=== PATIENT | male | born 1945 | race Caucasian/White ===

== ENCOUNTER → 2018-11-04 | Outpatient (CLI) | payer MEDICARE ==
--- NOTE | 2018-11-07 15:31 | PE ---
Nuclear medicine PET/CT HISTORY: Lung mass, initial Patient received 9.3 mCi F-18 FDG intravenously in delayed scanning was performed from the skull base to the mid thighs. Localization and attenuation correction CT scan was performed. Correlation to chest x-ray 11/03/2018 Neck and chest: There is cervical adenopathy noted at the level of the hyoid bone, anterior to the st ernocleidomastoid muscle, there is associated hypermetabolic uptake, SUV is 8. Within the prevascular mediastinum there is a node with hypermetabolic uptake, SUV is 4.9. Extensive additional prevascular and left hilar adenopathy is present with SUV 7, aorticopulmonary window adenopathy with associated hypermetabolic uptake, SUV 3.6. Left hilar adenopathy extends into the left upper lobe mass, SUV is 6 . Subcarinal adenopathy not identified with certainty, uptake at this level may be within the esophag us. There are coronary artery calcifications. There is a large hiatal hernia. ABDOMEN: There is a focal area of hypermetabolic uptake within the left lobe of liver, low-attenuatio n is suspected at this level on CT., SUV 3.8 There is a left adrenal mass measuring approximately 2.5 cm with associated hypermetabolic uptake, SUV is 4.6. Mild uptake noted at associated with a nodular ity in the right adrenal gland. No retroperitoneal adenopathy. Uptake along the bowel is likely physi ologic. Osseous structures: Multiple foci, too numerous to count areas of abnormal hypermetabolic uptake invo lving the pelvis, spine, ribs, proximal upper extremities and shoulders are noted. SUV value is appro ximately 3.8-7 IMPRESSION: Metastatic disease.
== END | disposition home or self-care (01) ==
LOC: RADPETMAIN 13:12
PROVIDERS: ATTEND Internal Medicine Critical Care Medicine
DX: C79.51 Secondary malignant neoplasm of bone (principal); C78.02 Secondary malignant neoplasm of left lung; C78.7 Secondary malignant neoplasm of liver and intrahepatic bile duct; C79.72 Secondary malignant neoplasm of left adrenal gland; C79.71 Secondary malignant neoplasm of right adrenal gland; R91.8 Other nonspecific abnormal finding of lung field
CPT/HCPCS: 78815; A9552

== ENCOUNTER 2018-11-08 08:19 | Emergency (ER) | payer MEDICARE ==
[2018-11-08] MEDS ORDERED: methylPREDNISolone SOD SUCCI 125 MG/2 ML VIAL IM ONE (09:11)
[2018-11-08] MEDS ORDERED: KETOROLAC 60 MG/2 ML VIAL IM STA (09:11)
[2018-11-08] MEDS ORDERED: ORPHENADRINE 30 MG/ML 2 ML VIAL IM STA (09:11)
[2018-11-08] MEDS ORDERED: HYDROcodone/APAP 10-325MG 1 EACH TAB PO ONE (09:11)
--- NOTE | 2018-11-08 09:18 | ED ---
Back Pain HPI - General Chief Complaint: Back Pain/Injury Stated Complaint: back pain, Time Seen by Provider: 11/08/18 08:38 Source: patient, RN notes reviewed, old records reviewed Limitations: no limitations - History of Present Illness Initial Comments: Patient is a 72-year-old male presents emergency department today with thoracic and lumbar back pain. Beginning of September. Patient reports that he size primary care doctor and they ordered x-rays. X-rays completed 2 weeks ago of the cervical thoracic and lumbar spine. Is evidence of degenerative disc disease throughout. X-rays thoracic spinous found evidence of a pulmonary mass. He swelling up with Dr. Darnell with this new finding. He scheduled to have a biopsy next week. Patient states he's had no new falls or trauma. Patient states that he has had no significant peripheral paresthesias and common denies saddle anesthesias. Patient states that he has had no fevers or chills. Denies any abdominal pain. - Related Data Home Medications Medication Instructions Recorded Confirmed Levothyroxine Sodium [Synthroid] 25 mcg PO DAILY 11/08/18 11/08/18 Lisinopril [Zestril] 10 mg PO DAILY 11/08/18 11/08/18 Omeprazole [PriLOSEC] 20 mg PO AC-BRKFST 11/08/18 11/08/18 Pravastatin Sodium [Pravachol] 20 mg PO HS 11/08/18 11/08/18 traMADol HCL [Ultram] 50 mg PO TID 11/08/18 11/08/18 Previous Rx's Medication Instructions Recorded Cyclobenzaprine [Flexeril] 10 mg PO TID #20 tab 11/08/18 Dexamethasone 0.75 mg PO DAILY #12 tab 11/08/18 HYDROcodone/APAP 5-325MG [[place] 1 tab PO Q6HR PRN #10 tab 11/08/18 5-325] Allergies Allergy/AdvReac Type Severity Reaction Status Date / Time No Known Allergies Allergy Verified 11/08/18 08:52 Review of Systems ROS Statement: Those systems with pertinent positive or pertinent negative responses have been documented in the HPI. ROS Other: All systems not noted in ROS Statement are negative. 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 Alert and oriented. No distress. Limitations: no limitations Head exam: Present: atraumatic, normocephalic, normal inspection Eye exam: Present: normal appearance, PERRL, EOMI. Absent: scleral icterus, conjunctival injection, periorbital swelling ENT exam: Present: normal exam, mucous membranes moist Neck exam: Present: normal inspection. Absent: tenderness, meningismus, lymphadenopathy Respiratory exam: Present: normal lung sounds bilaterally. Absent: respiratory distress, wheezes, rales, rhonchi, stridor Cardiovascular Exam: Present: regular rate, normal rhythm, normal heart sounds. Absent: systolic murmur, diastolic murmur, rubs, gallop, clicks GI/Abdominal exam: Present: soft, normal bowel sounds. Absent: distended, tenderness, guarding, rebound, rigid Extremities exam: Present: normal inspection, full ROM, normal capillary refill. Absent: tenderness, pedal edema, joint swelling, calf tenderness Back exam: Present: normal inspection, tenderness (Patient's tenderness over the lumbar and thoracic spine.) Neurological exam: Present: alert, oriented X3, CN II-XII intact Psychiatric exam: Present: normal affect, normal mood Skin exam: Present: warm, dry, intact, normal color. Absent: rash Course Vital Signs 11/08/18 08:22 Temperature 97.0 F L Pulse Rate 95 Respiratory 18 Rate Blood Pressure 130/86 O2 Sat by Pulse 97 Oximetry Medical Decision Making - Medical Decision Making Patient is a 72-year-old male presents restarted today with 2 months of mid lower back pain. He stands PCP, had x-rays completed which shows degenerative disease as well as a lung mass. Patient states that this pain continues this is dispensed persist despite taking Motrin. He was started on Ultram by his doctor yesterday. Patient states that he probably the Ultram was not helping with his pain is much as he feels like he needs to be. Patient states that pain seems to worse with position. Patient's x-rays did show multiple degenerative disc disease. Worsen L4-S1. And throughout the thoracic spine is noted to be some. Discussed with x-rays 2 weeks ago no need to repeat imaging at this time without any fall or trauma. Patient agrees. I discussed with discharge Patient with this course of steroids muscle relaxers and anti-inflammatory medicine. I discussed all questions and discuss referral for orthopedic quality assurance specialist. All questions were answered. Disposition Clinical Impression: DDD (degenerative disc disease), thoracolumbar, Back muscle spasm Disposition: HOME SELF-CARE Condition: Good Instructions (If sedation given, give patient instructions): Acute Low Back Pain (ED) Additional Instructions: Patient is to follow-up with her primary care doctor. Return to the emergency department if any alarming signs symptoms occur. Recommend following up with quality assurance specialist as well. Patient should alternating between heat and ice to the lower back as well. Prescriptions: Dexamethasone 0.75 mg PO DAILY #12 tab Cyclobenzaprine [Flexeril] 10 mg PO TID #20 tab HYDROcodone/APAP 5-325MG [[place] 5-325] 1 tab PO Q6HR PRN #10 tab PRN Reason: Pain Is patient prescribed a controlled substance at d/c from ED?: Yes If prescribed controlled substance>3 days was MAPS reviewed?: Prescribed <3 Days If opioid is for acute pain is fill amount 7 days or less?: Yes If Rx opioid, was Start Talking consent form obtained?: Yes Referrals: Skyler Gonzales MD [Primary Care Provider] - 1-2 days Time of Disposition: 10:18
[2018-11-08 10:31] VITALS: BP 110/79; PULSE 86; RESP 16; TEMP 97.8
== END 2018-11-08 10:31 | disposition home or self-care (01) ==
LOC: EC 08:19
DX: M51.35 Other intervertebral disc degeneration, thoracolumbar region (principal); M51.37 Other intervertebral disc degeneration, lumbosacral region; R91.8 Other nonspecific abnormal finding of lung field; E78.5 Hyperlipidemia, unspecified; I10 Essential (primary) hypertension; Z87.891 Personal history of nicotine dependence; Z79.890 Hormone replacement therapy; Z79.891 Long term (current) use of opiate analgesic; Z79.899 Other long term (current) drug therapy; Z85.21 Personal history of malignant neoplasm of larynx; Z90.89 Acquired absence of other organs; Z82.69 Family history of other diseases of the musculoskeletal system and connective tissue; Z83.6 Family history of other diseases of the respiratory system
CPT/HCPCS: 99283; 96372 ×3; J2360; J2930; J1885

== ENCOUNTER 2018-11-15 16:54 | Inpatient (IN) | payer MEDICARE ==
[2018-11-15 18:45] LABS: Appearance,Urine Clear (Clear); Bacteria,Urine Rare /hpf; Bilirubin,Urine Negative (Negative); Blood,Urine Trace (Negative); Color,Urine Yellow; Glucose,Urine (UA) Negative (Negative); Hyaline Casts,Urine 1 /lpf (0-2); Ketones,Urine 1+ (Negative); Leukocyte Esterase,Urine Negative (Negative); Mucus,Urine Rare /hpf; Nitrite,Urine Negative (Negative); PH, Urine 5.5 (5.0-8.0); Protein,Urine Trace (Negative); RBC,Urine 4 /hpf (0-5); Specific Gravity,Urine 1.019 (1.001-1.035); Urobilinogen,Urine <2.0 mg/dL (<2.0); WBC,Urine 1 /hpf (0-5)
--- NOTE | 2018-11-15 19:07 | ED ---
Male Urogenital HPI <Fadi Chávez - Last Filed: 11/15/18 20:41> - General Source: patient Mode of arrival: ambulatory Limitations: no limitations <Fara Gomez - Last Filed: 11/15/18 20:52> - General Chief complaint: Urogenital Stated complaint: Trouble going to the bathroom Time Seen by Provider: 11/15/18 17:50 - History of Present Illness Initial comments: 73-year-old male patient presents to the emergency department today for evaluation of inability to urinate for the last 4 days. Patient states that he has felt the pressure and urge to urinate however is unable to do so. Patient states that he did see his primary care physician yesterday, was able to give a small urine sample which showed presence of infection so she started him on Cipro. Patient states that today the pain and pressure seemed to worsen so he presented here for further evaluation. Patient denies any fever or chills. Denies any back pain. Denies any nausea or vomiting. Patient denies any history of similar symptoms. 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 Patient states that they are evaluating this. also reports the patient has been quite constipated. He was been taking MiraLAX without relief. Patient denies any recent rash, shortness breath, chest pain, numbness, tingling, dizziness, weakness, headache, visual changes, or any other complaints. (Fara Gomez) - Related Data Home Medications Medication Instructions Recorded Confirmed Levothyroxine Sodium [Synthroid] 25 mcg PO DAILY 11/08/18 11/15/18 Lisinopril [Zestril] 10 mg PO DAILY 11/08/18 11/15/18 Omeprazole [PriLOSEC] 20 mg PO AC-BRKFST 11/08/18 11/15/18 Pravastatin Sodium [Pravachol] 20 mg PO HS 11/08/18 11/15/18 Ciprofloxacin HCl [Cipro] 500 mg PO BID 11/15/18 11/15/18 HYDROcodone/APAP 7.5-325MG [[place] 1 tab PO Q6H PRN 11/15/18 11/15/18 7.5-325] Allergies Allergy/AdvReac Type Severity Reaction Status Date / Time No Known Allergies Allergy Verified 11/15/18 17:54 Review of Systems ROS Other: All systems not noted in ROS Statement are negative. <Fadi Chávez - Last Filed: 11/15/18 20:41> ROS Other: All systems not noted in ROS Statement are negative. <Fara Gomez - Last Filed: 11/15/18 20:52> ROS Statement: Those systems with pertinent positive or pertinent negative responses have been documented in the HPI. 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 Vital signs upon presentation are temperature 97.8F, pulse 109, respirations 18, blood pressure 126/82, pulse ox 97% on room air.) Eye exam: Present: normal appearance, PERRL, EOMI. Absent: scleral icterus, conjunctival injection, periorbital swelling ENT exam: Present: normal exam, normal oropharynx, mucous membranes moist Respiratory exam: Present: normal lung sounds bilaterally. Absent: respiratory distress, wheezes, rales, rhonchi, stridor Cardiovascular Exam: Present: regular rate, normal rhythm, normal heart sounds. Absent: systolic murmur, diastolic murmur, rubs, gallop, clicks GI/Abdominal exam: Present: soft, tenderness (Suprapubic), normal bowel sounds. Absent: distended, guarding, rebound, rigid Back exam: Absent: CVA tenderness (R), CVA tenderness (L) Neurological exam: Present: alert, oriented X3, CN II-XII intact Psychiatric exam: Present: normal affect, normal mood Skin exam: Present: warm, dry, intact, normal color. Absent: rash <Fara Gomez - Last Filed: 11/15/18 20:52> Course <Fadi Chávez - Last Filed: 11/15/18 20:41> Vital Signs 11/15/18 11/15/18 17:21 19:59 Temperature 97.8 F Pulse Rate 109 H 100 Respiratory 18 18 Rate Blood Pressure 126/82 126/78 O2 Sat by Pulse 97 98 Oximetry - Reevaluation(s) Reevaluation #1: 11/15/18 20:41 B supervision: I did proceed evaluate this patient in case the patient did present with urinary retention was found to be hyponatremic he does have a history of lung cancer he does demonstrate evidence of dehydration. The case is discussed with Dr. Krishnan the patient will be admitted (Fadi Chávez) Medical Decision Making - Lab Data Result diagrams: 11/15/18 19:27 11/15/18 19:30 <Fadi Chávez - Last Filed: 11/15/18 20:41> - Lab Data Result diagrams: 11/15/18 19:27 11/15/18 19:30 <Fara Gomez - Last Filed: 11/15/18 20:52> - Lab Data Lab Results 11/15/18 11/15/18 11/15/18 Range/Units 18:30 18:30 19:27 WBC 16.1 H (3.8-10.6) k/uL RBC 4.28 L (4.30-5.90) m/uL Hgb 12.9 L (13.0-17.5) gm/dL Hct 38.0 L (39.0-53.0) % MCV 88.7 (80.0-100.0) fL MCH 30.0 (25.0-35.0) pg MCHC 33.8 (31.0-37.0) g/dL RDW 13.5 (11.5-15.5) % Plt Count 187 (150-450) k/uL Neutrophils % 84 % Lymphocytes % 7 % Monocytes % 7 % Eosinophils % 0 % Basophils % 0 % Neutrophils # 13.5 H (1.3-7.7) k/uL Lymphocytes # 1.1 (1.0-4.8) k/uL Monocytes # 1.1 H (0-1.0) k/uL Eosinophils # 0.1 (0-0.7) k/uL Basophils # 0.1 (0-0.2) k/uL Sodium (137-145) mmol/L Potassium (3.5-5.1) mmol/L Chloride (98-107) mmol/L Carbon Dioxide (22-30) mmol/L Anion Gap mmol/L BUN (9-20) mg/dL Creatinine (0.66-1.25) mg/dL Est GFR (CKD-EPI)AfAm (>60 ml/min/1.73 sqM) Est GFR (CKD-EPI)NonAf (>60 ml/min/1.73 sqM) Glucose (74-99) mg/dL Osmolality (280-301) mosm/kg Calcium (8.4-10.2) mg/dL Total Bilirubin (0.2-1.3) mg/dL AST (17-59) U/L ALT (21-72) U/L Alkaline Phosphatase (38-126) U/L Total Protein (6.3-8.2) g/dL Albumin (3.5-5.0) g/dL Urine Color Yellow Urine Appearance Clear (Clear) Urine pH 5.5 (5.0-8.0) Ur Specific [place] 1.019 (1.001-1.035) Urine Protein Trace H (Negative) Urine Glucose (UA) Negative (Negative) Urine Ketones 1+ H (Negative) Urine Blood Trace H (Negative) Urine Nitrite Negative (Negative) Urine Bilirubin Negative (Negative) Urine Urobilinogen <2.0 (<2.0) mg/dL Ur Leukocyte Esterase Negative (Negative) Urine RBC 4 (0-5) /hpf Urine WBC 1 (0-5) /hpf Urine Bacteria Rare H (None) /hpf Hyaline Casts 1 (0-2) /lpf Urine Mucus Rare H (None) /hpf Urine Osmolality 515 (50-1400) mosm/kg 11/15/18 11/15/18 Range/Units 19:30 19:30 WBC (3.8-10.6) k/uL RBC (4.30-5.90) m/uL Hgb (13.0-17.5) gm/dL Hct (39.0-53.0) % MCV (80.0-100.0) fL MCH (25.0-35.0) pg MCHC (31.0-37.0) g/dL RDW (11.5-15.5) % Plt Count (150-450) k/uL Neutrophils % % Lymphocytes % % Monocytes % % Eosinophils % % Basophils % % Neutrophils # (1.3-7.7) k/uL Lymphocytes # (1.0-4.8) k/uL Monocytes # (0-1.0) k/uL Eosinophils # (0-0.7) k/uL Basophils # (0-0.2) k/uL Sodium 119 L* (137-145) mmol/L Potassium 5.0 (3.5-5.1) mmol/L Chloride 82 L (98-107) mmol/L Carbon Dioxide 26 (22-30) mmol/L Anion Gap 11 mmol/L BUN 25 H (9-20) mg/dL Creatinine 0.80 (0.66-1.25) mg/dL Est GFR (CKD-EPI)AfAm >90 (>60 ml/min/1.73 sqM) Est GFR (CKD-EPI)NonAf 90 (>60 ml/min/1.73 sqM) Glucose 111 H (74-99) mg/dL Osmolality 252 L (280-301) mosm/kg Calcium 9.0 (8.4-10.2) mg/dL Total Bilirubin 0.8 (0.2-1.3) mg/dL AST 65 H (17-59) U/L ALT 26 (21-72) U/L Alkaline Phosphatase 117 (38-126) U/L Total Protein 6.2 L (6.3-8.2) g/dL Albumin 3.4 L (3.5-5.0) g/dL Urine Color Urine Appearance (Clear) Urine pH (5.0-8.0) Ur Specific [place] (1.001-1.035) Urine Protein (Negative) Urine Glucose (UA) (Negative) Urine Ketones (Negative) Urine Blood (Negative) Urine Nitrite (Negative) Urine Bilirubin (Negative) Urine Urobilinogen (<2.0) mg/dL Ur Leukocyte Esterase (Negative) Urine RBC (0-5) /hpf Urine WBC (0-5) /hpf Urine Bacteria (None) /hpf Hyaline Casts (0-2) /lpf Urine Mucus (None) /hpf Urine Osmolality (50-1400) mosm/kg Disposition <Fadi Chávez - Last Filed: 11/15/18 20:41> Decision to Admit Reason: Admit from [facility] Decision Date: 11/15/18 Decision Time: 20:52 <Fara Gomez - Last Filed: 11/15/18 20:52> Clinical Impression: Hyponatremia, Urine retention Disposition: ADMITTED IP TO THIS [facility] Condition: Serious Referrals: Skyler Gonzales MD [Primary Care Provider] - 1-2 days
--- NOTE | 2018-11-15 19:13 | XR ---
EXAMINATION TYPE: XR KUB DATE OF EXAM: 11/15/2018 COMPARISON: NONE HISTORY: Constipation TECHNIQUE: 2 views FINDINGS: 2 upright views were obtained and show no sign of intestinal obstruction or pneumoperitoneu m. Fecal pattern is normal. There is no sign of a mass. There is slight elevated right diaphragm. The re is hiatal hernia. IMPRESSION: Mild elevated right diaphragm. Nonacute abdomen. No evidence of constipation.
[2018-11-15 19:51] LABS: Basophils # (A) 0.1 k/uL (0-0.2); Basophils % (A) 0 %; Eosinophils # (A) 0.1 k/uL (0-0.7); Eosinophils % (A) 0 %; HGB 12.9 gm/dL (13.0-17.5); Lymphocytes # (A) 1.1 k/uL (1.0-4.8); Lymphocytes % (A) 7 %; MCHC 33.8 g/dL (31.0-37.0); MCV 88.7 fL (80.0-100.0); Monocytes # (A) 1.1 k/uL (0-1.0); Monocytes % (A) 7 %; Neutrophils # (A) 13.5 k/uL (1.3-7.7); Neutrophils % (A) 84 %; Platelet Count 187 k/uL (150-450); RBC 4.28 m/uL (4.30-5.90); RDW 13.5 % (11.5-15.5); WBC 16.1 k/uL (3.8-10.6)
[2018-11-15 19:59] LABS: ALT 26 U/L (21-72); AST 65 U/L (17-59); Albumin 3.4 g/dL (3.5-5.0); Alkaline Phosphatase 117 U/L (38-126); Anion Gap 11 mmol/L; Blood Urea Nitrogen 25 mg/dL (9-20); Carbon Dioxide 26 mmol/L (22-30); Chloride 82 mmol/L (98-107); Glucose 111 mg/dL (74-99); Total Bilirubin 0.8 mg/dL (0.2-1.3); Total Protein 6.2 g/dL (6.3-8.2)
[2018-11-15 20:07] LABS: Sodium 119 mmol/L (137-145)
[2018-11-15] MEDS: SODIUM CHLORIDE 0.9% 1,000 ML IV SCH (20:35)
[2018-11-15] MEDS ORDERED: NALOXONE 0.4 MG/ML 1 ML VIAL IV PRN (20:49)
[2018-11-15] MEDS: PRAVASTATIN SODIUM 20 MG TAB PO SCH (22:12)
[2018-11-15] MEDS: CIPROFLOXACIN HCL 500 MG TAB PO SCH (22:12)
[2018-11-15] MEDS: MELATONIN 3 MG TABLET PO SCH (22:18)
[2018-11-16] MEDS: SODIUM CHLORIDE 0.9% 1,000 ML IV SCH ×2 (03:19→09:22)
[2018-11-16] MEDS: HYDROcodone/APAP 7.5-325MG 1 EACH TAB PO PRN ×3 (05:55→17:37)
[2018-11-16] MEDS: LEVOTHYROXINE 25 MCG TAB PO SCH (05:56)
[2018-11-16 07:26] LABS: ALT 31 U/L (21-72); AST 70 U/L (17-59); Albumin 3.1 g/dL (3.5-5.0); Alkaline Phosphatase 102 U/L (38-126); Anion Gap 11 mmol/L; Blood Urea Nitrogen 19 mg/dL (9-20); Calcium 8.4 mg/dL (8.4-10.2); Carbon Dioxide 23 mmol/L (22-30); Chloride 93 mmol/L (98-107); Glucose 108 mg/dL (74-99); Potassium 4.6 mmol/L (3.5-5.1); Sodium 127 mmol/L (137-145); Total Bilirubin 0.7 mg/dL (0.2-1.3); Total Protein 5.9 g/dL (6.3-8.2)
[2018-11-16] MEDS: CIPROFLOXACIN HCL 500 MG TAB PO SCH (07:43)
[2018-11-16] MEDS: PANTOPRAZOLE 40 MG TABLET PO SCH (07:43)
[2018-11-16] MEDS: LISINOPRIL 10 MG TAB PO SCH (07:43)
[2018-11-16] MEDS ORDERED: POLYETHYLENE GLYCOL 3350 17 GM POWD.PACK PO PRN (11:48)
--- NOTE | 2018-11-16 11:58 | P.HPIM ---
History of Present Illness 71-year-old the pleasant gentleman came in with the complaints of urinary retention has been going on for about 5 days. Patient is found to be severely hyponatremic with serum creatinine of 119 patient was given 1 50 mL of normal sa line and his sodium is now 127. Patient's urinary sodium is less than 10 consistent with hypovolemic hyponatremia. Patient has a [place] catheter. Patient is also complaining of constipation, not been eating or drinking well. 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 We'll obtain MRI of the lumbar spine to assess for any metastatic disease constipation was not evident on the x-ray will use MiraLAX for that urology will be consulted. Nephrology be consulted as well patient does have leukocytosis which appear to be reactive. Patient denied any dysuria was receiving ciprofloxacin urine is not significa ntly abnormal now that he is draining him not require any antibiotics and antiemetics will be discontinued patient that IV fluids will be down to 100 mL/h. Patient denied any increased weakness in the legs increase the tingling numbness is weakness is at his baseline patient uses walker at home. Review of Systems REVIEW OF SYSTEMS: CONSTITUTIONAL: No fever, no malaise, no fatigue. HEENT: No recent visual problems or hearing problems. Denied any sore throat. CARDIOVASCULAR: No chest pain, orthopnea, PND, no palpitations, no syncope. PULMONARY: No shortness of breath, no cough, no hemoptysis. GASTROINTESTINAL: No diarrhea, no nausea, no vomiting, no abdominal pain. NEUROLOGICAL: No headaches, no weakness, no numbness. HEMATOLOGICAL: Denies any bleeding or petechiae. GENITOURINARY: As mentioned in HPI MUSCULOSKELETAL/RHEUMATOLOGICAL: Denies any joint pain, swelling, or any muscle pain. ENDOCRINE: Denies any polyuria or polydipsia. The rest of the 14-point review of systems is negative. 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 Past Anesthesia/Blood Transfusion Reactions: No Reported Reaction Past Psychological History: No Psychological Hx Reported Smoking Status: Former smoker Past Alcohol Use History: None Reported Past Drug Use History: None Reported - Past Family History Father Family Medical History: No Reported History Mother Family Medical History: No Reported History Medications and Allergies Home Medications Medication Instructions Recorded Confirmed Type Levothyroxine Sodium [Synthroid] 25 mcg PO DAILY 11/08/18 11/15/18 History Lisinopril [Zestril] 10 mg PO DAILY 11/08/18 11/15/18 History Omeprazole [PriLOSEC] 20 mg PO AC-BRKFST 11/08/18 11/15/18 History Pravastatin Sodium [Pravachol] 20 mg PO HS 11/08/18 11/15/18 History Ciprofloxacin HCl [Cipro] 500 mg PO BID 11/15/18 11/15/18 History HYDROcodone/APAP 7.5-325MG [[place] 1 tab PO Q6H PRN 11/15/18 11/15/18 History 7.5-325] Allergies Allergy/AdvReac Type Severity Reaction Status Date / Time No Known Allergies Allergy Verified 11/15/18 17:54 Physical Exam Vitals: Vital Signs Temp Pulse Pulse Resp BP BP Pulse Ox 11/16/18 07:18 98.8 F 89 17 125/76 96 11/16/18 01:39 98.6 F 95 17 125/75 95 11/15/18 22:00 98.9 F 101 H 16 110/63 96 11/15/18 19:59 100 18 126/78 98 11/15/18 17:21 97.8 F 109 H 18 126/82 97 Intake and Output 11/15/18 11/16/18 11/16/18 22:59 06:59 14:59 Output Total 1450 2350 1800 Balance -1450 -2350 -1800 Output: Urine 1450 2350 1800 Other: Voiding Method Toilet Indwelling Catheter Indwelling Catheter Diaper Weight 90.718 kg PHYSICAL EXAMINATION: GENERAL: The patient is alert and oriented x3, not in any acute distress. Well developed, well nourished. HEENT: Pupils are round and equally reacting to light. EOMI. No scleral icterus. No conjunctival pallor. Normocephalic, atraumatic. No pharyngeal erythema. No thyromegaly. CARDIOVASCULAR: S1 and S2 present. No murmurs, rubs, or gallops. PULMONARY: Chest is clear to auscultation, no wheezing or crackles. ABDOMEN: Soft, nontender, nondistended, normoactive bowel sounds. No palpable organomegaly. MUSCULOSKELETAL: No joint swelling or deformity. EXTREMITIES: No cyanosis, clubbing, or pedal edema. NEUROLOGICAL: Gross neurological examination did not reveal any focal deficits. SKIN: No rashes. Results CBC & Chem 7: 11/15/18 19:27 11/16/18 06:35 Labs: Abnormal Lab Results - Last 24 Hours (Table) 11/15/18 11/15/18 11/15/18 Range/Units 18:30 19:27 19:30 WBC 16.1 H (3.8-10.6) k/uL RBC 4.28 L (4.30-5.90) m/uL Hgb 12.9 L (13.0-17.5) gm/dL Hct 38.0 L (39.0-53.0) % Neutrophils # 13.5 H (1.3-7.7) k/uL Monocytes # 1.1 H (0-1.0) k/uL Sodium 119 L* (137-145) mmol/L Chloride 82 L (98-107) mmol/L BUN 25 H (9-20) mg/dL Creatinine (0.66-1.25) mg/dL Glucose 111 H (74-99) mg/dL Osmolality (280-301) mosm/kg AST 65 H (17-59) U/L Total Protein 6.2 L (6.3-8.2) g/dL Albumin 3.4 L (3.5-5.0) g/dL Urine Protein Trace H (Negative) Urine Ketones 1+ H (Negative) Urine Blood Trace H (Negative) Urine Bacteria Rare H (None) /hpf Urine Mucus Rare H (None) /hpf 11/15/18 11/16/18 Range/Units 19:30 06:35 WBC (3.8-10.6) k/uL RBC (4.30-5.90) m/uL Hgb (13.0-17.5) gm/dL Hct (39.0-53.0) % Neutrophils # (1.3-7.7) k/uL Monocytes # (0-1.0) k/uL Sodium 127 L (137-145) mmol/L Chloride 93 L (98-107) mmol/L BUN (9-20) mg/dL Creatinine 0.63 L (0.66-1.25) mg/dL Glucose 108 H (74-99) mg/dL Osmolality 252 L (280-301) mosm/kg AST 70 H (17-59) U/L Total Protein 5.9 L (6.3-8.2) g/dL Albumin 3.1 L (3.5-5.0) g/dL Urine Protein (Negative) Urine Ketones (Negative) Urine Blood (Negative) Urine Bacteria (None) /hpf Urine Mucus (None) /hpf Thrombosis Risk Factor Assmnt - Choose All That Apply Any of the Below Risk Factors Present?: Yes Other Risk Factors: Yes Each Risk Factor Represents 2 Points: Age 61-74 years Thrombosis Risk Factor Assessment Total Risk Factor Score: 2 Thrombosis Risk Factor Assessment Level: Low Risk Assessment and Plan Plan: -Urinary retention patient was started on Flomax will obtain MRI of the lumbar spine because of his metastatic disease to spine patient also has constipation which can contribute to urinary retention, urology will be consulted. -Hyponatremia hypovolemic hyponatremia patient's IV fluids will be cut down to 100 mL per hour patient has more than Corrected response of improvement in serum creatinine that is definitely a concern for central pontine myelolysis although significantly rare. -Leukocytosis reactive, no UTI -Hyperlipidemia -Hypertension DVT prophylaxis with subcutaneous heparin
--- NOTE | 2018-11-16 12:08 | P.NPCON ---
History of Present Illness - Reason for Consult hyponatremia - History of Present Illness Reason for consultation: Hyponatremia History of present illness: Patient is a 73-year-old male seen in renal consultation for hyponatremia. Patient presented to the hospital due to difficulty in urination. Patient states he felt that he had a UTI and also states that he could not urinate for nearly 4 days. He was noted to have urinary retention and a Alcala catheter placed this admission. Initially 1400 mL of urine was obtained. Oral intake is fair. He is not on any diuretics. He denies drinking excessive amounts of water. No vomiting or diarrhea. Denies chest pain or shortness of breath. He is also receiving normal saline at 100 mL an hour. Sodium level was 119 on admission yesterday evening and is 127 this morning. Patient's GFR is at baseline. Oral intake has improved. Hemodynamically he stable. Denies personal or family history of renal disease. Vital signs are stable. General: The patient appeared well nourished and normally developed. HEENT: Head exam is unremarkable. Neck is without jugular venous distension. LUNGS: Lungs are clear to auscultation and percussion. Breath sounds decreased. HEART: Rate and Rhythm are regular. First and second heart sounds normal. No murmurs, rubs or gallops. ABDOMEN: Abdominal exam reveals normal bowel sounds. Non-tender and non- distended. No evidence of peritonitis. EXTREMITITES: No clubbing, cyanosis, or edema. 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 Past Anesthesia/Blood Transfusion Reactions: No Reported Reaction Past Psychological History: No Psychological Hx Reported Smoking Status: Former smoker Past Alcohol Use History: None Reported Past Drug Use History: None Reported - Past Family History Father Family Medical History: No Reported History Mother Family Medical History: No Reported History Medications and Allergies Home Medications Medication Instructions Recorded Confirmed Type Levothyroxine Sodium [Synthroid] 25 mcg PO DAILY 11/08/18 11/15/18 History Lisinopril [Zestril] 10 mg PO DAILY 11/08/18 11/15/18 History Omeprazole [PriLOSEC] 20 mg PO AC-BRKFST 11/08/18 11/15/18 History Pravastatin Sodium [Pravachol] 20 mg PO HS 11/08/18 11/15/18 History Ciprofloxacin HCl [Cipro] 500 mg PO BID 11/15/18 11/15/18 History HYDROcodone/APAP 7.5-325MG [[place] 1 tab PO Q6H PRN 11/15/18 11/15/18 History 7.5-325] Allergies Allergy/AdvReac Type Severity Reaction Status Date / Time No Known Allergies Allergy Verified 11/15/18 17:54 Physical Exam Vitals: Vital Signs Temp Pulse Pulse Resp BP BP Pulse Ox 11/16/18 07:18 98.8 F 89 17 125/76 96 11/16/18 01:39 98.6 F 95 17 125/75 95 11/15/18 22:00 98.9 F 101 H 16 110/63 96 11/15/18 19:59 100 18 126/78 98 11/15/18 17:21 97.8 F 109 H 18 126/82 97 Intake and Output 11/15/18 11/16/18 11/16/18 22:59 06:59 14:59 Output Total 1450 2350 1800 Balance -1450 -2350 -1800 Output: Urine 1450 2350 1800 Other: Voiding Method Toilet Indwelling Catheter Indwelling Catheter Diaper Weight 90.718 kg Results - Lab Results Most recent lab results Calcium 8.4 mg/dL (8.4-10.2) 11/16/18 06:35 11/15/18 19:27 11/16/18 06:35 Assessment and Plan Plan: Assessment: 1. Hyponatremia. Patient appears euvolemic. Etiology is urinary retention. Sodium level was 119 on admission last night and is 127 this morning. Also component of poor solute intake as urine sodium was noted to be less than 10 and urine osmolality was 515. 2. Urinary retention s/p Alcala catheter placement. 3. Benign hypertension. Controlled. 4. Recently diagnosed lung cancer. Plan: Maintain Alcala catheter. Hep-Lock IV fluids. Encourage oral intake. Repeat sodium level this evening. Thank you for the consultation. I will continue to follow the patient with you during his hospital stay.
--- NOTE | 2018-11-16 14:12 | MR ---
EXAMINATION TYPE: MR lumbar spine wo/w con DATE OF EXAM: 11/16/2018 COMPARISON: None HISTORY: Lung cancer with mets and acute urinary retention CONTRAST: 9 mL intravenous Gadavist. TECHNIQUE: Multiplanar, multisequence images of the lumbar spine were acquired. FINDINGS: There is diffuse abnormal signal throughout the lumbar spine including the lower thoracic and upper sacral vertebral levels within the [id number] compatible with the patient's known metast atic disease. L5-S1: Based disc bulge is present with anterior thecal sac impression. No AP spinal canal stenosis i s present. Some facet hypertrophy is present. Moderate right foraminal narrowing is present. L4-L5: There is loss of disc height to this level. Disc residual bulge has anterior thecal sac flatte arnulfo. Facet hypertrophy with ligamentum flavum laxity is mild right posterior lateral thecal sac comp ression. There is moderate to severe right and mild left foraminal narrowing. L3-L4: Broad-based disc bulge is subligamentous disc herniation with mild anterior thecal sac flatten ing. No AP spinal canal stenosis present. Facet hypertrophy is present. Neural foramen are patent. L2-L3: Disc bulge is present with mild anterior thecal sac contact. No spinal canal stenosis present. Neural foramen are patent. L1-L2: There is a moderate central disc herniation with moderate anterior thecal sac compression. No AP spinal canal stenosis is present. Neural foramen are patent. T12-L1: No significant disc bulge or disc herniation. No spinal canal stenosis. No foraminal stenos is. There is irregular patchy enhancement through the vertebral levels compatible with the patient's meta static disease. IMPRESSION: 1. Diffuse metastatic disease throughout the visualized osseous structures. 2. Subligamentous disc herniation present with mild to moderate anterior thecal sac compression L3-4, L1-2 discussed above. 3. Additional residual disc bulging present L2-3, L4-5. 4. Foraminal narrowing which is moderate on the right at L5-S1, and moderate to severe on the right L 4-5.
[2018-11-16] MEDS: DEXAMETHASONE SOD PHOSPHATE 4 MG/ML 1 ML VIAL IV SCH (17:38)
[2018-11-16] MEDS ORDERED: TAMSULOSIN 0.4 MG CAP.ER.24H PO SCH (18:30)
[2018-11-16] MEDS: PRAVASTATIN SODIUM 20 MG TAB PO SCH (20:53)
[2018-11-16] MEDS: MELATONIN 3 MG TABLET PO SCH (20:53)
--- NOTE | 2018-11-16 21:53 | P.GSCN ---
History of Present Illness Consult date: 11/16/18 Reason for Consult: Urinary retention Requesting physician: Gavi Parry History of present illness: The patient is a 73-year-old white male with a history of vocal cord malignancy, treated approximately 5 years ago. He has recently developed back pain, and imaging has revealed a lung nodule. Imaging studies have also shown diffuse osseous metastases, including to the spine, and he is presumed to have metasta tic lung cancer. He is admitted with a four-day history of difficulty voiding. He underwent Alcala catheter placement, with a return of 8278-4891 mL of urine (records regarding this are vague). He has an unremarkable urologic history. Specifically, he denies any prior history of UTIs, urolithiasis, or voiding dysfunction. 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 Past Anesthesia/Blood Transfusion Reactions: No Reported Reaction Past Psychological History: No Psychological Hx Reported Smoking Status: Former smoker Past Alcohol Use History: None Reported Past Drug Use History: None Reported - Past Family History Father Family Medical History: No Reported History Mother Family Medical History: No Reported History Medications and Allergies Home Medications Medication Instructions Recorded Confirmed Type Levothyroxine Sodium [Synthroid] 25 mcg PO DAILY 11/08/18 11/15/18 History Lisinopril [Zestril] 10 mg PO DAILY 11/08/18 11/15/18 History Omeprazole [PriLOSEC] 20 mg PO AC-BRKFST 11/08/18 11/15/18 History Pravastatin Sodium [Pravachol] 20 mg PO HS 11/08/18 11/15/18 History Ciprofloxacin HCl [Cipro] 500 mg PO BID 11/15/18 11/15/18 History HYDROcodone/APAP 7.5-325MG [[place] 1 tab PO Q6H PRN 11/15/18 11/15/18 History 7.5-325] Allergies Allergy/AdvReac Type Severity Reaction Status Date / Time No Known Allergies Allergy Verified 11/15/18 17:54 Surgical - Exam Vital Signs Temp Pulse Resp BP Pulse Ox 97.8 F 109 H 18 126/82 97 11/15/18 17:21 11/15/18 17:21 11/15/18 17:21 11/15/18 17:21 11/15/18 17:21 - General well developed, well nourished, no distress - Respiratory normal respiratory effort - Abdomen Abdomen: soft, non tender, no guarding, no rigid, no rebound - Genitourinary normal penis with no external lesions, testicles non-tender - Rectum Rectum: normal sphincter tone, no masses, other (Prostate moderately enlarged and smooth) - Psychiatric oriented to time, oriented to person, oriented to place, speech is normal, memory intact Results - Labs 11/15/18 19:27 11/16/18 19:00 Abnormal Lab Results - Last 24 Hours (Table) 11/16/18 11/16/18 Range/Units 06:35 19:00 Sodium 127 L 129 L (137-145) mmol/L Chloride 93 L (98-107) mmol/L Creatinine 0.63 L (0.66-1.25) mg/dL Glucose 108 H (74-99) mg/dL AST 70 H (17-59) U/L Total Protein 5.9 L (6.3-8.2) g/dL Albumin 3.1 L (3.5-5.0) g/dL Diabetes panel 11/16/18 11/16/18 Range/Units 06:35 19:00 Sodium 127 L 129 L (137-145) mmol/L Potassium 4.6 (3.5-5.1) mmol/L Chloride 93 L (98-107) mmol/L Carbon Dioxide 23 (22-30) mmol/L BUN 19 (9-20) mg/dL Creatinine 0.63 L (0.66-1.25) mg/dL Glucose 108 H (74-99) mg/dL Calcium 8.4 (8.4-10.2) mg/dL AST 70 H (17-59) U/L ALT 31 (21-72) U/L Alkaline Phosphatase 102 (38-126) U/L Total Protein 5.9 L (6.3-8.2) g/dL Albumin 3.1 L (3.5-5.0) g/dL Calcium panel 11/16/18 Range/Units 06:35 Calcium 8.4 (8.4-10.2) mg/dL Albumin 3.1 L (3.5-5.0) g/dL Pituitary panel 11/16/18 11/16/18 Range/Units 06:35 19:00 Sodium 127 L 129 L (137-145) mmol/L Potassium 4.6 (3.5-5.1) mmol/L Chloride 93 L (98-107) mmol/L Carbon Dioxide 23 (22-30) mmol/L BUN 19 (9-20) mg/dL Creatinine 0.63 L (0.66-1.25) mg/dL Glucose 108 H (74-99) mg/dL Calcium 8.4 (8.4-10.2) mg/dL Adrenal panel 11/16/18 11/16/18 Range/Units 06:35 19:00 Sodium 127 L 129 L (137-145) mmol/L Potassium 4.6 (3.5-5.1) mmol/L Chloride 93 L (98-107) mmol/L Carbon Dioxide 23 (22-30) mmol/L BUN 19 (9-20) mg/dL Creatinine 0.63 L (0.66-1.25) mg/dL Glucose 108 H (74-99) mg/dL Calcium 8.4 (8.4-10.2) mg/dL Total Bilirubin 0.7 (0.2-1.3) mg/dL AST 70 H (17-59) U/L ALT 31 (21-72) U/L Alkaline Phosphatase 102 (38-126) U/L Total Protein 5.9 L (6.3-8.2) g/dL Albumin 3.1 L (3.5-5.0) g/dL Assessment and Plan (1) Urine retention Current Visit: Yes Status: Acute Code(s): R33.9 - RETENTION OF URINE, UNSPECIFIED SNOMED Code(s): 859478047 Plan: In summary, the patient is a 73-year-old white male with diffuse bony metastases, including to the spine. He has been found to have hyponatremia and urinary retention. A Alcala catheter is currently in place, draining clear ye llow urine. I explained to Mr. Ruiz that his bladder was significantly distended, and that this typically results in a loss of bladder tone. In view of this, the Alcala catheter will be left in place for a minimum of 1-2 weeks to allow the bladder to regain its tone. I don't believe there is any benefit to Mr. Ruiz receiving tamsulosin at this time, but should be initiated prior to a voiding trial. Time with Patient: Greater than 30
[2018-11-17] MEDS: DEXAMETHASONE SOD PHOSPHATE 4 MG/ML 1 ML VIAL IV SCH ×4 (01:05→16:51)
[2018-11-17] MEDS: LEVOTHYROXINE 25 MCG TAB PO SCH (06:28)
[2018-11-17] MEDS: HYDROcodone/APAP 7.5-325MG 1 EACH TAB PO PRN ×2 (07:29→16:05)
[2018-11-17] MEDS: PANTOPRAZOLE 40 MG TABLET PO SCH (07:29)
[2018-11-17] MEDS: LISINOPRIL 10 MG TAB PO SCH (07:31)
[2018-11-17 07:34] VITALS: TEMP 97.6
[2018-11-17 07:44] LABS: Anion Gap 9 mmol/L; Blood Urea Nitrogen 17 mg/dL (9-20); Calcium 8.6 mg/dL (8.4-10.2); Carbon Dioxide 27 mmol/L (22-30); Chloride 96 mmol/L (98-107); Glucose 143 mg/dL (74-99); Sodium 132 mmol/L (137-145)
[2018-11-17 07:58] LABS: Potassium 5.4 mmol/L (3.5-5.1)
--- NOTE | 2018-11-17 09:46 | P.PN ---
Subjective Patient is seen in follow-up for hyponatremia. Etiology of his urinary retention. Patient currently is a Alcala catheter. Urine output is good. Oral intake is good. Sodium level is up to 132 today. Vital signs are stable. General: The patient appeared well nourished and normally developed. HEENT: Head exam is unremarkable. Neck is without jugular venous distension. LUNGS: Lungs are clear to auscultation and percussion. Breath sounds decreased. HEART: Rate and Rhythm are regular. First and second heart sounds normal. No murmurs, rubs or gallops. ABDOMEN: Abdominal exam reveals normal bowel sounds. Non-tender and non- distended. No evidence of peritonitis. EXTREMITITES: No clubbing, cyanosis, or edema. Objective - Vital Signs Vital signs: Vital Signs Temp 97.6 F 11/17/18 07:33 Pulse 88 11/17/18 07:33 Resp 16 11/17/18 07:33 BP 130/88 11/17/18 07:33 Pulse Ox 97 11/17/18 07:33 Intake & Output 11/16/18 11/17/18 11/17/18 18:59 06:59 18:59 Intake Total 1080 Output Total 2525 1999 Balance -2525 -920 Intake: Oral 1080 Output: Urine 2525 1999 Other: Voiding Method Indwelling Catheter Indwelling Catheter Indwelling Catheter # Voids 1 - Labs CBC & Chem 7: 11/15/18 19:27 11/17/18 06:51 Labs: Abnormal Lab Results - Last 24 Hours (Table) 11/16/18 11/17/18 Range/Units 19:00 06:51 Sodium 129 L 132 L (137-145) mmol/L Potassium 5.4 H (3.5-5.1) mmol/L Chloride 96 L (98-107) mmol/L Creatinine 0.55 L (0.66-1.25) mg/dL Glucose 143 H (74-99) mg/dL Assessment and Plan Plan: Assessment: 1. Hyponatremia. Patient appears euvolemic. Etiology is urinary retention. Sodium level was 119 on admission last night and is 132 this morning. Also component of poor solute intake as urine sodium was noted to be less than 10 and urine osmolality was 515. 2. Urinary retention s/p Alcala catheter placement. Also on Flomax. 3. Benign hypertension. Controlled. 4. Recently diagnosed lung cancer. Plan: Maintain Alcala catheter. Remains off IV fluids. Encourage oral intake. Stable to be discharged home from nephrology standpoint. Patient will follow-up with urology and our office outpatient.
[2018-11-17 10:49] LABS: INR 0.9 (<1.2); Prothrombin Time 10.2 sec (9.0-12.0)
--- NOTE | 2018-11-17 12:55 | P.CNOR ---
History of Present Illness - [facility] Consult date: 11/17/18 Requesting physician: Donald Pineda Consult reason: low back pain, other (Diffuse abnormal signal of the lower thoracic spine, lumbar spine, and upper sacral levels compatible with metastatic disease) History of present illness: Patient is a very pleasant 73-year-old male who is seen and examined at the bedside with his family present for further evaluation regards to his lumbar s pine. Patient has been experiencing worsening low back pain since August 2018 without injury. He states he does have a history of chronic low back pain that comes and goes. He states this pain recently has been worse. He states he was undergoing some further treatment in outpatient setting. He is unsure of exactly what testing he had performed but following his results he was being referred to Dr. Zaidi in oncology. His symptoms have been progressing and he presented to the hospital yesterday, 11/16/2018, for further evaluation. His back pain symptoms were significant at that time. He is also having urinary retention and was found to have hyponatremia. He has a Alcala catheter intact. At the bedside today he states his back pain has significantly improved during his admittance. He states this is the best his back is felt since August 2018. He denies any lower extremity weakness or radiculopathy bilaterally. He ambulates without difficulty but does use a walker at his baseline. During his admission he has had an MRI of the lumbar spine with and without contrast. He is currently being seen by medicine, urology and oncology. Nursing states he is scheduled for a lung biopsy today. Patient states he has previously undergone a PET scan which showed diffuse changes in his spine and other parts of his body. He states he does not have a specific diagnoses at this time. PET scan was ordered and performed on 11/04/2018 after initial lung mass was found. Patient has a past medical history which includes hyperlipidemia, hypertension, and laryngeal cancer. 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 Past Anesthesia/Blood Transfusion Reactions: No Reported Reaction Past Psychological History: No Psychological Hx Reported Smoking Status: Former smoker Past Alcohol Use History: None Reported Past Drug Use History: None Reported - Past Family History Father Family Medical History: No Reported History Mother Family Medical History: No Reported History Medications and Allergies Home Medications Medication Instructions Recorded Confirmed Type Levothyroxine Sodium [Synthroid] 25 mcg PO DAILY 11/08/18 11/15/18 History Lisinopril [Zestril] 10 mg PO DAILY 11/08/18 11/15/18 History Omeprazole [PriLOSEC] 20 mg PO AC-BRKFST 11/08/18 11/15/18 History Pravastatin Sodium [Pravachol] 20 mg PO HS 11/08/18 11/15/18 History Ciprofloxacin HCl [Cipro] 500 mg PO BID 11/15/18 11/15/18 History HYDROcodone/APAP 7.5-325MG [[place] 1 tab PO Q6H PRN 11/15/18 11/15/18 History 7.5-325] Allergies Allergy/AdvReac Type Severity Reaction Status Date / Time No Known Allergies Allergy Verified 11/15/18 17:54 Physical Examination Physical exam: Patient is awake, alert, and oriented 3; patient is sitting upright at bedside chair Vital signs stable Good chest excursion with deep inspiration and expiration Abdomen soft nontender Examination of lumbar spine reveals skin is intact with no abrasions, lacerations, or bruises; no erythema, purulence or signs of infection No pain with palpation over the thoracic or lumbar spines Dorsiflexion, plantarflexion, and extensor hallucis longus positive sustained bilaterally Lower extremity strength 5/5 bilaterally Patellar reflex 2+ bilaterally and Achilles reflexes 0+ bilaterally No lower extremity hyperreflexia bilaterally Straight leg test negative bilateral lower extremities No signs or symptoms of DVT; no calf pain No pain with internal and external rotation of the hips bilaterally Alcala catheter intact Neurovascularly intact Results Pertinent studies: MRI of lumbar spine with and without contrast taken on 11/16/2018: Diffuse abnormal signal throughout the lumbar spine including the lower thoracic and upper sacral vertebral levels compatible with metastatic disease L1-2 moderate central disc herniation resulting in moderate thecal sac compression with no spinal canal stenosis; L2-3 disc bulging with mild thecal sac contact; L3-4 broad-based disc bulge and facet hypertrophy resulting in mild thecal sac flattening; L4-5 degenerative disc disease, disc bulge, facet hypertrophy, and ligamentum flavum laxity resulting in moderate to severe right and mild left neural foraminal narrowing with some thecal sac compression; L5-S1 broad-based disc bulge and facet hypertrophy resulting in moderate right neuroforaminal narrowing PET scan performed on 11/04/2018: Metastatic disease; multiple foci of abnormal hypermetabolic uptake involving the pelvis, spine, ribs, proximal upper extremities, shoulders; focal area of hypermetabolic uptake within the left lobe of the liver, left adrenal mass, and right adrenal gland; hypermetabolic uptake at the mediastinum; left hilar adenopathy extending into the left upper lobe mass; cervical adenopathy at the level of the hyoid bone anterior to the SCM muscle - Labs Labs: Abnormal Lab Results - Last 24 Hours (Table) 11/16/18 11/17/18 Range/Units 19:00 06:51 Sodium 129 L 132 L (137-145) mmol/L Potassium 5.4 H (3.5-5.1) mmol/L Chloride 96 L (98-107) mmol/L Creatinine 0.55 L (0.66-1.25) mg/dL Glucose 143 H (74-99) mg/dL H & H 11/15/18 Range/Units 19:27 Hgb 12.9 L (13.0-17.5) gm/dL Hct 38.0 L (39.0-53.0) % Coagulation 11/17/18 Range/Units 09:24 INR 0.9 (<1.2) Result Diagrams: 11/15/18 19:27 11/17/18 06:51 Assessment and Plan Assessment: Assessment: Diffuse abnormal signal throughout the lower thoracic spine, lumbar spine, and upper sacral levels compatible with metastatic disease Intractable low back pain, resolved L4-5 degenerative disc disease Lumbar facet arthropathy Urinary retention with Alcala catheter intact Hyponatremia Left upper lobe mass Multiple areas of abnormal hypermetabolic uptake at the pelvis, spine, ribs, proximal upper extremities, liver, adrenals, and mediastinum (1) Intractable low back pain Current Visit: Yes Status: Acute Code(s): M54.5 - LOW BACK PAIN SNOMED Code(s): 91810955770992039 (2) Degeneration of L4-L5 intervertebral disc Current Visit: Yes Status: Acute Code(s): M51.36 - OTHER INTERVERTEBRAL DISC DEGENERATION, LUMBAR REGION SNOMED Code(s): 46072676 (3) Lumbar facet arthropathy Current Visit: Yes Status: Acute Code(s): M47.816 - SPONDYLOSIS W/O MYELOPATHY OR RADICULOPATHY, LUMBAR REGION SNOMED Code(s): 646291348 (4) Mass of upper lobe of left lung Current Visit: Yes Status: Acute Code(s): R91.8 - OTHER NONSPECIFIC ABNORMAL FINDING OF LUNG FIELD SNOMED Code(s): 584830242 (5) Metastatic disease Current Visit: Yes Status: Acute Code(s): C79.9 - SECONDARY MALIGNANT NEOPLASM OF UNSPECIFIED SITE SNOMED Code(s): 235079371 (6) Hyponatremia Current Visit: Yes Status: Acute Code(s): E87.1 - HYPO-OSMOLALITY AND HYPONATREMIA SNOMED Code(s): 26777098 (7) Urine retention Current Visit: Yes Status: Acute Code(s): R33.9 - RETENTION OF URINE, UNSPECIFIED SNOMED Code(s): 393314169 Plan: Plan: 1. Patient has been discussed in detail with Dr. Anival Ross. Imaging has been reviewed by myself and Dr. Anival Ross. At this time, we will plan to continue conservative treatment regards to his lumbar spine. He was experiencing i ntractable low back pain at his admittance to the emergency department but has had significant improvement of his symptoms at this time. He states this is the best his back is felt since August 2018. He denies any lower extremity weakness or radiculopathy bilaterally. He has been able to ambulate without significant difficulty with the aid of a walker. He is experiencing urinary retention. Upo n reviewing of imaging of the lumbar MRI with and without contrast, there does not appear to be a mechanical cause of his lumbar spine to be resulting in his urinary retention. He does not have evidence of significant spinal canal stenosis or nerve compromise. At this time, he is currently undergoing further treatment and evaluation in regards to his left upper lobe mass. We will not currently plan to obtain further imaging or further treatment. Due to the improvement of his symptoms, we will not currently plan for bracing. We did discuss his abnormal bone uptake within his lower thoracic spine, lumbar spine, and upper sacrum visualized on lumbar MRI imaging. We discussed that if his s ymptoms were exacerbated, he could benefit by bracing. We will plan to see him in the outpatient setting in approximately 2-3 weeks for further evaluation. Depending on his progress with conservative treatment, we'll discuss further treatment options at that time. From an orthopedic spine standpoint, patient is discharge. Patient may follow-up with Valerio Hester PA-C or Dr. Anival Ross at [facility] in approximately 2-3 weeks for further evaluation. 2. Patient will continue seeing examined by other medical providers including medicine, oncology, and urology Time with Patient: Greater than 30 (Including obtaining history, physical examination, reviewing of imaging, and dictation.)
--- NOTE | 2018-11-17 14:51 | P.DS ---
Providers Date of admission: 11/15/18 20:41 Attending physician: Epifanio Krishnan MD Consults: 11/16/18 11:25 Consult Physician Routine Consulting Provider: Coy Tong Consult Reason/Comments: urinary retention Do you want consulting provider notified?: Yes 11/16/18 11:51 Consult Physician Routine Consulting Provider: Ever Salmeron Consult Reason/Comments: Hyponatremia Do you want consulting provider notified?: Yes 11/16/18 16:39 Consult Physician Routine Consulting Provider: Merlene Zaidi Consult Reason/Comments: poss radiation therapy, mets to spine Do you want consulting provider notified?: Yes 11/17/18 08:22 Consult Physician Routine Consulting Provider: Pretty Ross Consult Reason/Comments: Low back pain, spinal mets, Disc disease Do you want consulting provider notified?: Yes 11/17/18 12:57 Consult Physician Routine Consulting Provider: Saleem Adams Consult Reason/Comments: mets to the spine poss radiation Do you want consulting provider notified?: Yes Primary care physician: Skyler Gonzales Hospital Course: Patient admitted for hyponatremia secondary to urinary obstruction after putting a Alcala catheter is hyponatremia resolved. Patient had a bit of hypovolemia which is reviewed which improved as well. Patient was evaluated by urology in the recommending a to keep the Alcala catheter for a week or 2. Patient has a diffuse metastatic disease to the spine may be contributing to urinary retention. Impression radiology will evaluated the patient patient will be discharged on Decadron. I discussed with the hospitality workers as well as the radiologist. Patient has a big mass in the lung which will be biopsied with a [facility] discussed with Dr. Darnell hospitality workers and the procedure probably will be done early next week most probably on Tuesday. Patient was also evaluated by spinal surgeon PHYSICAL EXAMINATION: GENERAL: The patient is alert and oriented x3, not in any acute distress. Well developed, well nourished. HEENT: Pupils are round and equally reacting to light. EOMI. No scleral icterus. No conjunctival pallor. Normocephalic, atraumatic. No pharyngeal erythema. No thyromegaly. CARDIOVASCULAR: S1 and S2 present. No murmurs, rubs, or gallops. PULMONARY: Chest is clear to auscultation, no wheezing or crackles. ABDOMEN: Soft, nontender, nondistended, normoactive bowel sounds. No palpable organomegaly. MUSCULOSKELETAL: No joint swelling or deformity. EXTREMITIES: No cyanosis, clubbing, or pedal edema. NEUROLOGICAL: Gross neurological examination did not reveal any focal deficits. SKIN: No rashes. Assessment and Plan Plan: -Urinary retention MRI of the lumbar spine showed metastatic disease. Patient will follow with urology will continue with a Alcala catheter for 1-2 weeks and patient will be evaluated by radiation oncology -Hyponatremia hypovolemic secondary to obstructive uropathy which improved now. -Metastatic cancer primary unknown patient has a big lung mass which will be biopsied by pulmonology early next week as mentioned above -Leukocytosis reactive, no UTI -Hyperlipidemia -Hypertension Patient Condition at Discharge: Serious Plan - Discharge Summary Discharge Rx Participant: No New Discharge Prescriptions: New Polyethylene Glycol 3350 [Miralax] 17 gm PO DAILY PRN #15 packet PRN Reason: Constipation Continue Pravastatin Sodium [Pravachol] 20 mg PO HS Omeprazole [PriLOSEC] 20 mg PO AC-BRKFST Lisinopril [Zestril] 10 mg PO DAILY Levothyroxine Sodium [Synthroid] 25 mcg PO DAILY HYDROcodone/APAP 7.5-325MG [[place] 7.5-325] 1 tab PO Q6H PRN PRN Reason: Pain Discontinued Ciprofloxacin HCl [Cipro] 500 mg PO BID Discharge Medication List Levothyroxine Sodium [Synthroid] 25 mcg PO DAILY 11/08/18 [History] Lisinopril [Zestril] 10 mg PO DAILY 11/08/18 [History] Omeprazole [PriLOSEC] 20 mg PO AC-BRKFST 11/08/18 [History] Pravastatin Sodium [Pravachol] 20 mg PO HS 11/08/18 [History] HYDROcodone/APAP 7.5-325MG [[place] 7.5-325] 1 tab PO Q6H PRN 11/15/18 [History] Polyethylene Glycol 3350 [Miralax] 17 gm PO DAILY PRN #15 packet 11/17/18 [Rx] Follow up Appointment(s)/Referral(s): Valerio Hester, TEJAS [PHYSICIAN [employer] TECHNICIAN] - 2 Weeks (Patient may follow-up with Valerio Hester PA-C or Dr. Anival Ross at [facility] in 2-3 weeks following discharge. ) Skyler Gonzales MD [Primary Care Provider] - 1-2 days
[2018-11-17 16:07] VITALS: BP 123/70; PULSE 97; RESP 15
--- NOTE | 2018-11-18 00:39 | P.CONS ---
History of Present Illness - Reason for Consult Consult date: 11/18/18 Metastatic malignancy - History of Present Illness Mr Ruiz Is a pleasant white male, in fairly good health, until about 08/29. At that time the patient started having lower back pain, which he states is localized actor just below the waist with radiation across the back. Due to persistence, and progression in severity he sought attention with his PCP. He had imaging done of his spine with x-rays, incidentally revealed abnormality in the left lung. He was therefore referred to pulmonary medicine and had a chest x-ray done on 11/03/18, revealing a left midlung mass, and possibly metastatic disease in the left shoulder. He subsequently had a PET scan done on 11/05/18. This showed extensive mediastinal and hilar adenopathy, extensive bone metastasis, hypermetabolic 2.5 cm left adrenal mass, and hypermetabolic central liver mass. A tissue diagnosis was then planned by pulmonary medicine. The patient states that initially a bronchoscopy was being considered and subsequently he was referred for a CT-guided needle biopsy that was supposed to call on 11/28/18 The patient came into the emergency room because of progressive back pain, that wasn't detectable. He was also having difficulty with urination. He denied any lower extremity weakness or loss of sensation. The patient had MRI of the lumbar spine, showing diffuse metastatic involvement, but no destruction or cord compression. The patient actually appeared to have significant degenerative disc disease in the lower spine. Started on steroids, and at the time of my exam had noted marked relief in his symptoms. He did have a Alcala placed for urinary retention. Consult was placed for further evaluation and recommendations. 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 Romero in 2013. He quit smoking around 2010, prior to which she smoked about half to three fourths of a pack per day Review of Systems Constitutional: Reports fatigue Eyes: denies blurred vision, denies pain Ears: deny: decreased hearing, ear discharge, earache, tinnitus Ears, nose, mouth and throat: Denies headache, Denies sore throat Cardiovascular: Denies chest pain, Denies shortness of breath Respiratory: Reports cough with sputum (occasional) Gastrointestinal: Denies abdominal pain, Denies diarrhea, Denies nausea, Denies vomiting Genitourinary: Reports urinary retention Musculoskeletal: Reports low back pain Integumentary: Denies pruritus, Denies rash Neurological: Denies numbness, Denies weakness Psychiatric: Denies anxiety, Denies depression Endocrine: Reports fatigue Hematologic/Lymphatic: Reports as per HPI 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 Past Anesthesia/Blood Transfusion Reactions: No Reported Reaction Past Psychological History: No Psychological Hx Reported Smoking Status: Former smoker Past Alcohol Use History: None Reported Past Drug Use History: None Reported - Past Family History Father Family Medical History: No Reported History Mother Family Medical History: No Reported History Medications and Allergies Home Medications Medication Instructions Recorded Confirmed Type Levothyroxine Sodium [Synthroid] 25 mcg PO DAILY 11/08/18 11/15/18 History Lisinopril [Zestril] 10 mg PO DAILY 11/08/18 11/15/18 History Omeprazole [PriLOSEC] 20 mg PO AC-BRKFST 11/08/18 11/15/18 History Pravastatin Sodium [Pravachol] 20 mg PO HS 11/08/18 11/15/18 History HYDROcodone/APAP 7.5-325MG [[place] 1 tab PO Q6H PRN 11/15/18 11/15/18 History 7.5-325] Dexamethasone [Decadron] 4 mg PO TID #60 tablet 11/17/18 Rx Polyethylene Glycol 3350 [Miralax] 17 gm PO DAILY PRN #15 packet 11/17/18 Rx Allergies Allergy/AdvReac Type Severity Reaction Status Date / Time No Known Allergies Allergy Verified 11/15/18 17:54 Physical Exam Vitals: Vital Signs Temp Pulse Resp BP Pulse Ox 11/17/18 15:49 97.6 F 97 15 123/70 96 11/17/18 07:33 97.6 F 88 16 130/88 97 11/17/18 01:10 98.1 F 91 17 126/71 95 Intake and Output 11/17/18 11/17/18 11/18/18 14:59 22:59 06:59 Output Total 600 Balance -600 Output: Urine 600 Other: Voiding Method Indwelling Catheter - Constitutional General appearance: no acute distress - EENT Eyes: EOMI, PERRLA ENT: hearing grossly normal, normal oropharynx - Neck Neck: no lymphadenopathy Thyroid: bilateral: normal size - Respiratory Respiratory: bilateral: CTA - Cardiovascular Rhythm: regular Heart sounds: normal: S1, S2 - Gastrointestinal General gastrointestinal: normal bowel sounds, soft - Integumentary Integumentary: normal - Neurologic Neurologic: CNII-XII intact - Musculoskeletal Musculoskeletal: generalized weakness, strength equal bilaterally - Psychiatric Psychiatric: A&O x's 3, appropriate affect Results CBC & Chem 7: 11/15/18 19:27 11/17/18 06:51 Labs: Abnormal Lab Results - Last 24 Hours (Table) 11/17/18 Range/Units 06:51 Sodium 132 L (137-145) mmol/L Potassium 5.4 H (3.5-5.1) mmol/L Chloride 96 L (98-107) mmol/L Creatinine 0.55 L (0.66-1.25) mg/dL Glucose 143 H (74-99) mg/dL Comments: MRI L spine report reviewed PET scan report reviewed Chest x-ray: report reviewed Assessment and Plan (1) Intractable low back pain Narrative/Plan: This was the patient's presenting symptom leading to this admission. At the time of his exam, he reported marked improvement of his symptoms are starting steroids. The patient had no neurologic deficit in his lower abdomen, or lower extremities. He did have some urinary retention, but that is likely to be unrelated given no other deficit. While the patient does have diffuse metastatic bone disease, he did not appear to have any destructive lesion to explain his pain. He also had no evidence of cord compression or nerve root compression. Therefore it actually appears that his presenting complaint may be due to benign etiology, specifically significant degenerative disc disease in the lower lumbar spine that is noted on MRI. Ortho spine will be consulted for further evaluation. Radiation oncology will also be consulted. The case was discussed with them. As his low back pain and this time does not appear related to have a malignant etiology, radiation was not felt to be urgently required. Status: Acute Code(s): M54.5 - LOW BACK PAIN SNOMED Code(s): 02568405772103089 (2) Metastatic disease Narrative/Plan: The patient has widespread metastatic disease. Given the possibility of a dominant mass in the left lung, lung primary appears to be most likely, but other primary sites are not ruled out. The patient will need a tissue diagnosis. Left adrenal biopsy was set up as an outpatient. This was ordered as an inpatient. Case was discussed with interventional radiology. They felt that the adrenal mass, or the liver mass may be somewhat difficult to access. Pulmonary medicine had previously evaluated the patient for bronchoscopy, but had recommended additional biopsy. Therefore interventional radiology was advised to discuss with pulmonary medicine regarding the optimal procedure for tissue diagnosis. We will await biopsy results. If lung primary is confirmed, brain imaging will also be ordered. The patient is already set up for outpatient oncology consult in the office with Dr. Zaidi. Status: Acute Code(s): C79.9 - SECONDARY MALIGNANT NEOPLASM OF UNSPECIFIED SITE SNOMED Code(s): 857141136
== END 2018-11-17 17:18 | disposition home or self-care (01) | DRG 641 ==
LOC: EC 16:54 → 4SSUR 20:41
PROVIDERS: ADMIT Internal Medicine; ATTEND Internal Medicine
DX: E87.1 Hypo-osmolality and hyponatremia (principal); C79.51 Secondary malignant neoplasm of bone; C79.70 Secondary malignant neoplasm of unspecified adrenal gland; C34.82 Malignant neoplasm of overlapping sites of left bronchus and lung; E86.0 Dehydration; R16.0 Hepatomegaly, not elsewhere classified; E86.1 Hypovolemia; N13.9 Obstructive and reflux uropathy, unspecified; R59.0 Localized enlarged lymph nodes; E78.5 Hyperlipidemia, unspecified; G89.29 Other chronic pain; M51.26 Other intervertebral disc displacement, lumbar region; M46.96 Unspecified inflammatory spondylopathy, lumbar region; M51.36 Other intervertebral disc degeneration, lumbar region; I10 Essential (primary) hypertension; D72.829 Elevated white blood cell count, unspecified; K59.00 Constipation, unspecified; Z79.890 Hormone replacement therapy; Z79.899 Other long term (current) drug therapy; Z87.891 Personal history of nicotine dependence; Z85.21 Personal history of malignant neoplasm of larynx; Z92.3 Personal history of irradiation
CPT/HCPCS: 36415; 51798; 72158; 74018; 80048; 80053; 81001; 82310; 83930; 83935; 84133; 84295; 84300; 85025; 85610; 99285

== ENCOUNTER 2018-11-22 09:21 | Day surgery (SDC) | payer MEDICARE ==
[2018-11-21 11:18] VITALS: BMI 45.1
[~2018-11-22 09:21] MED LIST: ALBUTEROL NEB (CONC) 2.5 MG/0.5 ML INHALATION ONE; ATROPINE SULFATE 0.4 MG/ML 1 ML VIAL IM ONE; LACTATED RINGERS 1,000 ML IV SCH; LIDOCAINE 1% 20 ML VIAL (10MG/ML) FOR IV START INTRADERMA PRN; LIDOCAINE 2% (PF) 20 MG/ML 5 ML VIAL INHALATION ONE; LIDOCAINE VISCOUS 300 MG/15 ML CUP MUCOUS MEM ONE; ONDANSETRON 4 MG/2 ML VIAL IVP ONE; SODIUM CHLORIDE 0.9% 1,000 ML IV SCH
[2018-11-22] MEDS ORDERED: SUCCINYLCHOLINE CHLORIDE 100 MG/5 ML SYR IV ONE (11:27)
[2018-11-22] MEDS ORDERED: fentaNYL (PF) 50 MCG/ML 2 ML AMP ONE (11:27)
[2018-11-22] MEDS ORDERED: LIDOCAINE 1% INJ 10MG/ML (20 ML MDV) ONE (11:27)
[2018-11-22] MEDS ORDERED: ROCURONIUM BROMIDE 10 MG/ML 10 ML VIAL IV ONE (11:27)
[2018-11-22] MEDS ORDERED: ePHEDrine SULFATE/0.9% NACL/PF 50 MG/5 ML SYRINGE IV ONE (11:27)
[2018-11-22] MEDS ORDERED: PROPOFOL 10 MG/ML 20 ML VIAL IV ONE (11:27)
[2018-11-22] MEDS ORDERED: LACTATED RINGERS 1,000 ML IV ONE (12:32)
[2018-11-22 12:47] VITALS: TEMP 97
--- NOTE | 2018-11-22 13:14 | PCN ---
PROCEDURE NOTE PROCEDURE: Navigational bronchoscopy. PREOPERATIVE DIAGNOSIS: Mass, left parahilar region. POSTOPERATIVE DIAGNOSIS: Mass, left parahilar region. OPERATORS: Dr. Darnell and Dr. Arambula. PROCEDURE: The patient was done in operating room #5. It was under general anesthesia. Dr. Sutton and PANTOGRAPHER provided general anesthesia. There was informed consent. There was universal timeout. I did speak to the patient and the patient's prior to the procedure. After the patient was adequately sedated and under the effects of general anesthesia, the bronchoscope was inserted through the bronchoscope adapter connected to the endotracheal tube. The bronchoscope was taken down into the lung. The right lung appeared normal. The left lower lobe appeared normal. The left upper lobe appeared distinctly abnormal with significant mucosal abnormality and irregularity. The mucosa was somewhat friable. It bled easily. Initially, we did needle biopsies of the left upper lobe. We also brushed the left upper lobe. We did transbronchial biopsies to the left upper lobe and also washes to the left upper lobe. The patient tolerated the procedure well. We had pathology on standby. They could not make the call on the needle biopsies. Anyway, the patient tolerated the procedure well. He will be recovered. I did speak to the son and the . I did tell them that we could not make a diagnosis in the surgical suite, but the specimens will be sent to the laboratory for analysis. There was no immediate complication. There was no significant bleeding. The patient will be extubated and recovered. MMODL / IJN: [id number] / MTDD
[2018-11-22 13:20] VITALS: RESP 18
--- NOTE | 2018-11-22 13:36 | CT ---
EXAMINATION TYPE: CT Chest rosetta Mclean Protocol DATE OF EXAM: 11/22/2018 COMPARISON: PET/CT 11/04/2018 HISTORY: Pulmonary nodules/mass CT DLP: 590 mGycm Automated exposure control for dose reduction was used. Helical scanning performed through the chest for procedural planning FINDINGS: CT was performed for procedure planning. The left upper lobe and lingular segmental bronchi shows nevaeh rowing due to the left hilar mass. There is extensive mediastinal adenopathy with associated abnorma l soft tissue in the left hilar region as previously described. No pleural or pericardial effusion. C oronary calcifications present. Partial intrathoracic stomach noted with hiatal hernia. Left adrenal mass is present. IMPRESSION: CT FOR BRONCHOSCOPY PLANNING PURPOSES.
--- NOTE | 2018-11-22 13:38 | XR ---
EXAMINATION TYPE: XR chest 1V DATE OF EXAM: 11/22/2018 COMPARISON: 11/22/2018 HISTORY: Post bronchoscopy TECHNIQUE: Single frontal view of the chest is obtained. FINDINGS: Left upper lobe consolidation or mass noted with no sizable pneumothorax. Subsegmental con solidation the right lung base. Atherosclerotic change aorta. Hypertrophic and degenerative change of the spine. Arthropathy of the shoulders. Hyperinflation suggests COPD. IMPRESSION: 1. No pneumothorax. 2. Left upper lobe perihilar mass consolidation.
[2018-11-22 14:56] VITALS: BP 110/76; PULSE 97
[2018-11-22 18:27] LABS: Appearance,BF Hazy; Color,BF Red; Nucleated Cells, Body Fluid 20 /uL; RBC, Body Fluid 2650 /uL
[2018-11-22 19:27] LABS: Mononuclear WBC,Body Fluid 24 %; Polynuclear WBC,Body Fluid 76 %; Total Cells Counted,Body Fluid 100
== END 2018-11-22 14:15 | disposition home or self-care (01) ==
LOC: ORWHC2ENDO 09:21
PROVIDERS: ATTEND Internal Medicine Critical Care Medicine
DX: C34.12 Malignant neoplasm of upper lobe, left bronchus or lung (principal); Z72.0 Tobacco use; E07.9 Disorder of thyroid, unspecified; K21.9 Gastro-esophageal reflux disease without esophagitis; Z79.890 Hormone replacement therapy; Z79.891 Long term (current) use of opiate analgesic; Z79.52 Long term (current) use of systemic steroids; Z79.899 Other long term (current) drug therapy
CPT/HCPCS: 88104; 88108; 88305; 88173; 89050; 84132; 88342; 88341; 71045; 71250; 31628; 31623; 31627; J2001; J3010; J0330; J2704; 31624; 31625; 31633

== ENCOUNTER 2018-12-01 16:36 | Inpatient (IN) | payer MEDICARE ==
[2018-12-01] MEDS ORDERED: SODIUM CHLORIDE 0.9% 1,000 ML IV STA (17:35)
[2018-12-01 17:49] LABS: Basophils % (A) 0 %; Eosinophils % (A) 0 %; HCT 36.2 % (39.0-53.0); HGB 12.3 gm/dL (13.0-17.5); Lymphocytes # (A) 1.1 k/uL (1.0-4.8); Lymphocytes % (A) 7 %; MCH 29.6 pg (25.0-35.0); Mean Platelet Volume 7.4; Monocytes # (A) 0.8 k/uL (0-1.0); Monocytes % (A) 5 %; Neutrophils # (A) 13.7 k/uL (1.3-7.7); Neutrophils % (A) 87 %; Platelet Count 135 k/uL (150-450); RBC 4.15 m/uL (4.30-5.90); RDW 13.3 % (11.5-15.5); WBC 15.8 k/uL (3.8-10.6)
--- NOTE | 2018-12-01 17:52 | ED ---
General Adult HPI - General Chief complaint: Recheck/Abnormal Lab/Rx Stated complaint: abnormal labs Time Seen by Provider: 12/01/18 16:55 Source: patient, family, EMS, RN notes reviewed, old records reviewed Mode of arrival: EMS Limitations: no limitations - History of Present Illness Initial comments: Chief complaint and history of present illness this is a 73-year-old male here with family. The patient was transferred to our ER from another emergency room. 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 He was given a shot of prednisone for difficulty breathing. Upon getting home he was sitting on the toilet when he had what appears to be a vasovagal syncopal episode while on the toilet. Family says he was unconscious for approximately 10 minutes, diaphoretic and noncommunicative. Soon thereafter he responded and states he feels much better at this time. His was taken at that time to [facility] where was found that his sodium was only 111. The patient reports he's had some diarrhea lately. He is also being treated for lung cancer. - Related Data Home Medications Medication Instructions Recorded Confirmed Levothyroxine Sodium [Synthroid] 25 mcg PO DAILY 11/08/18 12/01/18 Lisinopril [Zestril] 10 mg PO DAILY 11/08/18 12/01/18 Omeprazole [PriLOSEC] 20 mg PO AC-BRKFST 11/08/18 12/01/18 Pravastatin Sodium [Pravachol] 20 mg PO HS 11/08/18 12/01/18 HYDROcodone/APAP 7.5-325MG [[place] 1 tab PO Q6H PRN 11/15/18 12/01/18 7.5-325] Dexamethasone [Decadron] See Taper PO DAILY 12/01/18 12/01/18 Tamsulosin HCl [Flomax] 0.4 mg PO DAILY 12/01/18 12/01/18 Previous Rx's Medication Instructions Recorded Polyethylene Glycol 3350 [Miralax] 17 gm PO DAILY PRN #15 packet 11/17/18 Allergies Allergy/AdvReac Type Severity Reaction Status Date / Time No Known Allergies Allergy Verified 12/01/18 17:41 Review of Systems ROS Statement: Those systems with pertinent positive or pertinent negative responses have been documented in the HPI. Review of systems currently states he is feeling better. He received 1 and 1/2 L of fluid since the incident and diagnosis of hyponatremia. All systems are reviewed. Past medical problems lung cancer. Patient reports he had a PET scan which showed probable metastasis to spine. Patient's also had a history of hyp erlipidemia and hypertension. The other additional problems include laryngeal cancer. Surgeries, hernia repair. Former smoker. ROS Other: All systems not noted in ROS Statement are negative. Past Medical History Past Medical History: Cancer, Hyperlipidemia, Hypertension Additional Past Medical History / Comment(s): laryngeal cancer, left lung nodule, back pain. currently has IDC for urinary retention. possible mets to lungs per spouse. lung cancer- first radiation 11/30/18 History of Any Multi-Drug Resistant Organisms: None Reported Past Surgical History: Hernia Repair Additional Past Surgical History / Comment(s): 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 Past Anesthesia/Blood Transfusion Reactions: No Reported Reaction Past Psychological History: No Psychological Hx Reported Smoking Status: Former smoker Past Alcohol Use History: None Reported Past Drug Use History: None Reported - Past Family History Father Family Medical History: No Reported History Mother Family Medical History: No Reported History General Exam - General Exam Comments Initial Comments: General: The patient is awake and alert, patient had a post micturition syncopal episode lasting approximately 10 minutes. The patient was transferred from another facility here. He had IV fluids. States things better. Current vital signs shows temperature 97.8 pulse 91 respiratory rate 16 pulse ox 98% room air., blood pressure 98/63 Eye: Pupils are equal, round and reactive to light, extra-ocular movements are intact; there is normal conjunctiva bilaterally. No signs of icterus. Ears, nose, mouth and throat: Dry mucous membranes Neck: The neck is supple, Cardiovascular: There is a regular rate and rhythm. No murmur, rub or gallop is appreciated. Respiratory: Lungs are clear to auscultation, respirations are non-labored, breath sounds are equal. No wheezes, stridor, rales, or rhonchi. Gastrointestinal: Soft, non-distended, non-tender abdomen without masses or organomegaly noted. There is no rebound or guarding present. No CVA tenderness. Bowel sounds are unremarkable. Patient's been having difficulty with constipation lately. He may been straining to have a bowel movement as well Back: There is no tenderness to palpation in the midline. There is no obvious d eformity. No rashes noted. He does complain of back pain. Recent PET scan showed possible metastasis to the spine. Musculoskeletal: Normal ROM, no tenderness, There is no pedal edema. There is no calf tenderness or swelling. Neurological: CN II-XII intact, There are no obvious motor or sensory deficits. Coordination appears grossly intact. Speech is normal. No focal or lateralizing findings Skin: Skin is warm and dry and no rashes or lesions are noted. Psychiatric: Cooperative, appropriate mood & affect, Limitations: no limitations Course Vital Signs 12/01/18 12/01/18 12/01/18 16:38 17:00 17:30 Temperature 97.8 F Pulse Rate 91 90 88 Respiratory 16 16 18 Rate Blood Pressure 98/63 95/83 97/63 O2 Sat by Pulse 98 95 95 Oximetry 12/01/18 12/01/18 18:00 18:32 Temperature Pulse Rate 94 93 Respiratory 18 18 Rate Blood Pressure 91/70 80/51 O2 Sat by Pulse 96 96 Oximetry Medical Decision Making - Medical Decision Making Medical decision making; this is a 73-year-old male sent to this facility from [facility] emergency room after a vasovagal syncopal episode. The patient was having a bowel movement or urinating when this occurred. Labs at that other hospital found his sodium to be low at 111. He received IV fluids. He was sent here for further evaluation. Current labs show white count of 15.8 hemoglobin 12 medical 36 sodium is now 119 after IV fluids chlorides 84 potassium 4.9. BUN 18 creatinine 0.59 the GFR 90. Glucose 110. Urine clean no signs of infection. EKG showed normal sinus rhythm. Patient was hungry and ate and drank a small amount of fluid. The case discussed with Amelia Gonzalez on-call for Dr. Dr. Jarvis. Patient be admitted for further evaluation and rehydration. Patient's blood pressure and had one dip to 80/56. Patient still has strong femoral pulses at this time. Repeat blood pressure being done. The patient's also received another liter of fluid. no Change neurologically. - Lab Data Result diagrams: 12/01/18 17:35 12/01/18 17:35 Lab Results 12/01/18 12/01/18 12/01/18 Range/Units 17:35 17:35 17:35 WBC 15.8 H (3.8-10.6) k/uL RBC 4.15 L (4.30-5.90) m/uL Hgb 12.3 L (13.0-17.5) gm/dL Hct 36.2 L (39.0-53.0) % MCV 87.0 (80.0-100.0) fL MCH 29.6 (25.0-35.0) pg MCHC 34.0 (31.0-37.0) g/dL RDW 13.3 (11.5-15.5) % Plt Count 135 L (150-450) k/uL Neutrophils % 87 % Lymphocytes % 7 % Monocytes % 5 % Eosinophils % 0 % Basophils % 0 % Neutrophils # 13.7 H (1.3-7.7) k/uL Lymphocytes # 1.1 (1.0-4.8) k/uL Monocytes # 0.8 (0-1.0) k/uL Eosinophils # 0.0 (0-0.7) k/uL Basophils # 0.0 (0-0.2) k/uL PT 9.9 (9.0-12.0) sec INR 0.9 (<1.2) APTT 24.7 (22.0-30.0) sec Sodium 119 L* (137-145) mmol/L Potassium 4.9 (3.5-5.1) mmol/L Chloride 84 L (98-107) mmol/L Carbon Dioxide 30 (22-30) mmol/L Anion Gap 5 mmol/L BUN 18 (9-20) mg/dL Creatinine 0.59 L (0.66-1.25) mg/dL Est GFR (CKD-EPI)AfAm >90 (>60 ml/min/1.73 sqM) Est GFR (CKD-EPI)NonAf >90 (>60 ml/min/1.73 sqM) Glucose 110 H (74-99) mg/dL Calcium 8.1 L (8.4-10.2) mg/dL Total Bilirubin 0.8 (0.2-1.3) mg/dL AST 63 H (17-59) U/L ALT 46 (21-72) U/L Alkaline Phosphatase 100 (38-126) U/L Troponin I (0.000-0.034) ng/mL Total Protein 5.4 L (6.3-8.2) g/dL Albumin 2.9 L (3.5-5.0) g/dL Urine Color Urine Appearance (Clear) Urine pH (5.0-8.0) Ur Specific [place] (1.001-1.035) Urine Protein (Negative) Urine Glucose (UA) (Negative) Urine Ketones (Negative) Urine Blood (Negative) Urine Nitrite (Negative) Urine Bilirubin (Negative) Urine Urobilinogen (<2.0) mg/dL Ur Leukocyte Esterase (Negative) 12/01/18 12/01/18 Range/Units 17:35 17:35 WBC (3.8-10.6) k/uL RBC (4.30-5.90) m/uL Hgb (13.0-17.5) gm/dL Hct (39.0-53.0) % MCV (80.0-100.0) fL MCH (25.0-35.0) pg MCHC (31.0-37.0) g/dL RDW (11.5-15.5) % Plt Count (150-450) k/uL Neutrophils % % Lymphocytes % % Monocytes % % Eosinophils % % Basophils % % Neutrophils # (1.3-7.7) k/uL Lymphocytes # (1.0-4.8) k/uL Monocytes # (0-1.0) k/uL Eosinophils # (0-0.7) k/uL Basophils # (0-0.2) k/uL PT (9.0-12.0) sec INR (<1.2) APTT (22.0-30.0) sec Sodium (137-145) mmol/L Potassium (3.5-5.1) mmol/L Chloride (98-107) mmol/L Carbon Dioxide (22-30) mmol/L Anion Gap mmol/L BUN (9-20) mg/dL Creatinine (0.66-1.25) mg/dL Est GFR (CKD-EPI)AfAm (>60 ml/min/1.73 sqM) Est GFR (CKD-EPI)NonAf (>60 ml/min/1.73 sqM) Glucose (74-99) mg/dL Calcium (8.4-10.2) mg/dL Total Bilirubin (0.2-1.3) mg/dL AST (17-59) U/L ALT (21-72) U/L Alkaline Phosphatase (38-126) U/L Troponin I <0.012 (0.000-0.034) ng/mL Total Protein (6.3-8.2) g/dL Albumin (3.5-5.0) g/dL Urine Color Light Yellow Urine Appearance Clear (Clear) Urine pH 6.0 (5.0-8.0) Ur Specific [place] 1.005 (1.001-1.035) Urine Protein Negative (Negative) Urine Glucose (UA) Negative (Negative) Urine Ketones Negative (Negative) Urine Blood Negative (Negative) Urine Nitrite Negative (Negative) Urine Bilirubin Negative (Negative) Urine Urobilinogen <2.0 (<2.0) mg/dL Ur Leukocyte Esterase Negative (Negative) Disposition Clinical Impression: Vasovagal syncope, History of lung cancer Disposition: ADMITTED IP TO THIS [facility] Condition: Serious Referrals: Lori Roberts NPC [Primary Care Provider] - 1-2 days
[2018-12-01 18:01] LABS: ALT 46 U/L (21-72); AST 63 U/L (17-59); African American GFR (CKD) >90 (>60 ml/min/1.73 sqM); Albumin 2.9 g/dL (3.5-5.0); Alkaline Phosphatase 100 U/L (38-126); Anion Gap 5 mmol/L; Blood Urea Nitrogen 18 mg/dL (9-20); Calcium 8.1 mg/dL (8.4-10.2); Carbon Dioxide 30 mmol/L (22-30); Chloride 84 mmol/L (98-107); Glucose 110 mg/dL (74-99); Potassium 4.9 mmol/L (3.5-5.1); Total Bilirubin 0.8 mg/dL (0.2-1.3); Total Protein 5.4 g/dL (6.3-8.2)
[2018-12-01 18:02] LABS: INR 0.9 (<1.2); Partial Thromboplastin Time 24.7 sec (22.0-30.0); Prothrombin Time 9.9 sec (9.0-12.0)
[2018-12-01 18:11] LABS: Appearance,Urine Clear (Clear); Bilirubin,Urine Negative (Negative); Blood,Urine Negative (Negative); Color,Urine Light Yellow; Glucose,Urine (UA) Negative (Negative); Ketones,Urine Negative (Negative); Leukocyte Esterase,Urine Negative (Negative); Nitrite,Urine Negative (Negative); Protein,Urine Negative (Negative); Specific Gravity,Urine 1.005 (1.001-1.035); Urobilinogen,Urine <2.0 mg/dL (<2.0)
[2018-12-01 18:23] LABS: Sodium 119 mmol/L (137-145)
[2018-12-01] MEDS ORDERED: SODIUM CHLORIDE 0.9% 1,000 ML IV ONE (18:41)
[2018-12-01] MEDS ORDERED: NALOXONE 0.4 MG/ML 1 ML VIAL IV PRN (18:52)
[2018-12-01] MEDS ORDERED: POLYETHYLENE GLYCOL 3350 17 GM POWD.PACK PO PRN (19:06)
[2018-12-01] MEDS: SODIUM CHLORIDE 0.9% 1,000 ML IV SCH (19:50)
[2018-12-01] MEDS ORDERED: hydrALAZINE HCL 20 MG/ML 1 ML VIAL IVP PRN (19:54)
[2018-12-01] MEDS ORDERED: METOCLOPRAMIDE 5 MG/ML 2 ML VIAL IVP SCH (20:00)
[2018-12-01] MEDS: PRAVASTATIN SODIUM 20 MG TAB PO SCH (21:25)
[2018-12-01] MEDS: FAMOTIDINE 20 MG TAB PO SCH (21:25)
[2018-12-01] MEDS: HYDROcodone/APAP 7.5-325MG 1 EACH TAB PO PRN (21:26)
[2018-12-02] MEDS: TEMAZEPAM 15 MG CAP PO PRN ×2 (01:34→20:47)
[2018-12-02] MEDS: HYDROcodone/APAP 7.5-325MG 1 EACH TAB PO PRN ×3 (03:29→20:47)
[2018-12-02] MEDS: ALPRAZolam 0.25 MG TAB PO PRN (03:29)
[2018-12-02] MEDS: SODIUM CHLORIDE 0.9% 1,000 ML IV SCH ×2 (03:53→09:23)
[2018-12-02] MEDS: LEVOTHYROXINE 25 MCG TAB PO SCH (05:56)
[2018-12-02 06:57] LABS: Basophils % (A) 0 %; Eosinophils # (A) 0.1 k/uL (0-0.7); Eosinophils % (A) 0 %; HGB 11.6 gm/dL (13.0-17.5); Lymphocytes % (A) 8 %; MCH 30.1 pg (25.0-35.0); MCHC 33.3 g/dL (31.0-37.0); MCV 90.4 fL (80.0-100.0); Mean Platelet Volume 7.1; Monocytes # (A) 0.6 k/uL (0-1.0); Monocytes % (A) 5 %; Neutrophils # (A) 10.1 k/uL (1.3-7.7); Neutrophils % (A) 85 %; Platelet Count 120 k/uL (150-450); RBC 3.87 m/uL (4.30-5.90); RDW 14.3 % (11.5-15.5); WBC 11.8 k/uL (3.8-10.6)
[2018-12-02 07:07] LABS: ALT 40 U/L (21-72); AST 60 U/L (17-59); African American GFR (CKD) >90 (>60 ml/min/1.73 sqM); Albumin 2.5 g/dL (3.5-5.0); Alkaline Phosphatase 80 U/L (38-126); Anion Gap 7 mmol/L; Blood Urea Nitrogen 12 mg/dL (9-20); Calcium 7.7 mg/dL (8.4-10.2); Carbon Dioxide 23 mmol/L (22-30); Chloride 96 mmol/L (98-107); Glucose 93 mg/dL (74-99); Potassium 4.5 mmol/L (3.5-5.1); Sodium 126 mmol/L (137-145); Total Bilirubin 0.7 mg/dL (0.2-1.3); Total Protein 4.9 g/dL (6.3-8.2)
--- NOTE | 2018-12-02 07:24 | HP ---
HISTORY AND PHYSICAL DATE OF SERVICE: 12/01/2018 CHIEF COMPLAINT: Syncope. HISTORY OF PRESENT ILLNESS: This 73-year-old gentleman with a past medical history of hypertension, hyperlipidemia, history of metastatic lung cancer, small cell cancer, being followed by Dr. Reinaldo Godinez in the outpatient setting was recently admitted with urinary retention. Patient also being followed by Dr. Zaidi in the outpatient setting, also radiation treatment is also being done. The patient apparently was sitting on the toilet. The patient passed out and sodium was found to be 111. Patient given IV fluids. The patient was transferred to [facility] for further evaluation and treatment from [facility]. The patient had poor intake. Some minimal abdominal discomfort and nausea is also been complained of. There is no history of fever, rigors or chills. No history of headache, any seizures at this time. PAST MEDICAL HISTORY: Hypertension, hyperlipidemia, history of laryngeal cancer, history of indwelling catheter for urinary retention, possibly metastatic lung cancer status post radiation. Remote history of nicotine dependence. MEDICATIONS: Prior to admission include: 1. Flomax 0.4 daily. 2. Pravachol 20 mg q.h.s. 3. MiraLAX 17 g p.o. daily p.r.n. 4. Prilosec 20 mg a.c. breakfast. 5. Zestril 10 mg p.o. daily. 6. Synthroid 25 mcg daily. 7. [place] 7.5 q.6h p.r.n. 8. Decadron daily. ALLERGIES: None. FAMILY HISTORY: No history of heart disease or stroke in the family. SOCIAL HISTORY: Previous history of smoking. No history of current smoking or alcohol intake. REVIEW OF SYSTEMS: ENT: Diminished vision. Diminished hearing. CARDIOVASCULAR: No angina or palpitations. RESPIRATORY: As mentioned earlier. GI as mentioned earlier. as mentioned earlier. NERVOUS SYSTEM: As mentioned earlier. ALLERGIES/IMMUNOLOGY: No asthma or hayfever. MUSCULOSKELETAL as mentioned earlier. HEMATOLOGY/ONCOLOGY: As mentioned earlier. ENDOCRINE: Hypothyroidism. CONSTITUTIONAL: As mentioned earlier. DERMATOLOGY: Negative. RHEUMATOLOGY negative. PSYCHIATRY as mentioned earlier. PHYSICAL EXAMINATION: Alert and oriented times three. Pulse 94, blood pressure 104/61, respirations 16, temperature 98.2, pulse ox 98% on room air. HEENT are conjunctivae normal. Oral mucosa moist. NECK is no jugular venous distention. No carotid bruit. No lymph node enlargement. CARDIOVASCULAR SYSTEM: S1, S2 muffled. No S3. No S4. RESPIRATIONS: Breath sounds diminished in the bases. A few scattered rhonchi and crackles. ABDOMEN: Soft, nontender. No mass palpable. No guarding. No rigidity. Bowel sounds present. No ascites. LEGS: No edema. No swelling. NERVOUS SYSTEM as mentioned earlier. Moves all 4 limbs. No focal motor or sensory deficits. LYMPHATICS: No lymph nodes palpable in the neck, axilla or groin. SKIN: No ulcer, rash or bleeding. JOINTS: No active deforming arthropathy. LABS: WBC 15.8, hemoglobin 12.3 sodium is 119, potassium 4.9. ASSESSMENT: 1. Severe hyponatremia status post syncope. 2. Syncope possibly vasovagal secondary to dehydration. 3. Increased WBC. 4. Anemia. 5. Mild thrombocytopenia. 6. History of recently diagnosed metastatic malignancy possible small cell lung cancer. 7. Status post radiation. 8. Urinary retention, indwelling [place] catheter. 9. Hypertension. 10.Hyperlipidemia. 11.History of back pain/degenerative joint disease. 12.History of hernia repair. 13.Remote history of nicotine dependence. 14.NO CODE NO CPR NO VENT. RECOMMENDATIONS AND DISCUSSION: This 73-year-old gentleman who presented with multiple complex medical issues, at this time, I recommend to continue current medications, symptomatic treatment, management being initiated. We will resume the home medications. Cautious IV fluids. Nephrology has been consulted. I would also recommend consultation with Dr. Zaidi. Home medication will be continued. PT/OT evaluation. Orthostatic vitals. Guarded prognosis because of multiple complex medical issues. Further recommendations to follow. We will hold the lisinopril at this time. A copy of this forwarded to Dr. Reinaldo Godinez who is the primary physician. I would also check a TSH also to complete the workup. MMODL / IJN: [id number] /
[2018-12-02] MEDS ORDERED: DEXAMETHASONE 4 MG TAB PO SCH (09:00)
[2018-12-02] MEDS: PANTOPRAZOLE 40 MG TABLET PO SCH (09:22)
[2018-12-02] MEDS: FAMOTIDINE 20 MG TAB PO SCH (09:22)
[2018-12-02] MEDS: DOCUSATE 100 MG CAP PO SCH (09:22)
[2018-12-02] MEDS: TAMSULOSIN 0.4 MG CAP.ER.24H PO SCH (09:22)
--- NOTE | 2018-12-02 09:47 | XR ---
EXAMINATION TYPE: XR chest 1V portable DATE OF EXAM: 12/02/2018 HISTORY: Dyspnea, MARILEE lung cancer. REFERENCE: Guest study dated 12/01/2018. FINDINGS: There is developed near complete opacification of the left upper lobe. The right lung is cl ear. Pleural space are clear. Heart size is obscured. IMPRESSION: THERE IS NOW COMPLETE OPACIFICATION OF THE LEFT UPPER LOBE WHICH HAS PROGRESSED FROM THE PREVIOUS MAINE DY OF 11/22/2018. BRONCHIAL OCCLUSION SHOULD BE CONSIDERED.
--- NOTE | 2018-12-02 10:50 | P.NPCON ---
History of Present Illness - Reason for Consult hyponatremia - Chief Complaint Past output - History of Present Illness 73-year-old gentleman coming to the hospital with syncopal episode. Recently discharged from the hospital and was seen by Dr. Salmeron for hyponatremia. His sodium was 111 yesterday at outpatient setting and referred to the hospital. 119 last night and 126 this morning. He was given 2 L of normal saline bolus and was maintained on 125 ML's an hour of normal saline. He has diarrhea 2-3 days. Poor appetite. He has metastatic lung cancer currently getting radiation therapy. Hasn't started chemotherapy yet. He has nausea. Place [place] catheter for urinary retention. Blood pressures running low and takes lisinopril at home. Which is currently on hold. Not take any antidepressants or antipsychotics or diuretics. Workup in the past showed hypovolemic picture with a urine sodium of less than 10. Review of Systems Constitutional: Reports as per HPI Past Medical History Past Medical History: Cancer, Hyperlipidemia, Hypertension Additional Past Medical History / Comment(s): laryngeal cancer, left lung nodule, back pain. currently has IDC for urinary retention. possible mets to lungs per spouse. lung cancer- first radiation 11/30/18 History of Any Multi-Drug Resistant Organisms: None Reported Past Surgical History: Hernia Repair Additional Past Surgical History / Comment(s): 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 Past Anesthesia/Blood Transfusion Reactions: No Reported Reaction Past Psychological History: No Psychological Hx Reported Smoking Status: Former smoker Past Alcohol Use History: None Reported Additional Past Alcohol Use History / Comment(s): quit smoking 2010 Past Drug Use History: None Reported - Past Family History Father Family Medical History: No Reported History Mother Family Medical History: No Reported History Medications and Allergies Home Medications Medication Instructions Recorded Confirmed Type Levothyroxine Sodium [Synthroid] 25 mcg PO DAILY 11/08/18 12/01/18 History Lisinopril [Zestril] 10 mg PO DAILY 11/08/18 12/01/18 History Omeprazole [PriLOSEC] 20 mg PO AC-BRKFST 11/08/18 12/01/18 History Pravastatin Sodium [Pravachol] 20 mg PO HS 11/08/18 12/01/18 History HYDROcodone/APAP 7.5-325MG [[place] 1 tab PO Q6H PRN 11/15/18 12/01/18 History 7.5-325] Polyethylene Glycol 3350 [Miralax] 17 gm PO DAILY PRN #15 packet 11/17/18 Rx Dexamethasone [Decadron] See Taper PO DAILY 12/01/18 12/01/18 History Tamsulosin HCl [Flomax] 0.4 mg PO DAILY 12/01/18 12/01/18 History Allergies Allergy/AdvReac Type Severity Reaction Status Date / Time No Known Allergies Allergy Verified 12/01/18 17:41 Physical Exam Vitals: Vital Signs Temp Pulse Pulse Pulse Pulse Pulse Resp 12/02/18 08:15 98.5 F 107 H 105 H 104 H 18 12/02/18 03:40 98 F 93 18 12/01/18 23:15 98.3 F 68 16 12/01/18 20:20 98.3 F 94 16 12/01/18 19:13 89 18 12/01/18 18:32 93 18 12/01/18 18:00 94 18 12/01/18 17:30 88 18 12/01/18 17:00 90 16 12/01/18 16:38 97.8 F 91 16 BP BP BP BP Pulse Ox 12/02/18 08:15 96/58 88/50 93/58 96 12/02/18 03:40 105/75 97 12/01/18 23:15 109/56 94 L 12/01/18 20:20 104/61 98 12/01/18 19:13 92/61 97 12/01/18 18:32 80/51 96 12/01/18 18:00 91/70 96 12/01/18 17:30 97/63 95 12/01/18 17:00 95/83 95 12/01/18 16:38 98/63 98 Intake and Output 12/01/18 12/02/18 12/02/18 22:59 06:59 14:59 Intake Total 120 Output Total 1620 Balance -1620 120 Intake: Oral 120 Output: Urine 1620 Other: Voiding Method Indwelling Catheter Indwelling Catheter Indwelling Catheter Weight 78.925 kg No acute distress S1-S2 heard Lungs clear No edema [place] catheter Results - Lab Results Most recent lab results Calcium 7.7 mg/dL (8.4-10.2) L 12/02/18 06:38 12/02/18 06:38 12/02/18 06:38 Assessment and Plan Assessment: #1 hypotonic chronic hyponatremia suspect hypovolemic from decreased oral intake and diarrhea. SIADH cannot be ruled out completely. #2 urinary retention on [place] #3 metastatic lung cancer #4 low normal blood pressures Plan: #1 sodium overtly corrected as compared to yesterday's labs. No acute symptoms. #2 stop IV fluids #3 repeat labs including serum and urine electrolytes and osmolalities. #4 repeat studies again in the morning without IV fluids overnight. #5 based on the workup will make further recommendations.
[2018-12-02 11:24] LABS: Uric Acid 3.6 mg/dL (3.5-8.5)
--- NOTE | 2018-12-02 11:25 | P.CNPUL ---
History of Present Illness Consult date: 12/02/18 Requesting physician: Carlton Jarvis Reason for consult: abnormal CXR/CT Chief complaint: Syncope, suspect vasovagal History of present illness: This is a very pleasant 73-year-old gentleman who follows with Lori Roberts as his primary care provider. He has a history of laryngeal cancer, hypertension, hyperlipidemia, previous chronic tobacco dependence, IDC for urinary retention. He was also recently diagnosed with small cell lung cancer 11/22/2018 via biopsies of the left upper lobe with Dr. Darnell. He received first radiation on 11/30/2018. Yesterday 12/01/2018 he was having episodes of increasing shortness of breath and was seen by Dr. Darnell in our office yesterday and given a shot of Depo-Medrol. Later on in the day he was sitting on the toilet where he appeared to have a vasovagal syncopal episode and was unconscious for approximately 10 minutes according to family. He was diaphoretic and noncommunicable. He was taken to [place] emergency room and found to have a sodium of 111. He was subsequently transferred here to [facility] for further evaluation. His x-ray showed complete opacification the left upper lobe which has progressed since previous study on 11/22/2018. We're consulted for the same. He is seen today in consultation on the selective care unit. He is currently resting fairly comfortably in bed. Awake and alert in no acute distress. No syncopal episodes. He does have a loose nonproductive cough. Shortness of breath with exertion. Currently maintaining good O2 saturations in the 90s on room air. He's afebrile. Slightly tachycardic. Somewhat hypotensive. He did receive 2 L of fluid resuscitation. 0.9 normal saline at 125 ML's per hour. Current labs reveal white count 11.8. Hemoglobin 11.6. Sodium 126. Creatinine 0.46. Review of Systems REVIEW OF SYSTEMS: CONSTITUTIONAL: Positive for weight loss. EYES: Denies change in vision. EARS, NOSE, MOUTH, THROAT: Denies headaches, denies sore throat. CARDIOVASCULAR: Positive for syncopal episode. RESPIRATORY: Positive for shortness of breath, cough, congestion no hemoptysis. GASTROINTESTINAL: Poor appetite, denies abdominal pain GENITOURINARY: Denies hematuria, denies infections. MUSKULOSKELETAL: Denies pain, denies swelling. INTEGUMENTARY: Denies rash, denies eczema. NEUROLOGICAL: Denies recent memory loss, no recent seizure activity. PSYCHIATRIC: Denies anxiety, denies depression. HEMATOLOGIC/LYMPHATIC: Denies anemia, denies enlarged lymph nodes. Past Medical History Past Medical History: Cancer, Hyperlipidemia, Hypertension Additional Past Medical History / Comment(s): laryngeal cancer, left lung nodule, back pain. currently has IDC for urinary retention. possible mets to lungs per spouse. lung cancer- first radiation 11/30/18 History of Any Multi-Drug Resistant Organisms: None Reported Past Surgical History: Hernia Repair Additional Past Surgical History / Comment(s): 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 Past Anesthesia/Blood Transfusion Reactions: No Reported Reaction Past Psychological History: No Psychological Hx Reported Smoking Status: Former smoker Past Alcohol Use History: None Reported Additional Past Alcohol Use History / Comment(s): quit smoking 2010 Past Drug Use History: None Reported - Past Family History Father Family Medical History: No Reported History Mother Family Medical History: No Reported History Medications and Allergies Home Medications Medication Instructions Recorded Confirmed Type Levothyroxine Sodium [Synthroid] 25 mcg PO DAILY 11/08/18 12/01/18 History Lisinopril [Zestril] 10 mg PO DAILY 11/08/18 12/01/18 History Omeprazole [PriLOSEC] 20 mg PO AC-BRKFST 11/08/18 12/01/18 History Pravastatin Sodium [Pravachol] 20 mg PO HS 11/08/18 12/01/18 History HYDROcodone/APAP 7.5-325MG [[place] 1 tab PO Q6H PRN 11/15/18 12/01/18 History 7.5-325] Polyethylene Glycol 3350 [Miralax] 17 gm PO DAILY PRN #15 packet 11/17/18 12/01/18 Rx Dexamethasone [Decadron] See Taper PO DAILY 12/01/18 12/01/18 History Tamsulosin HCl [Flomax] 0.4 mg PO DAILY 12/01/18 12/01/18 History Allergies Allergy/AdvReac Type Severity Reaction Status Date / Time No Known Allergies Allergy Verified 12/01/18 17:41 Physical Exam Vitals: Vital Signs Temp Pulse Pulse Pulse Pulse Pulse Resp 06/22/19 08:15 98.5 F 107 H 105 H 104 H 18 12/02/18 03:40 98 F 93 18 12/01/18 23:15 98.3 F 68 16 12/01/18 20:20 98.3 F 94 16 12/01/18 19:13 89 18 12/01/18 18:32 93 18 12/01/18 18:00 94 18 12/01/18 17:30 88 18 12/01/18 17:00 90 16 12/01/18 16:38 97.8 F 91 16 BP BP BP BP Pulse Ox 12/02/18 08:15 96/58 88/50 93/58 96 12/02/18 03:40 105/75 97 12/01/18 23:15 109/56 94 L 12/01/18 20:20 104/61 98 12/01/18 19:13 92/61 97 12/01/18 18:32 80/51 96 12/01/18 18:00 91/70 96 12/01/18 17:30 97/63 95 12/01/18 17:00 95/83 95 12/01/18 16:38 98/63 98 Intake and Output 12/01/18 12/02/18 12/02/18 22:59 06:59 14:59 Intake Total 120 Output Total 1620 Balance -1620 120 Intake: Oral 120 Output: Urine 1620 Other: Voiding Method Indwelling Catheter Indwelling Catheter Indwelling Catheter Weight 78.925 kg GENERAL EXAM: Wasn't 73-year-old gentleman. Alert, comfortable in no apparent distress. On room air. HEAD: Normocephalic. EYES: Normal reaction of pupils, equal size. NOSE: Clear with pink turbinates. THROAT: No erythema or exudates. NECK: No masses, no JVD. CHEST: No chest wall deformity. LUNGS: Crackles, scattered rhonchi in the left lung. CVS: S1 and S2 normal with no audible murmur, regular rhythm. ABDOMEN: No hepatosplenomegaly, normal bowel sounds, no guarding or rigidity. SPINE: No scoliosis or deformity SKIN: No rashes CENTRAL NERVOUS SYSTEM: No focal deficits, tone is normal in all 4 extremities. EXTREMITIES: There is no peripheral edema. No clubbing, no cyanosis. Peripheral pulses are intact. Results - Laboratory Findings CBC and BMP: 12/02/18 06:38 06/22/19 06:38 PT/INR, D-dimer PT 9.9 sec (9.0-12.0) 12/01/18 17:35 INR 0.9 (<1.2) 12/01/18 17:35 Abnormal lab findings: Abnormal Labs 12/01/18 12/01/18 12/02/18 17:35 17:35 06:38 WBC 15.8 H 11.8 H RBC 4.15 L 3.87 L Hgb 12.3 L 11.6 L Hct 36.2 L 35.0 L Plt Count 135 L 120 L Neutrophils # 13.7 H 10.1 H Sodium 119 L* Chloride 84 L Creatinine 0.59 L Glucose 110 H Calcium 8.1 L AST 63 H Total Protein 5.4 L Albumin 2.9 L 12/02/18 06:38 WBC RBC Hgb Hct Plt Count Neutrophils # Sodium 126 L Chloride 96 L Creatinine 0.46 L Glucose Calcium 7.7 L AST 60 H Total Protein 4.9 L Albumin 2.5 L - Diagnostic Findings Chest x-ray: image reviewed Assessment and Plan Assessment: Impression: #1 Syncopal episode, suspect vasovagal, suspect secondary to significant hyponatremia with a presenting sodium of 111 at [facility]. #2 Hyponatremia with recent episodes of dehydration. Status post 2 L of IV fluid and 0.9 at 125 ML's an hour. Today's sodium 126. #3 Dyspnea secondary to near complete opacification of the left upper lobe. #4 Recent diagnosis of small cell lung cancer with metastasis per PET scan 11/04/2018. Multiple foci to numerous to count areas of abnormal hypermetabolic uptake involving the pelvis, spine, ribs, proximal upper extremities and shoulders. There is hypermetabolic uptake in the left lobe of the liver, left adrenal mass, nodularity of the right adrenal gland. The patient has received 1 radiation treatment on 11/30/2018. On Decadron in the outpatient setting. #5 Previous history of laryngeal cancer. #6 History of chronic tobacco dependence. #7 Hypertension. #8 Hyperlipidemia. #9 Hypothyroidism. Plan: The patient was seen and evaluated by Dr. Field. Chest x-ray and labs were reviewed. Possible endobronchial occlusion to the left upper lobe. This is the area of biopsy for small cell lung cancer. May require repeat bronchoscopy. Currently the patient is comfortable in bed on room air. Currently on Decadron. Sodium level is being addressed per nephrology. We'll continue to follow and make further recommendations based on his clinical status. I, the cosigning physician, performed a history & physical examination of the patient. Lungs sounds crackles in the left lung. Maintaining good O2 saturations in the 90s on room air. I discussed the assessment and plan of care with my nurse practitioner, Jaky Arambula. I attest to the above note as dictated by her. Time with Patient: Greater than 30
[2018-12-02] MEDS: NYSTATIN 100,000 UNIT/ML SUSP 500,000 UNIT/5 ML CUP PO SCH ×4 (12:12→20:47)
[2018-12-02] MEDS: DEXAMETHASONE SOD PHOSPHATE 10 MG/ML 1 ML VIAL IV SCH ×2 (19:27→23:11)
[2018-12-02] MEDS: INSULIN ASPART (NovoLOG) 100 UNIT/ML VIAL SQ SCH (20:47)
[2018-12-02] MEDS: PRAVASTATIN SODIUM 20 MG TAB PO SCH (20:47)
[2018-12-02 20:48] LABS: Glucose,Whole Blood 136 mg/dL (75-99)
--- NOTE | 2018-12-02 23:45 | PN ---
PROGRESS NOTE DATE OF SERVICE: 12/02/2018 This 73-year-old gentleman admitted with syncope, had significant hyponatremia. The patient was recently diagnosed with metastatic malignancy receiving radiation therapy for the back. The patient also started chemotherapy. Patient being closely monitored. No chest pain. No palpitations. No fever. PAST MEDICAL HISTORY: Reviewed. REVIEW OF SYSTEMS: Cardiovascular: No angina or palpitations. Respiration: No cough. No hemoptysis. GI mentioned earlier. no dysuria. NERVOUS SYSTEM: No numbness or weakness. CURRENT MEDICATIONS: Reviewed and include: 1. Tylenol p.r.n. 2. [place] 7.5 q.6h p.r.n. 3. Xanax. 4. Hexadrol 4 mg p.o. 5. Colace 100 mg p.o. daily. 6. Synthroid 25 mcg p.o. daily. 7. Narcan 0.2 q.2h p.r.n. 8. Mycostatin. 9. Protonix 40 mg daily. 10.MiraLAX. 11.Pravachol. 12.Flomax. 13.Restoril. PHYSICAL EXAM: Patient is alert, oriented x3. Pulse 83. Blood pressure 105/69, respiration 16, temperature 98.8, pulse ox 94% on room air. HEENT: Conjunctivae normal. NECK: No jugular venous distention. CARDIOVASCULAR: S1, S2 muffled. RESPIRATORY: Breath sounds diminished in the bases. A few scattered rhonchi and crackles. ABDOMEN: Soft, nontender. No mass palpable. LEGS: No edema. Nervous system: Diffusely weak, no focal deficits. LAB STUDIES: WBC 11.8, hemoglobin 11.2, sodium is 126, and osmolality 257. Calcium is 7.7, albumin is 2.5. TSH is 4.10. Urine osmolality 495. ASSESSMENT: 1. Severe hyponatremia status post syncope possibly hypovolemic hyponatremia. Syndrome of inappropriate antidiuretic hormone cannot be ruled out completely per Nephrology. 2. Syncope, possibly vasovagal secondary to dehydration. 3. Increased WBC. 4. Anemia of malignancy. 5. Possible left upper lobe collapse in the chest x-ray. 6. Increased WBC. 7. Mild thrombocytopenia. 8. History of recently diagnosed metastatic malignancy possible small-cell lung cancer. 9. Status post radiation of the back. 10.Urinary retention, indwelling [place] catheter. 11.Hypertension. 12.Hyperlipidemia. 13.History of back pain and degenerative joint disease. 14.History of hernia repair. 15.Remote history of nicotine dependence. 16.NO CODE, NO CPR, NO VENT. RECOMMENDATIONS AND DISCUSSION: I recommend to continue current medications, management and symptomatic treatment. Otherwise, at this time, I recommend to continue the bronchodilators. Continue the rest of medications. Continue with steroids. Otherwise, I would also recommend close follow up with Dr. Field for possible bronchoscopy. Otherwise input from radiation therapy, hematology/oncology pending at this time. Guarded prognosis. Further recommendations to follow. Also empirically start the patient on steroids as well. MMODL / IJN: [id number] /
[2018-12-03] MEDS: HYDROcodone/APAP 7.5-325MG 1 EACH TAB PO PRN ×3 (03:32→21:41)
[2018-12-03] MEDS: DEXAMETHASONE SOD PHOSPHATE 10 MG/ML 1 ML VIAL IV SCH ×4 (05:37→23:45)
[2018-12-03] MEDS: LEVOTHYROXINE 25 MCG TAB PO SCH (05:37)
[2018-12-03 06:10] LABS: Glucose,Whole Blood 153 mg/dL (75-99)
[2018-12-03] MEDS: INSULIN ASPART (NovoLOG) 100 UNIT/ML VIAL SQ SCH ×4 (06:17→21:40)
[2018-12-03] MEDS: PANTOPRAZOLE 40 MG TABLET PO SCH (06:18)
[2018-12-03 07:44] LABS: African American GFR (CKD) >90 (>60 ml/min/1.73 sqM); Anion Gap 8 mmol/L; Blood Urea Nitrogen 14 mg/dL (9-20); Calcium 8.4 mg/dL (8.4-10.2); Carbon Dioxide 29 mmol/L (22-30); Chloride 90 mmol/L (98-107); Glucose 142 mg/dL (74-99); Potassium 4.6 mmol/L (3.5-5.1); Sodium 127 mmol/L (137-145)
[2018-12-03] MEDS: DOCUSATE 100 MG CAP PO SCH (10:30)
[2018-12-03] MEDS: TAMSULOSIN 0.4 MG CAP.ER.24H PO SCH (10:30)
[2018-12-03] MEDS: DEMECLOCYCLINE 150 MG TAB PO SCH ×2 (10:30→21:42)
[2018-12-03] MEDS: NYSTATIN 100,000 UNIT/ML SUSP 500,000 UNIT/5 ML CUP PO SCH ×4 (10:30→21:41)
[2018-12-03 11:19] LABS: Glucose,Whole Blood 158 mg/dL (75-99)
--- NOTE | 2018-12-03 13:40 | P.PN ---
Subjective Progress Note Date: 12/03/18 Principal diagnosis: syncope, vasovagal episode This is a very pleasant 73-year-old gentleman who follows with Lori Roberts as his primary care provider. He has a history of laryngeal cancer, hypertension, hyperlipidemia, previous chronic tobacco dependence, IDC for urinary retention. He was also recently diagnosed with small cell lung cancer 11/22/2018 via biopsies of the left upper lobe with Dr. Darnell. He received first radiation on 11/30/2018. Yesterday 12/01/2018 he was having episodes of increasing shortness of breath and was seen by Dr. Darnell in our office yesterday and given a shot of Depo-Medrol. Later on in the day he was sitting on the toilet where he appeared to have a vasovagal syncopal episode and was unconscious for approximately 10 minutes according to family. He was diaphoretic and noncommunicable. He was taken to [place] emergency room and found to have a sodium of 111. He was subsequently transferred here to [facility] for further evaluation. His x-ray showed complete opacification the left upper lobe which has progressed si nce previous study on 11/22/2018. We're consulted for the same. He is seen today in consultation on the selective care unit. He is currently resting fairly comfortably in bed. Awake and alert in no acute distress. No syncopal episodes. He does have a loose nonproductive cough. Shortness of breath with exertion. Currently maintaining good O2 saturations in the 90s on room air. He's afebrile. Slightly tachycardic. Somewhat hypotensive. He did receive 2 L of fluid resuscitation. 0.9 normal saline at 125 ML's per hour. Current labs reveal white count 11.8. Hemoglobin 11.6. Sodium 126. Creatinine 0.46. Patient was reevaluated today on 12/03/2018, patient is feeling great, asymptom atic, denies any syncopal episodes, no vasovagal episodes, denies any shortness of breath no cough no wheezing. 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 Objective - Vital Signs Vital signs: Vital Signs Temp 98.6 F 12/03/18 07:55 Pulse 79 12/03/18 11:35 Resp 16 12/03/18 11:35 BP 101/63 12/03/18 11:35 Pulse Ox 94 L 12/03/18 11:35 Intake & Output 12/02/18 12/03/18 12/03/18 18:59 06:59 18:59 Intake Total 210 240 Output Total 1200 Balance -990 240 Intake: Oral 210 240 Output: Urine 1200 Other: Voiding Method Indwelling Catheter Indwelling Catheter Indwelling Catheter - Exam Physical Exam: Revealed 73-year-old white male in no distress. Head: Atraumatic, normocephalic. HEENT:[Neck is supple.] [No neck masses.] [No thyromegaly.] [No JVD.] Chest: [Clear throughout, no crackles, no rhonchi, no wheezes.] Cardiac Exam: [Normal S1 and S2, no S3 gallop, no murmur.] Abdomen: [Soft, nontender, no megaly, no rebound, no guarding, normal bowel sounds.] Extremities: [No clubbing, no edema, no cyanosis.] Neurological Exam: [No focal neurologic deficit.] psychiatric: Normal mood affect and mental status examination. Skin: No rashes. Lymphatics: No lymphadenopathy - Labs CBC & Chem 7: 12/02/18 06:38 12/03/18 06:20 Labs: Abnormal Lab Results - Last 24 Hours (Table) 12/02/18 12/03/18 12/03/18 Range/Units 20:35 06:08 06:20 Sodium 127 L (137-145) mmol/L Chloride 90 L (98-107) mmol/L Creatinine 0.58 L (0.66-1.25) mg/dL Glucose 142 H (74-99) mg/dL POC Glucose (mg/dL) 136 H 153 H (75-99) mg/dL 12/03/18 Range/Units 11:17 Sodium (137-145) mmol/L Chloride (98-107) mmol/L Creatinine (0.66-1.25) mg/dL Glucose (74-99) mg/dL POC Glucose (mg/dL) 158 H (75-99) mg/dL Assessment and Plan Assessment: #1 Syncopal episode,most likely secondary to severe hyponatremia secondary to SIADH, 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 #2 Hyponatremia , improving, agree with the meclocycline if started by oncology. #3 Dyspnea secondary to near complete opacification of the left upper lobe.Secondary to small cell lung cancer. #4 Recent diagnosis of small cell lung cancer with metastasis per PET scan 11/04/2018. Multiple foci to numerous to count areas of abnormal hypermetabolic uptake involving the pelvis, spine, ribs, proximal upper extremities and shoulders. There is hypermetabolic uptake in the left lobe of the liver, left adrenal mass, nodularity of the right adrenal gland. The patient has received 1 radiation treatment on 11/30/2018. On Decadron in the outpatient setting. #5 Previous history of laryngeal cancer. #6 History of chronic tobacco dependence. #7 Hypertension. #8 Hyperlipidemia. #9 Hypothyroidism. Recommendation: Continue present treatment plan, consider discharge planning in the next 24 hours, and follow-up on outpatient basis with Dr. Darnell Time with Patient: Less than 30
--- NOTE | 2018-12-03 13:56 | P.PN ---
Subjective Progress Note Date: 12/03/18 Seen and examined for the follow-up of hyponatremia. Sodium stable around 127. Feels better today no nausea vomiting or diarrhea. Objective - Vital Signs Vital signs: Vital Signs Temp 98.6 F 12/03/18 07:55 Pulse 79 12/03/18 11:35 Resp 16 12/03/18 11:35 BP 101/63 12/03/18 11:35 Pulse Ox 94 L 12/03/18 11:35 Intake & Output 12/02/18 12/03/18 12/03/18 18:59 06:59 18:59 Intake Total 210 240 Output Total 1200 Balance -990 240 Intake: Oral 210 240 Output: Urine 1200 Other: Voiding Method Indwelling Catheter Indwelling Catheter Indwelling Catheter - Exam No acute distress S1-S2 heard Lungs decreased breath sounds No edema - Labs CBC & Chem 7: 12/02/18 06:38 12/03/18 06:20 Labs: Abnormal Lab Results - Last 24 Hours (Table) 12/02/18 12/03/18 12/03/18 Range/Units 20:35 06:08 06:20 Sodium 127 L (137-145) mmol/L Chloride 90 L (98-107) mmol/L Creatinine 0.58 L (0.66-1.25) mg/dL Glucose 142 H (74-99) mg/dL POC Glucose (mg/dL) 136 H 153 H (75-99) mg/dL 12/03/18 Range/Units 11:17 Sodium (137-145) mmol/L Chloride (98-107) mmol/L Creatinine (0.66-1.25) mg/dL Glucose (74-99) mg/dL POC Glucose (mg/dL) 158 H (75-99) mg/dL Assessment and Plan Assessment: #1 hypotonic chronic hyponatremia suspect hypovolemic from decreased oral intake and diarrhea. SIADH cannot be ruled out completely. #2 urinary retention on [place] #3 metastatic lung cancer #4 low normal blood pressures Plan: #1 sodium rapidly corrected yesterday but less than 18 in the last 48 hours. Underlying SIADH based on the current urine studies #2 repeat urine studies and osmolalities in the morning. #3 if repeat studies are consistent with SIADH consider adding salt tablets and fluid restriction
[2018-12-03 17:19] LABS: Glucose,Whole Blood 124 mg/dL (75-99)
[2018-12-03] MEDS: ALBUTEROL NEBULIZED 2.5 MG/3 ML INHALATION SCH ×2 (17:33→20:28)
[2018-12-03 20:57] LABS: Glucose,Whole Blood 222 mg/dL (75-99)
[2018-12-03] MEDS: PRAVASTATIN SODIUM 20 MG TAB PO SCH (21:41)
[2018-12-03] MEDS: TEMAZEPAM 15 MG CAP PO PRN (21:41)
--- NOTE | 2018-12-03 22:49 | PN ---
PROGRESS NOTE DATE OF SERVICE: 12/03/2018 This 73-year-old gentleman who was admitted with severe hyponatremia also had syncope. The patient also had possibly syndrome of inappropriate antidiuretic hormone. The patient also had a left upper lobe collapse in the chest x-ray. Multiple consultants are following the patient closely including Dr. Espinosa and Dr. Field. Nephrology also following the patient closely as well. The patient is receiving radiation therapy in the outpatient and patient is slated to have chemotherapy per Dr. Espinosa. No chest pain. No palpitations. No fever. PAST MEDICAL HISTORY: Reviewed. REVIEW OF SYSTEMS: CARDIOVASCULAR: No angina or palpitations. RESPIRATION: As mentioned earlier. GI: As mentioned earlier. : No dysuria. MUSCULOSKELETAL: As mentioned earlier. HEMATOLOGY/ONCOLOGY: No history of anemia. CENTRAL NERVOUS SYSTEM: No numbness or weakness. CURRENT MEDICATIONS: Reviewed and include: 1. Tylenol 650 q.6 p.r.n. 2. [place] 7.5 q.6h p.r.n. 3. Ventolin 2.5 q.i.d. 4. Xanax 0.25 t.i.d. 5. Demeclocycline 150 mg p.o. b.i.d. 6. Decadron 8 mg IV q6h. 7. Colace 100 mg p.o. b.i.d. 8. NovoLog. 9. Synthroid 25 mcg p.o. daily. 10.Narcan 0.2 q.2h p.r.n. 11.Mycostatin. 12.Protonix 40 mg p.o. daily. 13.MiraLAX 17 grams daily. 14.Pravachol 17 g p.o. q.h.s. 15.Flomax 0.4. 16.Restoril 15 mg q.h.s. p.r.n. PHYSICAL EXAM: Patient is alert, oriented times three. Pulse is 76, blood pressure 124/78, respiration 20, temperature 97.8, pulse ox 97% on room air. HEENT: Conjunctivae normal. NECK: No jugular venous distention. CARDIOVASCULAR: S1, S2 muffled. RESPIRATORY: Breath sounds diminished in the bases. Scattered rhonchi and crackles. ABDOMEN: Soft, nontender. LEGS: No edema. No swelling. NERVOUS SYSTEM: No focal deficits. LABS: Sodium 127, improved to 126. CBC is not available today. ASSESSMENT: 1. Severe hypernatremia status post syncope possibly hypovolemic hyponatremia possibly syndrome of inappropriate antidiuretic hormone. 2. Syncope, possibly vasovagal secondary to dehydration. 3. Increased WBC. 4. Anemia of malignancy. 5. Possible left upper lobe collapse in the chest x-ray. 6. Increased WBC. 7. Mild thrombocytopenia. 8. History of recently diagnosed metastatic malignancy possible small cell lung cancer. 9. Status post radiation of the back and metastases. 10.Urinary retention, indwelling [place] catheter. 11.Hypertension. 12.Hyperlipidemia. 13.History of back pain/degenerative joint disease. 14.History of hernia repair. 15.Remote history of nicotine dependence. 16.NO CODE, NO CPR, NO VENT. RECOMMENDATIONS AND DISCUSSION: I recommend to continue current medications, management and symptomatic treatment. Otherwise, repeat labs. Otherwise pain medications. We will closely monitor with Nephrology and as well as Hematology/Oncology. Guarded prognosis because of multiple complex medical issues. Further recommendations to follow. See orders for details. MMODL / IJN: [id number] /
--- NOTE | 2018-12-04 00:28 | CONS ---
CONSULTATION DATE OF CONSULTATION: 12/03/2018. REASON FOR CONSULTATION: Small cell lung cancer. 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 He was found to have a central airway disease and biopsy was consistent with carcinoma. He was found to have bony metastatic disease. The patient was seen by Dr. Zaidi and Dr. Adams. Plans were made to start the patient on palliative radiation therapy to be followed by systemic chemotherapy in the form of carboplatin and etoposide and Dysenteric. He presented to [facility] with anorexia, decreased oral intake and decreased oral solid and liquid intake and dehydration. He had a syncopal episode at home and was found to have sodium of 111. He was hospitalized and given IV fluid and transferred to [facility]. When the patient was seen today, he stated feeling "a lot better." He continues to have shortness of breath and being anorexic but feels stronger. He received a 3% normal saline and his sodium has improved to 126. PAST MEDICAL HISTORY: 1. 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 2. Hypertension. 3. Chronic obstructive pulmonary disease. 4. Prior history of head and neck cancer. PAST SURGICAL HISTORY: Past surgical history and medications reviewed in listed in the electronic medical record. SOCIAL HISTORY: The patient smoked 2 packs of cigarettes daily. He quit recently. He resides with his family in [place], [place]. REVIEW OF SYSTEMS: anorexia, as well as shortness of breath without hemoptysis. EXAMINATION: The patient appeared alert and oriented. Skin is warm and dry. Hair distribution is slightly normal for age and gender. The blood pressure was 116/72, pulse is 72 and regular, respiratory rate was 16, not labored. Temperature was 98.5. There were no pathological cervical, supraclavicular, infraclavicular or inguinal lymphadenopathy. Trachea was in midline. Chest was clear with good air exchange bilaterally. HEART: Sounds are normal S1 and S2. There were no S3, S4, rubs or murmurs auscultated. Abdomen was soft. The liver and spleen were not clinically palpable. No mass, tenderness or inguinal lymphadenopathy. Extremities appears to be grossly unremarkable. Major motion was within normal limits with no deformities seen. Neurologic examination showed no focal motor or sensory deficits. Cranial nerves 2-12 unremarkable. IMPRESSION: 1. Syncopal episode likely due to dehydration. 2. 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 3. Metastatic extensive stage small cell carcinoma of the lung with bony metastases. 4. Moderate to severe back pain due to metastatic disease. RECOMMENDATIONS: 1. Continue IV hydration. 2. Discussed cancer related SIADH. 3. Start demeclocycline dose of 150 mg b.i.d. 4. Analgesics as needed. 5. Given the rapidly progressive disease, we will discuss holding potential radiation therapy in favor of starting chemotherapy as soon as possible. I discussed the case with Dr. Adams this afternoon who agrees with the plans to proceed with systemic therapy as soon as possible. I discussed the case and recommendations with the patient's and 2 daughters at the bedside. I answered all questions and concerns to their satisfaction. We will follow the patient along with you in the hospital. Further recommendation to follow. Thank you for asking us to participate in the care of Mr. Ruiz. MMASIA / TA: [id number] /
[2018-12-04] MEDS: ACETAMINOPHEN TAB 325 MG TAB PO PRN ×2 (02:37→18:10)
[2018-12-04] MEDS: DEXAMETHASONE SOD PHOSPHATE 10 MG/ML 1 ML VIAL IV SCH ×4 (05:29→22:55)
[2018-12-04] MEDS: HYDROcodone/APAP 7.5-325MG 1 EACH TAB PO PRN ×3 (05:30→20:19)
[2018-12-04] MEDS: PANTOPRAZOLE 40 MG TABLET PO SCH (05:30)
[2018-12-04] MEDS: LEVOTHYROXINE 25 MCG TAB PO SCH (05:30)
[2018-12-04 06:50] LABS: Glucose,Whole Blood 145 mg/dL (75-99)
[2018-12-04] MEDS: INSULIN ASPART (NovoLOG) 100 UNIT/ML VIAL SQ SCH ×4 (07:01→21:25)
[2018-12-04 07:15] LABS: African American GFR (CKD) >90 (>60 ml/min/1.73 sqM); Anion Gap 9 mmol/L; Blood Urea Nitrogen 21 mg/dL (9-20); Calcium 8.4 mg/dL (8.4-10.2); Carbon Dioxide 28 mmol/L (22-30); Chloride 88 mmol/L (98-107); Glucose 139 mg/dL (74-99); Potassium 4.6 mmol/L (3.5-5.1); Sodium 125 mmol/L (137-145)
[2018-12-04] MEDS: DOCUSATE 100 MG CAP PO SCH ×2 (08:57→20:19)
[2018-12-04] MEDS: TAMSULOSIN 0.4 MG CAP.ER.24H PO SCH (08:57)
[2018-12-04] MEDS: DEMECLOCYCLINE 150 MG TAB PO SCH ×2 (08:58→20:19)
[2018-12-04] MEDS: NYSTATIN 100,000 UNIT/ML SUSP 500,000 UNIT/5 ML CUP PO SCH ×4 (08:58→20:17)
[2018-12-04] MEDS ORDERED: FUROSEMIDE 10 MG/ML 2 ML VIAL IV ONE (09:02)
[2018-12-04] MEDS: ALBUTEROL NEBULIZED 2.5 MG/3 ML INHALATION SCH ×4 (09:16→19:55)
--- NOTE | 2018-12-04 10:34 | P.PN ---
Subjective Patient is seen in follow-up for hyponatremia. Sodium level is 125 today. He has a Alcala catheter for chronic urinary retention. Patient also has small cell lung carcinoma with metastasis. Oral intake is fair. No vomiting or diarrhea. Denies chest pain or shortness of breath. Vital signs are stable. General: The patient appeared well nourished and normally developed. HEENT: Head exam is unremarkable. Neck is without jugular venous distension. LUNGS: Lungs are clear to auscultation and percussion. Breath sounds decreased. HEART: Rate and Rhythm are regular. First and second heart sounds normal. No murmurs, rubs or gallops. ABDOMEN: Abdominal exam reveals normal bowel sounds. Non-tender and non- distended. No evidence of peritonitis. EXTREMITITES: No clubbing, cyanosis, or edema. Objective - Vital Signs Vital signs: Vital Signs Temp 97.4 F L 12/04/18 08:00 Pulse 84 12/04/18 09:29 Resp 18 12/04/18 08:00 BP 125/82 12/04/18 08:00 Pulse Ox 97 12/04/18 08:00 Intake & Output 12/03/18 12/04/18 12/04/18 18:59 06:59 18:59 Intake Total 640 450 150 Output Total 620 625 Balance 20 -175 150 Weight 77.3 kg Intake: Oral 640 450 150 Output: Urine 620 625 Other: Voiding Method Indwelling Catheter Indwelling Catheter Indwelling Catheter # Voids 80 - Labs CBC & Chem 7: 12/02/18 06:38 12/04/18 06:42 Labs: Abnormal Lab Results - Last 24 Hours (Table) 12/03/18 12/03/18 12/03/18 Range/Units 11:17 17:18 20:55 Sodium (137-145) mmol/L Chloride (98-107) mmol/L BUN (9-20) mg/dL Creatinine (0.66-1.25) mg/dL Glucose (74-99) mg/dL POC Glucose (mg/dL) 158 H 124 H 222 H (75-99) mg/dL Osmolality (280-301) mosm/kg 12/04/18 12/04/18 Range/Units 06:42 06:47 Sodium 125 L (137-145) mmol/L Chloride 88 L (98-107) mmol/L BUN 21 H (9-20) mg/dL Creatinine 0.60 L (0.66-1.25) mg/dL Glucose 139 H (74-99) mg/dL POC Glucose (mg/dL) 145 H (75-99) mg/dL Osmolality 263 L (280-301) mosm/kg Assessment and Plan Plan: Assessment: 1. Hyponatremia. Currently appears euvolemic. 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 Sodium level 125 today. 2. Small cell lung carcinoma with metastasis. 3. Urinary retention. Currently is a Alcala catheter. Plan: 1200 mL fluid restriction. Add ensure with meals. 20 mg IV Lasix once now. Patient is also on demeclocycline. Repeat sodium level this afternoon. If no improvement, I will add salt tabs.
[2018-12-04 11:54] LABS: Glucose,Whole Blood 152 mg/dL (75-99)
--- NOTE | 2018-12-04 15:10 | P.PN ---
Subjective Progress Note Date: 12/04/18 Principal diagnosis: Hyponatremia, small cell lung cancer Mr. Ruiz is seen today in follow-up, states feels much better than when he was admitted to [facility]. His family is pleased, he is more alert and appropriate. Patient has bone pain which is controlled on current analgesic medication regimen. His sodium level is 125 today. Objective - Vital Signs Vital signs: Vital Signs Temp 97.4 F L 12/04/18 12:00 Pulse 82 12/04/18 12:28 Resp 18 12/04/18 12:00 BP 100/66 12/04/18 12:00 Pulse Ox 97 12/04/18 12:00 Intake & Output 12/03/18 12/04/18 12/04/18 18:59 06:59 18:59 Intake Total 640 450 150 Output Total 620 625 Balance 20 -175 150 Weight 77.3 kg Intake: Oral 640 450 150 Output: Urine 620 625 Other: Voiding Method Indwelling Catheter Indwelling Catheter Indwelling Catheter # Voids 80 - Constitutional General appearance: Present: average body habitus, cooperative, no acute distr ess - EENT Eyes: Present: anicteric sclerae, EOMI ENT: Present: hearing grossly normal - Respiratory Respiratory: bilateral: CTA (even and unlabored) - Cardiovascular Details: skin warm and dry Heart sounds: normal: S1, S2 - Peripheral edema leg Peripheral Edema: bilateral: None - Gastrointestinal General gastrointestinal: Present: normal bowel sounds, soft - Integumentary Integumentary: Present: normal - Neurologic Neurologic: Present: CNII-XII intact - Musculoskeletal Musculoskeletal: Present: generalized weakness, strength equal bilaterally - Psychiatric Psychiatric: Present: A&O x's 3, appropriate affect, intact judgment & insight - Labs CBC & Chem 7: 12/02/18 06:38 12/04/18 06:42 Labs: Abnormal Lab Results - Last 24 Hours (Table) 12/03/18 12/03/18 12/04/18 Range/Units 17:18 20:55 06:42 Sodium 125 L (137-145) mmol/L Chloride 88 L (98-107) mmol/L BUN 21 H (9-20) mg/dL Creatinine 0.60 L (0.66-1.25) mg/dL Glucose 139 H (74-99) mg/dL POC Glucose (mg/dL) 124 H 222 H (75-99) mg/dL Osmolality 263 L (280-301) mosm/kg 12/04/18 12/04/18 Range/Units 06:47 11:50 Sodium (137-145) mmol/L Chloride (98-107) mmol/L BUN (9-20) mg/dL Creatinine (0.66-1.25) mg/dL Glucose (74-99) mg/dL POC Glucose (mg/dL) 145 H 152 H (75-99) mg/dL Osmolality (280-301) mosm/kg Assessment and Plan (1) Small cell lung cancer Narrative/Plan: Dr. Espinosa discussed the case with Dr. Adams, I discussed the case with Dr. Fu today. Plan was to begin with palliative radiation therapy to painful bony metastasis. Unfortunately, due to patient's symptomatic and severe hyponatremia from small cell lung cancer recommendation has been changed. Recommendation is to begin chemotherapy as soon as possible. Orders for chemo have been sent, tecentric has been sent as a prescription, pending insurance approval. Planning on starting chemo Wed outpatient as long as demeclocycline is prescribed and affordable (have our office working on this prescription as it can be very challenging to obtain). Will control pain with analgesics at this time. Patient and family are in agreement with the plan of care. Current Visit: Yes Status: Acute Priority: High Code(s): C34.90 - MALIGNANT NEOPLASM OF UNSP PART OF UNSP BRONCHUS OR LUNG SNOMED Code(s): 118641762 (2) SIADH (syndrome of inappropriate ADH production) Narrative/Plan: Secondary to small cell lung cancer. Patient's sodium was severely low at 111 on admission to [facility]. Patient's sodium has been corrected to 125, with resolution of symptoms. Patient required 3% saline solution and is being currently maintained on demeclocycline. Patient has been sent to the pharmacy f or the same. Would NOT recommend discharging patient until it is absolutely certain that pt can obtain this prescription. Without this prescription sodium will absolutely fall again and pt will end up being readmitted for correction. Current Visit: Yes Status: Acute Priority: High Code(s): E22.2 - SYNDROME OF INAPPROPRIATE SECRETION OF ANTIDIURETIC HORMONE SNOMED Code(s): 99688404 (3) Cancer related pain Narrative/Plan: Continue current analgesics and titrate for comfort. Meds to prevent narcotic induced constipation Radiation in the future Current Visit: Yes Status: Acute Priority: High Code(s): G89.3 - NEOPLASM RELATED PAIN (ACUTE) (CHRONIC) SNOMED Code(s): 48253419324795
--- NOTE | 2018-12-04 15:14 | PN ---
PROGRESS NOTE PULMONARY CRITICAL CARE PROGRESS NOTE: DATE OF SERVICE: 12/04/2018 A 73-year-old male admitted a couple days ago. I actually saw him in the office on Tuesday. He left the office and went back home. He lives up in the [facility]. Anyway, subsequent to that, he apparently was at home and had a syncopal episode. He was taken to the hospital. He was transferred down here for further management. He was found to have profound and severe hyponatremia with a sodium of 111, likely secondary to SIADH as apparent neoplasia of his small cell lung cancer. Anyway, he was shipped down here and put on water restriction and also given demeclocycline. His hyponatremia is improving. In fact, his sodium is up to 125. The patient also had some shortness of breath in the office and he did receive some steroids when he was in the office the other day. From the pulmonary standpoint, he is doing much better. In addition to all of that, I recently diagnosed small-cell lung cancer on him. We did navigational bronchoscopy to the left upper lobe lesion. He had a PET scan done on November 04, which showed multiple soo-mbysoyhe-vl-count areas of hypermetabolic abnormalities including the pelvis, thigh, ribs, proximal upper extremities and shoulders. There is also abnormality in the left lobe of the liver, left adrenal mass and other areas as well. In addition, he has a history of laryngeal carcinoma, chronic tobacco dependence, hypertension, hyperlipidemia, and hypothyroidism. He is undergoing one round of radiation. I am not sure that he is ever going to be well enough to undergo chemotherapy. We did talk to the family about that today. He is with his daughters today. He seems to be in a good mood. Hopes to be able to be discharged relatively soon. Current vital signs include a temperature 97.4, heart rate 82, respiratory rate 18, blood pressure 100/66 mean 77, room-air saturation 97%. Appears in no acute distress. HEENT: Examination is grossly unremarkable. Mucous membranes are moist. No oral lesions. NECK: Supple. Full range of motion. No adenopathy or thyromegaly. Neck veins are flat. CARDIOVASCULAR: Examination reveals regular rhythm and rate. S1, S2 normal. LUNGS: Reveal a few scattered rhonchi. No wheezes or crackles. Breath sounds equal. Breath sounds are improved. ABDOMEN: Soft. Bowel sounds are heard. EXTREMITIES: Intact. No cyanosis, clubbing, or edema. SKIN: Without rash. NEUROLOGIC: Examination is brief but nonfocal. LAB DATA: Reviewed. Sodium is up to 125, potassium 4.6, chloride 88, CO2 is 28, anion gap is 9. BUN and creatinine were 21 and 0.6. The rest of the labs look pretty good. No recent x-rays to report. The x-ray from the other day here shows complete opacification and abnormality in the left upper lobe of the lung. Microbiologic studies are negative. Medications are reviewed. ASSESSMENT: 1. Syncopal episode, likely related to the patient's profound hyponatremia secondary to SIADH as apparent neoplasia of his small cell lung cancer. 2. Shortness of breath, secondary to underlying chronic obstructive pulmonary disease and near-complete opacification of the left upper lobe. 3. Recent diagnosis of small-cell lung cancer, made by navigational bronchoscopy. The patient has received one round of radiation therapy. He has too numerous to count areas of hypermetabolism on PET scan in the pelvis, thigh, and rib, upper extremities and shoulders. In addition, he has got lesions in the left lobe of the liver, left adrenal mass and nodularity in the right adrenal gland. 4. Previous history of laryngeal carcinoma. 5. History of chronic tobacco dependence. 6. History of hypertension. 7. History of hyperlipidemia. 8. Hypothyroidism. PLAN: The patient is going to be considered for discharge in next day or so. He should follow up with his primary and also Oncology. He was seen by Dr. Espinosa, here in the hospital. He has got appointments with Dr. Flores and Dr. Zaidi in the future. I will see him as well. I had a long discussion with the daughter. They were very realistic and they realize that the patient may never get well enough to undergo chemotherapy. Will continue to follow. Prognosis is guarded. MMODL / IJN: [id number] / LIBIA
[2018-12-04 16:35] LABS: African American GFR (CKD) >90 (>60 ml/min/1.73 sqM); Anion Gap 15 mmol/L; Blood Urea Nitrogen 27 mg/dL (9-20); Calcium 8.5 mg/dL (8.4-10.2); Carbon Dioxide 21 mmol/L (22-30); Chloride 90 mmol/L (98-107); Glucose 231 mg/dL (74-99); Potassium 4.1 mmol/L (3.5-5.1); Sodium 126 mmol/L (137-145)
[2018-12-04 17:02] LABS: Glucose,Whole Blood 272 mg/dL (75-99)
--- NOTE | 2018-12-04 17:50 | PN ---
PROGRESS NOTE DATE OF SERVICE: 12/04/2018 This 73-year-old gentleman with severe hyponatremia also had syncope. The patient also had possible SIADH. Patient also had left upper lobe collapse. The patient had a metastatic malignancy. The patient is also receiving radiation. The patient was seen by Dr. Salmeron as well as Dr. Espinosa. Dr. Espinosa has recommended demeclocycline as well as holding the radiation therapy in favor of starting the chemotherapy as soon as possible. Past medical history reviewed. REVIEW OF SYSTEMS: CARDIOVASCULAR SYSTEM: No angina, palpitations. RESPIRATORY SYSTEM: As mentioned earlier. GI: As mentioned earlier. : No dysuria or retention. NERVOUS SYSTEM: No numbness, weakness. MUSCULOSKELETAL: As mentioned earlier. CURRENT MEDICATIONS: Reviewed. They include: 1. Tylenol 650 q.6 p.r.n. 2. Dinosaur 7.5 q.6 p.r.n. 3. Ventolin 2.5 q.i.d. 4. Xanax 0.25 q.i.d. 5. Demeclocycline 150 mg p.o. b.i.d. 6. Decadron 8 mg IV q.6. 7. Colace 100 mg daily. 8. NovoLog scale. 9. Synthroid 25 mcg p.o. daily. 10.Narcan p.r.n. 11.Mycostatin. 12.Protonix 40 mg. 13.MiraLAX. 14.Pravachol. 15.Flomax. 16.Restoril. PHYSICAL EXAMINATION: Patient is alert, oriented x3. Pulse 89, blood pressure 100/66, respiration 18, temperature 97.4, pulse ox 97% on room air. HEENT: Conjunctivae normal. NECK: No jugular venous distention. CARDIOVASCULAR SYSTEM: S1, S2 muffled. RESPIRATORY SYSTEM: Breath sounds diminished at the bases. Bilateral scattered rhonchi and crackles. ABDOMEN: Soft, non-tender. LEGS: No edema. No swelling. NERVOUS SYSTEM: No focal deficit. LABS: Sodium 125. Otherwise, potassium 4.6. WBC 11.8, hemoglobin 11.6. Other labs are noted and reviewed. ASSESSMENT: 1. Severe hyponatremia, possibly secondary to hypovolemic hyponatremia, possibly syndrome of inappropriate antidiuretic hormone secondary to malignancy. 2. Syncope, possibly vasovagal, secondary to dehydration. 3. Increased white count. 4. Chronic anemia of malignancy. 5. Possible left upper lobe collapse on the chest x-ray. 6. Mild thrombocytopenia. 7. History of recently diagnosed metastatic malignancy, possible small-cell lung cancer. 8. Status post radiation of the back and metastasis. 9. Urinary retention, indwelling Alcala catheter, present on admission. 10.Hypertension. 11.Hyperlipidemia. 12.History of back pain and degenerative joint disease. 13.History of hernia surgery. 14.Remote history of nicotine dependence. 15.NO CODE, NO CPR, NO VENT. RECOMMENDATIONS AND DISCUSSION: I recommend to continue current medications, continue with the monitoring, symptomatic treatment. As mentioned earlier, Dr. Espinosa is preferring chemotherapy at this time. Will discuss with Case Management, licensed clinical social worker, and will increase ambulation if the patient is able to ambulate without much pain. The patient may be able to be discharged home in the next 24-48 hours. Otherwise, we will continue to monitor. Repeat labs are ordered. Guarded prognosis because of multiple complex medical issues. Further recommendations to follow. MMODL / IJN: [id number] /
[2018-12-04] MEDS: ALPRAZolam 0.25 MG TAB PO PRN (17:55)
[2018-12-04] MEDS ORDERED: NA PHOS,M-B/NA PHOS,DI-BA 133 ML ENEMA RECTAL PRN (18:24)
[2018-12-04] MEDS: PRAVASTATIN SODIUM 20 MG TAB PO SCH (20:19)
[2018-12-04 21:20] LABS: Glucose,Whole Blood 116 mg/dL (75-99)
[2018-12-04] MEDS: TEMAZEPAM 15 MG CAP PO PRN (22:55)
[2018-12-05] MEDS: HYDROcodone/APAP 7.5-325MG 1 EACH TAB PO PRN ×4 (02:45→21:30)
[2018-12-05] MEDS: DEXAMETHASONE SOD PHOSPHATE 10 MG/ML 1 ML VIAL IV SCH ×3 (06:07→16:40)
[2018-12-05] MEDS: LEVOTHYROXINE 25 MCG TAB PO SCH (06:07)
[2018-12-05] MEDS: PANTOPRAZOLE 40 MG TABLET PO SCH (06:07)
[2018-12-05] MEDS: ALPRAZolam 0.25 MG TAB PO PRN ×2 (06:09→21:30)
[2018-12-05] MEDS: INSULIN ASPART (NovoLOG) 100 UNIT/ML VIAL SQ SCH ×4 (06:38→21:30)
[2018-12-05 06:39] LABS: Glucose,Whole Blood 126 mg/dL (75-99)
[2018-12-05 07:29] LABS: African American GFR (CKD) >90 (>60 ml/min/1.73 sqM); Anion Gap 8 mmol/L; Blood Urea Nitrogen 27 mg/dL (9-20); Calcium 8.4 mg/dL (8.4-10.2); Carbon Dioxide 30 mmol/L (22-30); Chloride 90 mmol/L (98-107); Glucose 128 mg/dL (74-99); Magnesium 2.4 mg/dL (1.6-2.3); Potassium 4.6 mmol/L (3.5-5.1); Sodium 128 mmol/L (137-145)
[2018-12-05] MEDS: ALBUTEROL NEBULIZED 2.5 MG/3 ML INHALATION SCH ×4 (08:48→20:28)
[2018-12-05] MEDS: TAMSULOSIN 0.4 MG CAP.ER.24H PO SCH (08:53)
[2018-12-05] MEDS: NYSTATIN 100,000 UNIT/ML SUSP 500,000 UNIT/5 ML CUP PO SCH ×4 (08:53→21:30)
[2018-12-05] MEDS: DEMECLOCYCLINE 150 MG TAB PO SCH ×2 (08:53→21:59)
[2018-12-05] MEDS: DOCUSATE 100 MG CAP PO SCH ×2 (08:53→21:30)
--- NOTE | 2018-12-05 10:17 | P.PN ---
Subjective Patient is seen in follow-up for hyponatremia. Sodium level is 128 today. He has a Alcala catheter for chronic urinary retention. Patient also has small cell lung carcinoma with metastasis. Oral intake is fair. He's been drinking ensure. No vomiting or diarrhea. Denies chest pain or shortness of breath. Vital signs are stable. General: The patient appeared well nourished and normally developed. HEENT: Head exam is unremarkable. Neck is without jugular venous distension. LUNGS: Lungs are clear to auscultation and percussion. Breath sounds decreased. HEART: Rate and Rhythm are regular. First and second heart sounds normal. No murmurs, rubs or gallops. ABDOMEN: Abdominal exam reveals normal bowel sounds. Non-tender and non-distende d. No evidence of peritonitis. EXTREMITITES: No clubbing, cyanosis, or edema. Objective - Vital Signs Vital signs: Vital Signs Temp 97.5 F L 12/05/18 08:00 Pulse 88 12/05/18 09:01 Resp 18 12/05/18 08:00 BP 119/72 12/05/18 08:00 Pulse Ox 95 12/05/18 08:51 Intake & Output 12/04/18 12/05/18 12/05/18 18:59 06:59 18:59 Intake Total 600 950 118 Output Total 1100 675 Balance -500 275 118 Weight 77.3 kg 76.7 kg Intake: Oral 600 950 118 Output: Urine 1100 675 Other: Voiding Method Indwelling Catheter Indwelling Catheter - Labs CBC & Chem 7: 12/02/18 06:38 12/05/18 06:34 Labs: Abnormal Lab Results - Last 24 Hours (Table) 12/04/18 12/04/18 12/04/18 Range/Units 11:50 16:02 16:50 Sodium 126 L (137-145) mmol/L Chloride 90 L (98-107) mmol/L Carbon Dioxide 21 L (22-30) mmol/L BUN 27 H (9-20) mg/dL Creatinine (0.66-1.25) mg/dL Glucose 231 H (74-99) mg/dL POC Glucose (mg/dL) 152 H 272 H (75-99) mg/dL Magnesium (1.6-2.3) mg/dL 06/24/19 06/25/19 06/25/19 Range/Units 21:18 06:34 06:37 Sodium 128 L (137-145) mmol/L Chloride 90 L (98-107) mmol/L Carbon Dioxide (22-30) mmol/L BUN 27 H (9-20) mg/dL Creatinine 0.62 L (0.66-1.25) mg/dL Glucose 128 H (74-99) mg/dL POC Glucose (mg/dL) 116 H 126 H (75-99) mg/dL Magnesium 2.4 H (1.6-2.3) mg/dL Assessment and Plan Plan: Assessment: 1. Hyponatremia. Currently appears euvolemic. 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 Sodium level 128 today. TSH normal. Uric acid normal. Urine sodium 16 and urine osmolality 526. 2. Small cell lung carcinoma with metastasis. 3. Urinary retention. Currently has a Alcala catheter. Plan: 1200 mL fluid restriction. Maintain ensure with meals. Patient is also on demeclocycline. Anticipate discharge soon. Repeat BMP 2-3 days postdischarge. Follow up outpatient in the next 1 week.
--- NOTE | 2018-12-05 11:43 | P.PN ---
Subjective Progress Note Date: 12/05/18 Principal diagnosis: Syncope, vasovagal collapse This is a very pleasant 73-year-old gentleman who follows with Lori Roberts as his primary care provider. He has a history of laryngeal cancer, hypertension, hyperlipidemia, previous chronic tobacco dependence, IDC for urinary retention. He was also recently diagnosed with small cell lung cancer 11/22/2018 via biopsies of the left upper lobe with Dr. Darnell. He received first radiation on 11/30/2018. Yesterday 12/01/2018 he was having episodes of increasing shortness of breath and was seen by Dr. Darnell in our office yesterday and given a shot of Depo-Medrol. Later on in the day he was sitting on the toilet where he appeared to have a vasovagal syncopal episode and was unconscious for approximately 10 minutes according to family. He was diaphoretic and noncommunicable. He was taken to [place] emergency room and found to have a sodium of 111. He was subsequently transferred here to [facility] for further evaluation. His x-ray showed complete opacification the left upper lobe which has progressed si nce previous study on 11/22/2018. We're consulted for the same. He is seen today in consultation on the selective care unit. He is currently resting fairly comfortably in bed. Awake and alert in no acute distress. No syncopal episodes. He does have a loose nonproductive cough. Shortness of breath with exertion. Currently maintaining good O2 saturations in the 90s on room air. He's afebrile. Slightly tachycardic. Somewhat hypotensive. He did receive 2 L of fluid resuscitation. 0.9 normal saline at 125 ML's per hour. Current labs reveal white count 11.8. Hemoglobin 11.6. Sodium 126. Creatinine 0.46. The patient is seen today 12/05/2018 in follow-up on the selective care unit. He is currently sitting up at the bedside. Awake and alert in no acute distress. No further syncopal episodes. He is maintaining good O2 saturations in the high 90s on room air. He's been afebrile. Hemodynamically stable. Sodium 128. Creatinine 0.62. He is continued on Declomycin, Decadron. He is stable from the pulmonary standpoint. Objective - Vital Signs Vital signs: Vital Signs Temp 97.5 F L 12/05/18 08:00 Pulse 88 12/05/18 09:01 Resp 18 12/05/18 08:00 BP 119/72 12/05/18 08:00 Pulse Ox 95 12/05/18 08:51 Intake & Output 12/04/18 12/05/18 12/05/18 18:59 06:59 18:59 Intake Total 600 950 118 Output Total 1100 675 Balance -500 275 118 Weight 77.3 kg 76.7 kg Intake: Oral 600 950 118 Output: Urine 1100 675 Other: Voiding Method Indwelling Catheter Indwelling Catheter Indwelling Catheter - Exam GENERAL EXAM: Pleasant 73-year-old gentleman.Alert, active, comfortable in no apparent distress. On room air. HEAD: Normocephalic. EYES: Normal reaction of pupils, equal size. NOSE: Clear with pink turbinates. THROAT: No erythema or exudates. NECK: No masses, no JVD. CHEST: No chest wall deformity. LUNGS: Equal air entry with no crackles, wheeze, rhonchi or dullness. CVS: S1 and S2 normal with no audible murmur, regular rhythm. ABDOMEN: No hepatosplenomegaly, normal bowel sounds, no guarding or rigidity. SPINE: No scoliosis or deformity SKIN: No rashes CENTRAL NERVOUS SYSTEM: No focal deficits, tone is normal in all 4 extremities. EXTREMITIES: There is no peripheral edema. No clubbing, no cyanosis. Periphe ral pulses are intact. - Labs CBC & Chem 7: 12/02/18 06:38 12/05/18 06:34 Labs: Abnormal Lab Results - Last 24 Hours (Table) 12/04/18 12/04/18 12/04/18 Range/Units 11:50 16:02 16:50 Sodium 126 L (137-145) mmol/L Chloride 90 L (98-107) mmol/L Carbon Dioxide 21 L (22-30) mmol/L BUN 27 H (9-20) mg/dL Creatinine (0.66-1.25) mg/dL Glucose 231 H (74-99) mg/dL POC Glucose (mg/dL) 152 H 272 H (75-99) mg/dL Magnesium (1.6-2.3) mg/dL 12/04/18 12/05/18 12/05/18 Range/Units 21:18 06:34 06:37 Sodium 128 L (137-145) mmol/L Chloride 90 L (98-107) mmol/L Carbon Dioxide (22-30) mmol/L BUN 27 H (9-20) mg/dL Creatinine 0.62 L (0.66-1.25) mg/dL Glucose 128 H (74-99) mg/dL POC Glucose (mg/dL) 116 H 126 H (75-99) mg/dL Magnesium 2.4 H (1.6-2.3) mg/dL Assessment and Plan Assessment: Impression: #1 Syncopal episode, suspect vasovagal, suspect secondary to significant hyponatremia with a presenting sodium of 111 at [facility]. #2 Hyponatremia with recent episodes of dehydration. Status post 2 L of IV fluid and 0.9 at 125 ML's an hour. Today's sodium 128. #3 Dyspnea secondary to near complete opacification of the left upper lobe. #4 Recent diagnosis of small cell lung cancer with metastasis per PET scan 11/04/2018. Multiple foci to numerous to count areas of abnormal hypermetabolic uptake involving the pelvis, spine, ribs, proximal upper extremities and shoulders. There is hypermetabolic uptake in the left lobe of the liver, left adrenal mass, nodularity of the right adrenal gland. The patient has received 1 radiation treatment on 11/30/2018. On Decadron in the outpatient setting. #5 Previous history of laryngeal cancer. #6 History of chronic tobacco dependence. #7 Hypertension. #8 Hyperlipidemia. #9 Hypothyroidism. Plan: The patient was seen and evaluated by Dr. Darnell. He is currently stable from the pulmonary standpoint. Currently on echo myosin and Decadron. Sodium level is improved and being addressed per nephrology. We'll continue to follow and make further recommendations based on his clinical status. I, the cosigning physician, performed a history & physical examination of the patient. Lungs sounds crackles in the left lung. Maintaining good O2 saturations in the 90s on room air. I discussed the assessment and plan of care with my nurse practitioner, Jaky Arambula. I attest to the above note as dictated by her.
[2018-12-05 12:06] LABS: Glucose,Whole Blood 141 mg/dL (75-99)
[2018-12-05] MEDS ORDERED: DEXAMETHASONE SOD PHOSPHATE 10 MG/ML 1 ML VIAL IV SCH (14:30)
[2018-12-05] MEDS ORDERED: FAMOTIDINE 20 MG/2 ML VIAL IV SCH (14:30)
[2018-12-05 14:51] LABS: HCT 33.6 % (39.0-53.0); HGB 12.4 gm/dL (13.0-17.5); MCH 33.3 pg (25.0-35.0); MCHC 36.8 g/dL (31.0-37.0); MCV 90.5 fL (80.0-100.0); Mean Platelet Volume 8.6; Platelet Count 128 k/uL (150-450); RBC 3.71 m/uL (4.30-5.90); RDW 14.1 % (11.5-15.5)
[2018-12-05] MEDS ORDERED: [UNRECOGNIZED DRUG - OTHER] IV ONE (15:00)
[2018-12-05] MEDS ORDERED: CARBOPLATIN IV ONE (15:00)
[2018-12-05] MEDS ORDERED: ETOPOSIDE 200 MG in SODIUM CHLORIDE 0.9% 500 ML 500 ML IV SCH (15:00)
--- NOTE | 2018-12-05 15:02 | P.PN ---
Subjective Progress Note Date: 12/05/18 Principal diagnosis: Hyponatremia, metastatic small cell lung cancer In follow-up today patient is sitting in a chair, he is working with physical therapy, he is tolerating oral intake and fair amounts, no fevers, nausea, chest pain, palpitations, abdominal pain or cramping, acute changes in bladder habits, patient is going to have an enema today for constipation, he does have skeletal pain related to bone metastases, current analgesics are fairly adequate. Objective - Vital Signs Vital signs: Vital Signs Temp 97.4 F L 12/05/18 13:02 Pulse 91 12/05/18 13:02 Resp 17 12/05/18 13:02 BP 111/77 12/05/18 13:02 Pulse Ox 98 12/05/18 13:02 Intake & Output 12/04/18 12/05/18 12/05/18 18:59 06:59 18:59 Intake Total 600 950 818 Output Total 1100 675 320 Balance -500 275 498 Weight 77.3 kg 76.7 kg Intake: Oral 600 950 818 Output: Urine 1100 675 320 Uretheral ([place]) 320 Other: Voiding Method Indwelling Catheter Indwelling Catheter Indwelling Catheter # Voids 1 - Exam Well-developed, well-nourished, progressively frail 73-year-old male sitting up in the chair, alert and oriented 4, no acute distress, normocephalic, atraumatic, anicteric sclera, respirations even and unlabored, generalized weakness, patient requires assisted device and assistance to ambulate short distances, no swelling in the lower extremities, skin is warm and dry - Labs CBC & Chem 7: 12/02/18 06:38 12/05/18 06:34 Labs: Abnormal Lab Results - Last 24 Hours (Table) 12/04/18 12/04/18 12/04/18 Range/Units 16:02 16:50 21:18 Sodium 126 L (137-145) mmol/L Chloride 90 L (98-107) mmol/L Carbon Dioxide 21 L (22-30) mmol/L BUN 27 H (9-20) mg/dL Creatinine (0.66-1.25) mg/dL Glucose 231 H (74-99) mg/dL POC Glucose (mg/dL) 272 H 116 H (75-99) mg/dL Magnesium (1.6-2.3) mg/dL 12/05/18 12/05/18 12/05/18 Range/Units 06:34 06:37 11:46 Sodium 128 L (137-145) mmol/L Chloride 90 L (98-107) mmol/L Carbon Dioxide (22-30) mmol/L BUN 27 H (9-20) mg/dL Creatinine 0.62 L (0.66-1.25) mg/dL Glucose 128 H (74-99) mg/dL POC Glucose (mg/dL) 126 H 141 H (75-99) mg/dL Magnesium 2.4 H (1.6-2.3) mg/dL Assessment and Plan (1) Small cell lung cancer Narrative/Plan: Patient's symptomatic and severe hyponatremia from small cell lung cancer recommendation changed from starting with XRT to painful bone mets to beginning chemotherapy as soon as possible. Pt unfortunately is becoming progressively medically debilitated secondary to malignancy. Plan is for pt to get 1st cycle of chemo inpatient, to get some disease control. Then, he can go to rehab. He will not be considered for any additional chemotherapy until he has completed rehabilitation-this will place him in the best possible physical condition to continue treatment. Patient and family are in agreement with the plan of care. Current Visit: Yes Status: Acute Priority: High Code(s): C34.90 - MALIGNANT NEOPLASM OF UNSP PART OF UNSP BRONCHUS OR LUNG SNOMED Code(s): 497524503 (2) SIADH (syndrome of inappropriate ADH production) Narrative/Plan: Secondary to small cell lung cancer. Corrected with aggressive care, currently maintained on demeclocycline. Cont medication Current Visit: Yes Status: Acute Priority: High Code(s): E22.2 - SYNDROME OF INAPPROPRIATE SECRETION OF ANTIDIURETIC HORMONE SNOMED Code(s): 40456277 (3) Cancer related pain Narrative/Plan: Continue current analgesics and titrate for comfort. Meds to prevent narcotic induced constipation-enema ordered for today, more aggressive ATC treatment Radiation as a treatment modality for palliation of symptoms in the future if needed Current Visit: Yes Status: Acute Priority: High Code(s): G89.3 - NEOPLASM RELATED PAIN (ACUTE) (CHRONIC) SNOMED Code(s): 84693547637085 Plan: Case was discussed with Attending, RN, orders sent to Unit and Pharmacy to administer chemo.
[2018-12-05 15:46] LABS: ALT 47 U/L (21-72); AST 70 U/L (17-59); Albumin 2.9 g/dL (3.5-5.0); Alkaline Phosphatase 105 U/L (38-126); Total Bilirubin 0.4 mg/dL (0.2-1.3); Total Protein 5.6 g/dL (6.3-8.2)
[2018-12-05 15:51] LABS: INR 0.9 (<1.2); Prothrombin Time 9.9 sec (9.0-12.0)
[2018-12-05] MEDS ORDERED: ZOLEDRONIC ACID 4 MG in SODIUM CHLORIDE 0.9% 100 ML IV ONE (16:00)
[2018-12-05 16:08] LABS: Band Neutrophils % 5 %; Lymphocytes # (M) 1.76 k/uL (1.0-4.8); Metamyelocytes # (M) 0.27 k/uL (0); Metamyelocytes % 2 %; Monocytes # (M) 0.54 k/uL (0-1.0); Myelocytes # (M) 0.27 k/uL (0); Myelocytes % 2 %; Neutrophils % (M) 76 %; Nucleated Red Blood Cells 1 /100 WBC (0-0); Total Cells Counted 200; WBC 13.5 k/uL (3.8-10.6)
[2018-12-05 16:09] LABS: Anisocytosis (M) Present; Polychromasia Present
[2018-12-05] MEDS: ONDANSETRON 16 MG in SODIUM CHLORIDE 0.9% 50 ML IVPB SCH (16:37)
[2018-12-05 16:46] LABS: Glucose,Whole Blood 116 mg/dL (75-99)
--- NOTE | 2018-12-05 17:21 | PN ---
PROGRESS NOTE DATE OF SERVICE: 12/05/2018 This 73-year-old gentleman who was admitted with severe hyponatremia secondary to hypovolemic hyponatremia also had SIADH. The patient also had possible lung cancer with metastases. The patient is slated to start chemotherapy currently. The patient is supposed to go to rehab subsequently because of generalized weakness and tiredness and gait dysfunction. The patient is being closely monitored. PHYSICAL EXAMINATION: Alert and oriented x3. The pulse is 94, blood pressure 121/73, respiration 18, temperature 97.6, pulse ox 97% on room air. HEENT: Conjunctivae normal. NECK: No jugular venous distention. CARDIOVASCULAR SYSTEM: S1, S2 muffled. RESPIRATORY SYSTEM: Breath sounds diminished at the bases. A few scattered rhonchi and crackles. ABDOMEN: Soft, non-tender. LEGS: No edema. No swelling. NERVOUS SYSTEM: Higher functions as mentioned earlier. Moves all 4 limbs. No focal motor or sensory deficit. Diffusely weak. LYMPHATICS: No lymph node palpable in neck, axillae or groin. SKIN: No ulcer, rash, bleeding. JOINTS: No active deforming arthropathy. LABS: WBC 13.5, hemoglobin 12.4. Sodium 128. ASSESSMENT: 1. Severe hyponatremia, possibly secondary to hypovolemic hyponatremia or syndrome of inappropriate antidiuretic hormone secondary to malignancy. 2. Syncope, possibly vasovagal, secondary to dehydration. 3. Increased white count. 4. Chronic anemia of malignancy. 5. Possible left upper lobe collapse on chest x-ray. 6. Mild thrombocytopenia. 7. History of recently diagnosed metastatic malignancy, possible small-cell lung cancer with metastases. 8. Status post radiation and back pain and metastases. 9. Urinary retention; indwelling [place] catheter, present on admission. 10.Hypertension. 11.Hyperlipidemia. 12.History of back pain and degenerative joint disease. 13.History of hernia surgery. 14.Remote history of nicotine dependence. 15.NO CODE, NO CPR, NO VENT. RECOMMENDATIONS AND DISCUSSION: I recommend to continue current medications, continue with the monitoring, symptomatic treatment. Continue with DVT prophylaxis. Await chemotherapy. Continue with demeclocycline. Patient's sodium is still low, but we will continue to monitor. PT/OT evaluation, possible ECF rehab. Prognosis extremely guarded because of multiple complex medical issues, as mentioned earlier. Further recommendations to follow. Discussed with patient. MMODL / IJN: [id number] /
[2018-12-05 20:05] LABS: Glucose,Whole Blood 206 mg/dL (75-99)
[2018-12-05] MEDS: TEMAZEPAM 15 MG CAP PO PRN (21:30)
[2018-12-05] MEDS: PRAVASTATIN SODIUM 20 MG TAB PO SCH (21:59)
[2018-12-06] MEDS ORDERED: DEXAMETHASONE SOD PHOSPHATE 10 MG/ML 1 ML VIAL ONE
[2018-12-06] MEDS ORDERED: HYDROcodone/APAP 7.5-325MG 1 EACH TAB ONE (04:40)
[2018-12-06] MEDS: DEXAMETHASONE SOD PHOSPHATE 10 MG/ML 1 ML VIAL IV SCH ×6 (05:22→23:35)
[2018-12-06] MEDS: LEVOTHYROXINE 25 MCG TAB PO SCH (06:11)
[2018-12-06 06:59] LABS: Glucose,Whole Blood 85 mg/dL (75-99)
[2018-12-06] MEDS: ALBUTEROL NEBULIZED 2.5 MG/3 ML INHALATION SCH ×4 (07:42→20:12)
[2018-12-06] MEDS: INSULIN ASPART (NovoLOG) 100 UNIT/ML VIAL SQ SCH ×4 (07:59→20:54)
[2018-12-06 08:00] LABS: Basophils # (A) 0.1 k/uL (0-0.2); Basophils % (A) 1 %; Eosinophils % (A) 0 %; HCT 36.3 % (39.0-53.0); HGB 12.2 gm/dL (13.0-17.5); Lymphocytes % (A) 8 %; MCH 30.4 pg (25.0-35.0); MCHC 33.7 g/dL (31.0-37.0); MCV 90.3 fL (80.0-100.0); Mean Platelet Volume 7.2; Monocytes # (A) 0.5 k/uL (0-1.0); Monocytes % (A) 4 %; Neutrophils # (A) 9.9 k/uL (1.3-7.7); Neutrophils % (A) 86 %; Platelet Count 142 k/uL (150-450); RBC 4.03 m/uL (4.30-5.90); RDW 14.9 % (11.5-15.5); WBC 11.5 k/uL (3.8-10.6)
[2018-12-06 08:02] LABS: Prothrombin Time 10.9 sec (9.0-12.0)
[2018-12-06 08:17] LABS: African American GFR (CKD) >90 (>60 ml/min/1.73 sqM); Anion Gap 6 mmol/L; Blood Urea Nitrogen 25 mg/dL (9-20); Calcium 8.3 mg/dL (8.4-10.2); Carbon Dioxide 30 mmol/L (22-30); Chloride 94 mmol/L (98-107); Glucose 88 mg/dL (74-99); Magnesium 2.4 mg/dL (1.6-2.3); Potassium 4.6 mmol/L (3.5-5.1); Sodium 130 mmol/L (137-145)
[2018-12-06] MEDS ORDERED: FUROSEMIDE 10 MG/ML 2 ML VIAL IV ONE (08:52)
--- NOTE | 2018-12-06 09:02 | P.PN ---
Subjective Progress Note Date: 12/06/18 Principal diagnosis: Hyponatremia, metastatic small cell lung cancer In f/u this AM pt c/o restlessness last night, hardly slept, he is very congested, he hears himself gurgling and wheezing, not expectorating much, no fever, chills, chest pain, pain with respirations, abd pain, nausea, he had an enema yesterday. Objective - Vital Signs Vital signs: Vital Signs Temp 98.1 F 12/06/18 07:00 Pulse 88 12/06/18 07:56 Resp 12/06/18 07:00 BP 121/78 12/06/18 07:00 Pulse Ox 96 12/06/18 07:00 Intake & Output 12/05/18 12/06/18 12/06/18 18:59 06:59 18:59 Intake Total 818 Output Total 995 600 Balance -177 -600 Intake: Oral 818 Output: Urine 995 600 Uretheral ([place]) 320 Other: Voiding Method Indwelling Catheter Indwelling Catheter # Voids 1 # Bowel Movements 0 - Constitutional General appearance: Present: average body habitus, cooperative, no acute distress - EENT Eyes: Present: anicteric sclerae, EOMI ENT: Present: hearing grossly normal, normal oropharynx - Respiratory Respiratory: bilateral: rales - Cardiovascular Rhythm: regular Heart sounds: normal: S1, S2 - Peripheral edema leg Peripheral Edema: bilateral: None - Gastrointestinal General gastrointestinal: Present: normal bowel sounds, soft - Neurologic Neurologic: Present: CNII-XII intact - Musculoskeletal Musculoskeletal: Present: generalized weakness - Psychiatric Psychiatric: Present: A&O x's 3, appropriate affect, intact judgment & insight - Labs CBC & Chem 7: 12/06/18 07:25 12/06/18 07:25 Labs: Abnormal Lab Results - Last 24 Hours (Table) 12/05/18 12/05/18 12/05/18 Range/Units 06:24 06:34 06:34 WBC 13.5 H (3.8-10.6) k/uL RBC 3.71 L (4.30-5.90) m/uL Hgb 12.4 L (13.0-17.5) gm/dL Hct 33.6 L (39.0-53.0) % Plt Count 128 L (150-450) k/uL Neutrophils # (1.3-7.7) k/uL Neutrophils # (Manual) 10.90 H (1.3-7.7) k/uL Metamyelocytes # (Man) 0.27 H (0) k/uL Myelocytes # (Manual) 0.27 H (0) k/uL Nucleated RBCs 1 H (0-0) /100 WBC Sodium 128 L (137-145) mmol/L Chloride 90 L (98-107) mmol/L BUN 27 H (9-20) mg/dL Creatinine 0.62 L (0.66-1.25) mg/dL Glucose 128 H (74-99) mg/dL POC Glucose (mg/dL) (75-99) mg/dL Calcium (8.4-10.2) mg/dL Magnesium 2.4 H (1.6-2.3) mg/dL AST 70 H (17-59) U/L Total Protein 5.6 L (6.3-8.2) g/dL Albumin 2.9 L (3.5-5.0) g/dL 12/05/18 12/05/18 12/05/18 Range/Units 11:46 16:44 20:03 WBC (3.8-10.6) k/uL RBC (4.30-5.90) m/uL Hgb (13.0-17.5) gm/dL Hct (39.0-53.0) % Plt Count (150-450) k/uL Neutrophils # (1.3-7.7) k/uL Neutrophils # (Manual) (1.3-7.7) k/uL Metamyelocytes # (Man) (0) k/uL Myelocytes # (Manual) (0) k/uL Nucleated RBCs (0-0) /100 WBC Sodium (137-145) mmol/L Chloride (98-107) mmol/L BUN (9-20) mg/dL Creatinine (0.66-1.25) mg/dL Glucose (74-99) mg/dL POC Glucose (mg/dL) 141 H 116 H 206 H (75-99) mg/dL Calcium (8.4-10.2) mg/dL Magnesium (1.6-2.3) mg/dL AST (17-59) U/L Total Protein (6.3-8.2) g/dL Albumin (3.5-5.0) g/dL 12/06/18 12/06/18 Range/Units 07:25 07:25 WBC 11.5 H (3.8-10.6) k/uL RBC 4.03 L (4.30-5.90) m/uL Hgb 12.2 L (13.0-17.5) gm/dL Hct 36.3 L (39.0-53.0) % Plt Count 142 L (150-450) k/uL Neutrophils # 9.9 H (1.3-7.7) k/uL Neutrophils # (Manual) (1.3-7.7) k/uL Metamyelocytes # (Man) (0) k/uL Myelocytes # (Manual) (0) k/uL Nucleated RBCs (0-0) /100 WBC Sodium 130 L (137-145) mmol/L Chloride 94 L (98-107) mmol/L BUN 25 H (9-20) mg/dL Creatinine 0.58 L (0.66-1.25) mg/dL Glucose (74-99) mg/dL POC Glucose (mg/dL) (75-99) mg/dL Calcium 8.3 L (8.4-10.2) mg/dL Magnesium 2.4 H (1.6-2.3) mg/dL AST (17-59) U/L Total Protein (6.3-8.2) g/dL Albumin (3.5-5.0) g/dL Assessment and Plan (1) Small cell lung cancer Narrative/Plan: Pt s/p carbo/[employer] day 1, he will continue with day 2 today Radiation on hold for painful bone mets Current Visit: Yes Status: Acute Priority: High Code(s): C34.90 - MALIGNANT NEOPLASM OF UNSP PART OF UNSP BRONCHUS OR LUNG SNOMED Code(s): 826982829 (2) SIADH (syndrome of inappropriate ADH production) Narrative/Plan: Na+ much improved. Pt is on a fluid restriction. Cont demeclocycline Current Visit: Yes Status: Acute Priority: High Code(s): E22.2 - SYNDROME OF INAPPROPRIATE SECRETION OF ANTIDIURETIC HORMONE SNOMED Code(s): 74352249 (3) Cancer related pain Narrative/Plan: Cont analgesics, need aggressive mgmt of narcotic induced constipation. Radiation will be considered in the future Current Visit: Yes Status: Acute Priority: High Code(s): G89.3 - NEOPLASM RELATED PAIN (ACUTE) (CHRONIC) SNOMED Code(s): 23721622013458 (4) Rales Narrative/Plan: Throughout both lung crowder, r/t large amount of fluid from chemo. CXR and lasix 20mg x 1 ordered, IVF at 50cc/hr. O2 sat >90%, HR regular, no murmur, no swelling in the legs. Current Visit: Yes Status: Acute Priority: High Code(s): R09.89 - OTH SYMPTOMS AND SIGNS INVOLVING THE CIRC AND RESP SYSTEMS SNOMED Code(s): 64879983
--- NOTE | 2018-12-06 09:11 | XR ---
EXAMINATION TYPE: XR chest 1V portable DATE OF EXAM: 12/06/2018 COMPARISON: Prior chest x-ray 12/02/2018 HISTORY: Shortness of breath TECHNIQUE: Single frontal view of the chest is obtained. FINDINGS: Left upper lobe atelectasis is again noted. No evident pneumothorax or pleural effusion. H eart is stable. Aorta is dense. Marked arthropathy noted within the right shoulder. IMPRESSION: Progression of patient's left upper lobe atelectasis. There is an underlying mass.
[2018-12-06] MEDS ORDERED: LIDOCAINE 1% INJ 10MG/ML (20 ML MDV) SQ ONE (09:43)
--- NOTE | 2018-12-06 10:01 | P.PN ---
Subjective Patient is seen in follow-up for hyponatremia. Sodium level is 130 today. He has a [place] catheter for chronic urinary retention. Patient also has small cell lung carcinoma with metastasis. Chemotherapy was started on December 05. Scheduled for PICC line placement today. Oral intake is fair. He's been drinking ensure. No vomiting or diarrhea. Denies chest pain but is complaining of shortness of breath today. He did receive a dose of Lasix. No evidence of volume overload on chest x-ray. Vital signs are stable. General: The patient appeared well nourished and normally developed. HEENT: Head exam is unremarkable. Neck is without jugular venous distension. LUNGS: Breath sounds decreased. Wheezing noted. HEART: Rate and Rhythm are regular. First and second heart sounds normal. No murmurs, rubs or gallops. ABDOMEN: Abdominal exam reveals normal bowel sounds. Non-tender and non- distended. No evidence of peritonitis. EXTREMITITES: No clubbing, cyanosis, or edema. Objective - Vital Signs Vital signs: Vital Signs Temp 98.1 F 12/06/18 07:00 Pulse 88 12/06/18 07:56 Resp 19 12/06/18 07:00 BP 121/78 12/06/18 07:00 Pulse Ox 96 12/06/18 07:00 Intake & Output 12/05/18 12/06/18 12/06/18 18:59 06:59 18:59 Intake Total 818 Output Total 995 600 950 Balance -177 -600 -950 Intake: Oral 818 Output: Urine 995 600 950 Uretheral ([place]) 320 Other: Voiding Method Indwelling Catheter Indwelling Catheter # Voids 1 # Bowel Movements 0 - Labs CBC & Chem 7: 12/06/18 07:25 12/06/18 07:25 Labs: Abnormal Lab Results - Last 24 Hours (Table) 12/05/18 12/05/18 12/05/18 Range/Units 06:24 06:34 06:34 WBC 13.5 H (3.8-10.6) k/uL RBC 3.71 L (4.30-5.90) m/uL Hgb 12.4 L (13.0-17.5) gm/dL Hct 33.6 L (39.0-53.0) % Plt Count 128 L (150-450) k/uL Neutrophils # (1.3-7.7) k/uL Neutrophils # (Manual) 10.90 H (1.3-7.7) k/uL Metamyelocytes # (Man) 0.27 H (0) k/uL Myelocytes # (Manual) 0.27 H (0) k/uL Nucleated RBCs 1 H (0-0) /100 WBC Sodium 128 L (137-145) mmol/L Chloride 90 L (98-107) mmol/L BUN 27 H (9-20) mg/dL Creatinine 0.62 L (0.66-1.25) mg/dL Glucose 128 H (74-99) mg/dL POC Glucose (mg/dL) (75-99) mg/dL Calcium (8.4-10.2) mg/dL Magnesium 2.4 H (1.6-2.3) mg/dL AST 70 H (17-59) U/L Total Protein 5.6 L (6.3-8.2) g/dL Albumin 2.9 L (3.5-5.0) g/dL 12/05/18 12/05/18 12/05/18 Range/Units 11:46 16:44 20:03 WBC (3.8-10.6) k/uL RBC (4.30-5.90) m/uL Hgb (13.0-17.5) gm/dL Hct (39.0-53.0) % Plt Count (150-450) k/uL Neutrophils # (1.3-7.7) k/uL Neutrophils # (Manual) (1.3-7.7) k/uL Metamyelocytes # (Man) (0) k/uL Myelocytes # (Manual) (0) k/uL Nucleated RBCs (0-0) /100 WBC Sodium (137-145) mmol/L Chloride (98-107) mmol/L BUN (9-20) mg/dL Creatinine (0.66-1.25) mg/dL Glucose (74-99) mg/dL POC Glucose (mg/dL) 141 H 116 H 206 H (75-99) mg/dL Calcium (8.4-10.2) mg/dL Magnesium (1.6-2.3) mg/dL AST (17-59) U/L Total Protein (6.3-8.2) g/dL Albumin (3.5-5.0) g/dL 12/06/18 12/06/18 Range/Units 07:25 07:25 WBC 11.5 H (3.8-10.6) k/uL RBC 4.03 L (4.30-5.90) m/uL Hgb 12.2 L (13.0-17.5) gm/dL Hct 36.3 L (39.0-53.0) % Plt Count 142 L (150-450) k/uL Neutrophils # 9.9 H (1.3-7.7) k/uL Neutrophils # (Manual) (1.3-7.7) k/uL Metamyelocytes # (Man) (0) k/uL Myelocytes # (Manual) (0) k/uL Nucleated RBCs (0-0) /100 WBC Sodium 130 L (137-145) mmol/L Chloride 94 L (98-107) mmol/L BUN 25 H (9-20) mg/dL Creatinine 0.58 L (0.66-1.25) mg/dL Glucose (74-99) mg/dL POC Glucose (mg/dL) (75-99) mg/dL Calcium 8.3 L (8.4-10.2) mg/dL Magnesium 2.4 H (1.6-2.3) mg/dL AST (17-59) U/L Total Protein (6.3-8.2) g/dL Albumin (3.5-5.0) g/dL Assessment and Plan Plan: Assessment: 1. Hyponatremia. Currently appears euvolemic. 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 Sodium level 130 today. TSH normal. Uric acid normal. Urine sodium 16 and urine osmolality 526. 2. Small cell lung carcinoma with metastasis. Started on chemotherapy on December 05. 3. Urinary retention. Currently has a [place] catheter. 4. Dyspnea. Chest x-ray revealed upper lobe atelectasis. No evidence of volume overload. Status post 20 mg of IV Lasix this morning. Plan: 1200 mL fluid restriction. Maintain ensure with meals. Patient is also on demeclocycline. Monitor respiratory status. Hep-Lock IV fluids if no improvement.
[2018-12-06 11:25] LABS: Glucose,Whole Blood 120 mg/dL (75-99)
[2018-12-06] MEDS: PANTOPRAZOLE 40 MG TABLET PO SCH (12:00)
[2018-12-06] MEDS: TAMSULOSIN 0.4 MG CAP.ER.24H PO SCH (12:00)
[2018-12-06] MEDS: DOCUSATE 100 MG CAP PO SCH ×2 (12:00→21:03)
[2018-12-06] MEDS: NYSTATIN 100,000 UNIT/ML SUSP 500,000 UNIT/5 ML CUP PO SCH ×4 (12:01→21:03)
[2018-12-06] MEDS: SODIUM CHLORIDE 0.9% 1,000 ML IV SCH (12:01)
--- NOTE | 2018-12-06 12:02 | PN ---
PROGRESS NOTE This is a 73-year-old gentleman with a recent diagnosis of small-cell lung cancer. The patient was recently seen by me in the office. I did the navigational bronchoscopy on him. His sampling was positive for small cell. More recently, he had an episode of syncope or near syncope. He was brought to a local hospital and transferred down here. He his sodium at the local hospital was apparently 111 and the patient was thought to have a peroneal placed of his underlying small cell lung cancer. Likely SIADH. Anyway, the patient was treated here with water restriction and demeclocycline and his sodium improved. Yesterday, he received carboplatin and DOUBLE END SEWER-16 as a chemotherapy for his small-cell lung cancer. He did receive quite a bit of volume and did receive some Lasix as per Oncology. The patient is resting comfortably. His daughters are at the bedside. The plan is to transfer him up to a rehab facility either [address] after chemotherapy. Honestly, Mr. Ruiz is not going to do well long-term. He has significant metastatic disease. Anyway, we hope that he does respond to chemo. In addition to the lung cancer, he has a history of laryngeal carcinoma, chronic tobacco dependence, hypertension, hyperlipidemia, and hypothyroidism. PHYSICAL EXAMINATION: Current vital signs are reviewed temperature 98.1 heart rate 89, respiratory rate 19, blood pressure 121/78 mean 92 room air saturation 96%. Appears in no acute distress. HEENT examination is grossly unremarkable. NECK: Supple. Full range of motion. No adenopathy. CARDIOVASCULAR: Examination reveals regular rhythm and rate. Heart rate about 90 beats per minute. LUNGS: Coarse gurgling breath sounds. No wheezes. No crackles. Breath sounds equal. ABDOMEN: Soft. EXTREMITIES: Intact. No cyanosis, clubbing, or edema. Skin without rash. NEUROLOGIC: Examination is brief but nonfocal. White count 11.5, hemoglobin 12.2, hematocrit 36.3, platelet count 142,000. PT, INR normal. Sodium 130, potassium 4.6, chloride 94, CO2 is 30, anion gap 6, BUN and creatinine were 25 and 0.58. The patient had a chest x-ray. The chest x-ray shows worsening opacification of the left hemithorax. Medications are reviewed. ASSESSMENT: 1. Syncope/near syncope, likely related to underlying hyponatremia with a presenting sodium of 111. 2. 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 3. Recent navigational bronchoscopy of left hilar mass left upper lobe mass, positive for small-cell lung cancer. 4. Multiple skeletal metastatic metastasis as well as metastasis to the left lobe of the liver and left adrenal gland as well as possible right adrenal gland. 5. Previous history of laryngeal carcinoma. 6. Status post 1 round of chemotherapy with carboplatin and DOUBLE END SEWER-16. Next history of chronic tobacco dependence. 7. Hypertension. 8. Hyperlipidemia. 9. Hypothyroidism. PLAN: The plan is for the patient received 3 rounds of chemotherapy over the next couple days. He received his 1st round yesterday. The plan afterwards if stable would be to transfer to rehab facility and Dr. Khan or the [facility]. The patient otherwise is doing reasonably well today. I suspect long-term, he is not going to do well. Additional recommendations and suggestions are forthcoming. I did also have the opportunity to see me at the [facility] clinic once he is discharged. MMODL / IJN: [id number] /
--- NOTE | 2018-12-06 12:52 | IR ---
EXAMINATION TYPE: IR cvc insert >=5 years DATE OF EXAM: 12/06/2018 COMPARISON: NONE CLINICAL HISTORY: Needs long-term intravenous access for chemotherapy metastatic small cell lung canc er PROCEDURE: After informed consent, the skin overlying the left basilic vein was localized with ultrasound and no ilia to be compressible and patent. An ultrasound image was obtained and submitted on the patient's c holcomb. The overlying skin was prepped and draped and Lidocaine was used for local anesthesia. A skin anthony was made with a scalpel. Access was gained to the vein under ultrasound guidance with a 21 gau ge needle and a 0.018 inch wire was advanced. Access site was dilated with Peel-Away sheath and cath eter tailored to the appropriate length and advanced such that the distal tip is at the cavoatrial ju nction. Spot image was obtained verifying placement. Catheter was fixed to the skin and a sterile d ressing was placed following hemostasis. Catheter was aspirated and flushed with saline. Patient wa s discharged in stable condition without complication.Maximal barrier technique is utilized. Ultraso und image is documented on the chart. Ultrasound used with sterile technique. Fluoro time and fluoroscopic images submitted to document procedure: 317 intraoperative images, 0.8 m inutes fluoroscopy time IMPRESSION: STATUS POST ULTRASOUND AND FLUOROSCOPIC GUIDED PICC LINE PLACEMENT, READY FOR USE. THIS PROCEDURE WAS PERFORMED BY THE UNDERSIGNED.
[2018-12-06] MEDS: DEMECLOCYCLINE 150 MG TAB PO SCH ×2 (13:11→21:03)
[2018-12-06] MEDS: HYDROcodone/APAP 7.5-325MG 1 EACH TAB PO PRN ×2 (13:11→21:03)
--- NOTE | 2018-12-06 15:14 | PN ---
PROGRESS NOTE DATE OF SERVICE: 12/06/2018. This is a 73-year-old gentleman who was admitted with severe hyponatremia secondary to hypovolemic hyponatremia. CRP is being closely monitored at this time. The patient is on chemotherapy. The most recent chest x-ray which was personally reviewed by me showed some progression of the left upper lobe atelectasis. No chest pain, no palpitation. PHYSICAL EXAM: Alert and oriented x3. Pulse 93, blood pressure is ntd, respirations 17, temperature 98.2, pulse ox 94% on room air. HEENT: Conjunctivae normal, oral mucosa moist. NECK: No jugular venous distention, no lymph node enlargement. CARDIOVASCULAR SYSTEM: S1, S2, muffled. RESPIRATION: Breath sounds diminished at the bases, a few scattered rhonchi, no crackles. ABDOMEN: Soft, nontender. LEGS: No edema. No swelling. NERVOUS SYSTEM: No focal deficits. LABS: At this time shows chest x-ray, left upper lobe atelectasis and progression. ASSESSMENT: 1. Severe hyponatremia, possibly secondary to hypovolemic hyponatremia as well as SIADH secondary to malignancy. 2. Syncope, possibly vasovagal secondary to dehydration. 3. Increased WBC. 4. Chronic anemia of malignancy. 5. Left upper lobe collapse in the chest x-ray. 6. Mild thrombocytopenia. 7. History of recently diagnosed metastatic malignancy, possibly small-cell lung cancer with mets. 8. Status post radiation, back pain, and metastasis. 9. Urinary retention, indwelling Alcala catheter present on admission. 10.Hypertension. 11.History of back pain and degenerative joint disease. 12.History of hernia surgery and eye surgery. 13.Remote history of nicotine dependence. 14.NO CODE, NO CPR, NO VENT. RECOMMENDATION AND DISCUSSION: Recommend to continue current medications, management and symptomatic treatment. Otherwise, at this time I would continue chemotherapy per recommend of oncology, PT, OT evaluation, possible ECF rehab. Continue the rest of medications, symptomatic treatment, guarded prognosis. Further recommendations to follow. MMODL / IJN: [id number] / MTDD
[2018-12-06] MEDS: FAMOTIDINE 20 MG/2 ML VIAL IV SCH (16:01)
[2018-12-06] MEDS: ONDANSETRON 16 MG in SODIUM CHLORIDE 0.9% 50 ML IVPB SCH ×2 (16:07→16:08)
[2018-12-06 17:11] LABS: Glucose,Whole Blood 139 mg/dL (75-99)
[2018-12-06] MEDS: ETOPOSIDE 200 MG in SODIUM CHLORIDE 0.9% 500 ML 500 ML IV SCH (17:25)
[2018-12-06] MEDS ORDERED: FUROSEMIDE 10 MG/ML 2 ML VIAL IV STA (18:15)
[2018-12-06 20:12] LABS: Glucose,Whole Blood 122 mg/dL (75-99)
[2018-12-06] MEDS: PRAVASTATIN SODIUM 20 MG TAB PO SCH (21:03)
[2018-12-06] MEDS: ALPRAZolam 0.25 MG TAB PO PRN (21:03)
[2018-12-07] MEDS: SODIUM CHLORIDE 0.9% 1,000 ML IV SCH (05:15)
[2018-12-07] MEDS: HYDROcodone/APAP 7.5-325MG 1 EACH TAB PO PRN ×2 (05:20→21:41)
[2018-12-07] MEDS: ALPRAZolam 0.25 MG TAB PO PRN ×2 (05:20→21:41)
[2018-12-07] MEDS: LEVOTHYROXINE 25 MCG TAB PO SCH (06:00)
[2018-12-07] MEDS: DEXAMETHASONE SOD PHOSPHATE 10 MG/ML 1 ML VIAL IV SCH ×4 (06:00→16:45)
[2018-12-07] MEDS: ALBUTEROL NEBULIZED 2.5 MG/3 ML INHALATION SCH ×4 (07:31→19:28)
[2018-12-07 07:42] LABS: Glucose,Whole Blood 117 mg/dL (75-99)
[2018-12-07 08:50] LABS: Basophils % (A) 0 %; Eosinophils % (A) 0 %; HCT 37.7 % (39.0-53.0); Lymphocytes # (A) 0.6 k/uL (1.0-4.8); Lymphocytes % (A) 7 %; MCH 29.6 pg (25.0-35.0); MCHC 31.8 g/dL (31.0-37.0); MCV 93.1 fL (80.0-100.0); Mean Platelet Volume 6.5; Monocytes # (A) 0.2 k/uL (0-1.0); Monocytes % (A) 3 %; Neutrophils # (A) 7.6 k/uL (1.3-7.7); Neutrophils % (A) 90 %; Platelet Count 131 k/uL (150-450); RBC 4.05 m/uL (4.30-5.90); RDW 13.9 % (11.5-15.5); WBC 8.4 k/uL (3.8-10.6)
[2018-12-07 09:03] LABS: African American GFR (CKD) >90 (>60 ml/min/1.73 sqM); Anion Gap 7 mmol/L; Blood Urea Nitrogen 26 mg/dL (9-20); Calcium 7.6 mg/dL (8.4-10.2); Carbon Dioxide 32 mmol/L (22-30); Chloride 92 mmol/L (98-107); Glucose 124 mg/dL (74-99); Magnesium 2.6 mg/dL (1.6-2.3); Potassium 5.1 mmol/L (3.5-5.1); Sodium 131 mmol/L (137-145)
[2018-12-07] MEDS: INSULIN ASPART (NovoLOG) 100 UNIT/ML VIAL SQ SCH ×4 (09:17→21:40)
[2018-12-07] MEDS: DEMECLOCYCLINE 150 MG TAB PO SCH ×2 (09:48→21:39)
[2018-12-07] MEDS: DOCUSATE 100 MG CAP PO SCH ×2 (09:48→21:39)
[2018-12-07] MEDS: NYSTATIN 100,000 UNIT/ML SUSP 500,000 UNIT/5 ML CUP PO SCH ×4 (09:48→21:40)
[2018-12-07] MEDS: PANTOPRAZOLE 40 MG TABLET PO SCH (09:48)
[2018-12-07] MEDS: TAMSULOSIN 0.4 MG CAP.ER.24H PO SCH (09:48)
[2018-12-07 09:56] VITALS: BMI 23.6
--- NOTE | 2018-12-07 10:03 | P.PN ---
Subjective Progress Note Date: 12/07/18 Principal diagnosis: Hyponatremia, metastatic small cell lung cancer In f/u this AM pt doing so much better, he walked with PT this AM, breathing is improved, no more congestion/cough, he has no c/o. He is looking forward to rehab Objective - Vital Signs Vital signs: Vital Signs Temp 97.5 F L 12/07/18 05:31 Pulse 88 12/07/18 07:41 Resp 16 12/07/18 05:31 BP 137/85 12/07/18 05:31 Pulse Ox 96 12/07/18 05:31 Intake & Output 12/06/18 12/07/18 12/07/18 18:59 06:59 18:59 Intake Total 60 820 Output Total 3750 2200 Balance -3690 -1380 Weight 76.7 kg Intake: Intake, IV Titration 400 Amount Sodium Chloride 0.9% 1, 400 000 ml @ 50 mls/hr IV . Q20H [facility] Rx#:[id number] Oral 60 420 Output: Urine 3750 2200 Other: Voiding Method Indwelling Catheter Indwelling Catheter # Voids 1 - Constitutional General appearance: Present: average body habitus, cooperative, no acute distress - EENT Eyes: Present: anicteric sclerae, EOMI ENT: Present: hearing grossly normal, normal oropharynx - Respiratory Respiratory: bilateral: CTA, diminished - Cardiovascular Rhythm: regular Heart sounds: normal: S1, S2 Abnormal Heart Sounds: Absent: systolic murmur, diastolic murmur, rub, S3 Gallop, S4 Gallop, click, other - Peripheral edema leg Peripheral Edema: bilateral: None - Gastrointestinal General gastrointestinal: Present: normal bowel sounds, soft - Neurologic Neurologic: Present: CNII-XII intact - Musculoskeletal Musculoskeletal: Present: generalized weakness - Psychiatric Psychiatric: Present: A&O x's 3, appropriate affect, intact judgment & insight - Labs CBC & Chem 7: 12/07/18 06:54 12/07/18 06:54 Labs: Abnormal Lab Results - Last 24 Hours (Table) 12/06/18 12/06/18 12/06/18 Range/Units 11:23 17:10 20:10 RBC (4.30-5.90) m/uL Hgb (13.0-17.5) gm/dL Hct (39.0-53.0) % Plt Count (150-450) k/uL Lymphocytes # (1.0-4.8) k/uL Sodium (137-145) mmol/L Chloride (98-107) mmol/L Carbon Dioxide (22-30) mmol/L BUN (9-20) mg/dL Creatinine (0.66-1.25) mg/dL Glucose (74-99) mg/dL POC Glucose (mg/dL) 120 H 139 H 122 H (75-99) mg/dL Calcium (8.4-10.2) mg/dL Magnesium (1.6-2.3) mg/dL 12/07/18 12/07/18 12/07/18 Range/Units 06:54 06:54 07:30 RBC 4.05 L (4.30-5.90) m/uL Hgb 12.0 L (13.0-17.5) gm/dL Hct 37.7 L (39.0-53.0) % Plt Count 131 L (150-450) k/uL Lymphocytes # 0.6 L (1.0-4.8) k/uL Sodium 131 L (137-145) mmol/L Chloride 92 L (98-107) mmol/L Carbon Dioxide 32 H (22-30) mmol/L BUN 26 H (9-20) mg/dL Creatinine 0.63 L (0.66-1.25) mg/dL Glucose 124 H (74-99) mg/dL POC Glucose (mg/dL) 117 H (75-99) mg/dL Calcium 7.6 L (8.4-10.2) mg/dL Magnesium 2.6 H (1.6-2.3) mg/dL - Imaging and Cardiology Chest x-ray: report reviewed Assessment and Plan (1) Small cell lung cancer Narrative/Plan: Complete cycle #1 of carbo/HOGSHEAD SALVAGE today. No radiation needed at this time Pt will continue with his treatment only AFTER he completes and is discharged from rehabilitation Current Visit: Yes Status: Acute Priority: High Code(s): C34.90 - MALIGNANT NEOPLASM OF UNSP PART OF UNSP BRONCHUS OR LUNG SNOMED Code(s): 045228517 (2) SIADH (syndrome of inappropriate ADH production) Narrative/Plan: Na+ much improved. Pt is on a fluid restriction. MUST cont demeclocycline at this time Current Visit: Yes Status: Acute Priority: High Code(s): E22.2 - SYNDROME OF INAPPROPRIATE SECRETION OF ANTIDIURETIC HORMONE SNOMED Code(s): 45873718 (3) Cancer related pain Narrative/Plan: Cont analgesics, need aggressive mgmt of narcotic induced constipation. Radiation will be considered at a later date-not until after rehab and chemo Current Visit: Yes Status: Acute Priority: High Code(s): G89.3 - NEOPLASM RELATED PAIN (ACUTE) (CHRONIC) SNOMED Code(s): 86311458624400 (4) Rales Current Visit: Yes Status: Resolved Priority: High Code(s): R09.89 - OTH SYMPTOMS AND SIGNS INVOLVING THE CIRC AND RESP SYSTEMS SNOMED Code(s): 31644904 Plan: Case was discussed with Case mgmt.
--- NOTE | 2018-12-07 10:15 | P.PN ---
Subjective Patient is seen in follow-up for hyponatremia. Sodium level is 131 today. He has a Alcala catheter for chronic urinary retention. Patient also has small cell lung carcinoma with metastasis. Chemotherapy was started on December 05. Oral intake is fair. He's been drinking ensure. No vomiting or diarrhea. Denies active chest pain or shortness of breath. Vital signs are stable. General: The patient appeared well nourished and normally developed. HEENT: Head exam is unremarkable. Neck is without jugular venous distension. LUNGS: Breath sounds decreased. Wheezing noted. HEART: Rate and Rhythm are regular. First and second heart sounds normal. No murmurs, rubs or gallops. ABDOMEN: Abdominal exam reveals normal bowel sounds. Non-tender and non- distended. No evidence of peritonitis. EXTREMITITES: No clubbing, cyanosis, or edema. Objective - Vital Signs Vital signs: Vital Signs Temp 97.5 F L 12/07/18 05:31 Pulse 88 12/07/18 07:41 Resp 16 12/07/18 05:31 BP 137/85 12/07/18 05:31 Pulse Ox 96 12/07/18 05:31 Intake & Output 12/06/18 12/07/18 12/07/18 18:59 06:59 18:59 Intake Total 60 820 Output Total 3750 2200 Balance -3690 -1380 Weight 76.7 kg Intake: Intake, IV Titration 400 Amount Sodium Chloride 0.9% 1, 400 000 ml @ 50 mls/hr IV . Q20H [facility] Rx#:[id number] Oral 60 420 Output: Urine 3750 2200 Other: Voiding Method Indwelling Catheter Indwelling Catheter # Voids 1 - Labs CBC & Chem 7: 12/07/18 06:54 12/07/18 06:54 Labs: Abnormal Lab Results - Last 24 Hours (Table) 12/06/18 12/06/18 12/06/18 Range/Units 11:23 17:10 20:10 RBC (4.30-5.90) m/uL Hgb (13.0-17.5) gm/dL Hct (39.0-53.0) % Plt Count (150-450) k/uL Lymphocytes # (1.0-4.8) k/uL Sodium (137-145) mmol/L Chloride (98-107) mmol/L Carbon Dioxide (22-30) mmol/L BUN (9-20) mg/dL Creatinine (0.66-1.25) mg/dL Glucose (74-99) mg/dL POC Glucose (mg/dL) 120 H 139 H 122 H (75-99) mg/dL Calcium (8.4-10.2) mg/dL Magnesium (1.6-2.3) mg/dL 12/07/18 12/07/18 12/07/18 Range/Units 06:54 06:54 07:30 RBC 4.05 L (4.30-5.90) m/uL Hgb 12.0 L (13.0-17.5) gm/dL Hct 37.7 L (39.0-53.0) % Plt Count 131 L (150-450) k/uL Lymphocytes # 0.6 L (1.0-4.8) k/uL Sodium 131 L (137-145) mmol/L Chloride 92 L (98-107) mmol/L Carbon Dioxide 32 H (22-30) mmol/L BUN 26 H (9-20) mg/dL Creatinine 0.63 L (0.66-1.25) mg/dL Glucose 124 H (74-99) mg/dL POC Glucose (mg/dL) 117 H (75-99) mg/dL Calcium 7.6 L (8.4-10.2) mg/dL Magnesium 2.6 H (1.6-2.3) mg/dL Assessment and Plan Plan: Assessment: 1. Hyponatremia. Currently appears euvolemic. 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 Sodium level 131 today. TSH normal. Uric acid normal. Urine sodium 16 and urine osmolality 526. 2. Small cell lung carcinoma with metastasis. Started on chemotherapy on December 05. 3. Urinary retention. Currently has a Alcala catheter. 4. Dyspnea. Chest x-ray revealed upper lobe atelectasis. No evidence of volume overload. Status post 20 mg of IV Lasix on December 06. Plan: 1200 mL fluid restriction. Maintain ensure with meals. Patient is also on demeclocycline. Maintain Flomax. Alcala catheter to be discontinued at rehab facility. If has persistent urinary retention, will need to follow-up with urology. Discussed with patient and family present at bedside.
[2018-12-07 11:04] LABS: Glucose,Whole Blood 228 mg/dL (75-99)
--- NOTE | 2018-12-07 12:43 | P.PN ---
Subjective Progress Note Date: 12/07/18 Principal diagnosis: Syncope, vasovagal collapse, hyponatremia, small cell lung cancer with metastasis This is a very pleasant 73-year-old gentleman who follows with Lori Roberts as his primary care provider. He has a history of laryngeal cancer, hypertension, hyperlipidemia, previous chronic tobacco dependence, IDC for urinary retention. He was also recently diagnosed with small cell lung cancer 11/22/2018 via biopsies of the left upper lobe with Dr. Darnell. He received first radiation on 11/30/2018. Yesterday 12/01/2018 he was having episodes of increasing shortness of breath and was seen by Dr. Darnell in our office yesterday and given a shot of Depo-Medrol. Later on in the day he was sitting on the toilet where he appeared to have a vasovagal syncopal episode and was unconscious for approximately 10 minutes according to family. He was diaphoretic and noncommunicable. He was taken to [facility] emergency room and found to have a sodium of 111. He was subsequently transferred here to [facility] for further evaluation. His x-ray showed complete opacification the left upper lobe which has progressed since previous study on 11/22/2018. We're consulted for the same. He is seen today in consultation on the selective care unit. He is currently resting fairly comfortably in bed. Awake and alert in no acute distress. No syncopal episodes. He does have a loose nonproductive cough. Shortness of breath with exertion. Currently maintaining good O2 saturations in the 90s on room air. He's afebrile. Slightly tachycardic. Somewhat hypotensive. He did receive 2 L of fluid resuscitation. 0.9 normal saline at 125 ML's per hour. Current labs reveal white count 11.8. Hemoglobin 11.6. Sodium 126. Creatinine 0.46. The patient is seen today 12/05/2018 in follow-up on the selective care unit. He is currently sitting up at the bedside. Awake and alert in no acute distress. No further syncopal episodes. He is maintaining good O2 saturations in the high 90s on room air. He's been afebrile. Hemodynamically stable. Sodium 128. Creatinine 0.62. He is continued on Declomycin, Decadron. He is stable from the pulmonary standpoint. On 12/07/2018 patient seen in follow-up on oncology floor. He is resting comfortably in bed, today's is third day of chemotherapy, with [employer]. Tolerating treatment well so far, vital signs are stable, her pulse ox is 96%, afebrile, hemodynamically stable. His labs have been reviewed, showing white blood cell count of 8.4, hemoglobin of 12.0, serum sodium is 131, potassium is 5.1, chloride is 92, CO2 32, BUN is 26 and creatinine 0.63. Serum sodium is improving, mentation is alert and oriented 3, responding appropriately. Neurologically intact, no specific complaints, no complaints of shortness of breath. No congestion, no cough, no chest pain. Objective - Vital Signs Vital signs: Vital Signs Temp 97.5 F L 12/07/18 05:31 Pulse 78 12/07/18 11:34 Resp 16 12/07/18 08:00 BP 137/85 12/07/18 05:31 Pulse Ox 96 12/07/18 05:31 Intake & Output 12/06/18 12/07/18 12/07/18 18:59 06:59 18:59 Intake Total 60 820 Output Total 3750 2200 Balance -3690 -1380 Weight 76.7 kg Intake: Intake, IV Titration 400 Amount Sodium Chloride 0.9% 1, 400 000 ml @ 50 mls/hr IV . Q20H [facility] Rx#:[id number] Oral 60 420 Output: Urine 3750 2200 Other: Voiding Method Indwelling Catheter Indwelling Catheter Indwelling Catheter # Voids 1 - Exam GENERAL EXAM: Alert, 73-year-old white male, on room air, oxygen 96%., comfortable in no apparent distress. HEAD: Normocephalic/atraumatic. EYES: Normal reaction of pupils, equal size. Conjunctiva pink, sclera white. NOSE: Clear with pink turbinates. THROAT: No erythema or exudates. NECK: No masses, no JVD, no thyroid enlargement, no adenopathy. CHEST: No chest wall deformity. Symmetrical expansion. LUNGS: Equal air entry with no crackles, no rhonchi, no wheezes CVS: Regular rate and rhythm, normal S1 and S2, no gallops, no murmurs, no rubs ABDOMEN: Soft, nontender. No hepatosplenomegaly, normal bowel sounds, no guarding or rigidity. EXTREMITIES: No clubbing, no edema, no cyanosis, 2+ pulses and upper and lower extremities. MUSCULOSKELETAL: Muscle strength and tone normal. SPINE: No scoliosis or deformity SKIN: No rashes CENTRAL NERVOUS SYSTEM: Alert and oriented -3. No focal deficits, tone is normal in all 4 extremities. PSYCHIATRIC: Alert and oriented -3. Appropriate affect. Intact judgment and insight. - Labs CBC & Chem 7: 12/07/18 06:54 12/07/18 06:54 Labs: Abnormal Lab Results - Last 24 Hours (Table) 12/06/18 12/06/18 12/07/18 Range/Units 17:10 20:10 06:54 RBC (4.30-5.90) m/uL Hgb (13.0-17.5) gm/dL Hct (39.0-53.0) % Plt Count (150-450) k/uL Lymphocytes # (1.0-4.8) k/uL Sodium 131 L (137-145) mmol/L Chloride 92 L (98-107) mmol/L Carbon Dioxide 32 H (22-30) mmol/L BUN 26 H (9-20) mg/dL Creatinine 0.63 L (0.66-1.25) mg/dL Glucose 124 H (74-99) mg/dL POC Glucose (mg/dL) 139 H 122 H (75-99) mg/dL Calcium 7.6 L (8.4-10.2) mg/dL Magnesium 2.6 H (1.6-2.3) mg/dL 12/07/18 12/07/18 12/07/18 Range/Units 06:54 07:30 11:02 RBC 4.05 L (4.30-5.90) m/uL Hgb 12.0 L (13.0-17.5) gm/dL Hct 37.7 L (39.0-53.0) % Plt Count 131 L (150-450) k/uL Lymphocytes # 0.6 L (1.0-4.8) k/uL Sodium (137-145) mmol/L Chloride (98-107) mmol/L Carbon Dioxide (22-30) mmol/L BUN (9-20) mg/dL Creatinine (0.66-1.25) mg/dL Glucose (74-99) mg/dL POC Glucose (mg/dL) 117 H 228 H (75-99) mg/dL Calcium (8.4-10.2) mg/dL Magnesium (1.6-2.3) mg/dL Assessment and Plan Plan: Assessment: #1 Syncopal episode, suspect vasovagal, suspect secondary to significant hyponatremia with a presenting sodium of 111 at [facility]. #2 Hyponatremia with recent episodes of dehydration. Status post 2 L of IV fluid and 0.9 at 125 ML's an hour. Today's sodium 128. On 12/07/2018 patient serum sodium is up to 131 #3 Dyspnea secondary to near complete opacification of the left upper lobe. #4 Recent diagnosis of small cell lung cancer with metastasis per PET scan 11/04/2018. Multiple foci to numerous to count areas of abnormal hypermetabolic uptake involving the pelvis, spine, ribs, proximal upper extremities and shoulders. There is hypermetabolic uptake in the left lobe of the liver, left adrenal mass, nodularity of the right adrenal gland. The patient has received 1 radiation treatment on 11/30/2018. On Decadron in the outpatient setting. #5 Previous history of laryngeal cancer. #6 History of chronic tobacco dependence. #7 Hypertension. #8 Hyperlipidemia. #9 Hypothyroidism. Plan: We'll continue with current treatment, no complaints of shortness of breath, no cough or congestion, vital signs are stable, maintaining good oxygenation on room air. Awaiting chemotherapy well so far, serum sodium is improving, neurologically is intact. I performed a history & physical examination of the patient and discussed their management with my nurse practitioner, Mady Cope. I reviewed the nurse practitioner's note and agree with the documented findings and plan of care. Lung sounds are positive for diminished breath sounds at the bases. The findings and the impression was discussed with the patient. I attest to the documentation by the nurse practitioner. Time with Patient: Less than 30
[2018-12-07] MEDS: ONDANSETRON 16 MG in SODIUM CHLORIDE 0.9% 50 ML IVPB SCH (15:47)
--- NOTE | 2018-12-07 16:05 | PN ---
PROGRESS NOTE DATE OF SERVICE: 12/07/2018 This 73-year-old gentleman admitted with severe hyponatremia, possibly SIADH secondary to malignancy is being closely monitored. The patient also had metastatic malignancy. Hematology/Oncology is planning chemotherapy for metastatic small-cell lung cancer. The plan is to discharge the patient to ECF once the patient is stabilized and resume the chemotherapy after the rehab. 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 No chest pain. No palpitations. No fever. On exam, alert and oriented x3. Pulse is 87, blood pressure 90/54. Orthostatic changes are present. Respiration 20, temperature 97.2, pulse ox 97% on room air. HEENT: Conjunctivae normal. NECK: No jugular venous distention. CARDIOVASCULAR SYSTEM: S1, S2 muffled. RESPIRATORY SYSTEM: Breath sounds diminished at the bases. Scattered rhonchi. ABDOMEN: Soft, non-tender. LEGS: No edema. No swelling. NERVOUS SYSTEM: No focal deficit. LABS: WBC 8.4, sodium 131. Other labs are noted. ASSESSMENT: 1. Severe hyponatremia, possibly syndrome of inappropriate antidiuretic hormone secondary to malignancy. 2. Metastatic acz-tmnyn-wesg cancer. 3. Syncope, possibly vasovagal, with dehydration, present on admission. 4. Increased white count. 5. Gait dysfunction. 6. Chronic anemia of malignancy. 7. Left upper lobe collapse on the chest x-ray. 8. Mild thrombocytopenia. 9. Status post radiation for back pain and metastasis. 10.Urinary retention; indwelling Alcala catheter present on admission. 11.Hypertension. 12.History of back pain, degenerative joint disease. 13.History of hernia surgery and eye surgery previously. 14.Remote history of nicotine dependence. 15.Orthostatic hypotension. 16.NO CODE, NO CPR, NO VENT. RECOMMENDATIONS AND DISCUSSION: I recommend to continue current medications, continue with the monitoring, symptomatic treatment. Continue with the pain medication. Continue the chemotherapy. Otherwise, once the patient is cleared by Hematology/Oncology, the patient will be able to go to ECF for some rehab because of generalized gait dysfunction and multiple other complex medical issues. Otherwise, we will continue to monitor the patient. The patient also has some orthostatic hypotension. I would recommend a bolus fluid administration and continue to monitor. Further recommendations to follow. The most recent chest x-ray was reviewed which showed left upper lobe atelectasis. MMODL / IJN: [id number] /
[2018-12-07] MEDS ORDERED: SODIUM CHLORIDE 0.9% 500 ML 250 ML IV ONE (16:06)
[2018-12-07] MEDS: FAMOTIDINE 20 MG/2 ML VIAL IV SCH (16:08)
[2018-12-07] MEDS: ETOPOSIDE 200 MG in SODIUM CHLORIDE 0.9% 500 ML 500 ML IV SCH (16:48)
[2018-12-07 17:10] LABS: Glucose,Whole Blood 167 mg/dL (75-99)
[2018-12-07 20:00] LABS: Glucose,Whole Blood 224 mg/dL (75-99)
[2018-12-07] MEDS: PRAVASTATIN SODIUM 20 MG TAB PO SCH (21:40)
[2018-12-07] MEDS: TEMAZEPAM 15 MG CAP PO PRN (21:42)
[2018-12-07 23:13] VITALS: RESP 16; TEMP 97.8
[2018-12-08] MEDS: DEXAMETHASONE SOD PHOSPHATE 10 MG/ML 1 ML VIAL IV SCH ×3 (01:16→12:04)
[2018-12-08] MEDS: HYDROcodone/APAP 7.5-325MG 1 EACH TAB PO PRN (05:23)
[2018-12-08] MEDS: SODIUM CHLORIDE 0.9% 1,000 ML IV SCH (05:26)
[2018-12-08] MEDS: LEVOTHYROXINE 25 MCG TAB PO SCH (05:48)
[2018-12-08 06:09] VITALS: BP 123/81
[2018-12-08 07:08] LABS: Glucose,Whole Blood 119 mg/dL (75-99)
[2018-12-08] MEDS: INSULIN ASPART (NovoLOG) 100 UNIT/ML VIAL SQ SCH ×2 (07:22→11:30)
[2018-12-08 08:05] LABS: Basophils % (A) 0 %; Eosinophils % (A) 0 %; HCT 37.8 % (39.0-53.0); HGB 12.3 gm/dL (13.0-17.5); Lymphocytes # (A) 0.3 k/uL (1.0-4.8); Lymphocytes % (A) 4 %; MCH 30.2 pg (25.0-35.0); MCHC 32.4 g/dL (31.0-37.0); MCV 93.1 fL (80.0-100.0); Mean Platelet Volume 6.7; Monocytes # (A) 0.1 k/uL (0-1.0); Monocytes % (A) 1 %; Neutrophils # (A) 7.7 k/uL (1.3-7.7); Neutrophils % (A) 94 %; Platelet Count 105 k/uL (150-450); RBC 4.06 m/uL (4.30-5.90); RDW 13.6 % (11.5-15.5); WBC 8.2 k/uL (3.8-10.6)
--- NOTE | 2018-12-08 08:21 | P.PN ---
Subjective Patient is seen in follow-up for hyponatremia. Sodium level is 131 as of yesterday. He has a Alcala catheter for chronic urinary retention. Patient also has small cell lung carcinoma with metastasis. Chemotherapy was started on December 05. Oral intake is fair. He's been drinking ensure. No vomiting or diarrhea. Denies active chest pain or shortness of breath. Vital signs are stable. General: The patient appeared well nourished and normally developed. HEENT: Head exam is unremarkable. Neck is without jugular venous distension. LUNGS: Breath sounds decreased. Wheezing noted. HEART: Rate and Rhythm are regular. First and second heart sounds normal. No murmurs, rubs or gallops. ABDOMEN: Abdominal exam reveals normal bowel sounds. Non-tender and non- distended. No evidence of peritonitis. EXTREMITITES: No clubbing, cyanosis, or edema. Objective - Vital Signs Vital signs: Vital Signs Temp 97.8 F 12/07/18 21:00 Pulse 89 12/08/18 04:35 Resp 16 12/08/18 04:35 BP 123/81 12/08/18 04:35 Pulse Ox 95 12/08/18 04:35 Intake & Output 12/07/18 12/08/18 12/08/18 18:59 06:59 18:59 Intake Total 300 400 Output Total 1300 Balance 300 -900 Weight 76.7 kg Intake: Intake, IV Titration 400 Amount Sodium Chloride 0.9% 1, 400 000 ml @ 50 mls/hr IV . Q20H [facility] Rx#:[id number] Oral 300 Output: Urine 1300 Other: Voiding Method Indwelling Catheter Indwelling Catheter - Labs CBC & Chem 7: 12/08/18 07:29 12/07/18 06:54 Labs: Abnormal Lab Results - Last 24 Hours (Table) 12/07/18 12/07/18 12/07/18 Range/Units 06:54 06:54 11:02 RBC 4.05 L (4.30-5.90) m/uL Hgb 12.0 L (13.0-17.5) gm/dL Hct 37.7 L (39.0-53.0) % Plt Count 131 L (150-450) k/uL Lymphocytes # 0.6 L (1.0-4.8) k/uL Sodium 131 L (137-145) mmol/L Chloride 92 L (98-107) mmol/L Carbon Dioxide 32 H (22-30) mmol/L BUN 26 H (9-20) mg/dL Creatinine 0.63 L (0.66-1.25) mg/dL Glucose 124 H (74-99) mg/dL POC Glucose (mg/dL) 228 H (75-99) mg/dL Calcium 7.6 L (8.4-10.2) mg/dL Magnesium 2.6 H (1.6-2.3) mg/dL 12/07/18 12/07/18 12/08/18 Range/Units 17:09 19:58 07:07 RBC (4.30-5.90) m/uL Hgb (13.0-17.5) gm/dL Hct (39.0-53.0) % Plt Count (150-450) k/uL Lymphocytes # (1.0-4.8) k/uL Sodium (137-145) mmol/L Chloride (98-107) mmol/L Carbon Dioxide (22-30) mmol/L BUN (9-20) mg/dL Creatinine (0.66-1.25) mg/dL Glucose (74-99) mg/dL POC Glucose (mg/dL) 167 H 224 H 119 H (75-99) mg/dL Calcium (8.4-10.2) mg/dL Magnesium (1.6-2.3) mg/dL 12/08/18 Range/Units 07:29 RBC 4.06 L (4.30-5.90) m/uL Hgb 12.3 L (13.0-17.5) gm/dL Hct 37.8 L (39.0-53.0) % Plt Count 105 L (150-450) k/uL Lymphocytes # 0.3 L (1.0-4.8) k/uL Sodium (137-145) mmol/L Chloride (98-107) mmol/L Carbon Dioxide (22-30) mmol/L BUN (9-20) mg/dL Creatinine (0.66-1.25) mg/dL Glucose (74-99) mg/dL POC Glucose (mg/dL) (75-99) mg/dL Calcium (8.4-10.2) mg/dL Magnesium (1.6-2.3) mg/dL Assessment and Plan Plan: Assessment: 1. Hyponatremia. Currently appears euvolemic. 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 Sodium level 131 as of yesterday. TSH normal. Uric acid normal. Urine sodium 16 and urine osmolality 526. 2. Small cell lung carcinoma with metastasis. Started on chemotherapy on December 05. 3. Urinary retention. Currently has a Alcala catheter. 4. Dyspnea. Chest x-ray revealed upper lobe atelectasis. No evidence of v olume overload. Status post 20 mg of IV Lasix on December 06. Plan: 1200 mL fluid restriction. Maintain ensure with meals. Patient is also on demeclocycline. Maintain Flomax. Alcala catheter to be discontinued at rehab facility. If has persistent urinary retention, will need to follow-up with urology. No changes from nephrology standpoint.
[2018-12-08 08:25] LABS: African American GFR (CKD) >90 (>60 ml/min/1.73 sqM); Anion Gap 5 mmol/L; Blood Urea Nitrogen 20 mg/dL (9-20); Calcium 7.2 mg/dL (8.4-10.2); Carbon Dioxide 31 mmol/L (22-30); Chloride 96 mmol/L (98-107); Glucose 105 mg/dL (74-99); Magnesium 2.7 mg/dL (1.6-2.3); Potassium 5.6 mmol/L (3.5-5.1); Sodium 132 mmol/L (137-145)
[2018-12-08] MEDS: ALBUTEROL NEBULIZED 2.5 MG/3 ML INHALATION SCH ×2 (08:44→09:03)
[2018-12-08 09:08] VITALS: PULSE 70
[2018-12-08] MEDS: PANTOPRAZOLE 40 MG TABLET PO SCH (09:41)
[2018-12-08] MEDS: NYSTATIN 100,000 UNIT/ML SUSP 500,000 UNIT/5 ML CUP PO SCH ×2 (09:41→12:04)
[2018-12-08] MEDS: DEMECLOCYCLINE 150 MG TAB PO SCH (09:41)
[2018-12-08] MEDS: DOCUSATE 100 MG CAP PO SCH (09:41)
[2018-12-08] MEDS: TAMSULOSIN 0.4 MG CAP.ER.24H PO SCH (09:41)
[2018-12-08] MEDS ORDERED: INSULIN REGULAR 100 UNIT/ML VIAL IV ONE (09:58)
[2018-12-08] MEDS ORDERED: DEXTROSE 50% SYRINGE 50 ML IVP STA (09:58)
[2018-12-08 11:28] LABS: Glucose,Whole Blood 119 mg/dL (75-99)
--- NOTE | 2018-12-08 12:38 | P.PN ---
Subjective Progress Note Date: 12/08/18 Principal diagnosis: Syncope, vasovagal collapse, hyponatremia, small cell lung cancer with metastasis This is a very pleasant 73-year-old gentleman who follows with Lori Roberts as his primary care provider. He has a history of laryngeal cancer, hypertension, hyperlipidemia, previous chronic tobacco dependence, IDC for urinary retention. He was also recently diagnosed with small cell lung cancer 11/22/2018 via biopsies of the left upper lobe with Dr. Darnell. He received first radiation on 11/30/2018. Yesterday 12/01/2018 he was having episodes of increasing shortness of breath and was seen by Dr. Darnell in our office yesterday and given a shot of Depo-Medrol. Later on in the day he was sitting on the toilet where he appeared to have a vasovagal syncopal episode and was unconscious for approximately 10 minutes according to family. He was diaphoretic and noncommunicable. He was taken to [place] emergency room and found to have a sodium of 111. He was subsequently transferred here to [facility] for further evaluation. His x-ray showed complete opacification the left upper lobe which has progressed since previous study on 11/22/2018. We're consulted for the same. He is seen today in consultation on the selective care unit. He is currently resting fairly comfortably in bed. Awake and alert in no acute distress. No syncopal episodes. He does have a loose nonproductive cough. Shortness of breath with exertion. Currently maintaining good O2 saturations in the 90s on room air. He's afebrile. Slightly tachycardic. Somewhat hypotensive. He did receive 2 L of fluid resuscitation. 0.9 normal saline at 125 ML's per hour. Current labs reveal white count 11.8. Hemoglobin 11.6. Sodium 126. Creatinine 0.46. The patient is seen today 12/05/2018 in follow-up on the selective care unit. He is currently sitting up at the bedside. Awake and alert in no acute distress. No further syncopal episodes. He is maintaining good O2 saturations in the high 90s on room air. He's been afebrile. Hemodynamically stable. Sodium 128. Creatinine 0.62. He is continued on Declomycin, Decadron. He is stable from the pulmonary standpoint. On 12/07/2018 patient seen in follow-up on oncology floor. He is resting comfortably in bed, today's is third day of chemotherapy, with PUBLIC INFORMATION SPECIALIST. Tolerating treatment well so far, vital signs are stable, her pulse ox is 96%, afebrile, hemodynamically stable. His labs have been reviewed, showing white blood cell count of 8.4, hemoglobin of 12.0, serum sodium is 131, potassium is 5.1, chloride is 92, CO2 32, BUN is 26 and creatinine 0.63. Serum sodium is improving, mentation is alert and oriented 3, responding appropriately. Neurologically intact, no specific complaints, no complaints of shortness of breath. No congestion, no cough, no chest pain. On 12/08/2018 patient seen in follow-up on medical oncology floor. He is awake and alert, in no acute distress. Room air pulse ox is 95%, vital signs are stable, he is afebrile. Denies any worsening shortness of breath, denies any specific complaints. Tolerating chemotherapy well so far. New chest x-rays, today's labs have been reviewed, showing white blood cell count of 8.2, hemoglobin of 12.3, serum sodium is 132, potassium is 5.6, chloride is 96, CO2 31, BUN is 20 creatinine 0.50. Lung sounds are clear to auscultation, diminish ed at the bases, no rhonchi, no cough or congestion. Sodium level is 132, her potassium level 5.6, and this was treated with 10 units of IV insulin and D50. Peak blood work this afternoon. He is tolerating oral intake, no nausea, vomiting or diarrhea. Objective - Vital Signs Vital signs: Vital Signs Temp 97.8 F 12/07/18 21:00 Pulse 70 12/08/18 09:13 Resp 16 12/08/18 04:35 BP 123/81 12/08/18 04:35 Pulse Ox 95 12/08/18 04:35 Intake & Output 12/07/18 12/08/18 12/08/18 18:59 06:59 18:59 Intake Total 300 400 Output Total 1300 Balance 300 -900 Weight 76.7 kg Intake: Intake, IV Titration 400 Amount Sodium Chloride 0.9% 1, 400 000 ml @ 50 mls/hr IV . Q20H [facility] Rx#:[id number] Oral 300 Output: Urine 1300 Other: Voiding Method Indwelling Catheter Indwelling Catheter Indwelling Catheter - Exam GENERAL EXAM: Alert, 73-year-old white male, on room air, oxygen 96%., comfortable in no apparent distress. HEAD: Normocephalic/atraumatic. EYES: Normal reaction of pupils, equal size. Conjunctiva pink, sclera white. NOSE: Clear with pink turbinates. THROAT: No erythema or exudates. NECK: No masses, no JVD, no thyroid enlargement, no adenopathy. CHEST: No chest wall deformity. Symmetrical expansion. LUNGS: Breath sounds, with no rhonchi, no wheezing, no rales. CVS: Regular rate and rhythm, normal S1 and S2, no gallops, no murmurs, no rubs ABDOMEN: Soft, nontender. No hepatosplenomegaly, normal bowel sounds, no guarding or rigidity. EXTREMITIES: No clubbing, no edema, no cyanosis, 2+ pulses and upper and lower extremities. MUSCULOSKELETAL: Muscle strength and tone normal. SPINE: No scoliosis or deformity SKIN: No rashes CENTRAL NERVOUS SYSTEM: Alert and oriented -3. No focal deficits, tone is normal in all 4 extremities. PSYCHIATRIC: Alert and oriented -3. Appropriate affect. Intact judgment and insight. - Labs CBC & Chem 7: 12/08/18 07:29 12/08/18 07:29 Labs: Abnormal Lab Results - Last 24 Hours (Table) 12/07/18 12/07/18 12/08/18 Range/Units 17:09 19:58 07:07 RBC (4.30-5.90) m/uL Hgb (13.0-17.5) gm/dL Hct (39.0-53.0) % Plt Count (150-450) k/uL Lymphocytes # (1.0-4.8) k/uL Sodium (137-145) mmol/L Potassium (3.5-5.1) mmol/L Chloride (98-107) mmol/L Carbon Dioxide (22-30) mmol/L Creatinine (0.66-1.25) mg/dL Glucose (74-99) mg/dL POC Glucose (mg/dL) 167 H 224 H 119 H (75-99) mg/dL Calcium (8.4-10.2) mg/dL Magnesium (1.6-2.3) mg/dL 12/08/18 12/08/18 12/08/18 Range/Units 07:29 07:29 11:26 RBC 4.06 L (4.30-5.90) m/uL Hgb 12.3 L (13.0-17.5) gm/dL Hct 37.8 L (39.0-53.0) % Plt Count 105 L (150-450) k/uL Lymphocytes # 0.3 L (1.0-4.8) k/uL Sodium 132 L (137-145) mmol/L Potassium 5.6 H (3.5-5.1) mmol/L Chloride 96 L (98-107) mmol/L Carbon Dioxide 31 H (22-30) mmol/L Creatinine 0.50 L (0.66-1.25) mg/dL Glucose 105 H (74-99) mg/dL POC Glucose (mg/dL) 119 H (75-99) mg/dL Calcium 7.2 L (8.4-10.2) mg/dL Magnesium 2.7 H (1.6-2.3) mg/dL Assessment and Plan Plan: Assessment: #1 Syncopal episode, suspect vasovagal, suspect secondary to significant hyponatremia with a presenting sodium of 111 at [facility]. #2 Hyponatremia with recent episodes of dehydration. Status post 2 L of IV fluid and 0.9 at 125 ML's an hour. Today's sodium 128. On 12/07/2018 patient serum sodium is up to 131. On 12/08/2018 patient's serum sodium is 132 #3 Dyspnea secondary to near complete opacification of the left upper lobe. #4 Recent diagnosis of small cell lung cancer with metastasis per PET scan 11/04/2018. Multiple foci to numerous to count areas of abnormal hypermetabolic uptake involving the pelvis, spine, ribs, proximal upper extremities and shoulders. There is hypermetabolic uptake in the left lobe of the liver, left adrenal mass, nodularity of the right adrenal gland. The patient has received 1 radiation treatment on 11/30/2018. On Decadron in the outpatient setting. #5 Previous history of laryngeal cancer. #6 History of chronic tobacco dependence. #7 Hypertension. #8 Hyperlipidemia. #9 Hypothyroidism. Plan: Patient is clinically stable, no worsening shortness of breath, no fever or chills, tolerating oral intake, no nausea vomiting or diarrhea. Tolerating chemotherapy well so far. No active pulmonary issues at this time, oxygenation stable on room air. We'll follow on as-needed basis. I performed a history & physical examination of the patient and discussed their management with my nurse practitioner, Mady Cope. I reviewed the nurse practitioner's note and agree with the documented findings and plan of care. Lung sounds are positive for diminished breath sounds at the bases. The findings and the impression was discussed with the patient. I attest to the documentation by the nurse practitioner. Time with Patient: Less than 30
--- NOTE | 2018-12-08 15:12 | P.DS ---
Providers Date of admission: 12/01/18 19:05 Expected date of discharge: 12/08/18 Attending physician: Carlton Jarvis Consults: 12/01/18 18:52 Consult Physician Stat Consulting Provider: Raquel Moore Consult Reason/Comments: Hyponatremia, recurrent Do you want consulting provider notified?: Yes 12/01/18 19:07 Consult Physician Routine Consulting Provider: Fadi Darnell Consult Reason/Comments: Lung cancer Do you want consulting provider notified?: Yes 12/02/18 00:42 Consult Physician Routine Consulting Provider: Merlene Zaidi Consult Reason/Comments: stage 4 ca, lung Do you want consulting provider notified?: Yes, Notify in am 12/02/18 13:29 Consult Physician Routine Consulting Provider: Saleem Adams Consult Reason/Comments: Lung CA Do you want consulting provider notified?: Yes Primary care physician: Lori Roberts, [facility] Hospital Course: 73-year-old gentleman; history of laryngeal cancer, hypertension, hyperlipidemia, previous chronic tobacco dependence, IDC for urinary retention; small cell lung cancer 11/22/2018 via biopsies of the left upper lobe with Dr. Darnell. He received first radiation on 11/30/2018. Yesterday 12/01/2018 he was having episodes of increasing shortness of breath and was seen by Dr. Darnell in our office and given a shot of Depo-Medrol. Later on in the day he was sitting on the toilet where he appeared to have a vasovagal syncopal episode and was unconscious for approximately 10 minutes according to family. He was diaphoretic and noncommunicable. He was taken to [place] emergency room and found to have a sodium of 111. He was subsequently transferred here to [facility] for further evaluation. His x-ray showed complete opacification the left upper lobe which has progressed since previous study on 11/22/2018. He is currently resting fairly comfortably in bed. Awake and alert in no acute distress. No syncopal episodes. He does have a loose nonproductive cough. Shortness of breath with exertion. Currently maintaining good O2 saturations in the 90s on room air. He's afebrile. Slightly tachycardic. Somewhat hypotensive. He did receive 2 L of fluid resuscitation. 0.9 normal saline at 125 ML's per hour. Current labs reveal white count 11.8. Hemoglobin 11.6. Sodium 126. Creatinine 0.46. 12/05/2018 in follow-up on the selective care unit. He is currently sitting up at the bedside. Awake and alert in no acute distress. No further syncopal episodes. He is maintaining good O2 saturations in the high 90s on room air. He's been afebrile. Hemodynamically stable. Sodium 128. Creatinine 0.62. He is continued on Declomycin, Decadron. He is stable from the pulmonary standpoint. On 12/07/2018 patient seen in follow-up on oncology floor. He is resting comfortably in bed, today's is third day of chemotherapy, with BRANCH ASSOCIATE TELLER. Tolerating treatment well so far, vital signs are stable, her pulse ox is 96%, afebrile, hemodynamically stable. His labs have been reviewed, showing white blood cell count of 8.4, hemoglobin of 12.0, serum sodium is 131, potassium is 5.1, chloride is 92, CO2 32, BUN is 26 and creatinine 0.63. Serum sodium is improving, mentation is alert and oriented 3, responding appropriately. Neurologically intact, no specific complaints, no complaints of shortness of breath. No congestion, no cough, no chest pain. On 12/08/2018 patient seen in follow-up on medical oncology floor. He is awake and alert, in no acute distress. Room air pulse ox is 95%, vital signs are stable, he is afebrile. Denies any worsening shortness of breath, denies any specific complaints. Tolerating chemotherapy well so far. New chest x-rays, today's labs have been reviewed, showing white blood cell count of 8.2, hemoglobin of 12.3, serum sodium is 132, potassium is 5.6, chloride is 96, CO2 31, BUN is 20 creatinine 0.50. Hypotensive levels were treated with IV insulin along with amp of D50; repeat potassium level was within normal limits at 4.9; patient will be discharged home in a stable condition with recommendations to follow-up with the primary pulmonary service along with oncology. Patient Condition at Discharge: Serious Plan - Discharge Summary Discharge Rx Participant: Yes New Discharge Prescriptions: New Demeclocycline [Declomycin] 150 mg PO BID 14 Days tablet Docusate [Colace] 100 mg PO BID #60 cap Albuterol Sulfate [Proair Hfa] 2 puff INHALATION Q6HR #1 inhaler Continue Pravastatin Sodium [Pravachol] 20 mg PO HS Omeprazole [PriLOSEC] 20 mg PO AC-BRKFST Lisinopril [Zestril] 10 mg PO DAILY Levothyroxine Sodium [Synthroid] 25 mcg PO DAILY HYDROcodone/APAP 7.5-325MG [[place] 7.5-325] 1 tab PO Q6H PRN PRN Reason: Pain Polyethylene Glycol 3350 [Miralax] 17 gm PO DAILY PRN #15 packet PRN Reason: Constipation Tamsulosin HCl [Flomax] 0.4 mg PO DAILY Changed Dexamethasone [Decadron] See Taper PO Q6H #40 tablet Discharge Medication List Levothyroxine Sodium [Synthroid] 25 mcg PO DAILY 11/08/18 [History] Lisinopril [Zestril] 10 mg PO DAILY 11/08/18 [History] Omeprazole [PriLOSEC] 20 mg PO AC-BRKFST 11/08/18 [History] Pravastatin Sodium [Pravachol] 20 mg PO HS 11/08/18 [History] HYDROcodone/APAP 7.5-325MG [[place] 7.5-325] 1 tab PO Q6H PRN 11/15/18 [History] Polyethylene Glycol 3350 [Miralax] 17 gm PO DAILY PRN #15 packet 11/17/18 [Rx] Tamsulosin HCl [Flomax] 0.4 mg PO DAILY 12/01/18 [History] Demeclocycline [Declomycin] 150 mg PO BID 14 Days tablet 12/04/18 [Rx] Albuterol Sulfate [Proair Hfa] 2 puff INHALATION Q6HR #1 inhaler 12/05/18 [Rx] Dexamethasone [Decadron] See Taper PO Q6H #40 tablet 12/05/18 [Rx] Docusate [Colace] 100 mg PO BID #60 cap 12/05/18 [Rx] Follow up Appointment(s)/Referral(s): Lori Roberts NPC [Primary Care Provider] - 1-2 days (Please follow up with primary provider after completing course of chemo.) Ambulatory/Diagnostic Orders: Complete Blood Count w/diff [LAB.AMB] Location: None Selected Patient Instructions/Handouts: Hyponatremia (DC), Syncope (DC) Activity/Diet/Wound Care/Special Instructions: 30 days of Declomycin is filled at [facility], Advanced Telemetry applied. this med was ordered and is ready for machine operator hop picker at [facility] [place] [facility] after 3 days of chemo cbc in one week for Dr Zaidi PICC manager pipeline-NS flushes, dressing changes randall to be removed at rehab placment for a void trial test. Discharge Disposition: HOME SELF-CARE
[2018-12-08] MEDS ORDERED: PEGFILGRASTIM-CBQV 6 MG/0.6 ML SYRINGE SQ ONE (16:00)
== END 2018-12-08 15:50 | DRG 181 ==
LOC: EC 16:36 → 3SCARD 19:05 → 3NMEDONC 12-05 12:39
PROVIDERS: ADMIT Internal Medicine; ATTEND Internal Medicine
PROC: 3E04305 Introduction of Other Antineoplastic into Central Vein, Percutaneous Approach (ICD-10-PCS; 2018-12-05)
PROC: 02HV33Z Insertion of Infusion Device into Superior Vena Cava, Percutaneous Approach (ICD-10-PCS; principal; 2018-12-06 09:30)
DX: C34.12 Malignant neoplasm of upper lobe, left bronchus or lung (principal); E22.2 Syndrome of inappropriate secretion of antidiuretic hormone; C79.51 Secondary malignant neoplasm of bone; C78.7 Secondary malignant neoplasm of liver and intrahepatic bile duct; C79.72 Secondary malignant neoplasm of left adrenal gland; C79.71 Secondary malignant neoplasm of right adrenal gland; J98.11 Atelectasis; D69.6 Thrombocytopenia, unspecified; J44.9 Chronic obstructive pulmonary disease, unspecified; E86.0 Dehydration; E86.1 Hypovolemia; D63.0 Anemia in neoplastic disease; Z66 Do not resuscitate; I95.1 Orthostatic hypotension; I10 Essential (primary) hypertension; R33.9 Retention of urine, unspecified; R91.1 Solitary pulmonary nodule; E03.9 Hypothyroidism, unspecified; G89.3 Neoplasm related pain (acute) (chronic); E78.5 Hyperlipidemia, unspecified; K59.03 Drug induced constipation; T40.605A Adverse effect of unspecified narcotics, initial encounter; R26.9 Unspecified abnormalities of gait and mobility; R19.7 Diarrhea, unspecified; M54.9 Dorsalgia, unspecified; Z79.890 Hormone replacement therapy; Z79.52 Long term (current) use of systemic steroids; Z79.899 Other long term (current) drug therapy; Z92.3 Personal history of irradiation; Z87.891 Personal history of nicotine dependence; Z85.21 Personal history of malignant neoplasm of larynx; Z98.890 Other specified postprocedural states
CPT/HCPCS: 36415; 36573; 71045; 80048; 80053; 81003; 83735; 83930; 83935; 84132; 84133; 84300; 84443; 84484; 84550; 85025; 85610; 85730; 93005; 94640; 94760; 96360; 96361; 99285

== ENCOUNTER 2019-01-20 00:44 | Inpatient (IN) | payer MEDICARE ==
[2019-01-20] MEDS: NOREPINEPHRINE 8 MG in SODIUM CHLORIDE 0.9% 250 ML IV SCH (01:17)
[2019-01-20] MEDS: SODIUM CHLORIDE 0.9% 1,000 ML IV SCH ×4 (01:19→20:32)
--- NOTE | 2019-01-20 02:06 | ED ---
General Adult HPI - General Chief complaint: Syncope Stated complaint: Septic shock Time Seen by Provider: 01/20/19 00:46 Source: EMS Mode of arrival: EMS Limitations: altered mental status, physical limitation - History of Present Illness Initial comments: Juan M is a 73yo M with metastatic lung CA with mets to the spine. Patient presented to an outside emergency department after a near syncopal episode. Patient was found to be hypotensive with blood pressures in the 60 systolic. Patient had a thorough workup at outpatient facility and was found to have healthcare associated pneumonia, he was treated with IV fluids, Zosyn and Levaquin. Patient was noted to be continuously hypotensive after IV fluids, a triple-lumen catheter was placed in the right groin and he was started on levophed. - Related Data Home Medications Medication Instructions Recorded Confirmed Levothyroxine Sodium [Synthroid] 25 mcg PO DAILY 11/08/18 01/12/19 Lisinopril [Zestril] 10 mg PO DAILY 11/08/18 01/12/19 Omeprazole [PriLOSEC] 20 mg PO AC-BRKFST 11/08/18 01/12/19 Pravastatin Sodium [Pravachol] 20 mg PO HS 11/08/18 01/12/19 HYDROcodone/APAP 7.5-325MG [Johnson 1 tab PO Q6H PRN 11/15/18 01/12/19 7.5-325] Tamsulosin HCl [Flomax] 0.4 mg PO DAILY 12/01/18 01/12/19 Previous Rx's Medication Instructions Recorded Polyethylene Glycol 3350 [Miralax] 17 gm PO DAILY PRN #15 packet 11/17/18 Demeclocycline [Declomycin] 150 mg PO BID 14 Days tablet 12/04/18 Albuterol Sulfate [Proair Hfa] 2 puff INHALATION Q6HR #1 inhaler 12/05/18 Dexamethasone [Decadron] See Taper PO Q6H #40 tablet 12/05/18 Docusate [Colace] 100 mg PO BID #60 cap 12/05/18 Allergies Allergy/AdvReac Type Severity Reaction Status Date / Time No Known Allergies Allergy Verified 01/12/19 15:24 Review of Systems ROS Statement: Those systems with pertinent positive or pertinent negative responses have been documented in the HPI. ROS Other: All systems not noted in ROS Statement are negative. Past Medical History Past Medical History: Cancer, COPD, Hyperlipidemia, Hypertension Additional Past Medical History / Comment(s): laryngeal cancer, left lung nodule, back pain. urinary retention. lung cancer- first radiation 11/30/18 only one treatment, mets to bone. History of Any Multi-Drug Resistant Organisms: None Reported Past Surgical History: Hernia Repair Additional Past Surgical History / Comment(s): part of vocal cord removed r/t CA Past Anesthesia/Blood Transfusion Reactions: No Reported Reaction Past Psychological History: No Psychological Hx Reported Smoking Status: Former smoker Past Alcohol Use History: None Reported Past Drug Use History: None Reported - Past Family History Father Family Medical History: No Reported History Mother Family Medical History: No Reported History General Exam - General Exam Comments Initial Comments: Physical Exam GENERAL: Chronically ill-appearing HENT: Normocephalic, Atraumatic. EYES: PERRL, EOMI PULMONARY: Crackles at bases CARDIOVASCULAR: Tachycardic, regular Weak radial pulses ABDOMEN: Soft and nontender with normal bowel sounds. SKIN: Skin is clear with no lesions or rashes and otherwise unremarkable. : Deferred NEUROLOGIC: Patient is alert and oriented x3. Moving all extremities spontaneously MUSCULOSKELETAL: Normal extremities with adequate strength and full range of motion. No lower extremity swelling or edema. No calf tenderness. PSYCHIATRIC: Normal psychiatric evaluation Limitations: altered mental status, physical limitation Course Vital Signs 01/20/19 01/20/19 01/20/19 00:47 02:10 02:15 Temperature 98.0 F Pulse Rate 101 H 101 H 101 H Respiratory 22 25 H 20 Rate Blood Pressure 73/44 61/43 72/45 O2 Sat by Pulse 93 L 100 100 Oximetry 01/20/19 01/20/19 01/20/19 02:20 02:25 02:30 Temperature Pulse Rate 100 100 101 H Respiratory 24 22 20 Rate Blood Pressure 66/49 71/50 70/41 O2 Sat by Pulse 99 96 99 Oximetry 01/20/19 01/20/19 01/20/19 02:35 02:40 02:45 Temperature Pulse Rate 96 103 H 98 Respiratory 20 20 20 Rate Blood Pressure 83/57 75/54 73/43 O2 Sat by Pulse 100 100 99 Oximetry 01/20/19 01/20/19 01/20/19 02:50 02:55 03:00 Temperature Pulse Rate 101 H 101 H 101 H Respiratory 22 22 22 Rate Blood Pressure 69/47 65/54 76/46 O2 Sat by Pulse 98 100 100 Oximetry 01/20/19 01/20/19 01/20/19 03:05 03:10 03:15 Temperature Pulse Rate 101 H 100 97 Respiratory 22 22 22 Rate Blood Pressure 80/50 76/47 72/45 O2 Sat by Pulse 99 100 100 Oximetry 01/20/19 01/20/19 01/20/19 03:20 03:25 03:30 Temperature Pulse Rate 98 99 97 Respiratory 20 20 18 Rate Blood Pressure 79/47 69/40 83/44 O2 Sat by Pulse 100 99 99 Oximetry 01/20/19 01/20/19 01/20/19 03:35 03:40 03:45 Temperature Pulse Rate 100 101 H 99 Respiratory 20 22 20 Rate Blood Pressure 64/36 89/51 91/45 O2 Sat by Pulse 99 100 100 Oximetry 01/20/19 01/20/19 01/20/19 03:50 03:55 04:00 Temperature 98.1 F Pulse Rate 99 99 99 Respiratory 20 18 18 Rate Blood Pressure 75/56 78/44 66/47 O2 Sat by Pulse 100 99 100 Oximetry 01/20/19 01/20/19 01/20/19 04:05 04:10 04:15 Temperature Pulse Rate 96 98 98 Respiratory 18 20 18 Rate Blood Pressure 82/56 83/58 85/56 O2 Sat by Pulse 100 100 97 Oximetry 01/20/19 01/20/19 04:20 04:25 Temperature Pulse Rate 97 100 Respiratory 18 18 Rate Blood Pressure 84/55 88/75 O2 Sat by Pulse 100 99 Oximetry EKG Findings - EKG Comments: EKG Findings:: EKG was obtained due to hypertension and tachycardia, EKG was obtained at 2:47 AM , rate is 101, rhythm is sinus tach normal axis, normal intervals, KS 128, QRS 94, QTC [address] elevations or depressions additional evidence of acute ischemia or infarction Medical Decision Making - Medical Decision Making She care was discussed with transferring physician prior to transfer, this is a cancer patient currently undergoing chemotherapy who presented with hypotension, near syncope, sepsis secondary to HCAP identified on imaging Patient was noted to be pancytopenic Patient was transferred here on 8 g of norepinephrine, upon arrival he remained hypotensive with systolic blood pressures in the 60s, norepinephrine was titrated up a sepsis workup was repeated The patient's blood pressure improving with increased norepinephrine Patient's mentation is appropriate he is awake alert oriented talking interacting with his family at bedside Patient's labs resulted with pancytopenia, lactic acidosis Patient care was discussed with Dr. Ross who accepts the patient to the ICU for sepsis secondary to healthcare associated Pneumonia in a cancer patient who is immunocompromised secondary to chemotherapy - Lab Data Result diagrams: 01/20/19 02:23 01/20/19 02:23 Lab Results 01/20/19 01/20/19 01/20/19 Range/Units 02:23 02:23 02:23 WBC 1.1 L* (3.8-10.6) k/uL RBC 2.56 L (4.30-5.90) m/uL Hgb 8.1 L D (13.0-17.5) gm/dL Hct 24.7 L (39.0-53.0) % MCV 96.6 (80.0-100.0) fL MCH 31.8 (25.0-35.0) pg MCHC 32.9 (31.0-37.0) g/dL RDW 20.7 H (11.5-15.5) % Plt Count 24 L D (150-450) k/uL Neutrophils % (Manual) 16 % Band Neutrophils % 60 % Lymphocytes % (Manual) 8 % Monocytes % (Manual) 4 % Metamyelocytes % 12 % Neutrophils # (Manual) 0.80 L (1.3-7.7) k/uL Lymphocytes # (Manual) 0.09 L (1.0-4.8) k/uL Monocytes # (Manual) 0.04 (0-1.0) k/uL Metamyelocytes # (Man) 0.13 H (0) k/uL Nucleated RBCs 0 (0-0) /100 WBC Manual Slide Review Performed Anisocytosis Moderate Macrocytosis Slight PT (9.0-12.0) sec INR (<1.2) APTT (22.0-30.0) sec Sodium 131 L (137-145) mmol/L Potassium 4.5 (3.5-5.1) mmol/L Chloride 97 L (98-107) mmol/L Carbon Dioxide 24 (22-30) mmol/L Anion Gap 10 mmol/L BUN 25 H (9-20) mg/dL Creatinine 0.73 (0.66-1.25) mg/dL Est GFR (CKD-EPI)AfAm >90 (>60 ml/min/1.73 sqM) Est GFR (CKD-EPI)NonAf >90 (>60 ml/min/1.73 sqM) Glucose 97 (74-99) mg/dL Plasma Lactic Acid Osbaldo 4.1 H* (0.7-2.0) mmol/L Calcium 6.8 L (8.4-10.2) mg/dL Total Bilirubin 0.7 (0.2-1.3) mg/dL AST 34 (17-59) U/L ALT 81 H (21-72) U/L Alkaline Phosphatase 56 (38-126) U/L Total Protein 4.2 L (6.3-8.2) g/dL Albumin 2.4 L (3.5-5.0) g/dL 01/20/19 Range/Units 02:23 WBC (3.8-10.6) k/uL RBC (4.30-5.90) m/uL Hgb (13.0-17.5) gm/dL Hct (39.0-53.0) % MCV (80.0-100.0) fL MCH (25.0-35.0) pg MCHC (31.0-37.0) g/dL RDW (11.5-15.5) % Plt Count (150-450) k/uL Neutrophils % (Manual) % Band Neutrophils % % Lymphocytes % (Manual) % Monocytes % (Manual) % Metamyelocytes % % Neutrophils # (Manual) (1.3-7.7) k/uL Lymphocytes # (Manual) (1.0-4.8) k/uL Monocytes # (Manual) (0-1.0) k/uL Metamyelocytes # (Man) (0) k/uL Nucleated RBCs (0-0) /100 WBC Manual Slide Review Anisocytosis Macrocytosis PT 13.7 H (9.0-12.0) sec INR 1.3 H (<1.2) APTT 35.5 H (22.0-30.0) sec Sodium (137-145) mmol/L Potassium (3.5-5.1) mmol/L Chloride (98-107) mmol/L Carbon Dioxide (22-30) mmol/L Anion Gap mmol/L BUN (9-20) mg/dL Creatinine (0.66-1.25) mg/dL Est GFR (CKD-EPI)AfAm (>60 ml/min/1.73 sqM) Est GFR (CKD-EPI)NonAf (>60 ml/min/1.73 sqM) Glucose (74-99) mg/dL Plasma Lactic Acid Osbaldo (0.7-2.0) mmol/L Calcium (8.4-10.2) mg/dL Total Bilirubin (0.2-1.3) mg/dL AST (17-59) U/L ALT (21-72) U/L Alkaline Phosphatase (38-126) U/L Total Protein (6.3-8.2) g/dL Albumin (3.5-5.0) g/dL Critical Care Time Critical Care Time: Yes Total Critical Care Time: 30 Critical Care Time: Critical Care Time Critical care time was exclusive of separately billable procedures and treating other patients and teaching time. Critical care was necessary to treat or prevent imminent or life-threatening deterioration. Given the critical condition in which the patient arrived, the patient was immediately assessed by myself and the nurse, and cardiac monitoring initiated due to the potential for rapid decompensation of the patient's clinical condition. During the course of the patients stay, I spent a considerable amount of time at the bedside performing serial re-evaluations of the patient's hemodynamic and clinical status because of the recognized potential threat to life or limb in this condition. I then had a chance to review not only all of the available current laboratory and radiographic studies obtained today, but I also reviewed old records available to me at the time. Additionally, any ancillary information available including hyperbaric nurse records were reviewed. Sequential vital signs were obtained. Disposition Clinical Impression: Sepsis, HCAP (healthcare-associated pneumonia), Metastatic lung cancer (metastasis from lung to other site) Disposition: ADMITTED IP TO THIS [facility] Condition: Poor Referrals: None,Stated [Primary Care Provider] - 1-2 days
[2019-01-20 02:46] LABS: INR 1.3 (<1.2); Partial Thromboplastin Time 35.5 sec (22.0-30.0); Prothrombin Time 13.7 sec (9.0-12.0)
[2019-01-20 02:50] LABS: Anisocytosis Moderate; HCT 24.7 % (39.0-53.0); MCH 31.8 pg (25.0-35.0); MCHC 32.9 g/dL (31.0-37.0); MCV 96.6 fL (80.0-100.0); Macrocytosis Slight; Mean Platelet Volume 9.4; RBC 2.56 m/uL (4.30-5.90); RDW 20.7 % (11.5-15.5)
[2019-01-20 02:52] LABS: WBC 1.1 k/uL (3.8-10.6)
[2019-01-20 02:56] LABS: ALT 81 U/L (21-72); AST 34 U/L (17-59); African American GFR (CKD) >90 (>60 ml/min/1.73 sqM); Albumin 2.4 g/dL (3.5-5.0); Alkaline Phosphatase 56 U/L (38-126); Anion Gap 10 mmol/L; Blood Urea Nitrogen 25 mg/dL (9-20); Calcium 6.8 mg/dL (8.4-10.2); Carbon Dioxide 24 mmol/L (22-30); Chloride 97 mmol/L (98-107); Glucose 97 mg/dL (74-99); Potassium 4.5 mmol/L (3.5-5.1); Sodium 131 mmol/L (137-145); Total Bilirubin 0.7 mg/dL (0.2-1.3); Total Protein 4.2 g/dL (6.3-8.2)
[2019-01-20] MEDS: fentaNYL (PF) 50 MCG/ML 2 ML AMP IVP PRN ×4 (03:05→21:05)
[2019-01-20 03:07] LABS: Neutrophils % (M) 16 %
[2019-01-20 03:11] LABS: Band Neutrophils % 60 %; Lymphocytes # (M) 0.09 k/uL (1.0-4.8); Metamyelocytes # (M) 0.13 k/uL (0); Metamyelocytes % 12 %; Monocytes # (M) 0.04 k/uL (0-1.0); Nucleated Red Blood Cells 0 /100 WBC (0-0); Platelet Count 24 k/uL (150-450); Total Cells Counted 200
[2019-01-20] MEDS ORDERED: NALOXONE 0.4 MG/ML 1 ML VIAL IV PRN (04:06)
[2019-01-20 06:00] LABS: Glucose,Whole Blood 87 mg/dL (75-99)
[2019-01-20 06:48] LABS: Anisocytosis Slight; HCT 26.2 % (39.0-53.0); HGB 8.4 gm/dL (13.0-17.5); MCH 31.3 pg (25.0-35.0); MCHC 31.9 g/dL (31.0-37.0); MCV 98.2 fL (80.0-100.0); Macrocytosis Moderate; Mean Platelet Volume 9.3; RBC 2.67 m/uL (4.30-5.90); RDW 19.4 % (11.5-15.5); WBC 1.6 k/uL (3.8-10.6)
[2019-01-20 06:49] LABS: Platelet Count 25 k/uL (150-450)
[2019-01-20 06:53] LABS: Ionized Calcium 4.1 mg/dL (4.5-5.3)
[2019-01-20 07:02] LABS: ALT 74 U/L (21-72); AST 38 U/L (17-59); African American GFR (CKD) >90 (>60 ml/min/1.73 sqM); Albumin 2.3 g/dL (3.5-5.0); Alkaline Phosphatase 56 U/L (38-126); Anion Gap 7 mmol/L; Blood Urea Nitrogen 26 mg/dL (9-20); Calcium 6.5 mg/dL (8.4-10.2); Carbon Dioxide 25 mmol/L (22-30); Chloride 98 mmol/L (98-107); Glucose 88 mg/dL (74-99); Magnesium 2.3 mg/dL (1.6-2.3); Phosphorus 3.4 mg/dL (2.5-4.5); Potassium 4.3 mmol/L (3.5-5.1); Sodium 130 mmol/L (137-145); Total Bilirubin 0.7 mg/dL (0.2-1.3); Total Protein 4.2 g/dL (6.3-8.2)
[2019-01-20] MEDS ORDERED: SODIUM CHLORIDE 0.9% 1,000 ML IV ONE (07:08)
--- NOTE | 2019-01-20 07:32 | XR ---
EXAMINATION TYPE: XR chest 1V portable DATE OF EXAM: 01/20/2019 COMPARISON: 12/06/2018 INDICATION: Short of breath TECHNIQUE: Single frontal view of the chest is obtained. FINDINGS: The heart size is normal. The pulmonary vasculature is normal. While the infiltrate is within the lingula, silhouetting along the diaphragm. Previous left upper lob e infiltrate is resolved. PICC line enters on the left abdomen the tip in the superior vena cava octaviano on. Old fracture and degenerative changes are at the right shoulder. IMPRESSION: 1. Lingular and left basilar infiltrate. Correlate for atelectasis or pneumonia. 2. Resolution previous left upper lobe opacification.
[2019-01-20] MEDS ORDERED: IPRATROPIUM-ALBUTEROL 3 ML NEB INHALATION PRN (07:55)
[2019-01-20] MEDS: LEVOFLOXACIN 500MG-D5W PMX 500 MG in DEXTROSE/WATER 1 100ML.BAG IVPB SCH (08:45)
[2019-01-20] MEDS: PIPERACILLIN-TAZOBACTAM 3.375 GM in SODIUM CHLORIDE 0.9% 100 ML IVPB SCH ×3 (08:46→23:34)
[2019-01-20] MEDS: HEPARIN SODIUM,PORCINE 5,000 UNIT/ML 1 ML VIAL SQ SCH ×2 (09:15→16:36)
[2019-01-20] MEDS: IPRATROPIUM-ALBUTEROL 3 ML NEB INHALATION SCH ×4 (10:33→19:06)
[2019-01-20 11:18] LABS: Appearance,Urine Cloudy (Clear); Bacteria,Urine Few /hpf; Bilirubin,Urine Negative (Negative); Blood,Urine Moderate (Negative); Color,Urine Yellow; Glucose,Urine (UA) Negative (Negative); Ketones,Urine Negative (Negative); Leukocyte Esterase,Urine Large (Negative); Mucus,Urine Rare /hpf; Nitrite,Urine Positive (Negative); PH, Urine 5.5 (5.0-8.0); Protein,Urine 1+ (Negative); RBC,Urine 18 /hpf (0-5); Specific Gravity,Urine 1.017 (1.001-1.035); Urobilinogen,Urine <2.0 mg/dL (<2.0)
--- NOTE | 2019-01-20 11:26 | CONS ---
CONSULTATION PULMONARY/CRITICAL CARE CONSULTATION: DATE OF SERVICE: January 20, 2019 REASON FOR CONSULTATION: This consultation is for septic shock. HISTORY OF PRESENT ILLNESS: This is a 73-year-old male who I diagnosed as having small-cell lung cancer. The patient had an electromagnetic navigational bronchoscopy by me on November 22. He had a lesion in the left upper lung. His transbronchial needle aspiration and [place] needle biopsies were positive for small cell. He has significant metastatic disease in his liver and other areas of the body. Anyway, he has had 2 rounds of chemotherapy with Dr. Zaidi thus far. He apparently presented to the ER at [facility] just not feeling well with low blood pressure. He was thought to have neutropenic sepsis. He was seen here by Dr. Maldonado who called me on the phone and gave me the report. His blood pressure initially was only about 60 systolic. The patient did not receive adequate fluid resuscitation in the emergency room. He is currently getting saline at 150 an hour. He is getting O2 at 3 L by nasal cannula. He is currently on 11 mcg/minute of norepinephrine. Again, he has a recent diagnosis of small-cell lung cancer, which is quite advanced. He had an electromagnetic navigational bronchoscopy on November 22. So the process here was that he went to Dr. Her initially and was transferred down to our ER for evaluation. A complete evaluation was done in [facility] and then also one here in our ER. The patient was admitted to the ICU. Currently, he is lying flat in bed. He appears relatively stable. He is feeling better. I just looked at his chest x-ray. Although he does sound congested, he does not appear to have any fluid overload, so I asked the nurse Den to go ahead and give him a L and a half of fluid. We will see if we cannot wean the Levophed down. Other than that, he seems to be reasonably comfortable at this time. HOME MEDICATIONS: Include levothyroxine, lisinopril, omeprazole, pravastatin, [place], Flomax, MiraLAX, demeclocycline, ProAir inhaler, Decadron, and Colace. ALLERGIES: Denied. PAST MEDICAL HISTORY: Positive for COPD, hyperlipidemia, hypertension, small cell lung cancer recently diagnosed in November, laryngeal cancer, back pain and urinary retention. The patient has undergone some radiation and two cycles of chemotherapy. SURGICAL HISTORY: Includes a previous hernia repair, vocal cord surgery and electromagnetic navigational bronchoscopy. SOCIAL HISTORY: Positive for previous heavy tobacco use. Does not smoke currently. No alcohol use or illicit drug use. FAMILY HISTORY: Mother and father were apparently relatively healthy according to the patient. In addition, he really does not know his family history all that well. REVIEW OF SYSTEMS: CONSTITUTIONAL: Weakness. NEUROLOGIC negative. HEENT negative. CARDIOVASCULAR low blood pressure. PULMONARY mild chest congestion. GI negative. negative. RHEUMATOLOGIC negative. IMMUNOLOGIC negative. ENDOCRINOLOGIC negative. DERMATOLOGIC negative. PHYSICAL EXAMINATION: VITAL SIGNS: Current vital signs are reviewed. Temperature 97.8, heart rate 96, respiratory rate 18, blood pressure 90/63 with mean 72. Saturations on 3 L 99%. He is currently on norepinephrine at 11 mcg/minute. HEENT examination is grossly unremarkable. Nasal O2 in place. Mucous membranes are a bit dry. NECK: Supple. Full range of motion. No adenopathy, thyromegaly or neck vein distention. CARDIOVASCULAR examination reveals a regular rhythm and rate. Heart rate right below 100. It is regular. He is in sinus. LUNGS: A few scattered rhonchi. Breath sounds equal but diminished throughout. No wheezes. A few scattered crackles are appreciated. ABDOMEN: Soft. Bowel sounds are heard. EXTREMITIES are intact. No cyanosis, clubbing, or edema. SKIN: Without rash. NEUROLOGIC examination is brief but nonfocal. LABORATORY DATA: Includes a white count 1.6, hemoglobin 8.4, hematocrit 26.2, and a platelet count of 25,000. His PT was 13.7, INR 1.3, PTT 35.5. Sodium 130, potassium 4.3, chloride 98, CO2 is 25, anion gap is 7, BUN and creatinine were 26 and 0.58. Plasma lactic acid came down from 4.1 to 2.6. The rest of his labs look okay. Albumin is only 2.3. X-RAY: Shows infiltrate in the lingula and left base. The left upper lobe opacification apparently has resolved. Microbiology is pending. Medications are reviewed. He is currently on fentanyl, heparin, Narcan, norepinephrine, but no antibiotics. ASSESSMENT: 1. Neutropenic sepsis, source unknown. Could be the lung or the urinary tract. 2. Pancytopenia. 3. Recent diagnosis of lung cancer, small cell type, status post radiation and chemotherapy. 4. History of hypothyroidism. 5. History of history of hypertension. 6. History of hyperlipidemia. 7. Benign prostatic hypertrophy. 8. History of laryngeal carcinoma. 9. Urinary retention. 10.Status post hernia repair. PLAN: The patient will get some antibiotics. We will give him a fluid bolus of 1-1.5 L of fluid to see if we cannot wean down the Levophed. Additional recommendations and suggestions are forthcoming. Oncology should see the patient. Infectious Disease should see the patient. Additional recommendations will be forthcoming. We will continue to follow. Prognosis is guarded given his diagnosis. MMODL / IJN: [id number] /
[2019-01-20 12:07] LABS: Glucose,Whole Blood 105 mg/dL (75-99)
--- NOTE | 2019-01-20 15:23 | P.CONS ---
History of Present Illness - Reason for Consult Consult date: 01/20/19 Known Patient Requesting physician: Chanda Maldonado - Chief Complaint Near syncopal and Hypotensive - History of Present Illness Mr Ruiz Is a pleasant white male, in fairly good health, until about 08/29. At that time the patient started having lower back pain, which he states is localized actor just below the waist with radiation across the back. Due to persistence, and progression in severity he sought attention with his PCP. He had imaging done of his spine with x-rays, incidentally revealed abnormality in the left lung. He was therefore referred to pulmonary medicine and had a chest x-ray done on 11/03/18, revealing a left midlung mass, and possibly metastatic disease in the left shoulder. He subsequently had a PET scan done on 11/05/18. This showed extensive mediastinal and hilar adenopathy, extensive bone metastasis, hypermetabolic 2.5 cm left adrenal mass, and hypermetabolic central liver mass. A tissue diagnosis was then planned by pulmonary medicine. The patient states that initially a bronchoscopy was being considered and subsequently he was referred for a CT-guided needle biopsy that was supposed to call on 11/28/18. 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 He was also having difficulty with urination. He denied any lower extremity weakness or loss of sensation. The patient had MRI of the lumbar spine, showing diffuse metastatic involvement, but no destruction or cord compression. The patient actually appeared to have significant degenerative disc disease in the lower spine. Started on steroids, and at the time of my exam had noted marked relief in his symptoms. He did have a [place] placed for urinary retention. 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 Romero in 2013. He quit smoking around 2010, prior to which she smoked about half to three fourths of a pack per day Patient's primary oncologist Dr. 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 Patient had apparently presented to an outside facility for near syncopal episodes on presentation to that facility was found to have a blood pressure systolic in the 60. He was hypotensive that wasn't improved with IV fluids or pressors therefore he is now being treated at [facility] and under the care of ICU. With recent treatment of immune therapy must consider adrenal insufficiency as possible etiology. Review of Systems A 14 point review assesssed and completed and all neg except HPI Past Medical History Past Medical History: Cancer, COPD, Hyperlipidemia, Hypertension Additional Past Medical History / Comment(s): laryngeal cancer, left lung nodule, back pain. urinary retention. lung cancer- first radiation 11/30/18 only one treatment, mets to bone. History of Any Multi-Drug Resistant Organisms: None Reported Past Surgical History: Hernia Repair Additional Past Surgical History / Comment(s): part of vocal cord removed r/t CA Past Anesthesia/Blood Transfusion Reactions: No Reported Reaction Smoking Status: Former smoker - Past Family History Father Family Medical History: No Reported History Mother Family Medical History: No Reported History Medications and Allergies Home Medications Medication Instructions Recorded Confirmed Type Levothyroxine Sodium [Synthroid] 25 mcg PO DAILY 11/08/18 01/20/19 History Lisinopril [Zestril] 10 mg PO DAILY 11/08/18 01/20/19 History Omeprazole [PriLOSEC] 20 mg PO AC-BRKFST 11/08/18 01/20/19 History Pravastatin Sodium [Pravachol] 20 mg PO HS 11/08/18 01/20/19 History HYDROcodone/APAP 7.5-325MG [[place] 1 tab PO Q6H PRN 11/15/18 01/20/19 History 7.5-325] Tamsulosin HCl [Flomax] 0.4 mg PO DAILY 12/01/18 01/20/19 History Docusate [Colace] 100 mg PO BID #60 cap 12/05/18 01/20/19 Rx Albuterol Sulfate [Proair Hfa] 2 puff INHALATION Q6HR PRN 01/20/19 01/20/19 History Allergies Allergy/AdvReac Type Severity Reaction Status Date / Time No Known Allergies Allergy Verified 01/20/19 09:38 Physical Exam Vitals: Vital Signs Temp Pulse Resp BP Pulse Ox 01/20/19 15:00 87 14 92/71 98 01/20/19 14:30 88 13 92/62 97 01/20/19 14:00 92 19 86/64 97 01/20/19 13:30 80 14 85/55 97 01/20/19 13:00 89 15 91/63 97 01/20/19 12:00 84 16 104/70 97 01/20/19 11:30 87 21 104/60 95 01/20/19 11:00 88 22 94/67 98 01/20/19 10:47 90 01/20/19 10:33 91 01/20/19 10:30 85 18 97/69 98 01/20/19 10:25 93 26 H 97/69 97 01/20/19 10:20 88 26 H 97/69 97 01/20/19 10:15 87 23 88/61 98 01/20/19 10:10 85 15 88/61 98 01/20/19 10:05 89 19 88/61 98 01/20/19 10:00 89 19 93/64 97 01/20/19 09:55 92 24 93/64 98 01/20/19 09:50 90 21 93/64 97 01/20/19 09:45 87 17 94/69 98 01/20/19 09:40 93 19 94/69 98 01/20/19 09:35 87 18 94/69 97 01/20/19 09:30 91 19 92/63 97 01/20/19 09:25 90 13 92/63 95 01/20/19 09:20 79 15 92/63 95 01/20/19 09:15 85 17 98/64 95 01/20/19 09:10 92 16 98/64 97 01/20/19 09:05 92 17 98/64 98 01/20/19 09:00 92 19 97/66 97 01/20/19 08:55 95 24 97/66 96 01/20/19 08:50 95 20 97/66 97 01/20/19 08:45 95 17 93/56 95 01/20/19 08:40 93 19 93/56 96 01/20/19 08:35 96 19 93/56 97 01/20/19 08:30 94 18 97/60 97 01/20/19 08:25 83 16 97/60 98 01/20/19 08:20 92 19 97/60 97 01/20/19 08:15 84 15 101/81 98 01/20/19 08:10 97 17 101/81 98 01/20/19 08:05 98 19 101/81 97 01/20/19 08:00 98.6 F 96 19 96/64 97 01/20/19 07:55 76 17 96/64 96 01/20/19 07:50 76 16 96/64 97 01/20/19 07:45 97 19 100/67 98 01/20/19 07:40 91 15 100/67 99 01/20/19 07:35 96 16 100/67 98 01/20/19 07:30 95 15 99/65 97 01/20/19 07:25 35 H 99/65 97 01/20/19 07:20 96 19 99/65 97 01/20/19 07:15 97 16 97/60 01/20/19 07:10 98 18 97/60 98 01/20/19 07:05 93 15 97/60 98 01/20/19 07:00 101 H 16 94/66 98 01/20/19 06:55 96 19 94/66 96 01/20/19 06:50 90 14 94/66 98 01/20/19 06:45 98 22 97/66 98 01/20/19 06:40 86 16 97/66 96 01/20/19 06:35 90 13 97/66 98 01/20/19 06:30 96 18 90/63 99 01/20/19 06:15 98 22 89/62 96 01/20/19 06:00 97.8 F 98 17 85/62 98 01/20/19 05:16 97.6 F 99 18 100/63 100 01/20/19 04:25 100 18 88/75 99 01/20/19 04:20 97 18 84/55 100 01/20/19 04:15 98 18 85/56 97 01/20/19 04:10 98 20 83/58 100 01/20/19 04:05 96 18 82/56 100 01/20/19 04:00 99 18 66/47 100 01/20/19 03:55 99 18 78/44 99 01/20/19 03:50 98.1 F 99 20 75/56 100 01/20/19 03:45 99 20 91/45 100 01/20/19 03:40 101 H 22 89/51 100 01/20/19 03:35 100 20 64/36 99 01/20/19 03:30 97 18 83/44 99 08/10/19 03:25 99 20 69/40 99 01/20/19 03:20 98 20 79/47 100 01/20/19 03:15 97 22 72/45 100 01/20/19 03:10 100 22 76/47 100 01/20/19 03:05 101 H 22 80/50 99 01/20/19 03:00 101 H 22 76/46 100 01/20/19 02:55 101 H 22 65/54 100 01/20/19 02:50 101 H 22 69/47 98 01/20/19 02:45 98 20 73/43 99 01/20/19 02:40 103 H 20 75/54 100 01/20/19 02:35 96 20 83/57 100 01/20/19 02:30 101 H 20 70/41 99 01/20/19 02:25 100 22 71/50 96 01/20/19 02:20 100 24 66/49 99 01/20/19 02:15 101 H 20 72/45 100 01/20/19 02:10 101 H 25 H 61/43 100 01/20/19 00:47 98.0 F 101 H 22 73/44 93 L Intake and Output 01/20/19 01/20/19 01/20/19 06:59 14:59 22:59 Intake Total 28.784 2395.286 150 Output Total 300 560 50 Balance -378.442 3102.286 100 Intake: IV 1050 150 Sodium Chloride 0.9% 1, 1050 150 000 ml @ 150 mls/hr IV . Q6H40M [facility] Rx#:[id number] Intake, IV Titration 28.784 1345.286 Amount Levofloxacin 500Mg-D5w 100 Pmx 500 mg In Dextrose/ Water 1 100ml.bag @ 100 mls/hr IVPB Q24H [facility] Rx#: [id number] Norepinephrine 8 mg In 28.784 145.286 Sodium Chloride 0.9% 250 ml @ 0.05 MCG/KG/MIN 8. 804 mls/hr IV .Q24H [facility] Rx#:[id number] Piperacillin-Tazobactam 3 100 .375 gm In Sodium Chloride 0.9% 100 ml @ 25 mls/hr IVPB Q8HR [facility] Rx# :[id number] Sodium Chloride 0.9% 1, 1000 000 ml @ 150 mls/hr IV . Q6H40M [facility] Rx#:[id number] Output: Urine 300 560 50 Other: Weight 72.756 kg Gen: NAD Head NCNT Neck: Supple Lungs: Audible crackles lefts greater than right Heart: IRr, Reg Abd Soft Ext Edema Results CBC & Chem 7: 01/20/19 06:25 01/20/19 06:25 Labs: Abnormal Lab Results - Last 24 Hours (Table) 01/20/19 01/20/19 01/20/19 Range/Units 02:23 02:23 02:23 WBC 1.1 L* (3.8-10.6) k/uL RBC 2.56 L (4.30-5.90) m/uL Hgb 8.1 L D (13.0-17.5) gm/dL Hct 24.7 L (39.0-53.0) % RDW 20.7 H (11.5-15.5) % Plt Count 24 L D (150-450) k/uL Neutrophils # (Manual) 0.80 L (1.3-7.7) k/uL Lymphocytes # (Manual) 0.09 L (1.0-4.8) k/uL Metamyelocytes # (Man) 0.13 H (0) k/uL PT (9.0-12.0) sec INR (<1.2) APTT (22.0-30.0) sec Sodium 131 L (137-145) mmol/L Chloride 97 L (98-107) mmol/L BUN 25 H (9-20) mg/dL Creatinine (0.66-1.25) mg/dL POC Glucose (mg/dL) (75-99) mg/dL Plasma Lactic Acid Osbaldo 4.1 H* (0.7-2.0) mmol/L Calcium 6.8 L (8.4-10.2) mg/dL Ionized Calcium Erin (4.5-5.3) mg/dL ALT 81 H (21-72) U/L Total Protein 4.2 L (6.3-8.2) g/dL Albumin 2.4 L (3.5-5.0) g/dL Urine Protein (Negative) Urine Blood (Negative) Ur Leukocyte Esterase (Negative) Urine RBC (0-5) /hpf Urine WBC (0-5) /hpf Urine WBC Clumps (None) /hpf Urine Bacteria (None) /hpf Urine Mucus (None) /hpf 01/20/19 01/20/19 01/20/19 Range/Units 02:23 06:18 06:25 WBC 1.6 L (3.8-10.6) k/uL RBC 2.67 L (4.30-5.90) m/uL Hgb 8.4 L (13.0-17.5) gm/dL Hct 26.2 L (39.0-53.0) % RDW 19.4 H (11.5-15.5) % Plt Count 25 L (150-450) k/uL Neutrophils # (Manual) (1.3-7.7) k/uL Lymphocytes # (Manual) (1.0-4.8) k/uL Metamyelocytes # (Man) (0) k/uL PT 13.7 H (9.0-12.0) sec INR 1.3 H (<1.2) APTT 35.5 H (22.0-30.0) sec Sodium (137-145) mmol/L Chloride (98-107) mmol/L BUN (9-20) mg/dL Creatinine (0.66-1.25) mg/dL POC Glucose (mg/dL) (75-99) mg/dL Plasma Lactic Acid Osbaldo 2.6 H* (0.7-2.0) mmol/L Calcium (8.4-10.2) mg/dL Ionized Calcium Erin (4.5-5.3) mg/dL ALT (21-72) U/L Total Protein (6.3-8.2) g/dL Albumin (3.5-5.0) g/dL Urine Protein (Negative) Urine Blood (Negative) Ur Leukocyte Esterase (Negative) Urine RBC (0-5) /hpf Urine WBC (0-5) /hpf Urine WBC Clumps (None) /hpf Urine Bacteria (None) /hpf Urine Mucus (None) /hpf 01/20/19 01/20/19 01/20/19 Range/Units 06:25 10:45 12:06 WBC (3.8-10.6) k/uL RBC (4.30-5.90) m/uL Hgb (13.0-17.5) gm/dL Hct (39.0-53.0) % RDW (11.5-15.5) % Plt Count (150-450) k/uL Neutrophils # (Manual) (1.3-7.7) k/uL Lymphocytes # (Manual) (1.0-4.8) k/uL Metamyelocytes # (Man) (0) k/uL PT (9.0-12.0) sec INR (<1.2) APTT (22.0-30.0) sec Sodium 130 L (137-145) mmol/L Chloride (98-107) mmol/L BUN 26 H (9-20) mg/dL Creatinine 0.58 L (0.66-1.25) mg/dL POC Glucose (mg/dL) 105 H (75-99) mg/dL Plasma Lactic Acid Osbaldo (0.7-2.0) mmol/L Calcium 6.5 L (8.4-10.2) mg/dL Ionized Calcium Erin 4.1 L (4.5-5.3) mg/dL ALT 74 H (21-72) U/L Total Protein 4.2 L (6.3-8.2) g/dL Albumin 2.3 L (3.5-5.0) g/dL Urine Protein 1+ H (Negative) Urine Blood Moderate H (Negative) Ur Leukocyte Esterase Large H (Negative) Urine RBC 18 H (0-5) /hpf Urine WBC 68 H (0-5) /hpf Urine WBC Clumps Occasional H (None) /hpf Urine Bacteria Few H (None) /hpf Urine Mucus Rare H (None) /hpf Chest x-ray: report reviewed Assessment and Plan (1) Hypotension Current Visit: Yes Status: Acute Code(s): I95.9 - HYPOTENSION, UNSPECIFIED SNOMED Code(s): 42340176 (2) Metastatic disease Current Visit: No Status: Acute Code(s): C79.9 - SECONDARY MALIGNANT NEOPLASM OF UNSPECIFIED SITE SNOMED Code(s): 180490546 (3) Small cell lung cancer Current Visit: No Status: Acute Priority: High Code(s): C34.90 - MALIGNANT NEOPLASM OF UNSP PART OF UNSP BRONCHUS OR LUNG SNOMED Code(s): 547208965 (4) Pancytopenia due to antineoplastic chemotherapy Current Visit: Yes Status: Acute Code(s): D61.810 - ANTINEOPLASTIC CHEMOTHERAPY INDUCED PANCYTOPENIA; T45.1X5A - ADVERSE EFFECT OF ANTINEOPLASTIC AND IMMUNOSUP DRUGS, INIT SNOMED Code(s): 445056688884466 Plan: Assessment and Recommendations: Extensive Stage Small cell Lung Cancer to Spine: - Status Post radiation therapy to Spine - [facility] Cycle two of Chemotherapy with Carboplatin, PICKLE WATER PUMP 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, Tecentriq and Neulasta on 01.12.19 Near Syncopal Episode Hypotension: - Check Cortisol with recent Immune therapy cannot rule out adrenal insufficiency - PPan Culture for underlying infectious process Pancytopenia: - Did receive Neulasta thereforeno room for GCSF within first 2 weeks of this medication, then if still neutropenic may add Zarxio - ID Following Broad spectrum Abx - Owens Cultures Pending - Monitor Daily CBC, Transfuse platlets less than 10, hemoglobin less than 8 - Hold anticoagulation at this time Hyponatremia: - Component SIADH - Nephrology, ICU management Hypocalcemia: - Concern for Septicemia - Monitor and replace per icu AND nEPHROLOGY Plan: - Hydrocortison 100mg IV q6 hours and PPI - Recheck Xray for increased Crackles
[2019-01-20] MEDS ORDERED: ACETAMINOPHEN TAB 500 MG TAB PO PRN (17:10)
[2019-01-20] MEDS ORDERED: methylPREDNISolone SOD SUCCI 125 MG/2 ML VIAL IV SCH (17:30)
[2019-01-20 17:47] LABS: Glucose,Whole Blood 101 mg/dL (75-99)
[2019-01-20] MEDS: LEVOTHYROXINE 25 MCG TAB PO SCH (17:52)
[2019-01-20] MEDS: INSULIN ASPART (NovoLOG) 100 UNIT/ML VIAL SQ SCH ×2 (17:53→23:38)
--- NOTE | 2019-01-20 18:17 | XR ---
EXAMINATION TYPE: XR chest 1V portable DATE OF EXAM: 01/20/2019 COMPARISON: Today HISTORY: Short of breath TECHNIQUE: Single frontal view of the chest is obtained. FINDINGS: There is patchy infiltrate in the left lower lobe. There is no gross heart failure. Thorac ic aorta is atheromatous. Right lung is clear of infiltrate. There is deformity of the right shoulder consistent with old humeral neck fracture and significant osteoarthritis. IMPRESSION: Left lower lobe pneumonia unchanged compared to exam this morning. No heart failure.
[2019-01-20] MEDS: NYSTATIN 100,000 UNIT/ML SUSP 500,000 UNIT/5 ML CUP PO SCH ×2 (18:28→21:07)
[2019-01-20] MEDS ORDERED: AMIODARONE 360 MG in DEXTROSE 5% IN WATER 200 ML IV ONE ×2 (19:57)
[2019-01-20] MEDS ORDERED: DEXTROSE 5% IN WATER 100 ML with AMIODARONE 150 MG IV ONE (19:57)
--- NOTE | 2019-01-20 20:02 | HP ---
HISTORY AND PHYSICAL . DATE OF SERVICE: 01/20/2019 CHIEF COMPLAINTS: Weakness and syncope and septic shock. HISTORY OF PRESENT ILLNESS: This 73-year-old gentleman with a past medical history of metastatic non-small cell cancer, being followed by Dr. Reinaldo Godinez in the outpatient setting also had previous hyponatremia, episodes of SIADH. The patient also had other diagnoses including COPD, hypertension, hyperlipidemia, history of laryngeal cancer, history of left lung nodule, history of back pain. The patient also had mental status changes. Patient also had first radiation. Patient has also receiving chemotherapy. Apparently patient passed out and had severe hypotension and was evaluated at [facility] and subsequent Dr. Darnell was contacted. The patient was transferred to [place] [facility] and then to ICU. The patient being closely monitored. Patient is started on broad- spectrum IV antibiotics. The plasma lactic acid is 2.6. The patient also had pancytopenia, possibly secondary to effect of chemotherapy, possible UTIs versus left lung pneumonia is considered and the patient admitted for further evaluation and treatment. There is no history of fever, rigors or chills. No history of headache, loss of consciousness or seizures at this time. PAST MEDICAL HISTORY: History of COPD, hypertension, hyperlipidemia, history of laryngeal cancer, left lung nodule, history of hernia repair. MEDICATIONS: Home medications are: 1. Flomax 0.4 daily. 2. Pravachol 20 mg q.h.s. 3. Colace 100 mg p.o. b.i.d. 4. ProAir HFA 2 puffs q.6h p.r.n. 5. Prilosec 20 mg with breakfast. 6. Zestril 10 mg p.o. daily. 7. Synthroid 25 mcg p.o. daily. 8. [place] 7.5 q.6h p.r.n. ALLERGIES: None. FAMILY HISTORY: No history of heart disease or strokes in the family. SOCIAL HISTORY: Previous history of smoking. No current smoking. No history of current smoking or alcohol intake. REVIEW OF SYSTEMS: ENT: Diminished vision, diminished hearing, otherwise mentioned earlier. Cardiovascular as mentioned earlier. RESPIRATORY: As mentioned earlier. GI no nausea or vomiting. no dysuria or hematuria. NERVOUS SYSTEM: As mentioned earlier. ALLERGIES/IMMUNOLOGY: No asthma or hayfever. MUSCULOSKELETAL as mentioned earlier. HEMATOLOGY/ONCOLOGY: No history of anemia. ENDOCRINE: No history of diabetes or hypothyroidism. CONSTITUTIONAL: As mentioned earlier. DERMATOLOGY: Negative. RHEUMATOLOGY negative. PSYCHIATRY as mentioned. PHYSICAL EXAMINATION: Alert and oriented times three. Pulse 88, blood pressure 92/62. Respiration 13. Temperature normal. Pulse ox normal. HEENT: Conjunctivae normal. Oral mucosa moist. NECK is no jugular venous distention. No carotid bruit. No lymph node enlargement. CARDIOVASCULAR: S1-S2 muffled. No S3, no S4. RESPIRATORY: Breath sounds diminished in the bases. Bilateral scattered rhonchi and crackles. Expiratory wheezing also present. ABDOMEN: Soft, nontender. No mass palpable. LEGS: No edema. No swelling. NERVOUS SYSTEM: Higher functions as mentioned earlier. Moves all 4 limbs. No focal motor or sensory deficit. Mild diffuse weakness. Lymphatics: No lymph nodes palpable in the neck, axillae or groin. SKIN: No ulcers. No rashes. No bleeding. JOINTS: No active deforming arthropathy. LABS: WBC 7.2, hemoglobin is 8.4, platelets 225. Sodium is 130. Plasma lactic acid 2.6 and calcium 6.5. UA noted. ASSESSMENT: 1. Acute sepsis with severe sepsis, hypotension, septic shock and possibly secondary to urinary tract infection. 2. Possible left lower pneumonia, possibly gram-negative. 3. Pancytopenia, leukopenia, neutropenia, thrombocytopenia secondary to chemotherapy. 4. Hyponatremia. 5. History of Syndrome of inappropriate antidiuretic hormone. 6. Elevated lactic acid, possibly secondary to sepsis. 7. Hypocalcemia. 8. History of chronic obstructive pulmonary disease. 9. Hypertension. 10.Hyperlipidemia. 11.History of laryngeal cancer. 12.History of left lung cancer and with METS status post radiation and chemotherapy. 13.Remote history of nicotine dependence. 14.History of back pain/degenerative joint disease. 15.History of urinary retention. 16.History of orthostatic hypotension. 17.NO CODE, NO CPR AND NO VENT. RECOMMENDATIONS AND DISCUSSION: In this 73-year-old gentleman who presented with multiple complex medical issues, we will monitor the patient closely. Continue the current medications, management and symptomatic treatment. We will initiate broad-spectrum IV antibiotics. The patient is started on Zosyn and Levaquin. Bronchodilators. Otherwise, I would recommend continue with IV fluids and we will also monitor blood pressure closely. Otherwise, we will hold the blood pressure medication at this time. Resume the rest of the medications. A copy of dictation being forwarded to Dr. Reinaldo Godinez who is the primary physician. Repeat labs also ordered. Prognosis extremely guarded because of multiple complex medical issues. We will follow. We will continue to monitor and closely follow with Dr. Darnell. Dr. Zaidi is also consulted. MMODL / IJN: [id number] /
[2019-01-20] MEDS: DOCUSATE 100 MG CAP PO SCH (20:33)
[2019-01-20] MEDS: PRAVASTATIN SODIUM 20 MG TAB PO SCH (20:33)
[2019-01-20] MEDS: PANTOPRAZOLE 40 MG/10 ML VIAL IVP SCH (20:33)
[2019-01-20] MEDS: HYDROCORTISONE SUCCINATE 100 MG/2 ML VIAL IV SCH ×2 (20:56→23:34)
[2019-01-20] MEDS: ALPRAZolam 0.25 MG TAB PO PRN (21:35)
[2019-01-20 23:34] LABS: Glucose,Whole Blood 150 mg/dL (75-99)
[2019-01-21] MEDS: NOREPINEPHRINE 8 MG in SODIUM CHLORIDE 0.9% 250 ML IV SCH ×2 (00:52→23:26)
[2019-01-21] MEDS ORDERED: AMIODARONE 300 MG in DEXTROSE 5% IN WATER 250 ML IV SCH ×2 (02:00)
[2019-01-21 02:06] LABS: HGB 8.1 gm/dL (13.0-17.5)
[2019-01-21] MEDS: SODIUM CHLORIDE 0.9% 1,000 ML IV SCH ×2 (04:24→11:22)
[2019-01-21 04:44] LABS: Anisocytosis Slight; Basophils % (A) 0 %; Eosinophils % (A) 0 %; HCT 25.5 % (39.0-53.0); Lymphocytes # (A) 0.1 k/uL (1.0-4.8); Lymphocytes % (A) 4 %; MCH 30.4 pg (25.0-35.0); MCHC 31.2 g/dL (31.0-37.0); MCV 97.5 fL (80.0-100.0); Macrocytosis Slight; Mean Platelet Volume 8.6; Monocytes # (A) 0.1 k/uL (0-1.0); Monocytes % (A) 3 %; Neutrophils # (A) 3.1 k/uL (1.3-7.7); Neutrophils % (A) 92 %; RBC 2.62 m/uL (4.30-5.90); RDW 19.2 % (11.5-15.5); WBC 3.4 k/uL (3.8-10.6)
[2019-01-21 04:51] LABS: African American GFR (CKD) >90 (>60 ml/min/1.73 sqM); Anion Gap 7 mmol/L; Blood Urea Nitrogen 15 mg/dL (9-20); Carbon Dioxide 24 mmol/L (22-30); Chloride 101 mmol/L (98-107); Glucose 134 mg/dL (74-99); Potassium 3.1 mmol/L (3.5-5.1); Sodium 132 mmol/L (137-145)
[2019-01-21 04:59] LABS: Calcium 6.2 mg/dL (8.4-10.2)
[2019-01-21 05:22] LABS: Platelet Count 21 k/uL (150-450); Poikilocytosis (M) Present; Polychromasia Present
[2019-01-21 05:30] LABS: Glucose,Whole Blood 132 mg/dL (75-99)
[2019-01-21] MEDS: INSULIN ASPART (NovoLOG) 100 UNIT/ML VIAL SQ SCH ×4 (05:32→21:11)
[2019-01-21] MEDS: LEVOTHYROXINE 25 MCG TAB PO SCH (05:34)
[2019-01-21] MEDS: HYDROCORTISONE SUCCINATE 100 MG/2 ML VIAL IV SCH ×4 (05:34→23:31)
[2019-01-21] MEDS ORDERED: Potassium Replacement Protocol 1 EACH MISC MISCELLANE PRN ×3 (06:50→18:14)
[2019-01-21] MEDS: IPRATROPIUM-ALBUTEROL 3 ML NEB INHALATION SCH ×4 (07:25→19:55)
[2019-01-21] MEDS ORDERED: PANTOPRAZOLE 40 MG TABLET PO SCH ×2 (07:30)
--- NOTE | 2019-01-21 07:44 | XR ---
EXAMINATION TYPE: XR chest 1V DATE OF EXAM: 01/21/2019 COMPARISON: 01/20/2019 INDICATION: Short of breath TECHNIQUE: Single frontal view of the chest is obtained. FINDINGS: The heart size is normal. The pulmonary vasculature is normal. Mild infiltrate is within the lingula. This is slightly worsening. Infiltrate is also at the left sylvie phragm. IMPRESSION: 1. Slight worsening of a lingular and left basilar infiltrate could be atelectasis or pneumonia. Cont inued follow-up is recommended.
[2019-01-21] MEDS ORDERED: CALCIUM GLUCONATE 1 GM in SODIUM CHLORIDE 0.9% 100 ML IVPB ONE (08:00)
--- NOTE | 2019-01-21 08:03 | P.CRDCN ---
History of Present Illness Consult date: 01/21/19 History of present illness: This is a pleasant 73-year-old gentleman with a past medical history significant for small cell lung cancer, the patient initially was receiving radiation therapy and currently he is on chemotherapy, hypertension, and dyslipidemia, was transferred from outside hospital to this hospital for what it seems to be sepsis. Initially he presented [facility] emergency department with symptoms of feeling weak. He underwent a workup over there which revealed pancytopenia. Also the patient was found to be hypotensive. He was transferred to the emergency room here. We get involved in the care of the patient for further evaluation of atrial fibrillation with RVR. The patient yesterday was receiving vasopressors was able that but that was weaned this morning. Last night he did have an episode of atrial fibrillation with RVR and he was started on amiodarone drip and converted to normal sinus mechanism at this sample prep technician. Since then he has been maintaining normal sinus mechanism. No history of coronary artery disease, congestive heart failure, or any cardiac arrhythmia. The patient doesn't follow with any sample stitcher. He does have history of hypertension as well as dyslipidemia. The workup during this admission revealed pancytopenia. The patient platelets are around 20,000. For that reason I would hold any kind of anticoagulation or antiplatelet on him for the atrial fibrillation. I am going to DC the amiodarone IV and start the patient on amiodarone by mouth. Also he is in process of getting an echocardiogram was Doppler. Past Medical History Past Medical History: Cancer, COPD, Hyperlipidemia, Hypertension Additional Past Medical History / Comment(s): laryngeal cancer, left lung nodule, back pain. urinary retention. lung cancer- first radiation 11/30/18 only one treatment, mets to bone. History of Any Multi-Drug Resistant Organisms: None Reported Past Surgical History: Hernia Repair Additional Past Surgical History / Comment(s): part of vocal cord removed r/t CA Past Anesthesia/Blood Transfusion Reactions: No Reported Reaction Smoking Status: Former smoker - Past Family History Father Family Medical History: No Reported History Mother Family Medical History: No Reported History Medications and Allergies Home Medications Medication Instructions Recorded Confirmed Type Levothyroxine Sodium [Synthroid] 25 mcg PO DAILY 11/08/18 01/20/19 History Lisinopril [Zestril] 10 mg PO DAILY 11/08/18 01/20/19 History Omeprazole [PriLOSEC] 20 mg PO AC-BRKFST 11/08/18 01/20/19 History Pravastatin Sodium [Pravachol] 20 mg PO HS 11/08/18 01/20/19 History HYDROcodone/APAP 7.5-325MG [Ennice 1 tab PO Q6H PRN 11/15/18 01/20/19 History 7.5-325] Tamsulosin HCl [Flomax] 0.4 mg PO DAILY 12/01/18 01/20/19 History Docusate [Colace] 100 mg PO BID #60 cap 12/05/18 01/20/19 Rx Albuterol Sulfate [Proair Hfa] 2 puff INHALATION Q6HR PRN 01/20/19 01/20/19 History Allergies Allergy/AdvReac Type Severity Reaction Status Date / Time No Known Allergies Allergy Verified 01/20/19 09:38 Physical Exam Vitals: Vital Signs Temp Pulse Resp BP Pulse Ox 01/21/19 07:40 76 01/21/19 07:25 75 01/21/19 07:00 71 13 104/76 98 01/21/19 06:30 79 20 104/86 98 01/21/19 06:00 69 18 99/71 98 01/21/19 05:30 76 18 98/66 98 01/21/19 05:00 71 15 116/84 99 01/21/19 04:30 79 17 105/76 98 01/21/19 04:00 91 15 100/79 98 01/21/19 03:30 101 H 15 97/73 99 01/21/19 03:00 98 18 90/69 98 01/21/19 02:30 102 H 17 98/73 98 01/21/19 02:00 97 13 87/75 97 01/21/19 01:30 101 H 18 101/73 98 01/21/19 01:00 95 16 97/71 98 01/21/19 00:30 99 16 94/71 97 01/21/19 00:14 96 18 89/72 97 01/21/19 00:00 98.6 F 100 15 96/70 97 01/20/19 23:30 109 H 15 97/71 97 01/20/19 23:00 115 H 15 91/56 98 01/20/19 22:30 105 H 18 95/67 97 01/20/19 22:00 104 H 16 96/72 98 01/20/19 21:30 110 H 15 97/65 97 01/20/19 21:00 101 H 13 92/63 98 01/20/19 20:30 120 H 18 87/64 98 01/20/19 20:00 102 H 16 92/58 96 01/20/19 19:30 113 H 20 96/64 99 01/20/19 19:16 95 01/20/19 19:06 92 01/20/19 19:00 83 15 91/65 96 01/20/19 18:30 91 17 81/61 96 01/20/19 18:00 93 22 82/56 98 01/20/19 17:30 86 15 78/53 98 01/20/19 17:00 98.1 F 104 H 20 82/57 97 01/20/19 16:30 89 23 83/66 96 01/20/19 16:00 92 14 97 01/20/19 15:30 87 16 86/64 97 01/20/19 15:15 99 01/20/19 15:00 96 14 92/71 98 01/20/19 14:30 88 13 92/62 97 01/20/19 14:00 92 19 86/64 97 01/20/19 13:30 80 14 85/55 97 01/20/19 13:00 89 15 91/63 97 01/20/19 12:00 84 16 104/70 97 01/20/19 11:30 87 21 104/60 95 01/20/19 11:00 88 22 94/67 98 01/20/19 10:47 90 01/20/19 10:33 91 01/20/19 10:30 85 18 97/69 98 01/20/19 10:25 93 26 H 97/69 97 01/20/19 10:20 88 26 H 97/69 97 01/20/19 10:15 87 23 88/61 98 01/20/19 10:10 85 15 88/61 98 01/20/19 10:05 89 19 88/61 98 01/20/19 10:00 89 19 93/64 97 01/20/19 09:55 92 24 93/64 98 01/20/19 09:50 90 21 93/64 97 01/20/19 09:45 87 17 94/69 98 01/20/19 09:40 93 19 94/69 98 01/20/19 09:35 87 18 94/69 97 01/20/19 09:30 91 19 92/63 97 01/20/19 09:25 90 13 92/63 95 01/20/19 09:20 79 15 92/63 95 01/20/19 09:15 85 17 98/64 95 01/20/19 09:10 92 16 98/64 97 01/20/19 09:05 92 17 98/64 98 01/20/19 09:00 92 19 97/66 97 01/20/19 08:55 95 24 97/66 96 01/20/19 08:50 95 20 97/66 97 01/20/19 08:45 95 17 93/56 95 01/20/19 08:40 93 19 93/56 96 01/20/19 08:35 96 19 93/56 97 01/20/19 08:30 94 18 97/60 97 01/20/19 08:25 83 16 97/60 98 01/20/19 08:20 92 19 97/60 97 01/20/19 08:15 84 15 101/81 98 01/20/19 08:10 97 17 101/81 98 01/20/19 08:05 98 19 101/81 97 01/20/19 08:00 98.6 F 96 19 96/64 97 Intake and Output 01/20/19 01/21/19 01/21/19 22:59 06:59 14:59 Intake Total 5024.529 9545.219 175 Output Total 1010 730 35 Balance 498.418 750.219 140 Intake: IV 1200 1200 150 Sodium Chloride 0.9% 1, 1200 1200 150 000 ml @ 150 mls/hr IV . Q6H40M [facility] Rx#:[id number] Intake, IV Titration 158.418 280.219 25 Amount Amiodarone 360 mg In 33 232 25 Dextrose 5% in Water 200 ml @ 1 MG/MIN 33.333 mls/ hr IV .Q6H ONE Rx#: [id number] Norepinephrine 8 mg In 25.418 48.219 Sodium Chloride 0.9% 250 ml @ 0.05 MCG/KG/MIN 8. 804 mls/hr IV .Q24H [facility] Rx#:[id number] Piperacillin-Tazobactam 3 100 .375 gm In Sodium Chloride 0.9% 100 ml @ 25 mls/hr IVPB Q8HR [facility] Rx# :[id number] Oral 150 Output: Urine 1010 730 35 Other: Weight 78 kg - Constitutional General appearance: no acute distress - Respiratory Respiratory: bilateral: wheezing - Cardiovascular Rhythm: regular Heart sounds: normal: S1, S2 Results 01/21/19 04:11 01/21/19 04:11 CBC 01/20/19 01/21/19 Range/Units 02:23 04:11 WBC 1.1 L* 3.4 L (3.8-10.6) k/uL RBC 2.62 L (4.30-5.90) m/uL Hgb 8.1 L D 8.0 L (13.0-17.5) gm/dL Hct 25.5 L (39.0-53.0) % Plt Count 21 L (150-450) k/uL Comprehensive Metabolic Panel 01/21/19 Range/Units 04:11 Sodium 132 L (137-145) mmol/L Potassium 3.1 L (3.5-5.1) mmol/L Chloride 101 (98-107) mmol/L Carbon Dioxide 24 (22-30) mmol/L BUN 15 (9-20) mg/dL Creatinine 0.36 L (0.66-1.25) mg/dL Glucose 134 H (74-99) mg/dL Calcium 6.2 L* (8.4-10.2) mg/dL Current Medications Generic Name Dose Route Start Last Admin Trade Name Freq PRN Reason Stop Dose Admin Acetaminophen 500 mg 01/20/19 17:10 Tylenol Tab PO Q6HR PRN Fever and/ or Pain Hydrocodone Bitart/Acetaminophen 1 each 01/20/19 17:08 Ennice 7.5-325 PO Q6H PRN Pain Albuterol/Ipratropium 3 ml 01/20/19 08:00 01/21/19 07:25 Duoneb 0.5 Mg-3 Mg/3 Ml Soln INHALATION 3 ml RT-QID [facility] Administration Albuterol/Ipratropium 3 ml 01/20/19 07:55 Duoneb 0.5 Mg-3 Mg/3 Ml Soln INHALATION RT-QID PRN Shortness Of Breath Or Wheezing Alprazolam 0.25 mg 01/20/19 17:10 01/20/19 21:35 Xanax PO 0.25 mg TID PRN Administration Anxiety Docusate Sodium 100 mg 01/20/19 21:00 01/20/19 20:33 Colace PO 100 mg BID [facility] Administration Fentanyl Citrate 50 mcg 01/20/19 03:00 01/20/19 21:05 Sublimaze IVP 50 mcg Q4H PRN Administration Severe Pain Hydrocortisone Sodium Succinate 100 mg 01/20/19 19:00 01/21/19 05:34 Solu-Cortef IV 100 mg Q6HR [facility] Administration Norepinephrine Bitartrate 8 mg 258 mls @ 8.804 mls/hr 01/20/19 01:00 01/21/19 05:46 / Sodium Chloride IV 0.01 mcg/kg/min .Q24H [facility] 1.761 mls/hr Titration Protocol 0.05 MCG/KG/MIN Sodium Chloride 1,000 mls @ 150 mls/hr 01/20/19 01:00 01/21/19 04:24 Saline 0.9% IV 150 mls/hr .Q6H40M [facility] Administration Levofloxacin 500 mg/ IV 100 mls @ 100 mls/hr 01/20/19 08:00 01/20/19 08:45 Solution IVPB 100 mls/hr Q24H [facility] Administration Piperacillin Sod/Tazobactam 100 mls @ 25 mls/hr 01/20/19 08:00 01/20/19 23:34 Sod 3.375 gm/ Sodium Chloride IVPB 25 mls/hr Q8HR [facility] Administration Amiodarone HCl 300 mg/ 250 mls @ 25 mls/hr 01/21/19 02:00 01/21/19 02:34 Dextrose/Water IV 01/21/19 19:59 0.5 mg/min .Q10H [facility] 25 mls/hr Administration Protocol 0.5 MG/MIN Calcium Gluconate 1 gm/ Sodium 110 mls @ 100 mls/hr 01/21/19 08:00 Chloride IVPB 01/21/19 09:05 ONCE ONE Insulin Aspart 0 unit 01/20/19 18:00 01/21/19 05:32 Novolog SQ Not Given Q6H [facility] Protocol Levothyroxine Sodium 25 mcg 01/20/19 17:15 01/21/19 05:34 Synthroid PO 25 mcg 0630 [facility] Administration Miscellaneous Information 1 each 01/21/19 06:50 Potassium Per Protocol MISCELLANE DAILY PRN Per Protocol Protocol Multivitamins 1 each 01/21/19 12:00 Theragran PO DAILY@1200 [facility] Naloxone HCl 0.2 mg 01/20/19 04:06 Narcan IV Q2M PRN Opioid Reversal Nystatin 500,000 unit 01/20/19 18:00 01/20/19 21:07 Mycostatin Oral Susp PO 500,000 unit QID [facility] Administration Pantoprazole Sodium 40 mg 01/20/19 21:00 01/20/19 20:33 Protonix IVP 40 mg BID [facility] Administration Potassium Chloride 20 meq 01/21/19 08:00 K-Dur 20 PO 01/21/19 12:01 Q2HR [facility] Pravastatin Sodium 20 mg 01/20/19 21:00 01/20/19 20:33 Pravachol PO 20 mg HS [facility] Administration Tamsulosin HCl 0.4 mg 01/21/19 09:00 Flomax PO DAILY [facility] Intake and Output 01/20/19 01/21/19 01/21/19 22:59 06:59 14:59 Intake Total 6751.224 1366.219 175 Output Total 1010 730 35 Balance 498.418 750.219 140 Intake: IV 1200 1200 150 Sodium Chloride 0.9% 1, 1200 1200 150 000 ml @ 150 mls/hr IV . Q6H40M [facility] Rx#:[id number] Intake, IV Titration 158.418 280.219 25 Amount Amiodarone 360 mg In 33 232 25 Dextrose 5% in Water 200 ml @ 1 MG/MIN 33.333 mls/ hr IV .Q6H [facility] Rx#: [id number] Norepinephrine 8 mg In 25.418 48.219 Sodium Chloride 0.9% 250 ml @ 0.05 MCG/KG/MIN 8. 804 mls/hr IV .Q24H [facility] Rx#:[id number] Piperacillin-Tazobactam 3 100 .375 gm In Sodium Chloride 0.9% 100 ml @ 25 mls/hr IVPB Q8HR [facility] Rx# :[id number] Oral 150 Output: Urine 1010 730 35 Other: Weight 78 kg 01/21/19 04:11 08/11/19 04:11 Assessment and Plan Assessment: Assessment #1 sepsis of unknown source #2 atrial fibrillation with RVR. The patient converted to normal sinus mechanism. This is a newly diagnosed as the patient #3 hypertension #4 dyslipidemia #5 thyroid disorder #6 pancytopenia Plan #1 DC amiodarone IV and start the patient on amiodarone by mouth #2 hold any kind of anticoagulation or antiplatelet in view of the thrombocytopenia #3 obtain an echocardiogram was Doppler #4 follow-up with the patient Thank you for allowing us participate in his care
[2019-01-21] MEDS: PIPERACILLIN-TAZOBACTAM 3.375 GM in SODIUM CHLORIDE 0.9% 100 ML IVPB SCH ×2 (08:07→16:02)
[2019-01-21] MEDS: LEVOFLOXACIN 500MG-D5W PMX 500 MG in DEXTROSE/WATER 1 100ML.BAG IVPB SCH (08:07)
--- NOTE | 2019-01-21 08:36 | PN ---
PROGRESS NOTE DATE OF SERVICE: January 21, 2019 This is a 73-year-old male who was recently diagnosed with small-cell lung cancer. He was diagnosed by electromagnetic navigational bronchoscopy. I did his procedure. It was done on November 22. He had a lesion in the left upper lobe. We did transbronchial needle aspirations and biopsies. He does have significant metastatic disease to the liver and other areas of the body. He has had [address] Zaidi thus far. The patient presented to the emergency room at [facility] for low blood pressure and just not feeling well. He was pancytopenic and they evaluated him there thoroughly and sent him to the emergency room here at [facility]. Currently, the patient is doing much better. Much more awake and alert. He did develop some atrial fibrillation last night at 7:[address] Coronado was called and the patient was placed on amiodarone and currently amiodarone running at 0.5 mg/minute. He was on quite a bit of norepinephrine yesterday, I think up to 11 and 12 mcg/minute, but that has now been weaned off. He did get fluid resuscitation. He has an IV of saline at 150 an hour and he is receiving O2 at 3 L. Doing pretty well today. Feeling much more peppy and awake he tells me. In addition to the history of small-cell lung cancer, he has a history of hypothyroidism, hypertension, hyperlipidemia, BPH, laryngeal carcinoma, urinary retention, and previous hernia repair. PHYSICAL EXAMINATION: VITAL SIGNS: Current vital signs are reviewed. Temperature is 98.6. Heart rate 75, respiratory rate 13, blood pressure 104/76, mean 85, 3 L saturation 98%. GENERAL: Appears in no acute distress. HEENT examination is grossly unremarkable. Nasal O2 in place. Mucous membranes are moist. NECK: Supple. Full range of motion. No adenopathy or thyromegaly. Neck veins are flat. CARDIOVASCULAR examination reveals regular rhythm and rate. Heart rate mid 70s. S1, S2 normal. No S3, S4, murmur. Lung examination reveals few coarse bilateral rhonchi. Some mild expiratory wheezes. No crackles. Breath sounds equal bilaterally. ABDOMEN: Soft. Bowel sounds are heard. EXTREMITIES are intact. No cyanosis, clubbing, or significant edema. SKIN is without rash. There are some ecchymoses on his anterior chest. NEUROLOGIC examination is brief but nonfocal. LABS: Reviewed. White count 3.4, which is up from 1.6, hemoglobin 8 down from 8.4, hematocrit 25.5, and platelet count 21,000, down from 25,000. Sodium 132, potassium 3.1, chloride 101, CO2 24, anion gap 7, BUN and creatinine were 15 and 0.36. Protein calcium 6.2. No albumin today. Rest of his labs are evaluated. His urine is large positive for leukocyte esterase. There is 1+ protein. There is moderate blood. Eighteen RBCs, 68 WBCs and few bacteria. Microbiology is still pending or negative. X-RAY: Chest x-ray actually looks reasonable. There is some pleural effusion on the left and some basilar atelectasis on the left. ASSESSMENT: 1. Neutropenic sepsis, source unknown. Could be lung or urinary tract. 2. Pancytopenia, secondary to chemotherapy. 3. Recent diagnosis of lung cancer, small cell type, made by electromagnetic navigational bronchoscopy on November 22 status post radiation and chemotherapy. 4. History of hypothyroidism. 5. History of benign essential hypertension. 6. History of hyperlipidemia. 7. Benign prostatic hypertrophy. 8. History of laryngeal carcinoma. 9. History of urinary retention. PLAN: The patient seems to be doing better. Other than the episode of atrial fibrillation at 7:30 pm last night, the patient has had a pretty good night. He states that he is feeling much better. Much more awake and alert. Not so drowsy. Levophed has been weaned down. He is currently on saline at 150 an hour. His amiodarone is running at 0.5 mg/minute. We will continue to follow. Prognosis is guarded. MMODL / IJN: [id number] /
[2019-01-21] MEDS: fentaNYL (PF) 50 MCG/ML 2 ML AMP IVP PRN ×2 (08:42→21:11)
[2019-01-21] MEDS: NYSTATIN 100,000 UNIT/ML SUSP 500,000 UNIT/5 ML CUP PO SCH ×4 (08:44→21:10)
[2019-01-21] MEDS: AMIODARONE 200 MG TAB PO SCH ×2 (08:44→19:46)
[2019-01-21] MEDS: PANTOPRAZOLE 40 MG/10 ML VIAL IVP SCH ×2 (08:44→19:47)
[2019-01-21] MEDS: TAMSULOSIN 0.4 MG CAP.ER.24H PO SCH (08:44)
[2019-01-21] MEDS: POTASSIUM CHLORIDE ER 20 MEQ TAB.ER PO SCH ×8 (08:44→19:46)
[2019-01-21] MEDS: DOCUSATE 100 MG CAP PO SCH ×2 (09:58→19:46)
[2019-01-21 11:28] LABS: Glucose,Whole Blood 130 mg/dL (75-99)
[2019-01-21] MEDS: HYDROcodone/APAP 7.5-325MG 1 EACH TAB PO PRN (11:34)
[2019-01-21] MEDS: MULTIVITAMINS, THERA 1 EACH TAB PO SCH (11:43)
[2019-01-21] MEDS: 0.9% NACL WITH KCL 40 MEQ/L 1,000 ML IV SCH (16:19)
[2019-01-21] MEDS: guaiFENesin 600 MG TABLET.ER PO SCH ×2 (16:26→21:10)
[2019-01-21] MEDS: CEFEPIME 2 GM in SODIUM CHLORIDE 0.9% 100 ML IVPB SCH ×2 (16:29→23:30)
[2019-01-21 17:21] LABS: Glucose,Whole Blood 239 mg/dL (75-99)
[2019-01-21 18:03] LABS: Potassium 3.4 mmol/L (3.5-5.1)
[2019-01-21] MEDS: PRAVASTATIN SODIUM 20 MG TAB PO SCH (19:47)
[2019-01-21] MEDS: CALCIUM GLUCONATE 1 GM in SODIUM CHLORIDE 0.9% 100 ML IVPB SCH (20:13)
--- NOTE | 2019-01-21 20:24 | PN ---
PROGRESS NOTE DATE OF SERVICE: 01/21/2019 This 73-year-old gentleman was admitted with acute sepsis, hypotension, also had possible UTI, gram-negative bacilli grown from the culture done elsewhere. The patient closely monitored at this time. A chest x-ray done today showed slight worsening of the left basilar infiltrate also. The patient has been closely monitored. Multiple consultants are following the patient closely including Cardiology and Pulmonology. PAST MEDICAL HISTORY: Reviewed. REVIEW OF SYSTEMS: CARDIOVASCULAR: No angina or palpitations. RESPIRATORY: As mentioned earlier. GI: No nausea. : As mentioned. NERVOUS SYSTEM: No numbness or tingling. CURRENT MEDICATIONS: Reviewed and include: 1. Tylenol 500 mg q.6h p.r.n. 2. Alsea 7.5 q.6h p.r.n. 3. DuoNeb q.i.d. and p.r.n. 4. Xanax 0.5 t.i.d. 5. Cordarone 400 mg p.o. b.i.d. 6. Colace 100 mg p.o. b.i.d. 7. Sublimaze, that is fentanyl, 50 mcg IV q.4. 8. Solu-Cortef 100 mg IV q.6h. 9. Levaquin 500 mg daily. 10.Multivitamins. 11.Narcan. 12.Norepinephrine. 13.Mycostatin. 14.Protonix. 15.Zosyn 3.375 IV q.8h. 16.Pravachol. 17.Flomax. PHYSICAL EXAMINATION: Alert and oriented x3. Pulse is 75, blood pressure 96/60, respiration 22, temperature normal, pulse ox 97% on room air. HEENT: Conjunctivae normal. NECK: No jugular venous distention. CARDIOVASCULAR: S1, S2 muffled. RESPIRATORY: Breath sounds diminished in the bases. A few scattered rhonchi and crackles, left more than the right. ABDOMEN: Soft, nontender. No mass palpable. LEGS: No edema, no swelling. NERVOUS SYSTEM: Higher function as mentioned earlier, moves all four limbs. No focal motor deficits. LYMPHATICS: No lymphadenopathy in the neck, axillae, groin. SKIN: No ulcers, rashes. JOINTS: No active deforming arthropathy. LABS: WBC 3.2, hemoglobin 8, sodium 130, potassium 3.1, calcium 6.2. ASSESSMENT: 1. Acute sepsis with severe sepsis, hypotension, septic shock, possibly secondary to urinary tract infection with gram-negative bacilli. 2. Possible left lower lobe pneumonia possibly gram-negative. 3. Atrial fibrillation with fast ventricular rate. 4. Pancytopenia, leukopenia, neutropenia, thrombocytopenia secondary to chemotherapy. 5. Hyponatremia. 6. Hypokalemia. 7. Hypocalcemia. 8. History of syndrome of inappropriate secretion of antidiuretic hormone. 9. Elevated lactic acid, possibly secondary to sepsis. 10.History of chronic obstructive pulmonary disease. 11.Hypertension. 12.Hyperlipidemia. 13.History of laryngeal cancer. 14.History of left lung cancer with METS, status post radiation chemotherapy. 15.History of remote history of nicotine dependence. 16.History of back pain, degenerative joint disease. 17.History of urinary retention. 18.History of orthostatic hypotension. 19.NO CODE, NO CPR, NO VENT. RECOMMENDATIONS AND DISCUSSION: I recommend to continue current medications, monitor and symptomatic treatment. At this time I recommend potassium in addition and calcium supplementation. Continue IV antibiotics. Infectious Disease evaluation. Continue to monitor. Otherwise Cardiology has given Amiodarone. The patient converted to normal sinus rhythm. We will closely follow. Otherwise a 2D echo with Doppler was also ordered. Guarded prognosis because of multiple complex medical issues. Further recommendations to follow. MMODL / IJN: [id number] /
[2019-01-21 21:05] LABS: Glucose,Whole Blood 196 mg/dL (75-99)
[2019-01-21] MEDS: ALPRAZolam 0.25 MG TAB PO PRN (21:10)
--- NOTE | 2019-01-21 22:19 | P.CONS ---
History of Present Illness - Reason for Consult Consult date: 01/21/19 - Chief Complaint Fever and weakness - History of Present Illness 73-year-old male who was actually doing quite well until approximately 5 months ago which point in time he started to develop some lower back pain. It progressed relatively quickly and constantly he sought some care. If her some initial evaluations imaging revealed evidence of metastatic lesions within his spine counseling workup then ensued. Imaging of his chest revealed evidence of the lung lesion as well as an adrenal mass. Is also lesions in the liver and multiple lesions within the skeleton especially the spine. 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 Hyponatremia and other metabolic abnormalities occurred and he was then initiated to his multimodal chemotherapy. He received 2 cycles of this and has received Neulasta. The patient now presents to hospital with fever and generalized malaise and progressive fatigue. He has been receiving therapy in the facility to try to improve his strength but is having great difficulties. Of great significance is that while the patient has been ill and trying to proceed with this treatment his suddenly became ill and she passed. This is approximately 3 weeks ago and the patient is immediately distraught when he relives this situation. Fortunately he has several children who appeared to be very significant in his life and provide great support. At presentation he had hypotension and elevated lactic acid with evidence of sepsis and was admitted to the intensive care unit. With fluid resuscitation he has had improvement in his status no longer requiring vasopressor therapy. Review of Systems HEENT:Denies headache or acute visual change. Denies sinus or mouth discomforts. Denies neck stiffness or pain. Denies significant oral cavity pain. Denies difficulty on swallowing. Lungs: Chronic shortness of breath minimal cough no hemoptysis Cardiovascular: Denies chest pain, chest wall pain, orthopnea, or syncope does have dyspnea on exertion, Gastrointestinal:Denies nausea, vomiting, diarrhea, constipation, hematemesis, melena, hematochezia. No no significant change of bowel habit noticed. Musculoskeletal: denies significant myalgias or arthralgias. No new joint swelling. Denies new back pain. Skin: Denies new rash or lesions. No new ulcers or wounds are related.. Neuro: Denies headache or visual change. Denies any new onset weakness or difficulty with ambulation. Denies falls or seizures. Psychiatric:Denies anxiety or depression. Endocrine: Denies significant fatigue, denies significant weight loss or weight gain. Past Medical History Past Medical History: Cancer, COPD, Hyperlipidemia, Hypertension Additional Past Medical History / Comment(s): laryngeal cancer, left lung nodule, back pain. urinary retention. lung cancer- first radiation 11/30/18 only one treatment, mets to bone. History of Any Multi-Drug Resistant Organisms: None Reported Past Surgical History: Hernia Repair Additional Past Surgical History / Comment(s): part of vocal cord removed r/t CA Past Anesthesia/Blood Transfusion Reactions: No Reported Reaction Additional Psychological History / Comment(s): Recent profound psychosocial change with the of his in the midst of his illness and treatments. Retired plastics precision mold specialist. No experience. No Travel. No animals in the home. Currently in rehab because of his illness Smoking Status: Former smoker - Past Family History Father Family Medical History: No Reported History Mother Family Medical History: No Reported History Medications and Allergies Home Medications and Allergies Comment(s): Current Medications Acetaminophen (Tylenol Tab) 500 mg PO Q6HR PRN PRN Reason: Fever and/ or Pain Hydrocodone Bitart/Acetaminophen ([place] 7.5-325) 1 each PO Q6H PRN PRN Reason: Pain Last Admin: 01/21/19 11:34 Dose: 1 each Documented by: Albuterol/Ipratropium (Duoneb 0.5 Mg-3 Mg/3 Ml Soln) 3 ml INHALATION RT-QID [facility] Last Admin: 01/21/19 19:55 Dose: 3 ml Documented by: Albuterol/Ipratropium (Duoneb 0.5 Mg-3 Mg/3 Ml Soln) 3 ml INHALATION RT-QID PRN PRN Reason: Shortness Of Breath Or Wheezing Alprazolam (Xanax) 0.25 mg PO TID PRN PRN Reason: Anxiety Last Admin: 01/21/19 21:10 Dose: 0.25 mg Documented by: Amiodarone HCl (Cordarone) 400 mg PO BID [facility] Last Admin: 01/21/19 19:46 Dose: 400 mg Documented by: Docusate Sodium (Colace) 100 mg PO BID [facility] Last Admin: 01/21/19 19:46 Dose: 100 mg Documented by: Fentanyl Citrate (Sublimaze) 50 mcg IVP Q4H PRN PRN Reason: Severe Pain Last Admin: 01/21/19 21:11 Dose: 50 mcg Documented by: Guaifenesin (Mucinex) 1,200 mg PO Q12HR [facility] Last Admin: 01/21/19 21:10 Dose: 1,200 mg Documented by: Hydrocortisone Sodium Succinate (Solu-Cortef) 100 mg IV Q6HR [facility] Last Admin: 01/21/19 17:26 Dose: 100 mg Documented by: Norepinephrine Bitartrate 8 mg (/ Sodium Chloride) 258 mls @ 8.804 mls/hr IV .Q24H [facility]; Protocol Last Titration: 01/21/19 05:46 Dose: 0.01 mcg/kg/min, 1.761 mls/hr Documented by: Levofloxacin 500 mg/ IV (Solution) 100 mls @ 100 mls/hr IVPB Q24H [facility] Last Admin: 01/21/19 08:07 Dose: 100 mls/hr Documented by: Calcium Gluconate 1 gm/ Sodium (Chloride) 110 mls @ 100 mls/hr IVPB BID [facility] Last Admin: 01/21/19 20:13 Dose: 100 mls/hr Documented by: Potassium Chloride/Sodium Chloride (Ns-Kcl 40 Meq/L Iv Solution) 1,000 mls @ 75 mls/hr IV .[id number] [facility] Last Admin: 01/21/19 16:19 Dose: 75 mls/hr Documented by: Cefepime HCl 2 gm/ Sodium (Chloride) 100 mls @ 200 mls/hr IVPB Q8HR [facility] Last Admin: 01/21/19 16:29 Dose: 200 mls/hr Documented by: Insulin Aspart (Novolog) 0 unit SQ ACHS [facility]; Protocol Last Admin: 01/21/19 21:11 Dose: 5 unit Documented by: Levothyroxine Sodium (Synthroid) 25 mcg PO 0630 [facility] Last Admin: 01/21/19 05:34 Dose: 25 mcg Documented by: Miscellaneous Information (Potassium Per Protocol) 1 each MISCELLANE DAILY PRN; Protocol PRN Reason: Per Protocol Miscellaneous Information (Potassium Per Protocol) 1 each MISCELLANE DAILY PRN; Protocol PRN Reason: Per Protocol Multivitamins (Theragran) 1 each PO DAILY@1200 [facility] Last Admin: 01/21/19 11:43 Dose: 1 each Documented by: Naloxone HCl (Narcan) 0.2 mg IV Q2M PRN PRN Reason: Opioid Reversal Nystatin (Mycostatin Oral Susp) 500,000 unit PO QID [facility] Last Admin: 01/21/19 21:10 Dose: 500,000 unit Documented by: Pantoprazole Sodium (Protonix) 40 mg IVP BID [facility] Last Admin: 01/21/19 19:47 Dose: 40 mg Documented by: Pravastatin Sodium (Pravachol) 20 mg PO HS [facility] Last Admin: 01/21/19 19:47 Dose: 20 mg Documented by: Tamsulosin HCl (Flomax) 0.4 mg PO DAILY [facility] Last Admin: 01/21/19 08:44 Dose: 0.4 mg Documented by: Home Medications Medication Instructions Recorded Confirmed Type Levothyroxine Sodium [Synthroid] 25 mcg PO DAILY 11/08/18 01/20/19 History Lisinopril [Zestril] 10 mg PO DAILY 11/08/18 01/20/19 History Omeprazole [PriLOSEC] 20 mg PO AC-BRKFST 11/08/18 01/20/19 History Pravastatin Sodium [Pravachol] 20 mg PO HS 11/08/18 01/20/19 History HYDROcodone/APAP 7.5-325MG [[place] 1 tab PO Q6H PRN 11/15/18 01/20/19 History 7.5-325] Tamsulosin HCl [Flomax] 0.4 mg PO DAILY 12/01/18 01/20/19 History Docusate [Colace] 100 mg PO BID #60 cap 12/05/18 01/20/19 Rx Albuterol Sulfate [Proair Hfa] 2 puff INHALATION Q6HR PRN 01/20/19 01/20/19 History Allergies Allergy/AdvReac Type Severity Reaction Status Date / Time No Known Allergies Allergy Verified 01/20/19 09:38 Physical Exam Vitals: Vital Signs Temp Pulse Resp BP Pulse Ox 01/21/19 21:00 82 18 95/64 96 01/21/19 20:30 79 17 112/79 98 01/21/19 20:06 84 01/21/19 20:00 98 F 87 23 103/76 98 01/21/19 19:55 86 01/21/19 19:30 84 22 97/72 97 01/21/19 19:00 80 18 109/85 99 01/21/19 18:30 81 24 91/61 99 01/21/19 18:00 81 19 89/69 98 01/21/19 17:30 86 20 79/58 93 L 01/21/19 17:00 85 18 100/69 97 01/21/19 16:30 86 17 97/76 97 01/21/19 16:00 97.9 F 89 27 H 99/78 99 01/21/19 15:39 90 01/21/19 15:30 89 18 116/74 100 01/21/19 15:24 91 01/21/19 15:00 84 15 101/58 99 01/21/19 14:30 75 22 96/66 97 01/21/19 14:00 82 12 95/65 99 01/21/19 13:30 79 17 98/62 98 01/21/19 13:00 84 18 96/68 98 01/21/19 12:30 82 21 98/69 97 01/21/19 12:00 81 20 101/68 01/21/19 11:54 28 H 01/21/19 11:30 84 23 95/74 90 L 01/21/19 11:16 89 01/21/19 11:04 81 01/21/19 11:00 82 28 H 104/73 01/21/19 10:30 75 15 111/81 98 01/21/19 10:00 72 17 104/75 97 01/21/19 09:30 72 14 109/74 98 01/21/19 09:00 97.7 F 73 14 110/67 99 01/21/19 08:30 75 19 104/68 98 01/21/19 08:00 77 19 106/76 82 L 01/21/19 07:40 76 01/21/19 07:30 68 18 110/72 100 01/21/19 07:25 75 01/21/19 07:00 71 13 104/76 98 01/21/19 06:30 79 20 104/86 98 01/21/19 06:00 69 18 99/71 98 01/21/19 05:30 76 18 98/66 98 01/21/19 05:00 71 15 116/84 99 01/21/19 04:30 79 17 105/76 98 01/21/19 04:00 91 15 100/79 98 01/21/19 03:30 101 H 15 97/73 99 01/21/19 03:00 98 18 90/69 98 01/21/19 02:30 102 H 17 98/73 98 01/21/19 02:00 97 13 87/75 97 01/21/19 01:30 101 H 18 101/73 98 01/21/19 01:00 95 16 97/71 98 01/21/19 00:30 99 16 94/71 97 01/21/19 00:14 96 18 89/72 97 01/21/19 00:00 98.6 F 100 15 96/70 97 01/20/19 23:30 109 H 15 97/71 97 01/20/19 23:00 115 H 15 91/56 98 01/20/19 22:30 105 H 18 95/67 97 01/20/19 22:00 104 H 16 96/72 98 Intake and Output 01/21/19 01/21/19 01/21/19 06:59 14:59 22:59 Intake Total 7181.582 4255 1325 Output Total 730 520 340 Balance 156.527 7288 985 Intake: IV 1200 1350 625 0.9% NaCl with KCl 40 Meq 150 /l 1,000 ml @ 75 mls/hr IV .[id number] [facility] Rx#: [id number] Calcium Gluconate 1 gm In 100 Sodium Chloride 0.9% 100 ml @ 100 mls/hr IVPB BID [facility] Rx#:[id number] Sodium Chloride 0.9% 1, 1200 1350 375 000 ml @ 150 mls/hr IV . Q6H40M [facility] Rx#:[id number] Intake, IV Titration 280.219 325 200 Amount Amiodarone 360 mg In 232 25 Dextrose 5% in Water 200 ml @ 1 MG/MIN 33.333 mls/ hr IV .Q6H [facility] Rx#: [id number] Calcium Gluconate 1 gm In 100 Sodium Chloride 0.9% 100 ml @ 100 mls/hr IVPB BID [facility] Rx#:[id number] Calcium Gluconate 1 gm In 100 Sodium Chloride 0.9% 100 ml @ 100 mls/hr IVPB ONCE [facility] Rx#:[id number] Levofloxacin 500Mg-D5w 100 Pmx 500 mg In Dextrose/ Water 1 100ml.bag @ 100 mls/hr IVPB Q24H [facility] Rx#: [id number] Norepinephrine 8 mg In 48.219 Sodium Chloride 0.9% 250 ml @ 0.05 MCG/KG/MIN 8. 804 mls/hr IV .Q24H [facility] Rx#:[id number] Piperacillin-Tazobactam 3 100 100 .375 gm In Sodium Chloride 0.9% 100 ml @ 25 mls/hr IVPB Q8HR [facility] Rx# :[id number] Oral 440 500 Output: Urine 730 520 340 Other: Voiding Method Indwelling Catheter Weight 78 kg 73 -year-old male who relates has lost more than 40 pounds with his illness HEENT: Anicteric conjunctiva are pink and moist nasal mucosa grossly intact without significant lesions, there is no thrush. Neck: The neck is supple without significant lymphadenopathy or thyromegaly. Lungs: Symmetrical air entry with few crackles at the bases expiratory wheezes are scattered no significant bronchial sounds Heart: Regular rate and rhythm with an audible S1-S2, no S3 no S4. There is no significant murmur click or rub, PMI was nondisplaced. Abdomen: Positive bowel sounds soft and nontender without palpable masses or organomegaly. There was no guarding or rebound. Extremities: The upper extremities have excellent pulses they are symmetric, no significant petechiae or telangiectasia. No splinter hemorrhages were noted. The lower extremities are free from significant edema. The peripheral pulses were 2+ and symmetric. Evidence of some muscular wasting Neuro: Awake alert oriented to person place and time. There are no acute new gross focal sensory motor deficits. Results CBC & Chem 7: 01/21/19 04:11 01/21/19 17:30 Labs: Abnormal Lab Results - Last 24 Hours (Table) 01/20/19 01/20/19 01/21/19 Range/Units 02:23 23:33 04:11 WBC 1.1 L* 3.4 L (3.8-10.6) k/uL RBC 2.62 L (4.30-5.90) m/uL Hgb 8.1 L D 8.0 L (13.0-17.5) gm/dL Hct 25.5 L (39.0-53.0) % RDW 19.2 H (11.5-15.5) % Plt Count 21 L (150-450) k/uL Lymphocytes # 0.1 L (1.0-4.8) k/uL Sodium (137-145) mmol/L Potassium (3.5-5.1) mmol/L Carbon Dioxide (22-30) mmol/L Creatinine (0.66-1.25) mg/dL Glucose (74-99) mg/dL POC Glucose (mg/dL) 150 H (75-99) mg/dL Calcium (8.4-10.2) mg/dL Magnesium (1.6-2.3) mg/dL 01/21/19 01/21/19 01/21/19 Range/Units 04:11 05:28 11:26 WBC (3.8-10.6) k/uL RBC (4.30-5.90) m/uL Hgb (13.0-17.5) gm/dL Hct (39.0-53.0) % RDW (11.5-15.5) % Plt Count (150-450) k/uL Lymphocytes # (1.0-4.8) k/uL Sodium 132 L (137-145) mmol/L Potassium 3.1 L (3.5-5.1) mmol/L Carbon Dioxide (22-30) mmol/L Creatinine 0.36 L (0.66-1.25) mg/dL Glucose 134 H (74-99) mg/dL POC Glucose (mg/dL) 132 H 130 H (75-99) mg/dL Calcium 6.2 L* (8.4-10.2) mg/dL Magnesium (1.6-2.3) mg/dL 01/21/19 01/21/19 01/21/19 Range/Units 12:55 12:55 17:19 WBC (3.8-10.6) k/uL RBC (4.30-5.90) m/uL Hgb (13.0-17.5) gm/dL Hct (39.0-53.0) % RDW (11.5-15.5) % Plt Count (150-450) k/uL Lymphocytes # (1.0-4.8) k/uL Sodium (137-145) mmol/L Potassium 2.9 L (3.5-5.1) mmol/L Carbon Dioxide (22-30) mmol/L Creatinine (0.66-1.25) mg/dL Glucose (74-99) mg/dL POC Glucose (mg/dL) 239 H (75-99) mg/dL Calcium (8.4-10.2) mg/dL Magnesium 2.4 H (1.6-2.3) mg/dL 01/21/19 01/21/19 Range/Units 17:30 21:02 WBC (3.8-10.6) k/uL RBC (4.30-5.90) m/uL Hgb (13.0-17.5) gm/dL Hct (39.0-53.0) % RDW (11.5-15.5) % Plt Count (150-450) k/uL Lymphocytes # (1.0-4.8) k/uL Sodium 133 L (137-145) mmol/L Potassium 3.4 L (3.5-5.1) mmol/L Carbon Dioxide 21 L (22-30) mmol/L Creatinine (0.66-1.25) mg/dL Glucose (74-99) mg/dL POC Glucose (mg/dL) 196 H (75-99) mg/dL Calcium (8.4-10.2) mg/dL Magnesium (1.6-2.3) mg/dL Microbiology - Last 24 Hours (Table) 01/20/19 02:23 Blood Culture - Preliminary Blood No Growth after 24 hours Laboratory Results WBC 3.4 k/uL (3.8-10.6) L 01/21/19 04:11 RBC 2.62 m/uL (4.30-5.90) L 01/21/19 04:11 Hgb 8.0 gm/dL (13.0-17.5) L 01/21/19 04:11 Hct 25.5 % (39.0-53.0) L 01/21/19 04:11 MCV 97.5 fL (80.0-100.0) 01/21/19 04:11 MCH 30.4 pg (25.0-35.0) 01/21/19 04:11 MCHC 31.2 g/dL (31.0-37.0) 01/21/19 04:11 RDW 19.2 % (11.5-15.5) H 01/21/19 04:11 Plt Count 21 k/uL (150-450) L 01/21/19 04:11 Neutrophils % 92 % 01/21/19 04:11 Neutrophils % (Manual) 16 % 01/20/19 02:23 Band Neutrophils % 60 % 01/20/19 02:23 Lymphocytes % 4 % 01/21/19 04:11 Lymphocytes % (Manual) 8 % 01/20/19 02:23 Monocytes % 3 % 01/21/19 04:11 Monocytes % (Manual) 4 % 01/20/19 02:23 Eosinophils % 0 % 01/21/19 04:11 Basophils % 0 % 01/21/19 04:11 Metamyelocytes % 12 % 01/20/19 02:23 Neutrophils # 3.1 k/uL (1.3-7.7) 01/21/19 04:11 Neutrophils # (Manual) 0.80 k/uL (1.3-7.7) L 01/20/19 02:23 Lymphocytes # 0.1 k/uL (1.0-4.8) L 01/21/19 04:11 Lymphocytes # (Manual) 0.09 k/uL (1.0-4.8) L 01/20/19 02:23 Monocytes # 0.1 k/uL (0-1.0) 01/21/19 04:11 Monocytes # (Manual) 0.04 k/uL (0-1.0) 01/20/19 02:23 Eosinophils # 0.0 k/uL (0-0.7) 01/21/19 04:11 Basophils # 0.0 k/uL (0-0.2) 01/21/19 04:11 Metamyelocytes # (Man) 0.13 k/uL (0) H 01/20/19 02:23 Nucleated RBCs 0 /100 WBC (0-0) 01/20/19 02:23 Manual Slide Review Performed 01/21/19 04:11 Polychromasia Present 01/21/19 04:11 Poikilocytosis (manual Present 01/21/19 04:11 Anisocytosis Slight 01/21/19 04:11 Macrocytosis Slight 01/21/19 04:11 PT 13.7 sec (9.0-12.0) H 01/20/19 02:23 INR 1.3 (<1.2) H 01/20/19 02:23 APTT 35.5 sec (22.0-30.0) H 01/20/19 02:23 Sodium 133 mmol/L (137-145) L 01/21/19 17:30 Potassium 3.4 mmol/L (3.5-5.1) L 01/21/19 17:30 Chloride 104 mmol/L (98-107) 01/21/19 17:30 Carbon Dioxide 21 mmol/L (22-30) L 01/21/19 17:30 Anion Gap 8 mmol/L 01/21/19 17:30 BUN 15 mg/dL (9-20) 01/21/19 04:11 Creatinine 0.36 mg/dL (0.66-1.25) L 01/21/19 04:11 Est GFR (CKD-EPI)AfAm >90 (>60 ml/min/1.73 sqM) 01/21/19 04:11 Est GFR (CKD-EPI)NonAf >90 (>60 ml/min/1.73 sqM) 01/21/19 04:11 Glucose 134 mg/dL (74-99) H 01/21/19 04:11 POC Glucose (mg/dL) 196 mg/dL (75-99) H 01/21/19 21:02 POC Glu [employer] Receptionist ID Alon Mora 01/21/19 21:02 Lactic Ac Sepsis Rflx Y 01/20/19 06:51 Plasma Lactic Acid Osbaldo 1.3 mmol/L (0.7-2.0) 01/20/19 09:55 Calcium 6.2 mg/dL (8.4-10.2) L* 01/21/19 04:11 Ionized Calcium Erin 4.1 mg/dL (4.5-5.3) L 01/20/19 06:25 Phosphorus 3.4 mg/dL (2.5-4.5) 01/20/19 06:25 Magnesium 2.4 mg/dL (1.6-2.3) H 01/21/19 12:55 Total Bilirubin 0.7 mg/dL (0.2-1.3) 01/20/19 06:25 AST 38 U/L (17-59) 01/20/19 06:25 ALT 74 U/L (21-72) H 01/20/19 06:25 Alkaline Phosphatase 56 U/L (38-126) 01/20/19 06:25 Total Protein 4.2 g/dL (6.3-8.2) L 01/20/19 06:25 Albumin 2.3 g/dL (3.5-5.0) L 01/20/19 06:25 TSH 3.460 mIU/L (0.465-4.680) 01/20/19 06:25 Cortisol 42 ug/dL 01/20/19 17:45 Urine Color Yellow 01/20/19 10:45 Urine Appearance Cloudy (Clear) 01/20/19 10:45 Urine pH 5.5 (5.0-8.0) 01/20/19 10:45 Ur Specific Gilliam 1.017 (1.001-1.035) 01/20/19 10:45 Urine Protein 1+ (Negative) H 01/20/19 10:45 Urine Glucose (UA) Negative (Negative) 01/20/19 10:45 Urine Ketones Negative (Negative) 01/20/19 10:45 Urine Blood Moderate (Negative) H 01/20/19 10:45 Urine Nitrite Positive (Negative) 01/20/19 10:45 Urine Bilirubin Negative (Negative) 01/20/19 10:45 Urine Urobilinogen <2.0 mg/dL (<2.0) 01/20/19 10:45 Ur Leukocyte Esterase Large (Negative) H 01/20/19 10:45 Urine RBC 18 /hpf (0-5) H 01/20/19 10:45 Urine WBC 68 /hpf (0-5) H 01/20/19 10:45 Urine WBC Clumps Occasional /hpf (None) H 01/20/19 10:45 Urine Bacteria Few /hpf (None) H 01/20/19 10:45 Urine Mucus Rare /hpf (None) H 01/20/19 10:45 Microbiology 01/20/19 02:23 Blood Blood Culture - Preliminary No Growth after 24 hours 01/20/19 10:45 Urine,Voided Urine Culture - Preliminary Is reported there is a positive blood culture from the outside facility await further data Assessment and Plan (1) Metastatic lung cancer (metastasis from lung to other site) Current Visit: Yes Status: Acute Code(s): C34.90 - MALIGNANT NEOPLASM OF UNSP PART OF UNSP BRONCHUS OR LUNG SNOMED Code(s): 15300267 (2) Pancytopenia due to antineoplastic chemotherapy Current Visit: Yes Status: Acute Code(s): D61.810 - ANTINEOPLASTIC CHEMOTHERAPY INDUCED PANCYTOPENIA; T45.1X5A - ADVERSE EFFECT OF ANTINEOPLASTIC AND IMMUNOSUP DRUGS, INIT SNOMED Code(s): 866023013213087 (3) SIADH (syndrome of inappropriate ADH production) Current Visit: No Status: Acute Priority: High Code(s): E22.2 - SYNDROME OF INAPPROPRIATE SECRETION OF ANTIDIURETIC HORMONE SNOMED Code(s): 29466301 (4) Sepsis Narrative/Plan: 73 -year-old male who has a 5 month history of progressive disease related to his 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 He did have some limited radiation therapy which has helped some the severe pain into his spine. Now presents with evidence of high-grade fever chills hypotension and with pancytopenia. With his febrile neutropenia antibiotic therapy is prudent and Zosyn will be transitioned to cefepime, should have less impact on his thrombocytopenia and piperacillin will. Cultures are process and await further data from the other hospital is to the blood culture and significance of the pathogen. He has been seen by his oncology team and he has received Neulasta and further growth factors are not being utilized at this time however red blood cell and platelet transfusions as indicated. Fortunately with fluid resuscitation the patient has had some improvement of his hypotension from his sepsis that may have a pulmonary source. With concerns to adrenal insufficiency hydrocortisone has been initiated Nutritional supplements are requested Mucinex requested to help him mobilize his secretions and continue with respiratory treatments. The patient is consoled and given access to resources given the recent loss of his . Current Visit: Yes Status: Acute Code(s): A41.9 - SEPSIS, UNSPECIFIED ORGANISM SNOMED Code(s): 08714526
[2019-01-22 05:03] LABS: Ionized Calcium 4.6 mg/dL (4.5-5.3)
[2019-01-22 05:07] LABS: African American GFR (CKD) >90 (>60 ml/min/1.73 sqM); Anion Gap 4 mmol/L; Blood Urea Nitrogen 18 mg/dL (9-20); Calcium 7.1 mg/dL (8.4-10.2); Carbon Dioxide 22 mmol/L (22-30); Chloride 108 mmol/L (98-107); Glucose 100 mg/dL (74-99); Potassium 4.9 mmol/L (3.5-5.1); Sodium 134 mmol/L (137-145)
[2019-01-22 05:11] LABS: Anisocytosis Moderate; HCT 25.1 % (39.0-53.0); HGB 8.2 gm/dL (13.0-17.5); MCH 31.5 pg (25.0-35.0); MCHC 32.5 g/dL (31.0-37.0); MCV 96.8 fL (80.0-100.0); Macrocytosis Moderate; Mean Platelet Volume 8.9; RBC 2.59 m/uL (4.30-5.90); RDW 20.4 % (11.5-15.5); WBC 6.3 k/uL (3.8-10.6)
[2019-01-22 05:23] LABS: Platelet Count 21 k/uL (150-450)
[2019-01-22 05:40] LABS: Band Neutrophils % 46 %; Lymphocytes # (M) 0.06 k/uL (1.0-4.8); Metamyelocytes # (M) 0.06 k/uL (0); Metamyelocytes % 1 %; Monocytes # (M) 0.19 k/uL (0-1.0); Neutrophils % (M) 50 %; Nucleated Red Blood Cells 0 /100 WBC (0-0); Total Cells Counted 200
[2019-01-22 05:41] LABS: Toxic Granulation Present
[2019-01-22 07:00] LABS: Glucose,Whole Blood 106 mg/dL (75-99)
[2019-01-22] MEDS: INSULIN ASPART (NovoLOG) 100 UNIT/ML VIAL SQ SCH ×4 (07:15→22:05)
--- NOTE | 2019-01-22 07:15 | P.PN ---
Subjective Progress Note Date: 01/22/19 Principal diagnosis: Paroxysmal atrial fibrillation This is a pleasant 73-year-old gentleman with a past medical history significant for small cell lung cancer, the patient initially was receiving radiation therapy and currently he is on chemotherapy, hypertension, and dyslipidemia, was transferred from outside hospital to this hospital for what it seems to be sepsis. Initially he presented [facility] emergency department with symptoms of feeling weak. He underwent a workup over there which revealed pancytopenia. Also the patient was found to be hypotensive. He was transferred to the emergency room here. We get involved in the care of the patient for further evaluation of atrial fibrillation with RVR. The patient was receiving vasopressors was able that but that was weaned this morning. Last night he did have an episode of atrial fibrillation with RVR and he was started on amiodarone drip and converted to normal sinus mechanism at this medical accountant. Since then he has been maintaining normal sinus mechanism. No history of coronary artery disease, congestive heart failure, or any cardiac arrhythmia. The patient doesn't follow with any orthotic/prosthetic clinician. He does have history of hypertension as well as dyslipidemia. On follow-up with the patient today, 01/22/2019, the patient seems to be doing good clinically. He continues to be on antibiotic. He continues to have pancytopenia. The platelet continues to be around 20,000. He has been ma intaining normal sinus mechanism. He continues to be on amiodarone by mouth. We are holding any kind of anticoagulation or antiplatelet view of the severe thrombocytopenia. Objective - Vital Signs Vital signs: Vital Signs Temp 97.7 F 01/22/19 04:00 Pulse 71 01/22/19 06:00 Resp 13 01/22/19 06:00 BP 109/78 01/22/19 06:00 Pulse Ox 98 01/22/19 06:00 Intake & Output 01/21/19 01/22/19 01/22/19 18:59 06:59 18:59 Intake Total 2790 1425 Output Total 790 375 Balance 1999 1050 Weight 76.2 kg Intake: IV 1725 1025 0.9% NaCl with KCl 40 Meq 825 /l 1,000 ml @ 75 mls/hr IV .[id number] [facility] Rx#: [id number] Calcium Gluconate 1 gm In 100 Sodium Chloride 0.9% 100 ml @ 100 mls/hr IVPB BID [facility] Rx#:[id number] Cefepime 2 gm In Sodium 100 Chloride 0.9% 100 ml @ 200 mls/hr IVPB Q8HR [facility] Rx#:[id number] Sodium Chloride 0.9% 1, 1725 000 ml @ 150 mls/hr IV . Q6H40M [facility] Rx#:[id number] Intake, IV Titration 525 Amount Amiodarone 360 mg In 25 Dextrose 5% in Water 200 ml @ 1 MG/MIN 33.333 mls/ hr IV .Q6H [facility] Rx#: [id number] Calcium Gluconate 1 gm In 100 Sodium Chloride 0.9% 100 ml @ 100 mls/hr IVPB BID [facility] Rx#:[id number] Calcium Gluconate 1 gm In 100 Sodium Chloride 0.9% 100 ml @ 100 mls/hr IVPB ONCE [facility] Rx#:[id number] Levofloxacin 500Mg-D5w 100 Pmx 500 mg In Dextrose/ Water 1 100ml.bag @ 100 mls/hr IVPB Q24H [facility] Rx#: [id number] Piperacillin-Tazobactam 3 200 .375 gm In Sodium Chloride 0.9% 100 ml @ 25 mls/hr IVPB Q8HR [facility] Rx# :[id number] Oral 540 400 Output: Urine 790 375 Other: Voiding Method Indwelling Catheter # Bowel Movements 1 - Constitutional General appearance: Present: no acute distress - Respiratory Respiratory: bilateral: rhonchi - Cardiovascular Rhythm: regular Heart sounds: normal: S1, S2 - Labs CBC & Chem 7: 01/22/19 04:10 01/22/19 04:10 Labs: Abnormal Lab Results - Last 24 Hours (Table) 01/21/19 01/21/19 01/21/19 Range/Units 11:26 12:55 12:55 RBC (4.30-5.90) m/uL Hgb (13.0-17.5) gm/dL Hct (39.0-53.0) % RDW (11.5-15.5) % Plt Count (150-450) k/uL Lymphocytes # (Manual) (1.0-4.8) k/uL Metamyelocytes # (Man) (0) k/uL Sodium (137-145) mmol/L Potassium 2.9 L (3.5-5.1) mmol/L Chloride (98-107) mmol/L Carbon Dioxide (22-30) mmol/L Creatinine (0.66-1.25) mg/dL Glucose (74-99) mg/dL POC Glucose (mg/dL) 130 H (75-99) mg/dL Calcium (8.4-10.2) mg/dL Magnesium 2.4 H (1.6-2.3) mg/dL 01/21/19 01/21/19 01/21/19 Range/Units 17:19 17:30 21:02 RBC (4.30-5.90) m/uL Hgb (13.0-17.5) gm/dL Hct (39.0-53.0) % RDW (11.5-15.5) % Plt Count (150-450) k/uL Lymphocytes # (Manual) (1.0-4.8) k/uL Metamyelocytes # (Man) (0) k/uL Sodium 133 L (137-145) mmol/L Potassium 3.4 L (3.5-5.1) mmol/L Chloride (98-107) mmol/L Carbon Dioxide 21 L (22-30) mmol/L Creatinine (0.66-1.25) mg/dL Glucose (74-99) mg/dL POC Glucose (mg/dL) 239 H 196 H (75-99) mg/dL Calcium (8.4-10.2) mg/dL Magnesium (1.6-2.3) mg/dL 01/22/19 01/22/19 01/22/19 Range/Units 04:10 04:10 06:58 RBC 2.59 L (4.30-5.90) m/uL Hgb 8.2 L (13.0-17.5) gm/dL Hct 25.1 L (39.0-53.0) % RDW 20.4 H (11.5-15.5) % Plt Count 21 L (150-450) k/uL Lymphocytes # (Manual) 0.06 L (1.0-4.8) k/uL Metamyelocytes # (Man) 0.06 H (0) k/uL Sodium 134 L (137-145) mmol/L Potassium (3.5-5.1) mmol/L Chloride 108 H (98-107) mmol/L Carbon Dioxide (22-30) mmol/L Creatinine 0.28 L (0.66-1.25) mg/dL Glucose 100 H (74-99) mg/dL POC Glucose (mg/dL) 106 H (75-99) mg/dL Calcium 7.1 L (8.4-10.2) mg/dL Magnesium (1.6-2.3) mg/dL Microbiology - Last 24 Hours (Table) 01/20/19 02:23 Blood Culture - Preliminary Blood No Growth after 48 hours Assessment and Plan Assessment: Assessment #1 sepsis of unknown source #2 atrial fibrillation with RVR. The patient converted to normal sinus mechanism. This is a newly diagnosed as the patient #3 hypertension #4 dyslipidemia #5 thyroid disorder #6 pancytopenia Plan #1 continue the current medical regimen including amiodarone by mouth #2 continue holding oral anticoagulation in view of the thrombocytopenia. I would hold also antiplatelet #3 follow-up with the patient
[2019-01-22] MEDS: HYDROCORTISONE SUCCINATE 100 MG/2 ML VIAL IV SCH ×4 (07:16→23:05)
[2019-01-22] MEDS: LEVOTHYROXINE 25 MCG TAB PO SCH (07:16)
[2019-01-22] MEDS: 0.9% NACL WITH KCL 40 MEQ/L 1,000 ML IV SCH (07:16)
[2019-01-22] MEDS: CEFEPIME 2 GM in SODIUM CHLORIDE 0.9% 100 ML IVPB SCH ×2 (08:24→16:08)
[2019-01-22] MEDS: LEVOFLOXACIN 500MG-D5W PMX 500 MG in DEXTROSE/WATER 1 100ML.BAG IVPB SCH (08:24)
[2019-01-22] MEDS: NYSTATIN 100,000 UNIT/ML SUSP 500,000 UNIT/5 ML CUP PO SCH ×4 (08:25→21:54)
[2019-01-22] MEDS: AMIODARONE 200 MG TAB PO SCH ×2 (08:25→21:55)
[2019-01-22] MEDS: PANTOPRAZOLE 40 MG/10 ML VIAL IVP SCH ×2 (08:25→21:55)
[2019-01-22] MEDS: guaiFENesin 600 MG TABLET.ER PO SCH ×2 (08:25→21:55)
[2019-01-22] MEDS: TAMSULOSIN 0.4 MG CAP.ER.24H PO SCH (08:25)
[2019-01-22] MEDS: fentaNYL (PF) 50 MCG/ML 2 ML AMP IVP PRN ×2 (08:36→22:06)
--- NOTE | 2019-01-22 08:47 | XR ---
EXAMINATION TYPE: XR chest 1V DATE OF EXAM: 01/22/2019 COMPARISON: 01/21/2019 HISTORY: Shortness of breath. TECHNIQUE: Single frontal view of the chest is obtained. FINDINGS: Bilateral subsegmental consolidation noted. Alignment seen. No pneumothorax. Arthropathy o f the right shoulder. No overt failure. Atherosclerotic change aorta. Hypertrophic changes spine. Sof t tissue artifact overlying the lateral margin of the right upper lobe IMPRESSION: Stable basilar infiltrate
[2019-01-22] MEDS: CALCIUM GLUCONATE 1 GM in SODIUM CHLORIDE 0.9% 100 ML IVPB SCH ×2 (09:33→21:54)
[2019-01-22] MEDS: DOCUSATE 100 MG CAP PO SCH ×2 (09:36→21:54)
[2019-01-22] MEDS: IPRATROPIUM-ALBUTEROL 3 ML NEB INHALATION SCH ×4 (09:51→19:08)
[2019-01-22] MEDS: SODIUM CHLORIDE 0.9% 1,000 ML IV SCH ×2 (10:54→23:06)
[2019-01-22 11:45] LABS: Glucose,Whole Blood 166 mg/dL (75-99)
[2019-01-22] MEDS: MULTIVITAMINS, THERA 1 EACH TAB PO SCH (11:58)
--- NOTE | 2019-01-22 14:33 | P.PN ---
Subjective Progress Note Date: 01/22/19 Mr Ruiz is a pleasant white male, in fairly good health, until about 08/29. At that time the patient started having lower back pain, which he states is localized actor just below the waist with radiation across the back. Due to persistence, and progression in severity he sought attention with his PCP. He had imaging done of his spine with x-rays, incidentally revealed abnormality in the left lung. He was therefore referred to pulmonary medicine and had a chest x-ray done on 11/03/18, revealing a left midlung mass, and possibly metastatic disease in the left shoulder. He subsequently had a PET scan done on 11/05/18. This showed extensive mediastinal and hilar adenopathy, extensive bone metastasis, hypermetabolic 2.5 cm left adrenal mass, and hypermetabolic central liver mass. A CT-guided needle biopsy that was supposed to call on 11/28/18. 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 Also, he had a history of early stage laryngeal cancer treated with radiation alone by Dr. Romero in 2013. He quit smoking around 2010, prior to which she smoked about half to three fourths of a pack per day During this current admission, this patient came into the emergency room because of progressive back pain, that wasn't detectable. He was also having difficulty with urination. He denied any lower extremity weakness or loss of sensation. The patient had MRI of the lumbar spine, showing diffuse metastatic involvement, but no destruction or cord compression. The patient actually appeared to have significant degenerative disc disease in the lower spine. Started on steroids, and at the time of my exam had noted marked relief in his symptoms. He did have a [place] placed for urinary retention. Patient's primary oncologist Dr. Zaidi he underwent radiation therapy and after completion of this he was started on carboplatin and UNIX ARCHITECT-16 and immune therapy with to centric his last treatment was January 09 through January 12 and he did receive Neulasta. Patient had apparently presented to an outside facility for near syncopal episodes on presentation to that facility was found to have a blood pressure systolic in the 60. He was hypotensive that wasn't improved with IV fluids or pressors therefore he is now being treated at [facility] and under the care of ICU. On today's evaluation of a total 2018, the patient is being seen in follow-up in the intensive care unit. Note that the patient's white cell count is improved and it's up to 6.3. The patient still has a component of thrombocytopenia with a platelet count of 21 and the hemoglobin is at 8.2. The patient is looking well. I do not see that the patient is on pressors and upon further inquiry the patient has been off pressors since yesterday. He is producing good urine output. No nausea. No vomiting. No abdominal pain. He has a congested cough and is unable to bring up much sputum. The chest x-ray shows infiltration of the left perihilar and left lower lobe area, however, this could be residual effect from the underlying malignancy. The cultures that were obtained from an outside facility showed pseudomonas aeruginosa and the final cultures sensitivities are still pending for now. Repeat cultures now facility have been negative. He is cardiac rhythm is sinus. He remains on a combination of IV cefepime and Levaquin for now. IV fluids with normal saline at rate of 20 mL an hour. He remains on stress dose hydrocortisone regarding the potential possibility of adrenal insufficiency. No other significant events otherwise for now. Clinically improved compared to yesterday. Objective - Vital Signs Vital signs: Vital Signs Temp 97 F L 01/22/19 12:00 Pulse 87 01/22/19 12:00 Resp 23 01/22/19 12:00 BP 115/75 01/22/19 12:00 Pulse Ox 94 L 01/22/19 12:00 Intake & Output 01/21/19 01/22/19 01/22/19 18:59 06:59 18:59 Intake Total 2790 1425 1285 Output Total 790 375 312 Balance 1999 1050 973 Weight 76.2 kg 76.2 kg Intake: IV 1725 1025 425 0.9% NaCl with KCl 40 Meq 825 225 /l 1,000 ml @ 75 mls/hr IV .[id number] [facility] Rx#: [id number] Calcium Gluconate 1 gm In 100 100 Sodium Chloride 0.9% 100 ml @ 100 mls/hr IVPB BID [facility] Rx#:[id number] Cefepime 2 gm In Sodium 100 100 Chloride 0.9% 100 ml @ 200 mls/hr IVPB Q8HR [facility] Rx#:[id number] Sodium Chloride 0.9% 1, 1725 000 ml @ 150 mls/hr IV . Q6H40M [facility] Rx#:[id number] Intake, IV Titration 525 420 Amount Amiodarone 360 mg In 25 Dextrose 5% in Water 200 ml @ 1 MG/MIN 33.333 mls/ hr IV .Q6H [facility] Rx#: [id number] Calcium Gluconate 1 gm In 100 Sodium Chloride 0.9% 100 ml @ 100 mls/hr IVPB BID [facility] Rx#:[id number] Calcium Gluconate 1 gm In 100 Sodium Chloride 0.9% 100 ml @ 100 mls/hr IVPB ONCE [facility] Rx#:[id number] Levofloxacin 500Mg-D5w 100 100 Pmx 500 mg In Dextrose/ Water 1 100ml.bag @ 100 mls/hr IVPB Q24H [facility] Rx#: [id number] Piperacillin-Tazobactam 3 200 .375 gm In Sodium Chloride 0.9% 100 ml @ 25 mls/hr IVPB Q8HR [facility] Rx# :[id number] Sodium Chloride 0.9% 1, 320 000 ml @ 20 mls/hr IV . Q24H [facility] Rx#:[id number] Oral 540 400 440 Output: Urine 790 375 312 Other: Voiding Method Indwelling Catheter Indwelling Catheter # Bowel Movements 1 1 - Exam Gen. appearance, comfortable likely distress Head exam was generally normal. There was no scleral icterus or corneal arcus. Mucous membranes were moist. Neck was supple and without jugular venous distension, thyromegaly, or carotid bruits. Carotids were easily palpable bilaterally. There was no adenopathy. Lungs sounds are diminished and there is scattered rhonchi heard throughout the lung his bilaterally and there are also some left basilar crackles. Cardiac exam revealed the PMI to be normally situated and sized. The rhythm was regular and no extrasystoles were noted during several minutes of auscultation. The first and second heart sounds were normal and physiologic splitting of the second heart sound was noted. There were no murmurs, rubs, clicks, or gallops. Abdominal exam revealed normal bowel sounds. The abdomen was soft, non-tender, and without masses, organomegaly, or appreciable enlargement of the abdominal aorta. Examination of the extremities revealed easily palpable radial, femoral and pedal pulses. There was no cyanosis, clubbing with trace edema in lower e xtremities bilaterally. The patient has a PICC line in his left upper extremity. Examination of the skin revealed no evidence of significant rashes, suspicious appearing nevi or other concerning lesions. Neurologically the patient is awake and alert and there is no focal neurological deficits. - Labs CBC & Chem 7: 01/22/19 04:10 01/22/19 04:10 Labs: Abnormal Lab Results - Last 24 Hours (Table) 01/21/19 01/21/19 01/21/19 Range/Units 12:55 17:19 17:30 RBC (4.30-5.90) m/uL Hgb (13.0-17.5) gm/dL Hct (39.0-53.0) % RDW (11.5-15.5) % Plt Count (150-450) k/uL Lymphocytes # (Manual) (1.0-4.8) k/uL Metamyelocytes # (Man) (0) k/uL Sodium 133 L (137-145) mmol/L Potassium 3.4 L (3.5-5.1) mmol/L Chloride (98-107) mmol/L Carbon Dioxide 21 L (22-30) mmol/L Creatinine (0.66-1.25) mg/dL Glucose (74-99) mg/dL POC Glucose (mg/dL) 239 H (75-99) mg/dL Calcium (8.4-10.2) mg/dL Magnesium 2.4 H (1.6-2.3) mg/dL 01/21/19 01/22/19 01/22/19 Range/Units 21:02 04:10 04:10 RBC 2.59 L (4.30-5.90) m/uL Hgb 8.2 L (13.0-17.5) gm/dL Hct 25.1 L (39.0-53.0) % RDW 20.4 H (11.5-15.5) % Plt Count 21 L (150-450) k/uL Lymphocytes # (Manual) 0.06 L (1.0-4.8) k/uL Metamyelocytes # (Man) 0.06 H (0) k/uL Sodium 134 L (137-145) mmol/L Potassium (3.5-5.1) mmol/L Chloride 108 H (98-107) mmol/L Carbon Dioxide (22-30) mmol/L Creatinine 0.28 L (0.66-1.25) mg/dL Glucose 100 H (74-99) mg/dL POC Glucose (mg/dL) 196 H (75-99) mg/dL Calcium 7.1 L (8.4-10.2) mg/dL Magnesium (1.6-2.3) mg/dL 01/22/19 01/22/19 Range/Units 06:58 11:43 RBC (4.30-5.90) m/uL Hgb (13.0-17.5) gm/dL Hct (39.0-53.0) % RDW (11.5-15.5) % Plt Count (150-450) k/uL Lymphocytes # (Manual) (1.0-4.8) k/uL Metamyelocytes # (Man) (0) k/uL Sodium (137-145) mmol/L Potassium (3.5-5.1) mmol/L Chloride (98-107) mmol/L Carbon Dioxide (22-30) mmol/L Creatinine (0.66-1.25) mg/dL Glucose (74-99) mg/dL POC Glucose (mg/dL) 106 H 166 H (75-99) mg/dL Calcium (8.4-10.2) mg/dL Magnesium (1.6-2.3) mg/dL Microbiology - Last 24 Hours (Table) 01/20/19 02:23 Blood Culture - Preliminary Blood No Growth after 48 hours Assessment and Plan Plan: 1 septic shock secondary to pseudomonas aeruginosa. Consider pneumonia. Consider underlying urinary tract infection. 2 chemotherapy-induced pancytopenia, improving. The patient's white cell count has normalized. Continues to be anemic and thrombocytopenic 3 acute hypotension secondary to above, improved and the patient is currently off pressors 4 metastatic small cell lung cancer post-systemic chemotherapy with a combination of carboplatin and UNIX ARCHITECT-16 and immunotherapy 5 COPD 6 ecchymosis of the original cancer 7 chronic back pain 8 hypertension 9 hyperlipidemia 10 skeletal metastases 11 hyponatremia improved 12 skeletal metastases and the patient received radiation therapy to the spine and the patient is post 2 sessions of systemic chemotherapy with Carboplatin, UNIX ARCHITECT-16, Tecentriq and Neulasta on 01.12.19 Plan Awaiting final cultures from outside facility. Repeat culture was sent here. Awaiting final results. Continue same antibiotic coverage regarding the possibility of pseudomonal sepsis. Continue cefepime and Levaquin. We'll start tapering steroids as of tomorrow. The patient is currently on no pressors. Clinically is improving. Use incentive spirometer. Chest x-ray was reviewed. Monitor the hematologic profile. Monitor the platelet count. Monitor sodium level. We'll continue to follow.
--- NOTE | 2019-01-22 15:11 | P.PN ---
Subjective Progress Note Date: 01/22/19 Principal diagnosis: Sepsis In follow-up today patient is sitting up at the side of the bed, he denies any complaints, breathing is for the most part baseline, he is on chronic O2 now, he certainly feels better than when he came in Objective - Vital Signs Vital signs: Vital Signs Temp 97 F L 01/22/19 12:00 Pulse 87 01/22/19 12:00 Resp 23 01/22/19 12:00 BP 115/75 01/22/19 12:00 Pulse Ox 94 L 01/22/19 12:00 Intake & Output 01/21/19 01/22/19 01/22/19 18:59 06:59 18:59 Intake Total 2790 1425 1285 Output Total 790 375 312 Balance 1999 1050 973 Weight 76.2 kg 76.2 kg Intake: IV 1725 1025 425 0.9% NaCl with KCl 40 Meq 825 225 /l 1,000 ml @ 75 mls/hr IV .[id number] [facility] Rx#: [id number] Calcium Gluconate 1 gm In 100 100 Sodium Chloride 0.9% 100 ml @ 100 mls/hr IVPB BID [facility] Rx#:[id number] Cefepime 2 gm In Sodium 100 100 Chloride 0.9% 100 ml @ 200 mls/hr IVPB Q8HR [facility] Rx#:[id number] Sodium Chloride 0.9% 1, 1725 000 ml @ 150 mls/hr IV . Q6H40M [facility] Rx#:[id number] Intake, IV Titration 525 420 Amount Amiodarone 360 mg In 25 Dextrose 5% in Water 200 ml @ 1 MG/MIN 33.333 mls/ hr IV .Q6H [facility] Rx#: [id number] Calcium Gluconate 1 gm In 100 Sodium Chloride 0.9% 100 ml @ 100 mls/hr IVPB BID [facility] Rx#:[id number] Calcium Gluconate 1 gm In 100 Sodium Chloride 0.9% 100 ml @ 100 mls/hr IVPB ONCE [facility] Rx#:[id number] Levofloxacin 500Mg-D5w 100 100 Pmx 500 mg In Dextrose/ Water 1 100ml.bag @ 100 mls/hr IVPB Q24H [facility] Rx#: [id number] Piperacillin-Tazobactam 3 200 .375 gm In Sodium Chloride 0.9% 100 ml @ 25 mls/hr IVPB Q8HR [facility] Rx# :[id number] Sodium Chloride 0.9% 1, 320 000 ml @ 20 mls/hr IV . Q24H [facility] Rx#:[id number] Oral 540 400 440 Output: Urine 790 375 312 Other: Voiding Method Indwelling Catheter Indwelling Catheter # Bowel Movements 1 1 - Constitutional General appearance: Present: cooperative, mild distress, thin - EENT Eyes: Present: anicteric sclerae, EOMI ENT: Present: hearing grossly normal - Respiratory Respiratory: bilateral: rhonchi (Left greater than right, improved with cough), wheezing - Cardiovascular Rhythm: regular Heart sounds: normal: S1, S2 - Peripheral edema leg Peripheral Edema: bilateral: Trace - Gastrointestinal General gastrointestinal: Present: normal bowel sounds, soft - Neurologic Neurologic: Present: CNII-XII intact - Musculoskeletal Musculoskeletal: Present: generalized weakness - Psychiatric Psychiatric: Present: A&O x's 3, appropriate affect, intact judgment & insight - Labs CBC & Chem 7: 01/22/19 04:10 01/22/19 04:10 Labs: Abnormal Lab Results - Last 24 Hours (Table) 01/21/19 01/21/19 01/21/19 Range/Units 17:19 17:30 21:02 RBC (4.30-5.90) m/uL Hgb (13.0-17.5) gm/dL Hct (39.0-53.0) % RDW (11.5-15.5) % Plt Count (150-450) k/uL Lymphocytes # (Manual) (1.0-4.8) k/uL Metamyelocytes # (Man) (0) k/uL Sodium 133 L (137-145) mmol/L Potassium 3.4 L (3.5-5.1) mmol/L Chloride (98-107) mmol/L Carbon Dioxide 21 L (22-30) mmol/L Creatinine (0.66-1.25) mg/dL Glucose (74-99) mg/dL POC Glucose (mg/dL) 239 H 196 H (75-99) mg/dL Calcium (8.4-10.2) mg/dL 01/22/19 01/22/19 01/22/19 Range/Units 04:10 04:10 06:58 RBC 2.59 L (4.30-5.90) m/uL Hgb 8.2 L (13.0-17.5) gm/dL Hct 25.1 L (39.0-53.0) % RDW 20.4 H (11.5-15.5) % Plt Count 21 L (150-450) k/uL Lymphocytes # (Manual) 0.06 L (1.0-4.8) k/uL Metamyelocytes # (Man) 0.06 H (0) k/uL Sodium 134 L (137-145) mmol/L Potassium (3.5-5.1) mmol/L Chloride 108 H (98-107) mmol/L Carbon Dioxide (22-30) mmol/L Creatinine 0.28 L (0.66-1.25) mg/dL Glucose 100 H (74-99) mg/dL POC Glucose (mg/dL) 106 H (75-99) mg/dL Calcium 7.1 L (8.4-10.2) mg/dL 01/22/19 Range/Units 11:43 RBC (4.30-5.90) m/uL Hgb (13.0-17.5) gm/dL Hct (39.0-53.0) % RDW (11.5-15.5) % Plt Count (150-450) k/uL Lymphocytes # (Manual) (1.0-4.8) k/uL Metamyelocytes # (Man) (0) k/uL Sodium (137-145) mmol/L Potassium (3.5-5.1) mmol/L Chloride (98-107) mmol/L Carbon Dioxide (22-30) mmol/L Creatinine (0.66-1.25) mg/dL Glucose (74-99) mg/dL POC Glucose (mg/dL) 166 H (75-99) mg/dL Calcium (8.4-10.2) mg/dL Microbiology - Last 24 Hours (Table) 01/20/19 02:23 Blood Culture - Preliminary Blood No Growth after 48 hours Assessment and Plan (1) Sepsis Narrative/Plan: Patient's vital signs is stabilized, cultures so far negative, Infectious Disease is following. Patient did receive G-CSF after completion of chemotherapy, WBC is 6.3, adequate absolute neutrophil count today. Current Visit: Yes Status: Acute Priority: High Code(s): A41.9 - SEPSIS, UNSPECIFIED ORGANISM SNOMED Code(s): 54051803 (2) Pancytopenia due to antineoplastic chemotherapy Narrative/Plan: Patient's WBC and neutrophil counts have recovered, patient is status post G- CSF. Hemoglobin is 8.2 due to chemotherapy effects. Intervention is needed. Transfuse for hemoglobin less than 7 or if unusually symptomatic. Platelet count 21,000. Hold all anticoagulation, DVT prophylaxis, aspirin, NSAIDs etc. Close monitoring for bleeding and stable hemoglobin. In the setting of sepsis platelet transfusion, if suspected bleeding, anything below 40,000. Current Visit: Yes Status: Acute Priority: Medium Code(s): D61.810 - ANTIN EOPLASTIC CHEMOTHERAPY INDUCED PANCYTOPENIA; T45.1X5A - ADVERSE EFFECT OF ANTINEOPLASTIC AND IMMUNOSUP DRUGS, INIT SNOMED Code(s): 063911797421291 (3) Metastatic lung cancer (metastasis from lung to other site) Narrative/Plan: Patient has had several cycles of chemotherapy with immunotherapy. Patient has had hospitalizations post treatment 2. It may be appropriate to consider a slight dose reduction in the chemotherapy portion to decrease the intensity of hematological toxicities post treatment. Primary Oncologist will review case, changes in treatment in the outpatient setting Current Visit: Yes Status: Acute Priority: High Code(s): C34.90 - MALIGNANT NEOPLASM OF UNSP PART OF UNSP BRONCHUS OR LUNG SNOMED Code(s): 69018320 (4) SIADH (syndrome of inappropriate ADH production) Narrative/Plan: Sodium stable, no further intervention at this time Current Visit: No Status: Chronic Priority: Medium Code(s): E22.2 - SYNDROME OF INAPPROPRIATE SECRETION OF ANTIDIURETIC HORMONE SNOMED Code(s): 38961577 Plan: Patient receiving calcium supplementation. Corrected calcium in the mid to high 7 range.
[2019-01-22 16:54] LABS: Glucose,Whole Blood 147 mg/dL (75-99)
--- NOTE | 2019-01-22 16:58 | PN ---
PROGRESS NOTE DATE OF SERVICE: 01/22/2019 This 73-year-old gentleman admitted with acute sepsis secondary to urinary tract infection with gram-negative bacilli, also had possible pneumonia. The patient also has shortness of breath. The patient continues to be mildly hypotensive. Most recent chest x-ray reviewed personally. Multiple consultants following the patient including Infectious Disease. PAST MEDICAL HISTORY: Reviewed. REVIEW OF SYSTEM: CARDIOVASCULAR SYSTEM: As mentioned earlier. RESPIRATORY: As mentioned earlier. GI no nausea or vomiting. as mention earlier. CENTRAL NERVOUS SYSTEM: No numbness or weakness. CURRENT MEDICATIONS: Reviewed and include: 1. Tylenol 500 mg q.6h p.r.n. 2. Castle 7.5 q.6h p.r.n. 3. DuoNeb q.i.d. and p.r.n. 4. Xanax 0.5 t.i.d. 5. Cordarone 400 mg p.o. b.i.d. 6. Calcium gluconate 1 g IV b.i.d. 8. Colace 100 mg b.i.d. 9. Sublimaze 50 mg IV q.4h as needed. 10.Solu-Cortef 100 mg IV q.6. 11.NovoLog. 12.Levaquin 500 mg daily. 13.P.r.n. protocol. 14.Protonix. 15.Pravachol. 16.Flomax. PHYSICAL EXAM: Patient is alert, oriented x3. The pulse is 86, blood pressure is 115/75, respiration 23, temperature 97 degrees, pulse ox 94% on 2 L. HEENT are conjunctivae normal. NECK: No jugular venous distention. CARDIOVASCULAR: S1, S2 muffled. RESPIRATORY: Breath sounds diminished in the bases. Bilateral scattered rhonchi and crackles. ABDOMEN: Soft, nontender. No mass palpable. LEGS: No edema. No swelling. NERVOUS SYSTEM: Higher functions as mentioned earlier. Moves all four extremities. No focal motor or sensory deficits. LYMPHATICS: No lymph nodes palpable in the neck, axillae or groin. JOINTS: No active deforming arthropathy. LABS: At this time shows WBC 6.2, hemoglobin is 8.2, sodium 132, potassium 4.9 and his calcium 7.1 today. 8:00 am cortisol is 42. ASSESSMENT: 1. Acute sepsis with severe sepsis, hypotension, septic shock, possibly secondary to urinary tract infection with gram-negative bacilli with possibly secondary to Enterococcus faecalis, vancomycin sensitive. 2. Possible left lower pneumonia possibly gram-negative. 3. Atrial fibrillation with fast ventricular rate. 4. Pancytopenia, leukopenia, neutropenia, thrombocytopenia secondary to chemotherapy. 5. Gait dysfunction. 6. Hyponatremia. 7. Hypokalemia. 8. Hypocalcemia. 9. History of Syndrome of inappropriate antidiuretic hormone. 10.Elevated lactic acid possibly secondary to secondary to sepsis. 11.History of chronic obstructive pulmonary disease. 12.Hypertension. 13.Hyperlipidemia. 14.History of laryngeal cancer. 15.History of lung cancer with METS, status post chemotherapy. 16.History of remote nicotine dependence. 17.History of back pain, degenerative joint disease. 18.History of urinary retention. 19.History of orthostatic hypotension. 20.NO CODE, NO CPR, NO VENT. RECOMMENDATIONS AND DISCUSSION: I recommend to continue current medications, management and symptomatic treatment. Otherwise at this time, . He has had disorder. Continue the broad-spectrum IV antibiotics. Repeat labs. The patient is slightly better, but patient extremely weak at this time. I recommend PT/OT evaluation, possible ECF rehab also. Otherwise, the patient is still monitored in ICU. Follow with multiple consultants. Prognosis guarded. The urine culture showing Enterococcus which is vancomycin sensitive. Continue to monitor. Guarded prognosis. Further recommendations to follow. MMODL / IJN: [id number] / MTDD
--- NOTE | 2019-01-22 18:23 | ECHOF ---
Referral Reason:atrial fibrillation MEASUREMENTS -------- HEIGHT: 180.3 cm WEIGHT: 75.7 kg BP: 116/85 IVSd: 1.2 cm (0.6 - 1.1) LVIDd: 4.6 cm (3.9 - 5.3) LVPWd: 1.2 cm (0.6 - 1.1) IVSs: 1.6 cm LVIDs: 3.0 cm LVPWs: 1.7 cm RVIDd: 2.4 cm (< 3.3) LAESV Index (A-L): 33.69 ml/m Ao Diam: 3.6 cm (2.0 - 3.7) LA Diam: 4.0 cm (2.7 - 3.8) AV Cusp: 2.4 cm (1.5 - 2.6) EPSS: 0.8 cm MV E Power: 0.99 m/s MV DecT: 205 ms MV A Power: 0.85 m/s MV E/A Ratio: 1.17 RAP: 20.00* mmHg RVSP: 62.15 mmHg MV EF SLOPE: 103.73 mm/s (70 - 150) MV EXCURSION: 2.08 cm (> 18.000) FINDINGS -------- Sinus rhythm. This was a technically adequate study. The left ventricular size is normal. There is mild concentric left ventricular hypertrophy. Overa ll left ventricular systolic function is normal with, an EF between 55 - 60 %. The diastolic fillin g pattern is normal for the age of the patient. The right ventricle is normal in size. Left atrium is mildly dilated by volume. The right atrial size is normal. Interatrial and interventricular septum intact. The aortic valve is trileaflet and appears structurally normal. There is no evidence of aortic regu rgitation. There is no evidence of aortic stenosis. Mild mitral regurgitation is present. Moderate tricuspid regurgitation present. There is moderate pulmonary hypertension. The right lina tricular systolic pressure, as measured by Doppler, is 62.15mmHg. There is no pulmonic regurgitation present. The aortic root size is normal. The inferior vena cava is dilated with poor inspiratory collapse which is consistent with estimated r ight atrial pressure of 20 mmHg. There is a small, generalized pericardial effusion present. CONCLUSIONS -------- 1. Sinus rhythm. 2. This was a technically adequate study. 3. The left ventricular size is normal. 4. There is mild concentric left ventricular hypertrophy. 5. Overall left ventricular systolic function is normal with, an EF between 55 - 60 %. 6. The diastolic filling pattern is normal for the age of the patient. 7. The right ventricle is normal in size. 8. Left atrium is mildly dilated by volume. 9. The right atrial size is normal. 10. Interatrial and interventricular septum intact. 11. The aortic valve is trileaflet and appears structurally normal. 12. There is no evidence of aortic regurgitation. 13. There is no evidence of aortic stenosis. 14. Mild mitral regurgitation is present. 15. Moderate tricuspid regurgitation present. 16. There is moderate pulmonary hypertension. 17. The right ventricular systolic pressure, as measured by Doppler, is 62.15mmHg. 18. There is no pulmonic regurgitation present. 19. The aortic root size is normal. 20. The inferior vena cava is dilated with poor inspiratory collapse which is consistent with estimat ed right atrial pressure of 20 mmHg. 21. There is a small, generalized pericardial effusion present. INSTRUCTIONAL COACH: Cheyanne Conley RDCS
[2019-01-22] MEDS: AMPICILLIN-SULBACTAM 3 GM in SODIUM CHLORIDE 0.9% 100 ML IVPB SCH (21:53)
[2019-01-22] MEDS: PRAVASTATIN SODIUM 20 MG TAB PO SCH (21:54)
[2019-01-22 21:55] LABS: Glucose,Whole Blood 218 mg/dL (75-99)
[2019-01-22] MEDS: ALPRAZolam 0.25 MG TAB PO PRN (22:07)
[2019-01-23] MEDS: AMPICILLIN-SULBACTAM 3 GM in SODIUM CHLORIDE 0.9% 100 ML IVPB SCH ×2 (00:54→06:22)
[2019-01-23 05:42] LABS: Anisocytosis Slight; Basophils % (A) 0 %; Eosinophils % (A) 0 %; HCT 24.8 % (39.0-53.0); HGB 7.9 gm/dL (13.0-17.5); Lymphocytes # (A) 0.3 k/uL (1.0-4.8); Lymphocytes % (A) 3 %; MCH 31.2 pg (25.0-35.0); MCV 97.4 fL (80.0-100.0); Macrocytosis Moderate; Mean Platelet Volume 8.8; Monocytes # (A) 0.3 k/uL (0-1.0); Monocytes % (A) 4 %; Neutrophils # (A) 7.3 k/uL (1.3-7.7); Neutrophils % (A) 91 %; RBC 2.54 m/uL (4.30-5.90); RDW 19.7 % (11.5-15.5)
[2019-01-23 05:51] LABS: Platelet Count 26 k/uL (150-450)
[2019-01-23 05:54] LABS: African American GFR (CKD) >90 (>60 ml/min/1.73 sqM); Anion Gap 5 mmol/L; Blood Urea Nitrogen 18 mg/dL (9-20); Calcium 7.4 mg/dL (8.4-10.2); Carbon Dioxide 24 mmol/L (22-30); Chloride 106 mmol/L (98-107); Glucose 73 mg/dL (74-99); Potassium 3.5 mmol/L (3.5-5.1); Sodium 135 mmol/L (137-145)
[2019-01-23] MEDS: LEVOTHYROXINE 25 MCG TAB PO SCH (06:22)
[2019-01-23 06:44] LABS: Glucose,Whole Blood 83 mg/dL (75-99)
[2019-01-23] MEDS: HYDROCORTISONE SUCCINATE 100 MG/2 ML VIAL IV SCH (06:46)
[2019-01-23] MEDS: INSULIN ASPART (NovoLOG) 100 UNIT/ML VIAL SQ SCH ×4 (06:46→20:17)
--- NOTE | 2019-01-23 07:24 | P.PN ---
Subjective Progress Note Date: 01/23/19 Principal diagnosis: Paroxysmal atrial fibrillation This is a pleasant 73-year-old gentleman with a past medical history significant for small cell lung cancer, the patient initially was receiving radiation therapy and currently he is on chemotherapy, hypertension, and dyslipidemia, was transferred from outside hospital to this hospital for what it seems to be sepsis. Initially he presented [facility] emergency department with symptoms of feeling weak. He underwent a workup over there which revealed pancytopenia. Also the patient was found to be hypotensive. He was transferred to the emergency room here. We get involved in the care of the patient for further evaluation of atrial fibrillation with RVR. The patient was receiving vasopressors was able that but that was weaned this morning. Last night he did have an episode of atrial fibrillation with RVR and he was started on amiodarone drip and converted to normal sinus mechanism at this 3d animator. Since then he has been maintaining normal sinus mechanism. No history of coronary artery disease, congestive heart failure, or any cardiac arrhythmia. The patient doesn't follow with any financial investment manager. He does have history of hypertension as well as dyslipidemia. On follow-up with the patient today, January [id number], the patient is doing good from the cardiovascular standpoint of view. He has been maintaining normal sinus mechanism. Currently he is on amiodarone by mouth 400 mg by mouth twice a day. We'll continue to hold any anticoagulation at this point in view of the severe thrombocytopenia. The platelet today is 26,000. Hemoglobin is 7.9. The GFR is about 60. He continues to feel congested. Objective - Vital Signs Vital signs: Vital Signs Temp 97.7 F 01/23/19 04:00 Pulse 91 01/23/19 06:00 Resp 23 01/23/19 06:00 BP 120/82 01/23/19 06:00 Pulse Ox 98 01/23/19 06:00 Intake & Output 01/22/19 01/23/19 01/23/19 18:59 06:59 18:59 Intake Total 1705 540 Output Total 537 740 Balance 1168 -200 Weight 76.2 kg 78.6 kg Intake: IV 525 520 0.9% NaCl with KCl 40 Meq 225 /l 1,000 ml @ 75 mls/hr IV .[id number] [facility] Rx#: [id number] Ampicillin-Sulbactam 3 gm 200 In Sodium Chloride 0.9% 100 ml @ 200 mls/hr IVPB Q6HR [facility] Rx#:[id number] Calcium Gluconate 1 gm In 100 100 Sodium Chloride 0.9% 100 ml @ 100 mls/hr IVPB BID [facility] Rx#:[id number] Cefepime 2 gm In Sodium 200 Chloride 0.9% 100 ml @ 200 mls/hr IVPB Q8HR [facility] Rx#:[id number] Sodium Chloride 0.9% 1, 220 000 ml @ 20 mls/hr IV . Q24H [facility] Rx#:[id number] Intake, IV Titration 500 20 Amount Levofloxacin 500Mg-D5w 100 Pmx 500 mg In Dextrose/ Water 1 100ml.bag @ 100 mls/hr IVPB Q24H [facility] Rx#: [id number] Sodium Chloride 0.9% 1, 400 20 000 ml @ 20 mls/hr IV . Q24H [facility] Rx#:[id number] Oral 680 Output: Urine 537 740 Other: Voiding Method Indwelling Catheter Indwelling Catheter # Bowel Movements 1 1 - Constitutional General appearance: Present: no acute distress - Respiratory Respiratory: right: rales - Cardiovascular Rhythm: regular Heart sounds: normal: S1, S2 - Labs CBC & Chem 7: 01/23/19 04:27 01/23/19 04:27 Labs: Abnormal Lab Results - Last 24 Hours (Table) 01/22/19 01/22/19 01/22/19 Range/Units 11:43 16:53 21:54 RBC (4.30-5.90) m/uL Hgb (13.0-17.5) gm/dL Hct (39.0-53.0) % RDW (11.5-15.5) % Plt Count (150-450) k/uL Lymphocytes # (1.0-4.8) k/uL Sodium (137-145) mmol/L Creatinine (0.66-1.25) mg/dL Glucose (74-99) mg/dL POC Glucose (mg/dL) 166 H 147 H 218 H (75-99) mg/dL Calcium (8.4-10.2) mg/dL 01/23/19 01/23/19 Range/Units 04:27 04:27 RBC 2.54 L (4.30-5.90) m/uL Hgb 7.9 L (13.0-17.5) gm/dL Hct 24.8 L (39.0-53.0) % RDW 19.7 H (11.5-15.5) % Plt Count 26 L (150-450) k/uL Lymphocytes # 0.3 L (1.0-4.8) k/uL Sodium 135 L (137-145) mmol/L Creatinine 0.29 L (0.66-1.25) mg/dL Glucose 73 L (74-99) mg/dL POC Glucose (mg/dL) (75-99) mg/dL Calcium 7.4 L (8.4-10.2) mg/dL Microbiology - Last 24 Hours (Table) 01/20/19 02:23 Blood Culture - Preliminary Blood No Growth after 72 hours 01/20/19 10:45 Urine Culture - Final Urine,Voided Enterococcus faecalis Assessment and Plan Assessment: Assessment #1 sepsis of unknown source #2 atrial fibrillation with RVR. The patient converted to normal sinus mechanism. This is a newly diagnosed as the patient #3 hypertension #4 dyslipidemia #5 thyroid disorder #6 pancytopenia Plan #1 continue the current medical regimen including amiodarone by mouth #2 continue holding oral anticoagulation in view of the thrombocytopenia. I would hold also antiplatelet #3 follow-up with the patient
[2019-01-23] MEDS: IPRATROPIUM-ALBUTEROL 3 ML NEB INHALATION SCH ×4 (07:43→19:42)
[2019-01-23] MEDS ORDERED: Potassium Replacement Protocol 1 EACH MISC MISCELLANE PRN (07:45)
--- NOTE | 2019-01-23 08:15 | P.PN ---
Subjective Progress Note Date: 01/23/19 Mr Ruiz is a pleasant white male, in fairly good health, until about 08/29. At that time the patient started having lower back pain, which he states is localized actor just below the waist with radiation across the back. Due to persistence, and progression in severity he sought attention with his PCP. He had imaging done of his spine with x-rays, incidentally revealed abnormality in the left lung. He was therefore referred to pulmonary medicine and had a chest x-ray done on 11/03/18, revealing a left midlung mass, and possibly metastatic disease in the left shoulder. He subsequently had a PET scan done on 11/05/18. This showed extensive mediastinal and hilar adenopathy, extensive bone metastasis, hypermetabolic 2.5 cm left adrenal mass, and hypermetabolic central liver mass. A CT-guided needle biopsy that was supposed to call on 11/28/18. 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 Also, he had a history of early stage laryngeal cancer treated with radiation alone by Dr. Romero in 2013. He quit smoking around 2010, prior to which she smoked about half to three fourths of a pack per day During this current admission, this patient came into the emergency room because of progressive back pain, that wasn't detectable. He was also having difficulty with urination. He denied any lower extremity weakness or loss of sensation. The patient had MRI of the lumbar spine, showing diffuse metastatic involvement, but no destruction or cord compression. The patient actually appeared to have significant degenerative disc disease in the lower spine. Started on steroids, and at the time of my exam had noted marked relief in his symptoms. He did have a Alcala placed for urinary retention. Patient's primary oncologist Dr. Zaidi he underwent radiation therapy and after completion of this he was started on carboplatin and DIETARY SERVICES MANAGER-16 and immune therapy with to centric his last treatment was January 09 through January 12 and he did receive Neulasta. Patient had apparently presented to an outside facility for near syncopal episodes on presentation to that facility was found to have a blood pressure systolic in the 60. He was hypotensive that wasn't improved with IV fluids or pressors therefore he is now being treated at [facility] and under the care of ICU. On today's evaluation of 01/22/2019 the patient is being seen in follow-up in the intensive care unit. Note that the patient's white cell count is improved and it's up to 6.3. The patient still has a component of thrombocytopenia with a platelet count of 21 and the hemoglobin is at 8.2. The patient is looking well. I do not see that the patient is on pressors and upon further inquiry the patient has been off pressors since yesterday. He is producing good urine output. No nausea. No vomiting. No abdominal pain. He has a congested cough and is unable to bring up much sputum. The chest x-ray shows infiltration of the left perihilar and left lower lobe area, however, this could be residual effect from the underlying malignancy. The cultures that were obtained from an outside facility showed pseudomonas aeruginosa and the final cultures sensitivities are still pending for now. Repeat cultures now facility have been negative. He is cardiac rhythm is sinus. He remains on a combination of IV cefepime and Levaquin for now. IV fluids with normal saline at rate of 20 mL an hour. He remains on stress dose hydrocortisone regarding the potential possibility of adrenal insufficiency. No other significant events otherwise for now. Clinically improved compared to yesterday. On today's evaluation of a 2018 I'm seeing this patient for a follow-up. The patient is feeling well and he has no specific complaints. Afebrile hemodynamically stable. As mentioned earlier the patient had a pseudomonal septicemia and following that the patient was found to have a Enterococcus faecalis in the urine. ID has made and antibiotics which in place the patient on Unasyn. I'm going to discuss this with ID and see if this is what they really 1 specially with the recent pseudomonal growth in the blood cultures. In any rate, he is doing extremely well. White cell count is at 8. Platelet count of 26. The triple-lumen catheter will be removed from his groin carefully with pressure. The rest of the electrodes are within normal limits. His cough is less congested. No chest pain. No altered mentation. Pain is under good control. We'll discontinue the stress dose hydrocortisone. Is on normal saline at the rate of 20 mL an hour. No other significant events otherwise for now. Objective - Vital Signs Vital signs: Vital Signs Temp 97.7 F 01/23/19 04:00 Pulse 86 01/23/19 07:56 Resp 23 01/23/19 06:00 BP 120/82 01/23/19 06:00 Pulse Ox 96 01/23/19 07:44 Intake & Output 01/22/19 01/23/19 01/23/19 18:59 06:59 18:59 Intake Total 1705 540 Output Total 537 740 Balance 1168 -200 Weight 76.2 kg 78.6 kg Intake: IV 525 520 0.9% NaCl with KCl 40 Meq 225 /l 1,000 ml @ 75 mls/hr IV .[id number] [facility] Rx#: [id number] Ampicillin-Sulbactam 3 gm 200 In Sodium Chloride 0.9% 100 ml @ 200 mls/hr IVPB Q6HR [facility] Rx#:[id number] Calcium Gluconate 1 gm In 100 100 Sodium Chloride 0.9% 100 ml @ 100 mls/hr IVPB BID [facility] Rx#:[id number] Cefepime 2 gm In Sodium 200 Chloride 0.9% 100 ml @ 200 mls/hr IVPB Q8HR [facility] Rx#:[id number] Sodium Chloride 0.9% 1, 220 000 ml @ 20 mls/hr IV . Q24H [facility] Rx#:[id number] Intake, IV Titration 500 20 Amount Levofloxacin 500Mg-D5w 100 Pmx 500 mg In Dextrose/ Water 1 100ml.bag @ 100 mls/hr IVPB Q24H [facility] Rx#: [id number] Sodium Chloride 0.9% 1, 400 20 000 ml @ 20 mls/hr IV . Q24H [facility] Rx#:[id number] Oral 680 Output: Urine 537 740 Other: Voiding Method Indwelling Catheter Indwelling Catheter # Bowel Movements 1 1 - Exam Gen. appearance, comfortable likely distress Head exam was generally normal. There was no scleral icterus or corneal arcus. Mucous membranes were moist. Neck was supple and without jugular venous distension, thyromegaly, or carotid bruits. Carotids were easily palpable bilaterally. There was no adenopathy. Lungs sounds are diminished and there is scattered rhonchi heard throughout the lung his bilaterally and there are also some left basilar crackles. Cardiac exam revealed the PMI to be normally situated and sized. The rhythm was regular and no extrasystoles were noted during several minutes of auscultation. The first and second heart sounds were normal and physiologic splitting of the second heart sound was noted. There were no murmurs, rubs, clicks, or gallops. Abdominal exam revealed normal bowel sounds. The abdomen was soft, non-tender, and without masses, organomegaly, or appreciable enlargement of the abdominal aorta. Examination of the extremities revealed easily palpable radial, femoral and pedal pulses. There was no cyanosis, clubbing with trace edema in lower extremities bilaterally. The patient has a PICC line in his left upper extremity. The patient also has a right groin triple-lumen catheter in place. Examination of the skin revealed no evidence of significant rashes, suspicious appearing nevi or other concerning lesions. Neurologically the patient is awake and alert and there is no focal neurological deficits. - Labs CBC & Chem 7: 01/23/19 04:27 01/23/19 04:27 Labs: Abnormal Lab Results - Last 24 Hours (Table) 01/22/19 01/22/19 01/22/19 Range/Units 11:43 16:53 21:54 RBC (4.30-5.90) m/uL Hgb (13.0-17.5) gm/dL Hct (39.0-53.0) % RDW (11.5-15.5) % Plt Count (150-450) k/uL Lymphocytes # (1.0-4.8) k/uL Sodium (137-145) mmol/L Creatinine (0.66-1.25) mg/dL Glucose (74-99) mg/dL POC Glucose (mg/dL) 166 H 147 H 218 H (75-99) mg/dL Calcium (8.4-10.2) mg/dL 01/23/19 01/23/19 Range/Units 04:27 04:27 RBC 2.54 L (4.30-5.90) m/uL Hgb 7.9 L (13.0-17.5) gm/dL Hct 24.8 L (39.0-53.0) % RDW 19.7 H (11.5-15.5) % Plt Count 26 L (150-450) k/uL Lymphocytes # 0.3 L (1.0-4.8) k/uL Sodium 135 L (137-145) mmol/L Creatinine 0.29 L (0.66-1.25) mg/dL Glucose 73 L (74-99) mg/dL POC Glucose (mg/dL) (75-99) mg/dL Calcium 7.4 L (8.4-10.2) mg/dL Microbiology - Last 24 Hours (Table) 01/20/19 02:23 Blood Culture - Preliminary Blood No Growth after 72 hours 01/20/19 10:45 Urine Culture - Final Urine,Voided Enterococcus faecalis Assessment and Plan Plan: 1 septic shock secondary to pseudomonas aeruginosa. Consider pneumonia. Consider underlying urinary tract infection . The urine has grown Enterococcus faecalis. We'll discuss with ID. 2 chemotherapy-induced pancytopenia, improving. The patient's white cell count has normalized. Continues to be anemic and thrombocytopenic 3 acute hypotension secondary to above, improved and the patient is currently off pressors, the patient remains hemodynamically stable 4 metastatic small cell lung cancer post-systemic chemotherapy with a co mbination of carboplatin and DIETARY SERVICES MANAGER-16 and immunotherapy 5 COPD 6 sepsis secondary to above, recovered 7 chronic back pain 8 hypertension 9 hyperlipidemia 10 skeletal metastases 11 hyponatremia improved 12 skeletal metastases and the patient received radiation therapy to the spine and the patient is post 2 sessions of systemic chemotherapy with Carboplatin, DIETARY SERVICES MANAGER-16, Tecentriq and Neulasta on 01.12.19 Plan We'll discuss with ID. My recommendation is switch the patient IV Fortaz regarding the pseudomonal growth in addition to enterococcal growth. In any rate, the patient is doing extremely well. Discontinue the stress dose hydrocortisone. Advance diet. Monitor platelet count. Remove the triple-lumen catheter. Can be transferred out of the intensive care unit at a later stage.
[2019-01-23] MEDS: fentaNYL (PF) 50 MCG/ML 2 ML AMP IVP PRN (08:23)
[2019-01-23] MEDS: TAMSULOSIN 0.4 MG CAP.ER.24H PO SCH (08:24)
[2019-01-23] MEDS: AMIODARONE 200 MG TAB PO SCH ×2 (08:24→20:10)
[2019-01-23] MEDS: NYSTATIN 100,000 UNIT/ML SUSP 500,000 UNIT/5 ML CUP PO SCH ×4 (08:24→21:48)
[2019-01-23] MEDS: POTASSIUM CHLORIDE ER 20 MEQ TAB.ER PO SCH ×2 (08:24→09:55)
[2019-01-23] MEDS: PANTOPRAZOLE 40 MG/10 ML VIAL IVP SCH ×2 (08:24→20:10)
[2019-01-23] MEDS: guaiFENesin 600 MG TABLET.ER PO SCH ×2 (08:24→20:10)
[2019-01-23] MEDS: CALCIUM GLUCONATE 1 GM in SODIUM CHLORIDE 0.9% 100 ML IVPB SCH ×2 (08:27→21:48)
[2019-01-23] MEDS: DOCUSATE 100 MG CAP PO SCH ×2 (08:40→20:07)
[2019-01-23] MEDS ORDERED: VANCOMYCIN IV PER PHARMACY 1 EACH MISC MISCELLANE PRN (10:40)
[2019-01-23] MEDS ORDERED: KETOROLAC 30 MG/ML 1 ML VIAL IVP PRN (10:48)
[2019-01-23] MEDS: VANCOMYCIN 1,500 MG in SODIUM CHLORIDE 0.9% 250 ML IVPB SCH ×2 (11:40→18:45)
[2019-01-23 12:05] LABS: Glucose,Whole Blood 133 mg/dL (75-99)
[2019-01-23] MEDS: CEFEPIME 2 GM in SODIUM CHLORIDE 0.9% 100 ML IVPB SCH ×2 (12:29→16:31)
[2019-01-23] MEDS: MULTIVITAMINS, THERA 1 EACH TAB PO SCH (12:33)
[2019-01-23 16:03] LABS: Glucose,Whole Blood 193 mg/dL (75-99)
[2019-01-23] MEDS: SODIUM CHLORIDE 0.9% 1,000 ML IV SCH (16:37)
[2019-01-23] MEDS: HYDROcodone/APAP 7.5-325MG 1 EACH TAB PO PRN (20:08)
[2019-01-23] MEDS: ALPRAZolam 0.25 MG TAB PO PRN (20:08)
[2019-01-23 20:10] LABS: Glucose,Whole Blood 135 mg/dL (75-99)
[2019-01-23] MEDS: PRAVASTATIN SODIUM 20 MG TAB PO SCH (20:11)
--- NOTE | 2019-01-23 20:56 | P.PN ---
Subjective Progress Note Date: 01/23/19 73-year-old male who was actually doing quite well until approximately 5 months ago which point in time he started to develop some lower back pain. It progressed relatively quickly and constantly he sought some care. If her some initial evaluations imaging revealed evidence of metastatic lesions within his spine counseling workup then ensued. Imaging of his chest revealed evidence of the lung lesion as well as an adrenal mass. Is also lesions in the liver and multiple lesions within the skeleton especially the spine. After the guided lung biopsy revealed evidence of the small cell carcinoma he did have one session of radiation to his spine but then started developing increasing diff iculties from the metastatic disease. Hyponatremia and other metabolic abnormalities occurred and he was then initiated to his multimodal chemotherapy. He received 2 cycles of this and has received Neulasta. The patient now presents to hospital with fever and generalized malaise and progressive fatigue. He has been receiving therapy in the facility to try to improve his strength but is having great difficulties. Of great significance is that while the patient has been ill and trying to proceed with this treatment his suddenly became ill and she passed. This is approximately 3 weeks ago and the patient is immediately distraught when he relives this situation. Fortunately he has se veral children who appeared to be very significant in his life and provide great support. At presentation he had hypotension and elevated lactic acid with evidence of sepsis and was admitted to the intensive care unit. With fluid resuscitation he has had improvement in his status no longer requiring vasopressor therapy. 01/23/2019 patient has had improvement and will be moved out of the intensive Care unit today. he is feeling considerably better without other new acute complaint. He has less short of breath but is mobilizing with a large amountof secretions. Objective - Vital Signs Vital signs: Vital Signs Temp 98 F 01/23/19 18:00 Pulse 90 01/23/19 19:57 Resp 22 01/23/19 19:57 BP 100/69 01/23/19 19:57 Pulse Ox 96 01/23/19 19:57 Intake & Output 01/23/19 01/23/19 01/24/19 06:59 18:59 06:59 Intake Total 540 1490 590 Output Total 740 360 180 Balance -200 1130 410 Weight 78.6 kg Intake: IV 520 320 40 Ampicillin-Sulbactam 3 gm 200 In Sodium Chloride 0.9% 100 ml @ 200 mls/hr IVPB Q6HR [facility] Rx#:[id number] Calcium Gluconate 1 gm In 100 100 Sodium Chloride 0.9% 100 ml @ 100 mls/hr IVPB BID [facility] Rx#:[id number] Sodium Chloride 0.9% 1, 220 220 40 000 ml @ 20 mls/hr IV . Q24H [facility] Rx#:[id number] Intake, IV Titration 20 450 250 Amount Cefepime 2 gm In Sodium 200 Chloride 0.9% 100 ml @ 200 mls/hr IVPB Q8HR [facility] Rx#:[id number] Sodium Chloride 0.9% 1, 20 000 ml @ 20 mls/hr IV . Q24H [facility] Rx#:[id number] Vancomycin 1,500 mg In 250 250 Sodium Chloride 0.9% 250 ml @ 125 mls/hr IVPB Q8H [facility] Rx#:[id number] Oral 720 300 Output: Urine 740 360 180 Other: Voiding Method Indwelling Catheter Indwelling Catheter # Bowel Movements 1 - Exam 73 -year-old male who relates has lost more than 40 pounds with his illness HEENT: Anicteric conjunctiva are pink and moist nasal mucosa grossly intact without significant lesions, there is no thrush. Neck: The neck is supple without significant lymphadenopathy or thyromegaly. Lungs: Symmetrical air entry with few crackles at the bases expiratory wheezes are scattered no significant bronchial sounds Heart: Regular rate and rhythm with an audible S1-S2, no S3 no S4. There is no significant murmur click or rub, PMI was nondisplaced. Abdomen: Positive bowel sounds soft and nontender without palpable masses or organomegaly. There was no guarding or rebound. Extremities: The upper extremities have excellent pulses they are symmetric, no significant petechiae or telangiectasia. No splinter hemorrhages were noted. The lower extremities are free from significant edema. The peripheral pulses were 2+ and symmetric. Evidence of some muscular wasting Neuro: Awake alert oriented to person place and time. There are no acute new gross focal sensory motor deficits. - Labs CBC & Chem 7: 01/23/19 04:27 01/23/19 04:27 Labs: Abnormal Lab Results - Last 24 Hours (Table) 01/22/19 01/23/19 01/23/19 Range/Units 21:54 04:27 04:27 RBC 2.54 L (4.30-5.90) m/uL Hgb 7.9 L (13.0-17.5) gm/dL Hct 24.8 L (39.0-53.0) % RDW 19.7 H (11.5-15.5) % Plt Count 26 L (150-450) k/uL Lymphocytes # 0.3 L (1.0-4.8) k/uL Sodium 135 L (137-145) mmol/L Creatinine 0.29 L (0.66-1.25) mg/dL Glucose 73 L (74-99) mg/dL POC Glucose (mg/dL) 218 H (75-99) mg/dL Calcium 7.4 L (8.4-10.2) mg/dL 01/23/19 01/23/19 01/23/19 Range/Units 12:03 16:02 20:09 RBC (4.30-5.90) m/uL Hgb (13.0-17.5) gm/dL Hct (39.0-53.0) % RDW (11.5-15.5) % Plt Count (150-450) k/uL Lymphocytes # (1.0-4.8) k/uL Sodium (137-145) mmol/L Creatinine (0.66-1.25) mg/dL Glucose (74-99) mg/dL POC Glucose (mg/dL) 133 H 193 H 135 H (75-99) mg/dL Calcium (8.4-10.2) mg/dL Microbiology - Last 24 Hours (Table) 01/20/19 02:23 Blood Culture - Preliminary Blood No Growth after 72 hours Laboratory Results WBC 8.0 k/uL (3.8-10.6) 01/23/19 04:27 RBC 2.54 m/uL (4.30-5.90) L 01/23/19 04:27 Hgb 7.9 gm/dL (13.0-17.5) L 01/23/19 04:27 Hct 24.8 % (39.0-53.0) L 01/23/19 04:27 MCV 97.4 fL (80.0-100.0) 01/23/19 04:27 MCH 31.2 pg (25.0-35.0) 01/23/19 04:27 MCHC 32.0 g/dL (31.0-37.0) 01/23/19 04:27 RDW 19.7 % (11.5-15.5) H 01/23/19 04:27 Plt Count 26 k/uL (150-450) L 01/23/19 04:27 Neutrophils % 91 % 01/23/19 04:27 Neutrophils % (Manual) 50 % 01/22/19 04:10 Band Neutrophils % 46 % 01/22/19 04:10 Lymphocytes % 3 % 01/23/19 04:27 Lymphocytes % (Manual) 1 % 01/22/19 04:10 Monocytes % 4 % 01/23/19 04:27 Monocytes % (Manual) 3 % 01/22/19 04:10 Eosinophils % 0 % 01/23/19 04:27 Basophils % 0 % 01/23/19 04:27 Metamyelocytes % 1 % 01/22/19 04:10 Neutrophils # 7.3 k/uL (1.3-7.7) 01/23/19 04:27 Neutrophils # (Manual) 6.00 k/uL (1.3-7.7) 01/22/19 04:10 Lymphocytes # 0.3 k/uL (1.0-4.8) L 01/23/19 04:27 Lymphocytes # (Manual) 0.06 k/uL (1.0-4.8) L 01/22/19 04:10 Monocytes # 0.3 k/uL (0-1.0) 01/23/19 04:27 Monocytes # (Manual) 0.19 k/uL (0-1.0) 01/22/19 04:10 Eosinophils # 0.0 k/uL (0-0.7) 01/23/19 04:27 Basophils # 0.0 k/uL (0-0.2) 01/23/19 04:27 Metamyelocytes # (Man) 0.06 k/uL (0) H 01/22/19 04:10 Nucleated RBCs 0 /100 WBC (0-0) 01/22/19 04:10 Manual Slide Review Performed 01/22/19 04:10 Toxic Granulation Present 01/22/19 04:10 Polychromasia Present 01/21/19 04:11 Poikilocytosis (manual Present 01/21/19 04:11 Anisocytosis Slight 01/23/19 04:27 Macrocytosis Moderate 01/23/19 04:27 PT 13.7 sec (9.0-12.0) H 01/20/19 02:23 INR 1.3 (<1.2) H 01/20/19 02:23 APTT 35.5 sec (22.0-30.0) H 01/20/19 02:23 Sodium 135 mmol/L (137-145) L 01/23/19 04:27 Potassium 3.5 mmol/L (3.5-5.1) 01/23/19 04:27 Chloride 106 mmol/L (98-107) 01/23/19 04:27 Carbon Dioxide 24 mmol/L (22-30) 01/23/19 04:27 Anion Gap 5 mmol/L 01/23/19 04:27 BUN 18 mg/dL (9-20) 01/23/19 04:27 Creatinine 0.29 mg/dL (0.66-1.25) L 01/23/19 04:27 Est GFR (CKD-EPI)AfAm >90 (>60 ml/min/1.73 sqM) 01/23/19 04:27 Est GFR (CKD-EPI)NonAf >90 (>60 ml/min/1.73 sqM) 01/23/19 04:27 Glucose 73 mg/dL (74-99) L 01/23/19 04:27 POC Glucose (mg/dL) 135 mg/dL (75-99) H 01/23/19 20:09 POC Glu Casing Inspector ID CageJeanie walters 01/23/19 20:09 Lactic Ac Sepsis Rflx Y 01/20/19 06:51 Plasma Lactic Acid Osbaldo 1.3 mmol/L (0.7-2.0) 01/20/19 09:55 Calcium 7.4 mg/dL (8.4-10.2) L 01/23/19 04:27 Ionized Calcium Erin 4.6 mg/dL (4.5-5.3) 01/22/19 04:10 Phosphorus 3.4 mg/dL (2.5-4.5) 01/20/19 06:25 Magnesium 2.4 mg/dL (1.6-2.3) H 01/21/19 12:55 Total Bilirubin 0.7 mg/dL (0.2-1.3) 01/20/19 06:25 AST 38 U/L (17-59) 01/20/19 06:25 ALT 74 U/L (21-72) H 01/20/19 06:25 Alkaline Phosphatase 56 U/L (38-126) 01/20/19 06:25 Total Protein 4.2 g/dL (6.3-8.2) L 01/20/19 06:25 Albumin 2.3 g/dL (3.5-5.0) L 01/20/19 06:25 TSH 3.460 mIU/L (0.465-4.680) 01/20/19 06:25 Cortisol 42 ug/dL 01/20/19 17:45 Urine Color Yellow 01/20/19 10:45 Urine Appearance Cloudy (Clear) 01/20/19 10:45 Urine pH 5.5 (5.0-8.0) 01/20/19 10:45 Ur Specific [place] 1.017 (1.001-1.035) 01/20/19 10:45 Urine Protein 1+ (Negative) H 01/20/19 10:45 Urine Glucose (UA) Negative (Negative) 01/20/19 10:45 Urine Ketones Negative (Negative) 01/20/19 10:45 Urine Blood Moderate (Negative) H 01/20/19 10:45 Urine Nitrite Positive (Negative) 01/20/19 10:45 Urine Bilirubin Negative (Negative) 01/20/19 10:45 Urine Urobilinogen <2.0 mg/dL (<2.0) 01/20/19 10:45 Ur Leukocyte Esterase Large (Negative) H 01/20/19 10:45 Urine RBC 18 /hpf (0-5) H 01/20/19 10:45 Urine WBC 68 /hpf (0-5) H 01/20/19 10:45 Urine WBC Clumps Occasional /hpf (None) H 01/20/19 10:45 Urine Bacteria Few /hpf (None) H 01/20/19 10:45 Urine Mucus Rare /hpf (None) H 01/20/19 10:45 Microbiology 01/20/19 02:23 Blood Blood Culture - Preliminary No Growth after 72 hours 01/20/19 10:45 Urine,Voided Urine Culture - Final Enterococcus faecalis Blood culture from outside hospital shows evidence of pseudomonas aeruginosa via bio fire Assessment and Plan (1) Metastatic lung cancer (metastasis from lung to other site) Current Visit: Yes Status: Acute Priority: High Code(s): C34.90 - MALIGNANT NEOPLASM OF UNSP PART OF UNSP BRONCHUS OR LUNG SNOMED Code(s): 65978122 (2) Pancytopenia due to antineoplastic chemotherapy Current Visit: Yes Status: Acute Priority: Medium Code(s): D61.810 - ANTINEOPLASTIC CHEMOTHERAPY INDUCED PANCYTOPENIA; T45.1X5A - ADVERSE EFFECT OF ANTINEOPLASTIC AND IMMUNOSUP DRUGS, INIT SNOMED Code(s): 204969336399725 (3) SIADH (syndrome of inappropriate ADH production) Current Visit: No Status: Chronic Priority: Medium Code(s): E22.2 - SYNDROME OF INAPPROPRIATE SECRETION OF ANTIDIURETIC HORMONE SNOMED Code(s): 88194134 (4) Sepsis Narrative/Plan: 73 -year-old male who has a 5 month history of progressive disease related to his 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 He did have some limited radiation therapy which has helped some the severe pain into his spine. Now presents with evidence of high-grade fever chills hypotension and with pancytopenia. With his febrile neutropenia antibiotic therapy is prudent and Zosyn will be transitioned to cefepime, should have less impact on his thrombocytopenia and piperacillin will. Cultures are process and await further data from the other hospital is to the blood culture and significance of the pathogen. He has been seen by his oncology team and he has received Neulasta and further growth factors are not being utilized at this time however red blood cell and platelet transfusions as indicated. Fortunately with fluid resuscitation the patient has had some improvement of his hypotension from his sepsis that may have a pulmonary source. With concerns to adrenal insufficiency hydrocortisone has been initiated Nutritional supplements are requested Mucinex requested to help him mobilize his secretions and continue with respiratory treatments. The patient is consoled and given access to resources given the recent loss of his . 01/23/2019 the patient shows further improvement. He daughter has hypotension after his fluid resuscitation, hydrocortisone and antibiotics. Urine culture has been finalizes Enterococcus faecalis and subsequently penicillin based regiment is requested. However outside laboratory no reveals evidence of his blood culture being positive for pseudomonas aeruginosa. Given his ongoing significant thrombocytopenia piperacillin to be avoided and consequently antibiotic therapy with cefepime and vancomycin be utilized for the current isolate a pathogens. Await the final susceptibilities from the blood culture for further evaluation. Neutropenia is resolved. He is being followed by his oncology team as far as her needs for any further transfusions. Current Visit: Yes Status: Acute Priority: High Code(s): A41.9 - SEPSIS, UNSPECIFIED ORGANISM SNOMED Code(s): 18241781
[2019-01-24] MEDS: CEFEPIME 2 GM in SODIUM CHLORIDE 0.9% 100 ML IVPB SCH ×4 (01:07→23:58)
[2019-01-24] MEDS: VANCOMYCIN 1,500 MG in SODIUM CHLORIDE 0.9% 250 ML IVPB SCH ×3 (03:31→19:43)
[2019-01-24 05:08] LABS: Anisocytosis Moderate; HCT 23.8 % (39.0-53.0); HGB 7.6 gm/dL (13.0-17.5); MCH 31.4 pg (25.0-35.0); MCV 98.2 fL (80.0-100.0); Macrocytosis Moderate; Platelet Count 35 k/uL (150-450); RBC 2.42 m/uL (4.30-5.90); RDW 20.8 % (11.5-15.5); WBC 10.3 k/uL (3.8-10.6)
[2019-01-24 05:18] LABS: African American GFR (CKD) >90 (>60 ml/min/1.73 sqM); Anion Gap 5 mmol/L; Blood Urea Nitrogen 17 mg/dL (9-20); Calcium 7.1 mg/dL (8.4-10.2); Carbon Dioxide 24 mmol/L (22-30); Chloride 105 mmol/L (98-107); Glucose 90 mg/dL (74-99); Potassium 3.4 mmol/L (3.5-5.1); Sodium 134 mmol/L (137-145)
[2019-01-24] MEDS: LEVOTHYROXINE 25 MCG TAB PO SCH (06:14)
[2019-01-24] MEDS: POTASSIUM CHLORIDE ER 20 MEQ TAB.ER PO SCH ×2 (06:14→07:44)
[2019-01-24] MEDS: IPRATROPIUM-ALBUTEROL 3 ML NEB INHALATION SCH ×4 (07:43→20:22)
[2019-01-24] MEDS: DOCUSATE 100 MG CAP PO SCH ×2 (07:44→22:13)
[2019-01-24] MEDS: TAMSULOSIN 0.4 MG CAP.ER.24H PO SCH (07:44)
[2019-01-24] MEDS: AMIODARONE 200 MG TAB PO SCH ×2 (07:44→22:13)
[2019-01-24] MEDS: guaiFENesin 600 MG TABLET.ER PO SCH ×2 (07:44→22:12)
[2019-01-24 07:51] LABS: Glucose,Whole Blood 79 mg/dL (75-99)
[2019-01-24] MEDS: INSULIN ASPART (NovoLOG) 100 UNIT/ML VIAL SQ SCH ×4 (07:51→22:15)
[2019-01-24] MEDS: PANTOPRAZOLE 40 MG/10 ML VIAL IVP SCH ×2 (07:56→22:14)
[2019-01-24] MEDS: HYDROcodone/APAP 7.5-325MG 1 EACH TAB PO PRN ×3 (07:58→19:38)
[2019-01-24] MEDS: NYSTATIN 100,000 UNIT/ML SUSP 500,000 UNIT/5 ML CUP PO SCH ×4 (08:50→22:15)
[2019-01-24] MEDS: CALCIUM GLUCONATE 1 GM in SODIUM CHLORIDE 0.9% 100 ML IVPB SCH ×2 (10:46→22:16)
[2019-01-24 11:50] LABS: Glucose,Whole Blood 134 mg/dL (75-99)
[2019-01-24] MEDS: IOPAMIDOL-300 CONTRAST 30 ML VIAL (ORAL USE) PO PRN ×2 (13:01→13:46)
[2019-01-24] MEDS: MULTIVITAMINS, THERA 1 EACH TAB PO SCH (13:02)
[2019-01-24] MEDS: ALPRAZolam 0.25 MG TAB PO PRN ×2 (13:45→22:14)
--- NOTE | 2019-01-24 13:52 | P.PN ---
Subjective This is a pleasant 73-year-old male past medical history significant for small cell lung cancer receiving radiation and chemotherapy, hypertension and dyslipidemia. He is currently being treated for atrial fibrillation with rapid ventricular response and oral amiodarone. He continues to maintain sinus mechanism. He is seen and examined resting quite comfortably in bed in no acute distress. He denies chest discomfort, palpitations or dizziness. He continues to feel mild shortness of breath and overall congestion. Echocardiogram reveals preserved LV systolic function with ejection fraction 55-60%, moderate tricuspid regurgitation and moderate pulmonary hypertension with an RVSP of 62 mmHg. Laboratory data reviewed, WBC 10.3, hemoglobin 7.6, platelets 35, sodium 134, potassium 3.4, creatinine 0.31. Blood pressure 100/66 heart rate 78 afebrile maintaining oxygen saturation on nasal cannula. Currently maintained on amiod arone 400 mg twice a day and pravastatin 20 mg daily. GENERAL: Well-appearing, well-nourished and in no acute distress. NECK: Supple without JVD or thyromegaly. LUNGS: Scattered rhonchi throughout, trace rales bilaterally and no wheezes. Respiration equal and unlabored. HEART: Regular rate and rhythm with faint systolic ejection murmur at the left sternal border, no rubs or gallops. S1 and S2 heard. Distant heart sounds. EXTREMITIES: Normal range of motion, trace bilateral lower extremity non-pitting edema. No clubbing or cyanosis. Peripheral pulses intact. ASSESSMENT Paroxysmal atrial fibrillation with rapid ventricular response, currently maintaining sinus mechanism. Not a candidate for long-term anticoagulation secondary to severe pancytopenia. Hypertension Dyslipidemia Pancytopenia Sepsis Lung cancer on chemotherapy Pulmonary hypertension, RVSP 62 mmHg PLAN Continue amiodarone 400 mg BID for 1 week. On January 29 decrease to 200 mg BID then February 12 to 200 mg daily. Ongoing medical management. We will continue to follow as needed, please feel free to call with further questions of concerns. Follow up with Dr. Coronado upon discharge. Nurse Practitioner note has been reviewed, I agree with a documented findings and plan of care. Patient was seen and examined. Objective - Vital Signs Vital signs: Vital Signs Temp 97.3 F L 01/24/19 12:20 Pulse 78 01/24/19 12:20 Resp 18 01/24/19 12:20 BP 100/66 01/24/19 12:20 Pulse Ox 99 01/24/19 12:20 Intake & Output 01/23/19 01/24/19 01/24/19 18:59 06:59 18:59 Intake Total 1490 1220 Output Total 360 535 Balance 1130 685 Weight 86.8 kg Intake: IV 320 670 Calcium Gluconate 1 gm In 100 100 Sodium Chloride 0.9% 100 ml @ 100 mls/hr IVPB BID [facility] Rx#:[id number] Cefepime 2 gm In Sodium 100 Chloride 0.9% 100 ml @ 200 mls/hr IVPB Q8HR [facility] Rx#:[id number] Sodium Chloride 0.9% 1, 220 220 000 ml @ 20 mls/hr IV . Q24H [facility] Rx#:[id number] Vancomycin 1,500 mg In 250 Sodium Chloride 0.9% 250 ml @ 125 mls/hr IVPB Q8H [facility] Rx#:[id number] Intake, IV Titration 450 250 Amount Cefepime 2 gm In Sodium 200 Chloride 0.9% 100 ml @ 200 mls/hr IVPB Q8HR [facility] Rx#:[id number] Vancomycin 1,500 mg In 250 250 Sodium Chloride 0.9% 250 ml @ 125 mls/hr IVPB Q8H [facility] Rx#:[id number] Oral 720 300 Output: Urine 360 535 Other: Voiding Method Indwelling Catheter Indwelling Catheter Indwelling Catheter - Labs CBC & Chem 7: 01/24/19 04:32 01/24/19 04:32 Labs: Abnormal Lab Results - Last 24 Hours (Table) 01/23/19 01/23/19 01/24/19 Range/Units 16:02 20:09 04:32 RBC (4.30-5.90) m/uL Hgb (13.0-17.5) gm/dL Hct (39.0-53.0) % RDW (11.5-15.5) % Plt Count (150-450) k/uL Sodium 134 L (137-145) mmol/L Potassium 3.4 L (3.5-5.1) mmol/L Creatinine 0.31 L (0.66-1.25) mg/dL POC Glucose (mg/dL) 193 H 135 H (75-99) mg/dL Calcium 7.1 L (8.4-10.2) mg/dL 01/24/19 01/24/19 Range/Units 04:32 11:49 RBC 2.42 L (4.30-5.90) m/uL Hgb 7.6 L (13.0-17.5) gm/dL Hct 23.8 L (39.0-53.0) % RDW 20.8 H (11.5-15.5) % Plt Count 35 L (150-450) k/uL Sodium (137-145) mmol/L Potassium (3.5-5.1) mmol/L Creatinine (0.66-1.25) mg/dL POC Glucose (mg/dL) 134 H (75-99) mg/dL Calcium (8.4-10.2) mg/dL Microbiology - Last 24 Hours (Table) 01/20/19 02:23 Blood Culture - Preliminary Blood No Growth after 96 hours
--- NOTE | 2019-01-24 14:00 | P.PN ---
Subjective Progress Note Date: 01/24/19 Principal diagnosis: Sepsis In f/u pt continues to have congested cough, yellow sputum production, no fever, nausea, pain. Objective - Vital Signs Vital signs: Vital Signs Temp 97.3 F L 01/24/19 12:20 Pulse 78 01/24/19 12:20 Resp 18 01/24/19 12:20 BP 100/66 01/24/19 12:20 Pulse Ox 99 01/24/19 12:20 Intake & Output 01/23/19 01/24/19 01/24/19 18:59 06:59 18:59 Intake Total 1490 1220 Output Total 360 535 Balance 1130 685 Weight 86.8 kg Intake: IV 320 670 Calcium Gluconate 1 gm In 100 100 Sodium Chloride 0.9% 100 ml @ 100 mls/hr IVPB BID [facility] Rx#:[id number] Cefepime 2 gm In Sodium 100 Chloride 0.9% 100 ml @ 200 mls/hr IVPB Q8HR [facility] Rx#:[id number] Sodium Chloride 0.9% 1, 220 220 000 ml @ 20 mls/hr IV . Q24H [facility] Rx#:[id number] Vancomycin 1,500 mg In 250 Sodium Chloride 0.9% 250 ml @ 125 mls/hr IVPB Q8H [facility] Rx#:[id number] Intake, IV Titration 450 250 Amount Cefepime 2 gm In Sodium 200 Chloride 0.9% 100 ml @ 200 mls/hr IVPB Q8HR [facility] Rx#:[id number] Vancomycin 1,500 mg In 250 250 Sodium Chloride 0.9% 250 ml @ 125 mls/hr IVPB Q8H [facility] Rx#:[id number] Oral 720 300 Output: Urine 360 535 Other: Voiding Method Indwelling Catheter Indwelling Catheter Indwelling Catheter - Constitutional General appearance: Present: average body habitus, cooperative, no acute distress - EENT Eyes: Present: anicteric sclerae, EOMI ENT: Present: hearing grossly normal, normal oropharynx - Respiratory Respiratory: bilateral: rhonchi (anterior chest, not in parenchyma) - Cardiovascular Heart sounds: normal: S1, S2 - Peripheral edema leg Peripheral Edema: bilateral: Trace - Gastrointestinal General gastrointestinal: Present: normal bowel sounds, soft. Absent: absent bowel sounds, decreased bowel sounds, distended, hepatomegaly, hyperactive bowel sounds, organomegaly, rigid, scaphoid, splenomegaly, tenderness, umbilical hernia, ventral hernia - Integumentary Integumentary: Present: normal - Neurologic Neurologic: Present: CNII-XII intact - Musculoskeletal Musculoskeletal: Present: generalized weakness, strength equal bilaterally - Psychiatric Psychiatric: Present: A&O x's 3, appropriate affect, intact judgment & insight - Labs CBC & Chem 7: 01/24/19 04:32 01/24/19 04:32 Labs: Abnormal Lab Results - Last 24 Hours (Table) 01/23/19 01/23/19 01/24/19 Range/Units 16:02 20:09 04:32 RBC (4.30-5.90) m/uL Hgb (13.0-17.5) gm/dL Hct (39.0-53.0) % RDW (11.5-15.5) % Plt Count (150-450) k/uL Sodium 134 L (137-145) mmol/L Potassium 3.4 L (3.5-5.1) mmol/L Creatinine 0.31 L (0.66-1.25) mg/dL POC Glucose (mg/dL) 193 H 135 H (75-99) mg/dL Calcium 7.1 L (8.4-10.2) mg/dL 01/24/19 01/24/19 Range/Units 04:32 11:49 RBC 2.42 L (4.30-5.90) m/uL Hgb 7.6 L (13.0-17.5) gm/dL Hct 23.8 L (39.0-53.0) % RDW 20.8 H (11.5-15.5) % Plt Count 35 L (150-450) k/uL Sodium (137-145) mmol/L Potassium (3.5-5.1) mmol/L Creatinine (0.66-1.25) mg/dL POC Glucose (mg/dL) 134 H (75-99) mg/dL Calcium (8.4-10.2) mg/dL Microbiology - Last 24 Hours (Table) 01/20/19 02:23 Blood Culture - Preliminary Blood No Growth after 96 hours Assessment and Plan (1) Sepsis Narrative/Plan: Infectious Disease is following. Patient did receive G-CSF after completion of chemotherapy, WBC is 10.3 today. Current Visit: Yes Status: Acute Priority: High Code(s): A41.9 - SEPSIS, UNSPECIFIED ORGANISM SNOMED Code(s): 66843284 (2) Pancytopenia due to antineoplastic chemotherapy Narrative/Plan: WBC/ANC recovered, Hgb stable at 7.6, transfusion today. Platelets slightly inc reased to 35,000 today Current Visit: Yes Status: Acute Priority: Medium Code(s): D61.810 - AN TINEOPLASTIC CHEMOTHERAPY INDUCED PANCYTOPENIA; T45.1X5A - ADVERSE EFFECT OF ANTINEOPLASTIC AND IMMUNOSUP DRUGS, INIT SNOMED Code(s): 666214366903916 (3) Metastatic lung cancer (metastasis from lung to other site) Narrative/Plan: Discussed case with Dr. Zaidi. Contacted pt daughter to review case and plans. Discussed same with pt. Due to pt poor tolerance to treatment after 2 cycles plan is to re-stage him 1st with CT scan. If disease is stable or regressed plan is hold treatment, let pt recover then revisit chemo at a reduced dose if so desired by pt. If there is evidence of progressive disease then that indicates the treatments have not been successful. Any 2nd line therapy would carry with it an increased potential for toxicity and decreased potential for durable response. The recommendation would then be for hospice/palliative care. Pt and daughters questions were all answered to their satisfaction and they verbalized understanding the plan. CT CAP ordered, there is a PET from October for some comparison. Await results, f/u in AM. Current Visit: Yes Status: Acute Priority: High Code(s): C34.90 - MALIGNANT NEOPLASM OF UNSP PART OF UNSP BRONCHUS OR LUNG SNOMED Code(s): 82445030 (4) SIADH (syndrome of inappropriate ADH production) Narrative/Plan: Sodium stable, no further intervention at this time Current Visit: No Status: Chronic Priority: Medium Code(s): E22.2 - SYNDROME OF INAPPROPRIATE SECRETION OF ANTIDIURETIC HORMONE SNOMED Code(s): 30015174 Plan: Patient received calcium supplementation. IS to encourage cough and expectoration Time with Patient: Greater than 30 (>35 spent, >50% counseling and coordinating care)
--- NOTE | 2019-01-24 14:44 | P.PN ---
Subjective Progress Note Date: 01/24/19 Principal diagnosis: Septic shock secondary to urinary tract infection with enterococcus faecalis. Mr Ruiz is a pleasant white male, in fairly good health, until about 08/29. A t that time the patient started having lower back pain, which he states is localized actor just below the waist with radiation across the back. Due to persistence, and progression in severity he sought attention with his PCP. He had imaging done of his spine with x-rays, incidentally revealed abnormality in the left lung. He was therefore referred to pulmonary medicine and had a chest x-ray done on 11/03/18, revealing a left midlung mass, and possibly metastatic disease in the left shoulder. He subsequently had a PET scan done on 11/05/18. This showed extensive mediastinal and hilar adenopathy, extensive bone metastasis, hypermetabolic 2.5 cm left adrenal mass, and hypermetabolic central liver mass. A CT-guided needle biopsy that was supposed to call on 11/28/18. 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 Also, he had a history of early stage laryngeal cancer treated with radiation alone by Dr. Romero in 2013. He quit smoking around 2010, prior to which she smoked about half to three fourths of a pack per day During this current admission, this patient came into the emergency room because of progressive back pain, that wasn't detectable. He was also having difficulty with urination. He denied any lower extremity weakness or loss of sensation. The patient had MRI of the lumbar spine, showing diffuse metastatic involvement, but no destruction or cord compression. The patient actually appeared to have significant degenerative disc disease in the lower spine. Started on steroids, and at the time of my exam had noted marked relief in his symptoms. He did have a Alcala placed for urinary retention. Patient's primary oncologist Dr. Zaidi he underwent radiation therapy and after completion of this he was started on carboplatin and POT FLUXER-16 and immune therapy with to centric his last treatment was January 09 through January 12 and he did receive Neulasta. Patient had apparently presented to an outside facility for near syncopal episodes on presentation to that facility was found to have a blood pressure systolic in the 60. He was hypotensive that wasn't improved with IV fluids or pressors therefore he is now being treated at [facility] and under the care of ICU. On today's evaluation of 01/22/2019 the patient is being seen in follow-up in the intensive care unit. Note that the patient's white cell count is improved and it's up to 6.3. The patient still has a component of thrombocytopenia with a platelet count of 21 and the hemoglobin is at 8.2. The patient is looking well. I do not see that the patient is on pressors and upon further inquiry the patient has been off pressors since yesterday. He is producing good urine output. No nausea. No vomiting. No abdominal pain. He has a congested cough and is unable to bring up much sputum. The chest x-ray shows infiltration of the left perihilar and left lower lobe area, however, this could be residual effect from the underlying malignancy. The cultures that were obtained from an outside facility showed pseudomonas aeruginosa and the final cultures sensitivities are still pending for now. Repeat cultures now facility have been negative. He is cardiac rhythm is sinus. He remains on a combination of IV cefepime and Levaquin for now. IV fluids with normal saline at rate of 20 mL an hour. He remains on stress dose hydrocortisone regarding the potential possibility of adrenal insufficiency. No other significant events otherwise for now. Clinically improved compared to yesterday. On today's evaluation of 2018 I'm seeing this patient for a follow-up. The patient is feeling well and he has no specific complaints. Afebrile hemodynamically stable. As mentioned earlier the patient had a pseudomonal septicemia and following that the patient was found to have a Enterococcus faecalis in the urine. ID has made and antibiotics which in place the patient on Unasyn. I'm going to discuss this with ID and see if this is what they really 1 specially with the recent pseudomonal growth in the blood cultures. In any rate, he is doing extremely well. White cell count is at 8. Platelet count of 26. The triple-lumen catheter will be removed from his groin carefully with pressure. The rest of the electrodes are within normal limits. His cough is less congested. No chest pain. No altered mentation. Pain is under good control. We'll discontinue the stress dose hydrocortisone. Is on normal saline at the rate of 20 mL an hour. No other significant events otherwise for now. The patient is seen today 01/24/2019 in follow-up on the regular medical floor. He is currently awake and alert in no acute distress. He is still having ongoing issues with a loose nonproductive cough and shortness of breath. He is maintaining good O2 saturations in the upper 90s on 2 L/m per nasal cannula. Afebrile. Hemodynamically stable. White count 10.3. Hemoglobin 7.6. Platelet count 35,000. Sodium 134. Potassium 3.4. Creatinine 0.31. He is currently on vancomycin and cefepime. He is scheduled for a computed tomography scan of the chest. Based on his ongoing issues he'll be scheduled for bronchoscopy with BAL later today as well. Objective - Vital Signs Vital signs: Vital Signs Temp 97.3 F L 01/24/19 12:20 Pulse 78 01/24/19 12:20 Resp 18 01/24/19 12:20 BP 100/66 01/24/19 12:20 Pulse Ox 99 01/24/19 12:20 Intake & Output 01/23/19 01/24/19 01/24/19 18:59 06:59 18:59 Intake Total 1490 1220 Output Total 360 535 Balance 1130 685 Weight 86.8 kg Intake: IV 320 670 Calcium Gluconate 1 gm In 100 100 Sodium Chloride 0.9% 100 ml @ 100 mls/hr IVPB BID KEL[facility]IN Rx#:[id number] Cefepime 2 gm In Sodium 100 Chloride 0.9% 100 ml @ 200 mls/hr IVPB Q8HR [facility]IN Rx#:[id number] Sodium Chloride 0.9% 1, 220 220 000 ml @ 20 mls/hr IV . Q24H [facility]EL[facility]IN Rx#:[id number] Vancomycin 1,500 mg In 250 Sodium Chloride 0.9% 250 ml @ 125 mls/hr IVPB Q8H [facility]IN Rx#:[id number] Intake, IV Titration 450 250 Amount Cefepime 2 gm In Sodium 200 Chloride 0.9% 100 ml @ 200 mls/hr IVPB Q8HR KEL[facility]IN Rx#:[id number] Vancomycin 1,500 mg In 250 250 Sodium Chloride 0.9% 250 ml @ 125 mls/hr IVPB Q8H [facility]EL[facility]IN Rx#:[id number] Oral 720 300 Output: Urine 360 535 Other: Voiding Method Indwelling Catheter Indwelling Catheter Indwelling Catheter - Exam Gen. appearance, pleasant 73-year-old gentleman, comfortable in no acute distress, on 2 L/m per nasal cannula. Head exam was generally normal. There was no scleral icterus or corneal arcus. Mucous membranes were moist. Neck was supple and without jugular venous distension, thyromegaly, or carotid bruits. Carotids were easily palpable bilaterally. There was no adenopathy. Lungs sounds are diminished and there is scattered rhonchi heard throughout the lung his bilaterally and there are also some left basilar crackles. Cardiac exam revealed the PMI to be normally situated and sized. The rhythm was regular and no extrasystoles were noted during several minutes of auscultation. The first and second heart sounds were normal and physiologic splitting of the second heart sound was noted. There were no murmurs, rubs, clicks, or gallops. Abdominal exam revealed normal bowel sounds. The abdomen was soft, non-tender, and without masses, organomegaly, or appreciable enlargement of the abdominal aorta. Examination of the extremities revealed easily palpable radial, femoral and pedal pulses. There was no cyanosis, clubbing with trace edema in lower extremities bilaterally. The patient has a PICC line in his left upper extremity. The patient also has a right groin triple-lumen catheter in place. Examination of the skin revealed no evidence of significant rashes, suspicious appearing nevi or other concerning lesions. Neurologically the patient is awake and alert and there is no focal neurological deficits. - Labs CBC & Chem 7: 01/24/19 04:32 01/24/19 04:32 Labs: Abnormal Lab Results - Last 24 Hours (Table) 01/23/19 01/23/19 01/24/19 Range/Units 16:02 20:09 04:32 RBC (4.30-5.90) m/uL Hgb (13.0-17.5) gm/dL Hct (39.0-53.0) % RDW (11.5-15.5) % Plt Count (150-450) k/uL Sodium 134 L (137-145) mmol/L Potassium 3.4 L (3.5-5.1) mmol/L Creatinine 0.31 L (0.66-1.25) mg/dL POC Glucose (mg/dL) 193 H 135 H (75-99) mg/dL Calcium 7.1 L (8.4-10.2) mg/dL 01/24/19 01/24/19 Range/Units 04:32 11:49 RBC 2.42 L (4.30-5.90) m/uL Hgb 7.6 L (13.0-17.5) gm/dL Hct 23.8 L (39.0-53.0) % RDW 20.8 H (11.5-15.5) % Plt Count 35 L (150-450) k/uL Sodium (137-145) mmol/L Potassium (3.5-5.1) mmol/L Creatinine (0.66-1.25) mg/dL POC Glucose (mg/dL) 134 H (75-99) mg/dL Calcium (8.4-10.2) mg/dL Microbiology - Last 24 Hours (Table) 01/20/19 02:23 Blood Culture - Preliminary Blood No Growth after 96 hours Assessment and Plan Assessment: Impression: 1 septic shock secondary to pseudomonas aeruginosa. Consider pneumonia. Co nsider underlying urinary tract infection . The urine has grown Enterococcus faecalis. We'll discuss with ID. 2 chemotherapy-induced pancytopenia, improving. The patient's white cell count has normalized. Continues to be anemic and thrombocytopenic 3 acute hypotension secondary to above, improved and the patient is currently off pressors, the patient remains hemodynamically stable 4 metastatic small cell lung cancer post-systemic chemotherapy with a combination of carboplatin and POT FLUXER-16 and immunotherapy 5 COPD 6 sepsis secondary to above, recovered 7 chronic back pain 8 hypertension 9 hyperlipidemia 10 skeletal metastases 11 hyponatremia improved 12 skeletal metastases and the patient received radiation therapy to the spine and the patient is post 2 sessions of systemic chemotherapy with Carboplatin, POT FLUXER-16, Tecentriq and Neulasta on 01.12.19 Plan The patient was seen and evaluated by Dr. Sarah. He is still struggling with a loose nonproductive cough. Still quite congested. We will await findings of the computed tomography scan of the chest. We'll plan for bronchoscopy with BAL later today. Continue vancomycin and cefepime. We'll continue to follow make further recommendations based on his clinical status. I, the cosigning physician, performed a history & physical examination of the patient. Lungs sounds with bilateral scattered rhonchi, and basilar crackles, diminished. Maintaining good O2 saturations in the 90s on 2 L/m per nasal c annula. I discussed the assessment and plan of care with my nurse practitioner, Jaky Arambula. I attest to the above note as dictated by her.
[2019-01-24] MEDS ORDERED: LIDOCAINE 1% INJ 10MG/ML (20 ML MDV) ONE (15:49)
[2019-01-24] MEDS ORDERED: IV FLUID CONTINUATION 200 ML IV ONE (15:49)
[2019-01-24] MEDS ORDERED: MIDAZOLAM 2 MG/2 ML VIAL ONE (15:49)
[2019-01-24] MEDS ORDERED: KETAMINE 10 MG/ML 20 ML VIAL ONE (15:49)
--- NOTE | 2019-01-24 16:00 | P.PN ---
Subjective Progress Note Date: 01/23/19 Patient was admitted the secondary to septic shock which believed to be secondary to pseudomonal pneumonia although patient urine is also being considered as source of infection and it showed enterococcus faecalis infectious disease evaluated the patient patient is presently on vancomycin for enterococcus and cefepime for Pseudomonas. Constitutional: Denied any fatigue denied any fever. Cardio vascular: denied any chest pain, palpitations Gastrointestinal denied any nausea vomiting Pulmonary: Denied any shortness of breath cough Neurologic denied any new focal deficits All inpatient medications were reviewed and appropriate changes in these medications as dictated in the interval history and assessment and plan. Objective - Vital Signs Vital signs: Vital Signs Temp 97.3 F L 01/24/19 12:20 Pulse 78 01/24/19 12:20 Resp 18 01/24/19 12:20 BP 100/66 01/24/19 12:20 Pulse Ox 99 01/24/19 12:20 Intake & Output 01/23/19 01/24/19 01/24/19 18:59 06:59 18:59 Intake Total 1490 1220 Output Total 360 535 Balance 1130 685 Weight 86.8 kg Intake: IV 320 670 Calcium Gluconate 1 gm In 100 100 Sodium Chloride 0.9% 100 ml @ 100 mls/hr IVPB BID [facility]IN Rx#:[id number] Cefepime 2 gm In Sodium 100 Chloride 0.9% 100 ml @ 200 mls/hr IVPB Q8HR [facility] Rx#:[id number] Sodium Chloride 0.9% 1, 220 220 000 ml @ 20 mls/hr IV . Q24H [facility]IN Rx#:[id number] Vancomycin 1,500 mg In 250 Sodium Chloride 0.9% 250 ml @ 125 mls/hr IVPB Q8H [facility] Rx#:[id number] Intake, IV Titration 450 250 Amount Cefepime 2 gm In Sodium 200 Chloride 0.9% 100 ml @ 200 mls/hr IVPB Q8HR [facility]IN Rx#:[id number] Vancomycin 1,500 mg In 250 250 Sodium Chloride 0.9% 250 ml @ 125 mls/hr IVPB Q8H KELVIN Rx#:[id number] Oral 720 300 Output: Urine 360 535 Other: Voiding Method Indwelling Catheter Indwelling Catheter Indwelling Catheter - Exam PHYSICAL EXAMINATION: GENERAL: The patient is alert and oriented x3, not in any acute distress. Well developed, well nourished. HEENT: Pupils are round and equally reacting to light. EOMI. No scleral icterus. No conjunctival pallor. Normocephalic, atraumatic. No pharyngeal erythema. No thyromegaly. CARDIOVASCULAR: S1 and S2 present. No murmurs, rubs, or gallops. PULMONARY: Diffuse rhonchi with decreased air entry into bilateral lung crowder. ABDOMEN: Soft, nontender, nondistended, normoactive bowel sounds. No palpable organomegaly. MUSCULOSKELETAL: No joint swelling or deformity. EXTREMITIES: No cyanosis, clubbing, or pedal edema. NEUROLOGICAL: Gross neurological examination did not reveal any focal deficits. SKIN: No rashes. - Labs CBC & Chem 7: 01/24/19 04:32 01/24/19 04:32 Labs: Abnormal Lab Results - Last 24 Hours (Table) 01/23/19 01/23/19 01/24/19 Range/Units 16:02 20:09 04:32 RBC (4.30-5.90) m/uL Hgb (13.0-17.5) gm/dL Hct (39.0-53.0) % RDW (11.5-15.5) % Plt Count (150-450) k/uL Sodium 134 L (137-145) mmol/L Potassium 3.4 L (3.5-5.1) mmol/L Creatinine 0.31 L (0.66-1.25) mg/dL POC Glucose (mg/dL) 193 H 135 H (75-99) mg/dL Calcium 7.1 L (8.4-10.2) mg/dL 01/24/19 01/24/19 Range/Units 04:32 11:49 RBC 2.42 L (4.30-5.90) m/uL Hgb 7.6 L (13.0-17.5) gm/dL Hct 23.8 L (39.0-53.0) % RDW 20.8 H (11.5-15.5) % Plt Count 35 L (150-450) k/uL Sodium (137-145) mmol/L Potassium (3.5-5.1) mmol/L Creatinine (0.66-1.25) mg/dL POC Glucose (mg/dL) 134 H (75-99) mg/dL Calcium (8.4-10.2) mg/dL Microbiology - Last 24 Hours (Table) 01/20/19 02:23 Blood Culture - Preliminary Blood No Growth after 96 hours Assessment and Plan Plan: -Septic shock shock improved secondary to pneumonia for pseudomonas the surgeon also urinary tract infection cannot be ruled out and patient has enterococcus in the urine for which patient is on vancomycin patient is on cefepime for pseudomonas in the lung -6 pancytopenia improved chemotherapy induced patient has metastatic small cell lung cancer and systemic chemotherapy with combination of carboplatinum 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
--- NOTE | 2019-01-24 16:01 | P.PN ---
Subjective Patient was admitted the secondary to septic shock which believed to be secondary to pseudomonal pneumonia although patient urine is also being consi dered as source of infection and it showed enterococcus faecalis infectious disease evaluated the patient patient is presently on vancomycin for enterococcus and cefepime for Pseudomonas. Heart and 2018 Patient doesn't have any significant improvement in his respiratory status patient is rhonchus breath sounds patient will undergo computed tomography scan of the chest followed by possible bronchoscopy Constitutional: Denied any fatigue denied any fever. Cardio vascular: denied any chest pain, palpitations Gastrointestinal denied any nausea vomiting Pulmonary: Denied any shortness of breath cough Neurologic denied any new focal deficits All inpatient medications were reviewed and appropriate changes in these medications as dictated in the interval history and assessment and plan. Objective - Vital Signs Vital signs: Vital Signs Temp 97.3 F L 01/24/19 12:20 Pulse 78 01/24/19 12:20 Resp 18 01/24/19 12:20 BP 100/66 01/24/19 12:20 Pulse Ox 99 01/24/19 12:20 Intake & Output 01/23/19 01/24/19 01/24/19 18:59 06:59 18:59 Intake Total 1490 1220 Output Total 360 535 Balance 1130 685 Weight 86.8 kg Intake: IV 320 670 Calcium Gluconate 1 gm In 100 100 Sodium Chloride 0.9% 100 ml @ 100 mls/hr IVPB BID [facility] Rx#:[id number] Cefepime 2 gm In Sodium 100 Chloride 0.9% 100 ml @ 200 mls/hr IVPB Q8HR [facility] Rx#:[id number] Sodium Chloride 0.9% 1, 220 220 000 ml @ 20 mls/hr IV . Q24H [facility] Rx#:[id number] Vancomycin 1,500 mg In 250 Sodium Chloride 0.9% 250 ml @ 125 mls/hr IVPB Q8H [facility] Rx#:[id number] Intake, IV Titration 450 250 Amount Cefepime 2 gm In Sodium 200 Chloride 0.9% 100 ml @ 200 mls/hr IVPB Q8HR [facility] Rx#:[id number] Vancomycin 1,500 mg In 250 250 Sodium Chloride 0.9% 250 ml @ 125 mls/hr IVPB Q8H [facility]IN Rx#:[id number] Oral 720 300 Output: Urine 360 535 Other: Voiding Method Indwelling Catheter Indwelling Catheter Indwelling Catheter - Exam PHYSICAL EXAMINATION: GENERAL: The patient is alert and oriented x3, not in any acute distress. Well developed, well nourished. HEENT: Pupils are round and equally reacting to light. EOMI. No scleral icterus. No conjunctival pallor. Normocephalic, atraumatic. No pharyngeal erythema. No thyromegaly. CARDIOVASCULAR: S1 and S2 present. No murmurs, rubs, or gallops. PULMONARY: Diffuse rhonchi with decreased air entry into bilateral lung crowder. ABDOMEN: Soft, nontender, nondistended, normoactive bowel sounds. No palpable organomegaly. MUSCULOSKELETAL: No joint swelling or deformity. EXTREMITIES: No cyanosis, clubbing, or pedal edema. NEUROLOGICAL: Gross neurological examination did not reveal any focal deficits. SKIN: No rashes. - Labs CBC & Chem 7: 01/24/19 04:32 01/24/19 04:32 Labs: Abnormal Lab Results - Last 24 Hours (Table) 01/23/19 01/23/19 01/24/19 Range/Units 16:02 20:09 04:32 RBC (4.30-5.90) m/uL Hgb (13.0-17.5) gm/dL Hct (39.0-53.0) % RDW (11.5-15.5) % Plt Count (150-450) k/uL Sodium 134 L (137-145) mmol/L Potassium 3.4 L (3.5-5.1) mmol/L Creatinine 0.31 L (0.66-1.25) mg/dL POC Glucose (mg/dL) 193 H 135 H (75-99) mg/dL Calcium 7.1 L (8.4-10.2) mg/dL 01/24/19 01/24/19 Range/Units 04:32 11:49 RBC 2.42 L (4.30-5.90) m/uL Hgb 7.6 L (13.0-17.5) gm/dL Hct 23.8 L (39.0-53.0) % RDW 20.8 H (11.5-15.5) % Plt Count 35 L (150-450) k/uL Sodium (137-145) mmol/L Potassium (3.5-5.1) mmol/L Creatinine (0.66-1.25) mg/dL POC Glucose (mg/dL) 134 H (75-99) mg/dL Calcium (8.4-10.2) mg/dL Microbiology - Last 24 Hours (Table) 01/20/19 02:23 Blood Culture - Preliminary Blood No Growth after 96 hours Assessment and Plan Plan: -Septic shock shock improved secondary to pneumonia for pseudomonas the surgeon also urinary tract infection cannot be ruled out and patient has enterococcus in the urine for which patient is on vancomycin patient is on cefepime for pse udomonas in the lung, patient will undergo therapeutic bronchoscopy along with computed tomography study. -6 pancytopenia improved chemotherapy induced patient has metastatic small cell lung cancer and systemic chemotherapy with combination of carboplatinum RX SPECIALIST-16 and immunotherapy -COPD with mild acute exacerbation -Chronic low back pain 9 hypertension -Hyperlipidemia -Hyponatremia hypovolemic hyponatremia improved with IV fluids -Metastatic small lung Cell lung cancer
[2019-01-24] MEDS ORDERED: LIDOCAINE 2% INJ 20 MG/ML INTRATRACH ONE (16:02)
--- NOTE | 2019-01-24 16:16 | P.PCN ---
Date of Procedure: 01/24/19 Preoperative Diagnosis: pseudomonal pneumonia, small cell lung cancer Postoperative Diagnosis: pseudomonal pneumonia, small cell lung cancer Procedure(s) Performed: Flexible bronchoscopy, therapeutic airway suctioning Anesthesia: NAVEED Surgeon: Ladonna Sarah Pathology: other Condition: stable Disposition: floor Operative Findings: This procedure was done and the endoscopy suite. The patient was having considerable amount of shortness of breath and mucous plugging and he was unable to bring up any respiratory secretions. He was diagnosed having a pseudomonal pneumonia. For that reason a flexible bronchoscopy was done with the purpose of doing a therapeutic it was suctioning This procedure was done in the endoscopy suite. This was done under conscious sedation. After achieving adequate sedation, the flexible bronchoscope was inserted to the left nostril was advanced into the upper airway. Examination of the posterior oropharynx, larynx, epiglottis, arytenoids, vocal cords were all within normal limits.. This is a 1% lidocaine was applied to the vocal cords and following that the bronchoscope was advanced into the upper trachea. Examination focused bronchial tree was done and there was copious amount of thick purulent respiratory secretions were found in the mid in the lower trachea and in the bilateral mainstem bronchi. Therapeutic it was suctioning was done and total of 30 mL of purulent that he was aspirated from the patient's lungs without any major difficulties. In fact the secretions were quite thick and purulent. Underlying bronchial records and was quite inflamed and erythematous especially on the left side and especially in the secondary joy the to the left upper lobe and the left lower lobe. A quick airway inspection was done and there was inspected including the mid and the lower trachea, bilateral mainstem bronchi, right upper abdomen right lower lobe, left upper and left lower lobe bronchialsegments and right patent. There was some that of the left upper lobe bronchus yet no endobronchial tumors were visualized. After doing a particular suctioning, the patient started having some mucosal bleeding and the surface of the airways probably slightly trauma induced by the bronchoscope. The patient has underlying thrombocytopenia. Amount of bleeding was minimal and it was less than 5 mL, and at this point, the bronchoscope was removed and the procedure was terminated and the patient was transferred to recovery stable condition. With chest and back to his room once fully awake.
[2019-01-24 16:46] LABS: Glucose,Whole Blood 88 mg/dL (75-99)
[2019-01-24] MEDS ORDERED: VANCOMYCIN TROUGH DUE 1 EACH MISC MISCELLANE ONE (18:00)
[2019-01-24 18:24] LABS: Appearance,BF Cloudy; Color,BF Colorless
[2019-01-24 18:49] LABS: Nucleated Cells, Body Fluid 3600 /uL; RBC, Body Fluid 900 /uL
[2019-01-24 18:53] LABS: Mononuclear WBC,Body Fluid 35 %; Polynuclear WBC,Body Fluid 65 %; Total Cells Counted,Body Fluid 100
[2019-01-24 21:42] LABS: Glucose,Whole Blood 113 mg/dL (75-99)
[2019-01-24] MEDS: PRAVASTATIN SODIUM 20 MG TAB PO SCH (22:13)
[2019-01-24] MEDS: SODIUM CHLORIDE 0.9% 1,000 ML IV SCH (22:22)
--- NOTE | 2019-01-24 22:36 | P.PN ---
Subjective Progress Note Date: 01/24/19 73-year-old male who was actually doing quite well until approximately 5 months ago which point in time he started to develop some lower back pain. It progressed relatively quickly and constantly he sought some care. If her some initial evaluations imaging revealed evidence of metastatic lesions within his spine counseling workup then ensued. Imaging of his chest revealed evidence of the lung lesion as well as an adrenal mass. Is also lesions in the liver and multiple lesions within the skeleton especially the spine. After the guided lung biopsy revealed evidence of the small cell carcinoma he did have one session of radiation to his spine but then started developing increasing diff iculties from the metastatic disease. Hyponatremia and other metabolic abnormalities occurred and he was then initiated to his multimodal chemotherapy. He received 2 cycles of this and has received Neulasta. The patient now presents to hospital with fever and generalized malaise and progressive fatigue. He has been receiving therapy in the facility to try to improve his strength but is having great difficulties. Of great significance is that while the patient has been ill and trying to proceed with this treatment his suddenly became ill and she passed. This is approximately 3 weeks ago and the patient is immediately distraught when he relives this situation. Fortunately he has se veral children who appeared to be very significant in his life and provide great support. At presentation he had hypotension and elevated lactic acid with evidence of sepsis and was admitted to the intensive care unit. With fluid resuscitation he has had improvement in his status no longer requiring vasopressor therapy. 01/23/2019 patient has had improvement and will be moved out of the intensive Care unit today. he is feeling considerably better without other new acute complaint. He has less short of breath but is mobilizing with a large amountof secretions. 01/24/2019 patient deftly feels better today. He is now out of the intensive care unit he is less short of breath he's had a bronchoscopy today. He relates after bronchoscopy his chest feels considerably better with much less secretion. He is a bit sleepy but has no complaints Objective - Vital Signs Vital signs: Vital Signs Temp 97.4 F L 01/24/19 21:00 Pulse 80 01/24/19 21:00 Resp 16 01/24/19 21:00 BP 104/65 01/24/19 21:00 Pulse Ox 97 01/24/19 21:00 Intake & Output 0801/24/19 01/25/19 06:59 18:59 06:59 Intake Total 1220 100 Output Total 535 1000 Balance 685 -900 Weight 86.8 kg Intake: IV 670 100 Calcium Gluconate 1 gm In 100 Sodium Chloride 0.9% 100 ml @ 100 mls/hr IVPB BID [facility] Rx#:[id number] Cefepime 2 gm In Sodium 100 Chloride 0.9% 100 ml @ 200 mls/hr IVPB Q8HR [facility] Rx#:[id number] Sodium Chloride 0.9% 1, 220 000 ml @ 20 mls/hr IV . Q24H [facility] Rx#:[id number] Vancomycin 1,500 mg In 250 Sodium Chloride 0.9% 250 ml @ 125 mls/hr IVPB Q8H [facility] Rx#:[id number] Intake, IV Titration 250 Amount Vancomycin 1,500 mg In 250 Sodium Chloride 0.9% 250 ml @ 125 mls/hr IVPB Q8H [facility] Rx#:[id number] Oral 300 Output: Urine 535 1000 Other: Voiding Method Indwelling Catheter Indwelling Catheter - Exam 73 -year-old male who relates has lost more than 40 pounds with his illness HEENT: Anicteric conjunctiva are pink and moist nasal mucosa grossly intact without significant lesions, there is no thrush. Neck: The neck is supple without significant lymphadenopathy or thyromegaly. Lungs: Symmetrical air entry with few crackles at the bases expiratory wheezes are scattered no significant bronchial sounds Heart: Regular rate and rhythm with an audible S1-S2, no S3 no S4. There is no significant murmur click or rub, PMI was nondisplaced. Abdomen: Positive bowel sounds soft and nontender without palpable masses or organomegaly. There was no guarding or rebound. Extremities: The upper extremities have excellent pulses they are symmetric, no significant petechiae or telangiectasia. No splinter hemorrhages were noted. The lower extremities are free from significant edema. The peripheral pulses were 2+ and symmetric. Evidence of some muscular wasting Neuro: Awake alert oriented to person place and time. There are no acute new gross focal sensory motor deficits. - Labs CBC & Chem 7: 01/24/19 04:32 01/24/19 04:32 Labs: Abnormal Lab Results - Last 24 Hours (Table) 01/24/19 01/24/19 01/24/19 Range/Units 04:32 04:32 11:49 RBC 2.42 L (4.30-5.90) m/uL Hgb 7.6 L (13.0-17.5) gm/dL Hct 23.8 L (39.0-53.0) % RDW 20.8 H (11.5-15.5) % Plt Count 35 L (150-450) k/uL Sodium 134 L (137-145) mmol/L Potassium 3.4 L (3.5-5.1) mmol/L Creatinine 0.31 L (0.66-1.25) mg/dL POC Glucose (mg/dL) 134 H (75-99) mg/dL Calcium 7.1 L (8.4-10.2) mg/dL 01/24/19 Range/Units 21:41 RBC (4.30-5.90) m/uL Hgb (13.0-17.5) gm/dL Hct (39.0-53.0) % RDW (11.5-15.5) % Plt Count (150-450) k/uL Sodium (137-145) mmol/L Potassium (3.5-5.1) mmol/L Creatinine (0.66-1.25) mg/dL POC Glucose (mg/dL) 113 H (75-99) mg/dL Calcium (8.4-10.2) mg/dL Microbiology - Last 24 Hours (Table) 01/20/19 02:23 Blood Culture - Preliminary Blood No Growth after 96 hours Laboratory Results WBC 10.3 k/uL (3.8-10.6) 01/24/19 04:32 RBC 2.42 m/uL (4.30-5.90) L 01/24/19 04:32 Hgb 7.6 gm/dL (13.0-17.5) L 01/24/19 04:32 Hct 23.8 % (39.0-53.0) L 01/24/19 04:32 MCV 98.2 fL (80.0-100.0) 01/24/19 04:32 MCH 31.4 pg (25.0-35.0) 01/24/19 04:32 MCHC 32.0 g/dL (31.0-37.0) 01/24/19 04:32 RDW 20.8 % (11.5-15.5) H 01/24/19 04:32 Plt Count 35 k/uL (150-450) L 01/24/19 04:32 Neutrophils % 91 % 01/23/19 04:27 Neutrophils % (Manual) 50 % 01/22/19 04:10 Band Neutrophils % 46 % 01/22/19 04:10 Lymphocytes % 3 % 01/23/19 04:27 Lymphocytes % (Manual) 1 % 01/22/19 04:10 Monocytes % 4 % 01/23/19 04:27 Monocytes % (Manual) 3 % 01/22/19 04:10 Eosinophils % 0 % 01/23/19 04:27 Basophils % 0 % 01/23/19 04:27 Metamyelocytes % 1 % 01/22/19 04:10 Neutrophils # 7.3 k/uL (1.3-7.7) 01/23/19 04:27 Neutrophils # (Manual) 6.00 k/uL (1.3-7.7) 01/22/19 04:10 Lymphocytes # 0.3 k/uL (1.0-4.8) L 01/23/19 04:27 Lymphocytes # (Manual) 0.06 k/uL (1.0-4.8) L 01/22/19 04:10 Monocytes # 0.3 k/uL (0-1.0) 01/23/19 04:27 Monocytes # (Manual) 0.19 k/uL (0-1.0) 01/22/19 04:10 Eosinophils # 0.0 k/uL (0-0.7) 01/23/19 04:27 Basophils # 0.0 k/uL (0-0.2) 01/23/19 04:27 Metamyelocytes # (Man) 0.06 k/uL (0) H 01/22/19 04:10 Nucleated RBCs 0 /100 WBC (0-0) 01/22/19 04:10 Manual Slide Review Performed 01/22/19 04:10 Toxic Granulation Present 01/22/19 04:10 Polychromasia Present 01/21/19 04:11 Poikilocytosis (manual Present 01/21/19 04:11 Anisocytosis Moderate 01/24/19 04:32 Macrocytosis Moderate 01/24/19 04:32 PT 13.7 sec (9.0-12.0) H 01/20/19 02:23 INR 1.3 (<1.2) H 01/20/19 02:23 APTT 35.5 sec (22.0-30.0) H 01/20/19 02:23 Sodium 134 mmol/L (137-145) L 01/24/19 04:32 Potassium 3.4 mmol/L (3.5-5.1) L 01/24/19 04:32 Chloride 105 mmol/L (98-107) 01/24/19 04:32 Carbon Dioxide 24 mmol/L (22-30) 01/24/19 04:32 Anion Gap 5 mmol/L 01/24/19 04:32 BUN 17 mg/dL (9-20) 01/24/19 04:32 Creatinine 0.31 mg/dL (0.66-1.25) L 01/24/19 04:32 Est GFR (CKD-EPI)AfAm >90 (>60 ml/min/1.73 sqM) 01/24/19 04:32 Est GFR (CKD-EPI)NonAf >90 (>60 ml/min/1.73 sqM) 01/24/19 04:32 Glucose 90 mg/dL (74-99) 01/24/19 04:32 POC Glucose (mg/dL) 113 mg/dL (75-99) H 01/24/19 21:41 POC Glu [employer] T[employer] Ayanna Lanza 01/24/19 21:41 Lactic Ac Sepsis Rflx Y 01/20/19 06:51 Plasma Lactic Acid Osbaldo 1.3 mmol/L (0.7-2.0) 01/20/19 09:55 Calcium 7.1 mg/dL (8.4-10.2) L 01/24/19 04:32 Ionized Calcium Erin 4.6 mg/dL (4.5-5.3) 01/22/19 04:10 Phosphorus 3.4 mg/dL (2.5-4.5) 01/20/19 06:25 Magnesium 2.4 mg/dL (1.6-2.3) H 01/21/19 12:55 Total Bilirubin 0.7 mg/dL (0.2-1.3) 01/20/19 06:25 AST 38 U/L (17-59) 01/20/19 06:25 ALT 74 U/L (21-72) H 01/20/19 06:25 Alkaline Phosphatase 56 U/L (38-126) 01/20/19 06:25 Total Protein 4.2 g/dL (6.3-8.2) L 01/20/19 06:25 Albumin 2.3 g/dL (3.5-5.0) L 01/20/19 06:25 TSH 3.460 mIU/L (0.465-4.680) 01/20/19 06:25 Cortisol 42 ug/dL 01/20/19 17:45 Urine Color Yellow 01/20/19 10:45 Urine Appearance Cloudy (Clear) 01/20/19 10:45 Urine pH 5.5 (5.0-8.0) 01/20/19 10:45 Ur Specific [place] 1.017 (1.001-1.035) 01/20/19 10:45 Urine Protein 1+ (Negative) H 01/20/19 10:45 Urine Glucose (UA) Negative (Negative) 01/20/19 10:45 Urine Ketones Negative (Negative) 01/20/19 10:45 Urine Blood Moderate (Negative) H 01/20/19 10:45 Urine Nitrite Positive (Negative) 01/20/19 10:45 Urine Bilirubin Negative (Negative) 01/20/19 10:45 Urine Urobilinogen <2.0 mg/dL (<2.0) 01/20/19 10:45 Ur Leukocyte Esterase Large (Negative) H 01/20/19 10:45 Urine RBC 18 /hpf (0-5) H 01/20/19 10:45 Urine WBC 68 /hpf (0-5) H 01/20/19 10:45 Urine WBC Clumps Occasional /hpf (None) H 01/20/19 10:45 Urine Bacteria Few /hpf (None) H 01/20/19 10:45 Urine Mucus Rare /hpf (None) H 01/20/19 10:45 Fluid Source Bronchial Wash 01/24/19 16:05 Fluid Color Colorless 01/24/19 16:05 Fluid Appearance Cloudy 01/24/19 16:05 Fluid RBC 900 /uL 01/24/19 16:05 Fluid Nucleated Cells 3600 /uL 01/24/19 16:05 Fluid Polynuclear WBCs 65 % 01/24/19 16:05 Fluid Mononuclear WBCs 35 % 01/24/19 16:05 Microbiology 01/20/19 02:23 Blood Blood Culture - Preliminary No Growth after 96 hours 01/20/19 10:45 Urine,Voided Urine Culture - Final Enterococcus faecalis Assessment and Plan (1) Metastatic lung cancer (metastasis from lung to other site) Current Visit: Yes Status: Acute Priority: High Code(s): C34.90 - MALIGNANT NEOPLASM OF UNSP PART OF UNSP BRONCHUS OR LUNG SNOMED Code(s): 89808885 (2) Pancytopenia due to antineoplastic chemotherapy Current Visit: Yes Status: Acute Priority: Medium Code(s): D61.810 - ANTINEOPLASTIC CHEMOTHERAPY INDUCED PANCYTOPENIA; T45.1X5A - ADVERSE EFFECT OF ANTINEOPLASTIC AND IMMUNOSUP DRUGS, INIT SNOMED Code(s): 273504177240809 (3) SIADH (syndrome of inappropriate ADH production) Current Visit: No Status: Chronic Priority: Medium Code(s): E22.2 - SYNDROME OF INAPPROPRIATE SECRETION OF ANTIDIURETIC HORMONE SNOMED Code(s): 00146753 (4) Sepsis Narrative/Plan: 73 -year-old male who has a 5 month history of progressive disease related to his 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 He did have some limited radiation therapy which has helped some the severe pain into his spine. Now presents with evidence of high-grade fever chills hypotension and with pancytopenia. With his febrile neutropenia antibiotic therapy is prudent and Zosyn will be transitioned to cefepime, should have less impact on his thrombocytopenia and piperacillin will. Cultures are process and await further data from the other hospital is to the blood culture and significance of the pathogen. He has been seen by his oncology team and he has received Neulasta and further growth factors are not being utilized at this time however red blood cell and platelet transfusions as indicated. Fortunately with fluid resuscitation the patient has had some improvement of his hypotension from his sepsis that may have a pulmonary source. With concerns to adrenal insufficiency hydrocortisone has been initiated Nutritional supplements are requested Mucinex requested to help him mobilize his secretions and continue with respiratory treatments. The patient is consoled and given access to resources given the recent loss of his . 01/23/2019 the patient shows further improvement. He daughter has hypotension after his fluid resuscitation, hydrocortisone and antibiotics. Urine culture has been finalizes Enterococcus faecalis and subsequently penicillin based regiment is requested. However outside laboratory no reveals evidence of his blood culture being positive for pseudomonas aeruginosa. Given his ongoing significant thrombocytopenia piperacillin to be avoided and consequently antibiotic therapy with cefepime and vancomycin be utilized for the current isolate a pathogens. Await the final susceptibilities from the blood culture for further evaluation. Neutropenia is resolved. He is being followed by his oncology team as far as her needs for any further transfusions. 01/24/2019 patient is evidence of pseudomonas aeruginosa bacteremia and enterococcus faecalis urinary tract infection. With the thrombocytopenia related to his recent chemotherapy vancomycin and cefepime are being utilized for the treatment of the current sepsis. He seems to be tolerating this well. Leukopenia is improving. Continues to have anemia and thrombocytopenia with transfusions being managed by the oncology team. Current Visit: Yes Status: Acute Priority: High Code(s): A41.9 - SEPSIS, UNSPECIFIED ORGANISM SNOMED Code(s): 85628910
[2019-01-25] MEDS ORDERED: VANCOMYCIN TROUGH DUE 1 EACH MISC MISCELLANE ONE (02:00)
[2019-01-25 03:08] LABS: African American GFR (CKD) >90 (>60 ml/min/1.73 sqM)
[2019-01-25] MEDS: VANCOMYCIN 1,500 MG in SODIUM CHLORIDE 0.9% 250 ML IVPB SCH ×3 (03:21→18:48)
[2019-01-25] MEDS: HYDROcodone/APAP 7.5-325MG 1 EACH TAB PO PRN ×4 (03:22→23:53)
[2019-01-25] MEDS: LEVOTHYROXINE 25 MCG TAB PO SCH (06:05)
[2019-01-25 07:09] LABS: Glucose,Whole Blood 83 mg/dL (75-99)
[2019-01-25] MEDS: IPRATROPIUM-ALBUTEROL 3 ML NEB INHALATION SCH ×4 (08:51→19:50)
[2019-01-25] MEDS: INSULIN ASPART (NovoLOG) 100 UNIT/ML VIAL SQ SCH ×4 (09:08→21:20)
--- NOTE | 2019-01-25 09:11 | CT ---
EXAMINATION TYPE: CT ChestAbdPelvis w con DATE OF EXAM: 01/24/2019 COMPARISON: PET scan dated 11/04/2018 HISTORY: mets CT DLP: 1903.5 mGycm Automated exposure control for dose reduction was used. CONTRAST: CT scan of the chest, abdomen and pelvis is performed with Oral Contrast and with IV Contrast, patien t injected with 100 mL of Isovue 300. FINDINGS: CT chest: Redemonstration of left hilar mass with extension into the suprahilar and infrahilar regions measurin g approximately 2.1 x 6.6 x 4.5 cm in AP by transverse by craniocaudad dimension. There is extension superiorly within the AP window and prevascular space and inferiorly along the left upper and lower l obe segmental and subsegmental bronchi. There is moderate narrowing of the bronchi with occlusion of a few subsegmental bronchi and atelectasis in the left lower lobe. Development of moderate left multi loculated pleural fluid. Increasing size of subcarinal and peritracheal lymph nodes with the subcarinal lymph node measuring 1 .3 cm and the pretracheal lymph node measuring 1.3 cm. Development of reticular nodular and interstit ial groundglass opacities within the anterior and lateral right upper and middle lobes. There is also a small right pleural effusion. There is a new nodule in the left lower lobe measuring up to 1.0 cm and best seen on axial image 34. Stable cardiomegaly and trace pericardial effusion. Abdomen and pelvis: LIVER/GB: Focal area of enhancement seen within the anterior medial left lobe of liver measuring 0.9 cm and best seen on image 49. There are also ill-defined hypoattenuating lesion seen in the inferior aspect of the left lobe of the liver on coronal imaging 24 favored to represent hypermetabolic lesion on the PET scan. Otherwise, liver and gallbladder appear normal. PANCREAS: No significant abnormality is seen. SPLEEN: No significant abnormality is seen. ADRENALS: Redemonstration of nodularity within the bilateral adrenal glands with the right nodule mic suring 0.7 cm and left nodule measuring up to 2.0 cm. KIDNEYS: Symmetric perfusion of bilateral kidneys. Left-sided parapelvic cysts. Small cyst in the ant erior aspect of the left midpole measuring 1.3 cm. BOWEL: Right-sided colonic stool retention. Small amount of ascitic fluid seen along the right side of abdomen tracking within the right paracolic gutter. REPRODUCTIVE ORGANS: No gross abnormality seen. LYMPH NODES: No greater than 1 cm abdominal or pelvic lymph nodes are appreciated. OSSEOUS STRUCTURES: Previously described hypermetabolic osseous lesions are not clearly identified, b ut there are a few lytic areas seen in the lumbar spine. No acute compression deformity. OTHER: Diffuse anasarca. IMPRESSION: Worsening metastatic disease with development of left-sided loculated pleural effusion, n ew left lower lobe pulmonary nodule, increasing size of mediastinal lymph nodes and bilateral adrenal gland nodules. Osseous lesions are difficult to identify on CT and bone scan or PET scan may be obta ined for further evaluation. Consolidative groundglass and reticular nodular changes throughout the right lung may be related to p ostradiation treatment, metastatic disease or pneumonic infiltrate.
[2019-01-25] MEDS: PANTOPRAZOLE 40 MG/10 ML VIAL IVP SCH ×2 (09:12→21:06)
[2019-01-25] MEDS: AMIODARONE 200 MG TAB PO SCH ×2 (09:13→21:05)
[2019-01-25] MEDS: guaiFENesin 600 MG TABLET.ER PO SCH ×2 (09:13→21:06)
[2019-01-25] MEDS: TAMSULOSIN 0.4 MG CAP.ER.24H PO SCH (09:13)
[2019-01-25] MEDS: DOCUSATE 100 MG CAP PO SCH ×2 (09:13→21:05)
[2019-01-25] MEDS: MULTIVITAMINS, THERA 1 EACH TAB PO SCH (09:13)
[2019-01-25] MEDS: CALCIUM GLUCONATE 1 GM in SODIUM CHLORIDE 0.9% 100 ML IVPB SCH ×2 (09:16→21:06)
[2019-01-25] MEDS: ALPRAZolam 0.25 MG TAB PO PRN ×2 (09:26→21:05)
[2019-01-25] MEDS: NYSTATIN 100,000 UNIT/ML SUSP 500,000 UNIT/5 ML CUP PO SCH ×4 (09:50→21:06)
[2019-01-25] MEDS: CEFEPIME 2 GM in SODIUM CHLORIDE 0.9% 100 ML IVPB SCH ×3 (11:18→23:53)
--- NOTE | 2019-01-25 11:36 | P.PN ---
Subjective Progress Note Date: 01/25/19 Principal diagnosis: Sepsis. Metastatic SCLC In f/u pt had a broncholith extraction of thick secretions and mucus, his breathing is a little less labored and a little more comfortable but he continues to have congestion, sputum continues to be difficult to expectorate, no fever, nausea, or pain to report. Objective - Vital Signs Vital signs: Vital Signs Temp 97.4 F L 01/25/19 05:00 Pulse 90 01/25/19 08:54 Resp 16 01/25/19 05:00 BP 104/69 01/25/19 05:00 Pulse Ox 98 01/25/19 05:00 Intake & Output 01/24/19 01/25/19 01/25/19 18:59 06:59 18:59 Intake Total 100 1100 Output Total 1000 700 Balance -900 400 Intake: IV 100 510 Calcium Gluconate 1 gm In 100 Sodium Chloride 0.9% 100 ml @ 100 mls/hr IVPB BID [facility] Rx#:[id number] Sodium Chloride 0.9% 1, 160 000 ml @ 20 mls/hr IV . Q24H [facility] Rx#:[id number] Vancomycin 1,500 mg In 250 Sodium Chloride 0.9% 250 ml @ 125 mls/hr IVPB Q8H [facility] Rx#:[id number] Oral 590 Output: Urine 1000 700 Other: Voiding Method Indwelling Catheter Indwelling Catheter - Constitutional General appearance: Present: cooperative, mild distress, thin - EENT Eyes: Present: anicteric sclerae, EOMI ENT: Present: hearing grossly normal - Respiratory Respiratory: bilateral: rhonchi (slightly better today) - Cardiovascular Heart sounds: normal: S1, S2 Abnormal Heart Sounds: Present: systolic murmur. Absent: diastolic murmur, rub, S3 Gallop, S4 Gallop, click, other - Peripheral edema leg Peripheral Edema: bilateral: Trace - Gastrointestinal General gastrointestinal: Present: normal bowel sounds, soft - Neurologic Neurologic: Present: CNII-XII intact - Musculoskeletal Musculoskeletal: Present: generalized weakness - Psychiatric Psychiatric Comment(s): Patient localizes increased stress and frustration with his medical condition. He wants me to speak to his daughter. Psychiatric: Present: A&O x's 3, appropriate affect, intact judgment & insight - Labs CBC & Chem 7: 01/24/19 04:32 08/15/19 02:41 Labs: Abnormal Lab Results - Last 24 Hours (Table) 01/24/19 01/24/19 01/25/19 Range/Units 11:49 21:41 02:41 Creatinine 0.25 L (0.66-1.25) mg/dL POC Glucose (mg/dL) 134 H 113 H (75-99) mg/dL Microbiology - Last 24 Hours (Table) 01/24/19 16:05 Gram Stain - Preliminary Bronchial Washings - Random Bronchial Washings Culture - Preliminary 01/20/19 02:23 Blood Culture - Preliminary Blood No Growth after 120 hours - Imaging and Cardiology CT scan - abdomen: report reviewed CT scan - chest: report reviewed CT scan - pelvis: report reviewed Assessment and Plan (1) Sepsis Narrative/Plan: Infectious Disease is following. Patient did receive G-CSF after completion of chemotherapy, WBC is 10.3 today. Continue treatment for UTI Current Visit: Yes Status: Acute Priority: High Code(s): A41.9 - SEPSIS, UNSPECIFIED ORGANISM SNOMED Code(s): 42942907 (2) Pancytopenia due to antineoplastic chemotherapy Narrative/Plan: Previous CBCs indicative of recovery from chemo, no CBC was done today Current Visit: Yes Status: Acute Priority: Medium Code(s): D61.810 - ANTINEOPLASTIC CHEMOTHERAPY INDUCED PANCYTOPENIA; T45.1X5A - ADVERSE EFFECT OF ANTINEOPLASTIC AND IMMUNOSUP DRUGS, INIT SNOMED Code(s): 330060094008962 (3) Metastatic lung cancer (metastasis from lung to other site) Narrative/Plan: Reviewed CT of the chest abdomen and pelvis that was compared to patient's staging PET scan. Areas of known disease are described as being increased in s ize, there are a few new lung nodules and pleural effusion. Patient is status post 2 cycles of treatment so, determining if this is actual progression on treatment versus a pseudo-progression (atezolizumab, PD-1/PD-L1 inhibitor) is not able to be determined absolutely. This was discussed with the patient as well as his daughter. True response to therapy is going to best be determined by patient's recovery/lack of over the next few weeks. We discussed palliative care with a follow-up with Dr. Zaidi in 3 weeks if patient performance status continued to improve. If performance status continues to decline or, if patient decides he does not want treatment, then transition to hospice is the appropriate course of action. All of the patient and his daughter's questions were answered to the best of my ability. Case discussed with social work/case management for transition to ECF under palliative care. Current Visit: Yes Status: Acute Priority: High Code(s): C34.90 - MALIGNANT NEOPLASM OF UNSP PART OF UNSP BRONCHUS OR LUNG SNOMED Code(s): 04103563 (4) SIADH (syndrome of inappropriate ADH production) Current Visit: No Status: Chronic Priority: Medium Code(s): E22.2 - SYNDROME OF INAPPROPRIATE SECRETION OF ANTIDIURETIC HORMONE SNOMED Code(s): 57513384
[2019-01-25 11:57] LABS: Glucose,Whole Blood 128 mg/dL (75-99)
--- NOTE | 2019-01-25 15:12 | P.PN ---
Subjective Progress Note Date: 01/25/19 Principal diagnosis: Septic shock secondary to urinary tract infection with enterococcus faecalis. Mr Ruiz is a pleasant white male, in fairly good health, until about 08/29. A t that time the patient started having lower back pain, which he states is localized actor just below the waist with radiation across the back. Due to persistence, and progression in severity he sought attention with his PCP. He had imaging done of his spine with x-rays, incidentally revealed abnormality in the left lung. He was therefore referred to pulmonary medicine and had a chest x-ray done on 11/03/18, revealing a left midlung mass, and possibly metastatic disease in the left shoulder. He subsequently had a PET scan done on 11/05/18. This showed extensive mediastinal and hilar adenopathy, extensive bone metastasis, hypermetabolic 2.5 cm left adrenal mass, and hypermetabolic central liver mass. A CT-guided needle biopsy that was supposed to call on 11/28/18. 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 Also, he had a history of early stage laryngeal cancer treated with radiation alone by Dr. Romero in 2013. He quit smoking around 2010, prior to which she smoked about half to three fourths of a pack per day During this current admission, this patient came into the emergency room because of progressive back pain, that wasn't detectable. He was also having difficulty with urination. He denied any lower extremity weakness or loss of sensation. The patient had MRI of the lumbar spine, showing diffuse metastatic involvement, but no destruction or cord compression. The patient actually appeared to have significant degenerative disc disease in the lower spine. Started on steroids, and at the time of my exam had noted marked relief in his symptoms. He did have a Alcala placed for urinary retention. Patient's primary oncologist Dr. Zaidi he underwent radiation therapy and after completion of this he was started on carboplatin and LOAN AND CREDIT MANAGER-16 and immune therapy with to centric his last treatment was January 09 through January 12 and he did receive Neulasta. Patient had apparently presented to an outside facility for near syncopal episodes on presentation to that facility was found to have a blood pressure systolic in the 60. He was hypotensive that wasn't improved with IV fluids or pressors therefore he is now being treated at [facility] and under the care of ICU. On today's evaluation of 01/22/2019 the patient is being seen in follow-up in the intensive care unit. Note that the patient's white cell count is improved and it's up to 6.3. The patient still has a component of thrombocytopenia with a platelet count of 21 and the hemoglobin is at 8.2. The patient is looking well. I do not see that the patient is on pressors and upon further inquiry the patient has been off pressors since yesterday. He is producing good urine output. No nausea. No vomiting. No abdominal pain. He has a congested cough and is unable to bring up much sputum. The chest x-ray shows infiltration of the left perihilar and left lower lobe area, however, this could be residual effect from the underlying malignancy. The cultures that were obtained from an outside facility showed pseudomonas aeruginosa and the final cultures sensitivities are still pending for now. Repeat cultures now facility have been negative. He is cardiac rhythm is sinus. He remains on a combination of IV cefepime and Levaquin for now. IV fluids with normal saline at rate of 20 mL an hour. He remains on stress dose hydrocortisone regarding the potential possibility of adrenal insufficiency. No other significant events otherwise for now. Clinically improved compared to yesterday. On today's evaluation of 2018 I'm seeing this patient for a follow-up. The patient is feeling well and he has no specific complaints. Afebrile hemodynamically stable. As mentioned earlier the patient had a pseudomonal septicemia and following that the patient was found to have a Enterococcus faecalis in the urine. ID has made and antibiotics which in place the patient on Unasyn. I'm going to discuss this with ID and see if this is what they really 1 specially with the recent pseudomonal growth in the blood cultures. In any rate, he is doing extremely well. White cell count is at 8. Platelet count of 26. The triple-lumen catheter will be removed from his groin carefully with pressure. The rest of the electrodes are within normal limits. His cough is less congested. No chest pain. No altered mentation. Pain is under good control. We'll discontinue the stress dose hydrocortisone. Is on normal saline at the rate of 20 mL an hour. No other significant events otherwise for now. The patient is seen today 01/24/2019 in follow-up on the regular medical floor. He is currently awake and alert in no acute distress. He is still having ongoing issues with a loose nonproductive cough and shortness of breath. He is maintaining good O2 saturations in the upper 90s on 2 L/m per nasal cannula. Afebrile. Hemodynamically stable. White count 10.3. Hemoglobin 7.6. Platelet count 35,000. Sodium 134. Potassium 3.4. Creatinine 0.31. He is currently on vancomycin and cefepime. He is scheduled for a computed tomography scan of the chest. Based on his ongoing issues he'll be scheduled for bronchoscopy with BAL later today as well. The patient is seen today 01/25/2018 in follow-up on the regular medical floor. He is awake and alert in no acute distress. He is resting fairly comfortably in bed. He still continues with a loose productive cough. He did undergo bronchoscopy with BAL yesterday with Dr. Sarah. Cultures are pending. He is maintaining good O2 saturations in the upper 90s on 3 L/m per nasal cannula. He's been afebrile. Hemodynamically stable. Creatinine 0.25. Vancomycin trough 16.2. He remains on vancomycin and cefepime for now. Continued on bronchodilators and Mucinex. Continued on flutter valve and incentive spirometer. Objective - Vital Signs Vital signs: Vital Signs Temp 97.9 F 01/25/19 12:02 Pulse 102 H 01/25/19 13:01 Resp 18 01/25/19 12:02 BP 102/66 01/25/19 12:02 Pulse Ox 96 01/25/19 12:02 Intake & Output 01/24/19 01/25/19 01/25/19 18:59 06:59 18:59 Intake Total 100 1100 Output Total 1000 700 Balance -900 400 Intake: IV 100 510 Calcium Gluconate 1 gm In 100 Sodium Chloride 0.9% 100 ml @ 100 mls/hr IVPB BID KELVIN Rx#:[id number] Sodium Chloride 0.9% 1, 160 000 ml @ 20 mls/hr IV . Q24H KELVIN Rx#:[id number] Vancomycin 1,500 mg In 250 Sodium Chloride 0.9% 250 ml @ 125 mls/hr IVPB Q8H KELVIN Rx#:[id number] Oral 590 Output: Urine 1000 700 Other: Voiding Method Indwelling Catheter Indwelling Catheter - Exam Gen. appearance, A pleasant 73-year-old gentleman, comfortable in no acute distress, on 3 L/m per nasal cannula. Head exam was generally normal. There was no scleral icterus or corneal arcus. Mucous membranes were moist. Neck was supple and without jugular venous distension, thyromegaly, or carotid bruits. Carotids were easily palpable bilaterally. There was no adenopathy. Lungs sounds are diminished and there is scattered rhonchi heard throughout the lung his bilaterally and there are also some left basilar crackles. Cardiac exam revealed the PMI to be normally situated and sized. The rhythm was regular and no extrasystoles were noted during several minutes of auscultation. The first and second heart sounds were normal and physiologic splitting of the second heart sound was noted. There were no murmurs, rubs, clicks, or gallops. Abdominal exam revealed normal bowel sounds. The abdomen was soft, non-tender, and without masses, organomegaly, or appreciable enlargement of the abdominal aorta. Examination of the extremities revealed easily palpable radial, femoral and pedal pulses. There was no cyanosis, clubbing with trace edema in lower extremities bilaterally. The patient has a PICC line in his left upper extremity. The patient also has a right groin triple-lumen catheter in place. Examination of the skin revealed no evidence of significant rashes, suspicious appearing nevi or other concerning lesions. Neurologically the patient is awake and alert and there is no focal neurological deficits. - Labs CBC & Chem 7: 01/24/19 04:32 01/25/19 02:41 Labs: Abnormal Lab Results - Last 24 Hours (Table) 01/24/19 01/25/19 01/25/19 Range/Units 21:41 02:41 11:52 Creatinine 0.25 L (0.66-1.25) mg/dL POC Glucose (mg/dL) 113 H 128 H (75-99) mg/dL Microbiology - Last 24 Hours (Table) 01/24/19 16:05 Gram Stain - Preliminary Bronchial Washings - Random Bronchial Washings Culture - Preliminary 01/20/19 02:23 Blood Culture - Preliminary Blood No Growth after 120 hours Assessment and Plan Assessment: Impression: 1 septic shock secondary to pseudomonas aeruginosa. Consider pneumonia. Consider underlying urinary tract infection . The urine has grown Enterococcus faecalis. We'll discuss with ID. currently on vancomycin and cefepime. He did undergo bronchoscopy with BAL. Cultures are pending. 2 chemotherapy-induced pancytopenia, improving. The patient's white cell count has normalized. Continues to be anemic and thrombocytopenic 3 acute hypotension secondary to above, improved and the patient is currently off pressors, the patient remains hemodynamically stable 4 metastatic small cell lung cancer post-systemic chemotherapy with a combinat ion of carboplatin and LOAN AND CREDIT MANAGER-16 and immunotherapy 5 COPD 6 sepsis secondary to above, recovered 7 chronic back pain 8 hypertension 9 hyperlipidemia 10 skeletal metastases 11 hyponatremia improved 12 skeletal metastases and the patient received radiation therapy to the spine and the patient is post 2 sessions of systemic chemotherapy with Carboplatin, LOAN AND CREDIT MANAGER-16, Tecentriq and Neulasta on 19 Plan The patient was seen and evaluated by Dr. Sarah. He is improved today as compared to yesterday. He did undergo bronchoscopy with BAL with a significant amount of thick copious secretions removed. Cultures are pending. Continue vancomycin and cefepime. We'll continue to follow make further recommendations based on his clinical status. I, the cosigning physician, performed a history & physical examination of the patient. Lungs sounds with bilateral scattered rhonchi, and basilar crackles, diminished. Maintaining good O2 saturations in the 90s on 3 L/m per nasal c annula. I discussed the assessment and plan of care with my nurse practitioner, Jaky Arambula. I attest to the above note as dictated by her.
--- NOTE | 2019-01-25 16:08 | P.PN ---
Subjective Patient was admitted the secondary to septic shock which believed to be secondary to pseudomonal pneumonia although patient urine is also being consi dered as source of infection and it showed enterococcus faecalis infectious disease evaluated the patient patient is presently on vancomycin for enterococcus and cefepime for Pseudomonas. 01/24/2019 Patient doesn't have any significant improvement in his respiratory status patient is rhonchus breath sounds patient will undergo computed tomography scan of the chest followed by possible bronchoscopy 01/25/2019 Patient is status post bronchoscopy today still rhonchus breath sounds some improvement in his respiratory status Constitutional: Denied any fatigue denied any fever. Cardio vascular: denied any chest pain, palpitations Gastrointestinal denied any nausea vomiting Pulmonary: Denied any shortness of breath cough Neurologic denied any new focal deficits All inpatient medications were reviewed and appropriate changes in these medications as dictated in the interval history and assessment and plan. Objective - Vital Signs Vital signs: Vital Signs Temp 97.9 F 01/25/19 12:02 Pulse 102 H 01/25/19 13:01 Resp 18 01/25/19 12:02 BP 102/66 01/25/19 12:02 Pulse Ox 96 01/25/19 12:02 Intake & Output 01/24/19 01/25/19 01/25/19 18:59 06:59 18:59 Intake Total 100 1100 Output Total 1000 700 Balance -900 400 Intake: IV 100 510 Calcium Gluconate 1 gm In 100 Sodium Chloride 0.9% 100 ml @ 100 mls/hr IVPB BID KELVIN Rx#:[id number] Sodium Chloride 0.9% 1, 160 000 ml @ 20 mls/hr IV . Q24H KELVIN Rx#:[id number] Vancomycin 1,500 mg In 250 Sodium Chloride 0.9% 250 ml @ 125 mls/hr IVPB Q8H KELVIN Rx#:[id number] Oral 590 Output: Urine 1000 700 Other: Voiding Method Indwelling Catheter Indwelling Catheter - Exam PHYSICAL EXAMINATION: GENERAL: The patient is alert and oriented x3, not in any acute distress. Well developed, well nourished. HEENT: Pupils are round and equally reacting to light. EOMI. No scleral icterus. No conjunctival pallor. Normocephalic, atraumatic. No pharyngeal erythema. No thyromegaly. CARDIOVASCULAR: S1 and S2 present. No murmurs, rubs, or gallops. PULMONARY: Diffuse rhonchi with decreased air entry into bilateral lung crowder. ABDOMEN: Soft, nontender, nondistended, normoactive bowel sounds. No palpable organomegaly. MUSCULOSKELETAL: No joint swelling or deformity. EXTREMITIES: No cyanosis, clubbing, or pedal edema. NEUROLOGICAL: Gross neurological examination did not reveal any focal deficits. SKIN: No rashes. - Labs CBC & Chem 7: 01/24/19 04:32 01/25/19 02:41 Labs: Abnormal Lab Results - Last 24 Hours (Table) 01/24/19 01/25/19 01/25/19 Range/Units 21:41 02:41 11:52 Creatinine 0.25 L (0.66-1.25) mg/dL POC Glucose (mg/dL) 113 H 128 H (75-99) mg/dL Microbiology - Last 24 Hours (Table) 01/24/19 16:05 Gram Stain - Preliminary Bronchial Washings - Random Bronchial Washings Culture - Preliminary 01/20/19 02:23 Blood Culture - Preliminary Blood No Growth after 120 hours Assessment and Plan Plan: -Septic shock shock improved secondary to pneumonia for pseudomonas the surgeon also urinary tract infection cannot be ruled out and patient has enterococcus in the urine for which patient is on vancomycin patient is on cefepime for pseudomonas in the lung, patient had therapeutic bronchoscopy , computed tomography yesterday showed worsening metastatic disease -pancytopenia improved chemotherapy induced patient has metastatic small cell lung cancer and systemic chemotherapy with combination of carboplatinum TYPE BAR AND SEGMENT ASSEMBLER-16 and immunotherapy -COPD with mild acute exacerbation -Chronic low back pain 9 hypertension -Hyperlipidemia -Hyponatremia hypovolemic hyponatremia improved with IV fluids -Metastatic small lung Cell lung cancer
[2019-01-25 16:54] LABS: Glucose,Whole Blood 129 mg/dL (75-99)
[2019-01-25 20:04] LABS: Glucose,Whole Blood 164 mg/dL (75-99)
[2019-01-25] MEDS: PRAVASTATIN SODIUM 20 MG TAB PO SCH (21:06)
[2019-01-26] MEDS: VANCOMYCIN 1,500 MG in SODIUM CHLORIDE 0.9% 250 ML IVPB SCH ×4 (02:47→23:39)
[2019-01-26] MEDS: ALPRAZolam 0.25 MG TAB PO PRN ×4 (02:47→20:46)
[2019-01-26] MEDS: SODIUM CHLORIDE 0.9% 1,000 ML IV SCH ×2 (02:48→23:40)
[2019-01-26] MEDS: HYDROcodone/APAP 7.5-325MG 1 EACH TAB PO PRN ×3 (05:52→20:46)
[2019-01-26] MEDS: LEVOTHYROXINE 25 MCG TAB PO SCH (05:52)
[2019-01-26 07:25] LABS: Glucose,Whole Blood 84 mg/dL (75-99)
[2019-01-26] MEDS: INSULIN ASPART (NovoLOG) 100 UNIT/ML VIAL SQ SCH ×4 (07:43→20:54)
[2019-01-26] MEDS: DOCUSATE 100 MG CAP PO SCH ×2 (07:51→20:41)
[2019-01-26] MEDS: AMIODARONE 200 MG TAB PO SCH ×2 (07:51→20:46)
[2019-01-26] MEDS: guaiFENesin 600 MG TABLET.ER PO SCH ×2 (07:51→20:41)
[2019-01-26] MEDS: MULTIVITAMINS, THERA 1 EACH TAB PO SCH (07:51)
[2019-01-26] MEDS: PANTOPRAZOLE 40 MG/10 ML VIAL IVP SCH ×2 (07:52→20:42)
[2019-01-26] MEDS: CEFEPIME 2 GM in SODIUM CHLORIDE 0.9% 100 ML IVPB SCH ×3 (07:52→23:39)
[2019-01-26] MEDS: TAMSULOSIN 0.4 MG CAP.ER.24H PO SCH (07:52)
[2019-01-26] MEDS: NYSTATIN 100,000 UNIT/ML SUSP 500,000 UNIT/5 ML CUP PO SCH ×4 (07:53→22:26)
[2019-01-26] MEDS: IPRATROPIUM-ALBUTEROL 3 ML NEB INHALATION SCH ×4 (08:49→21:42)
[2019-01-26] MEDS: CALCIUM GLUCONATE 1 GM in SODIUM CHLORIDE 0.9% 100 ML IVPB SCH ×2 (09:00→20:41)
[2019-01-26 10:11] LABS: Anisocytosis Moderate; HCT 23.4 % (39.0-53.0); HGB 7.7 gm/dL (13.0-17.5); MCH 31.9 pg (25.0-35.0); MCV 96.8 fL (80.0-100.0); Macrocytosis Moderate; Mean Platelet Volume 8.6; Platelet Count 72 k/uL (150-450); RBC 2.42 m/uL (4.30-5.90); RDW 20.9 % (11.5-15.5)
[2019-01-26 10:17] LABS: African American GFR (CKD) >90 (>60 ml/min/1.73 sqM); Anion Gap 2 mmol/L; Blood Urea Nitrogen 12 mg/dL (9-20); Calcium 7.5 mg/dL (8.4-10.2); Carbon Dioxide 32 mmol/L (22-30); Chloride 98 mmol/L (98-107); Glucose 91 mg/dL (74-99); Potassium 3.5 mmol/L (3.5-5.1); Sodium 132 mmol/L (137-145)
[2019-01-26 11:44] LABS: Glucose,Whole Blood 148 mg/dL (75-99)
[2019-01-26 13:31] VITALS: BMI 26.6
--- NOTE | 2019-01-26 17:38 | P.PN ---
Subjective Patient was admitted the secondary to septic shock which believed to be secondary to pseudomonal pneumonia although patient urine is also being consi dered as source of infection and it showed enterococcus faecalis infectious disease evaluated the patient patient is presently on vancomycin for enterococcus and cefepime for Pseudomonas. 01/24/2019 Patient doesn't have any significant improvement in his respiratory status patient is rhonchus breath sounds patient will undergo computed tomography scan of the chest followed by possible bronchoscopy 01/25/2019 Patient is status post bronchoscopy today still rhonchus breath sounds some improvement in his respiratory status 01/26/2019 Had a A lengthy discussion with the family today because of progression of lung cancer after discussion with Dr. Zaidi their oncologist family decided on this c an he addition of chemotherapy and the hospice. Hospice services consultation. Constitutional: Denied any fatigue denied any fever. Cardio vascular: denied any chest pain, palpitations Gastrointestinal denied any nausea vomiting Pulmonary: Denied any shortness of breath cough Neurologic denied any new focal deficits All inpatient medications were reviewed and appropriate changes in these medicat ions as dictated in the interval history and assessment and plan. Objective - Vital Signs Vital signs: Vital Signs Temp 97.6 F 01/26/19 05:00 Pulse 88 01/26/19 16:50 Resp 20 01/26/19 16:00 BP 118/76 01/26/19 05:00 Pulse Ox 98 01/26/19 08:51 Intake & Output 01/25/19 01/26/19 01/26/19 18:59 06:59 18:59 Intake Total 2590 1110 1870 Output Total 1200 400 400 Balance 2007 660 8897 Weight 86.8 kg Intake: IV 670 510 670 Calcium Gluconate 1 gm In 100 100 100 Sodium Chloride 0.9% 100 ml @ 100 mls/hr IVPB BID KELVIN Rx#:[id number] Cefepime 2 gm In Sodium 200 100 200 Chloride 0.9% 100 ml @ 200 mls/hr IVPB Q8HR KELVIN Rx#:[id number] Sodium Chloride 0.9% 1, 120 60 120 000 ml @ 20 mls/hr IV . Q24H KELVIN Rx#:[id number] Vancomycin 1,500 mg In 250 250 250 Sodium Chloride 0.9% 250 ml @ 125 mls/hr IVPB Q8H KELVIN Rx#:[id number] Oral [id number] Output: Urine 1200 400 400 Other: Voiding Method Indwelling Catheter Indwelling Catheter Indwelling Catheter - Exam PHYSICAL EXAMINATION: GENERAL: The patient is alert and oriented x3, Well developed, well nourished. His is still in respiratory distress mild HEENT: Pupils are round and equally reacting to light. EOMI. No scleral icterus. No conjunctival pallor. Normocephalic, atraumatic. No pharyngeal erythema. No thyromegaly. CARDIOVASCULAR: S1 and S2 present. No murmurs, rubs, or gallops. PULMONARY: Diffuse rhonchi with decreased air entry into bilateral lung crowder. ABDOMEN: Soft, nontender, nondistended, normoactive bowel sounds. No palpable organomegaly. MUSCULOSKELETAL: No joint swelling or deformity. EXTREMITIES: No cyanosis, clubbing, or pedal edema. NEUROLOGICAL: Gross neurological examination did not reveal any focal deficits. SKIN: No rashes. - Labs CBC & Chem 7: 01/26/19 09:52 01/26/19 09:52 Labs: Abnormal Lab Results - Last 24 Hours (Table) 01/25/19 01/26/19 01/26/19 Range/Units 20:02 09:52 09:52 WBC 15.0 H (3.8-10.6) k/uL RBC 2.42 L (4.30-5.90) m/uL Hgb 7.7 L (13.0-17.5) gm/dL Hct 23.4 L (39.0-53.0) % RDW 20.9 H (11.5-15.5) % Plt Count 72 L D (150-450) k/uL Sodium 132 L (137-145) mmol/L Carbon Dioxide 32 H (22-30) mmol/L Creatinine 0.36 L (0.66-1.25) mg/dL POC Glucose (mg/dL) 164 H (75-99) mg/dL Calcium 7.5 L (8.4-10.2) mg/dL 01/26/19 Range/Units 11:40 WBC (3.8-10.6) k/uL RBC (4.30-5.90) m/uL Hgb (13.0-17.5) gm/dL Hct (39.0-53.0) % RDW (11.5-15.5) % Plt Count (150-450) k/uL Sodium (137-145) mmol/L Carbon Dioxide (22-30) mmol/L Creatinine (0.66-1.25) mg/dL POC Glucose (mg/dL) 148 H (75-99) mg/dL Calcium (8.4-10.2) mg/dL Microbiology - Last 24 Hours (Table) 01/24/19 16:05 Gram Stain - Final Bronchial Washings - Random Bronchial Washings Culture - Final Corynebacterium striatum 01/20/19 02:23 Blood Culture - Final Blood No Growth after 144 hours Assessment and Plan Plan: -Septic shock shock improved secondary to pneumonia for pseudomonas the surgeon also urinary tract infection cannot be ruled out and patient has enterococcus in the urine for which patient is on vancomycin patient is on cefepime for pseudomonas in the lung, patient had therapeutic bronchoscopy , computed tomography yesterday showed worsening metastatic disease -pancytopenia improved chemotherapy induced patient has metastatic small cell lung cancer and systemic chemotherapy with combination of carboplatinum NETWORK SUPPORT-16 and immunotherapy -COPD with mild acute exacerbation -Chronic low back pain 9 hypertension -Hyperlipidemia -Hyponatremia hypovolemic hyponatremia improved with IV fluids -Metastatic small lung Cell lung cancer Family is planning on hospice and comfort care patient will be started on comfort measures.
[2019-01-26] MEDS ORDERED: LORazepam 2 MG/ML INJ IV PRN (17:48)
[2019-01-26 17:50] LABS: Glucose,Whole Blood 118 mg/dL (75-99)
[2019-01-26 20:18] LABS: Glucose,Whole Blood 161 mg/dL (75-99)
[2019-01-26] MEDS: PRAVASTATIN SODIUM 20 MG TAB PO SCH (20:41)
[2019-01-26] MEDS: MORPHINE SULFATE 4 MG/ML SYRINGE IVP PRN (22:23)
[2019-01-27] MEDS: LEVOTHYROXINE 25 MCG TAB PO SCH (04:53)
[2019-01-27] MEDS: MORPHINE SULFATE 4 MG/ML SYRINGE IVP PRN ×3 (04:53→13:39)
[2019-01-27 04:56] VITALS: TEMP 97.4
[2019-01-27] MEDS: HYDROcodone/APAP 7.5-325MG 1 EACH TAB PO PRN (06:05)
[2019-01-27 07:05] LABS: Glucose,Whole Blood 94 mg/dL (75-99)
[2019-01-27] MEDS: INSULIN ASPART (NovoLOG) 100 UNIT/ML VIAL SQ SCH ×2 (08:41→12:49)
[2019-01-27] MEDS: CEFEPIME 2 GM in SODIUM CHLORIDE 0.9% 100 ML IVPB SCH (08:42)
[2019-01-27] MEDS: DOCUSATE 100 MG CAP PO SCH (08:42)
[2019-01-27] MEDS: AMIODARONE 200 MG TAB PO SCH (08:42)
[2019-01-27] MEDS: PANTOPRAZOLE 40 MG/10 ML VIAL IVP SCH (08:42)
[2019-01-27] MEDS: NYSTATIN 100,000 UNIT/ML SUSP 500,000 UNIT/5 ML CUP PO SCH ×2 (08:42→12:49)
[2019-01-27] MEDS: guaiFENesin 600 MG TABLET.ER PO SCH (08:42)
[2019-01-27] MEDS: TAMSULOSIN 0.4 MG CAP.ER.24H PO SCH (08:43)
[2019-01-27] MEDS: ALPRAZolam 0.25 MG TAB PO PRN ×2 (08:43→15:37)
[2019-01-27] MEDS: IPRATROPIUM-ALBUTEROL 3 ML NEB INHALATION SCH ×3 (09:00→15:59)
[2019-01-27] MEDS: CALCIUM GLUCONATE 1 GM in SODIUM CHLORIDE 0.9% 100 ML IVPB SCH (09:44)
[2019-01-27 11:16] LABS: Glucose,Whole Blood 149 mg/dL (75-99)
[2019-01-27 11:39] VITALS: BP 95/62; RESP 20
[2019-01-27 12:25] VITALS: PULSE 92
[2019-01-27] MEDS: VANCOMYCIN 1,500 MG in SODIUM CHLORIDE 0.9% 250 ML IVPB SCH (12:48)
[2019-01-27] MEDS: MULTIVITAMINS, THERA 1 EACH TAB PO SCH (12:48)
[2019-01-27] MEDS ORDERED: FUROSEMIDE 10 MG/ML 4 ML VIAL IV STA (13:43)
--- NOTE | 2019-01-27 14:39 | P.DS ---
Providers Date of admission: 01/20/19 04:06 Attending physician: Yaima Rahman Consults: 01/20/19 04:31 Consult Physician Stat Consulting Provider: Fadi Darnell Consult Reason/Comments: ICU mgmt Do you want consulting provider notified?: Already Contacted Consult Physician Stat Consulting Provider: Merlene Zaidi Consult Reason/Comments: established patient Do you want consulting provider notified?: Yes, Notify in am 01/20/19 19:56 Consult Physician Stat Consulting Provider: Reed Coronado Consult Reason/Comments: New A-Fib Do you want consulting provider notified?: Already Contacted 01/21/19 09:08 Consult Physician Routine Consulting Provider: Jonh Barrera Consult Reason/Comments: Positive Blood Cultures Do you want consulting provider notified?: Yes Primary care physician: Stated None Hospital Course: Patient was admitted the secondary to septic shock which believed to be secondary to pseudomonal pneumonia although patient urine is also being considered as source of infection and it showed enterococcus faecalis infectious disease evaluated the patient patient is presently on vancomycin for enterococcus and cefepime for Pseudomonas. 01/24/2019 Patient doesn't have any significant improvement in his respiratory status patient is rhonchus breath sounds patient will undergo computed tomography scan of the chest followed by possible bronchoscopy 01/25/2019 Patient is status post bronchoscopy today still rhonchus breath sounds some improvement in his respiratory status 01/26/2019 Had a A lengthy discussion with the family today because of progression of lung cancer after discussion with Dr. Zaidi their oncologist family decided on this can he addition of chemotherapy and the hospice. Hospice services consultation. 01/27/2019 Patient will be discharged today to or downward under hospice care patient is which are of breath will give him a dose of Lasix before he is discharged and also a dose of morphine.PHYSICAL EXAMINATION: GENERAL: The patient is alert and oriented x3, Well developed, well nourished. His is still in respiratory distress mild HEENT: Pupils are round and equally reacting to light. EOMI. No scleral icterus. No conjunctival pallor. Normocephalic, atraumatic. No pharyngeal erythema. No thyromegaly. CARDIOVASCULAR: S1 and S2 present. No murmurs, rubs, or gallops. PULMONARY: Diffuse rhonchi with decreased air entry into bilateral lung crowder. ABDOMEN: Soft, nontender, nondistended, normoactive bowel sounds. No palpable organomegaly. MUSCULOSKELETAL: No joint swelling or deformity. EXTREMITIES: No cyanosis, clubbing, or pedal edema. NEUROLOGICAL: Gross neurological examination did not reveal any focal deficits. SKIN: No rashes. Assessment and Plan Plan: -Septic shock shock improved secondary to pneumonia for pseudomonas possible urinary tract infection that cannot be cannot be ruled out and patient has enterococcus in the urine for which patient is on vancomycin patient is on cefe pime for pseudomonas in the lung, patient had therapeutic bronchoscopy , computed tomography yesterday showed worsening metastatic disease, recent antibiotics are being discontinued patient will be discharged today to facility with hospice -pancytopenia improved chemotherapy induced patient has metastatic small cell lung cancer and systemic chemotherapy with combination of carboplatinum HOT BREAD BAKER-16 and immunotherapy, no more chemotherapy -COPD with mild acute exacerbation -Chronic low back pain hypertension -Hyperlipidemia -Hyponatremia hypovolemic hyponatremia improved with IV fluids, 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 -Metastatic small lung Cell lung cancer Patient Condition at Discharge: Poor Plan - Discharge Summary Discharge Rx Participant: Yes New Discharge Prescriptions: New Amiodarone [Cordarone] 200 mg PO BID tab Ipratropium-Albuterol Nebulize [Duoneb 0.5 mg-3 mg/3 ml Soln] 3 ml INHALATION RT-QID PRN ampul.neb PRN Reason: Shortness Of Breath Or Wheezing Nystatin 100,000 Unit/ml Susp [Mycostatin Oral Susp] 500,000 unit PO QID #30 cup MORPHINE ORAL NEFTALY CONC 20mg/mL [Roxanol Oral Soln Conc 20MG/ML] 10 mg PO Q4H PRN 10 Days #30 ml PRN Reason: Pain ALPRAZolam [Xanax] 0.25 mg PO Q4H PRN #20 tab PRN Reason: Anxiety Continue Pravastatin Sodium [Pravachol] 20 mg PO HS Omeprazole [PriLOSEC] 20 mg PO AC-BRKFST Tamsulosin HCl [Flomax] 0.4 mg PO DAILY Docusate [Colace] 100 mg PO BID #60 cap Albuterol Sulfate [Proair Hfa] 2 puff INHALATION Q6HR PRN PRN Reason: Shortness Of Breath HYDROcodone/APAP 7.5-325MG [[place] 7.5-325] 1 tab PO Q6H PRN #30 tab PRN Reason: Pain Discontinued Lisinopril [Zestril] 10 mg PO DAILY Levothyroxine Sodium [Synthroid] 25 mcg PO DAILY Discharge Medication List Omeprazole [PriLOSEC] 20 mg PO AC-BRKFST 11/08/18 [History] Pravastatin Sodium [Pravachol] 20 mg PO HS 11/08/18 [History] Tamsulosin HCl [Flomax] 0.4 mg PO DAILY 12/01/18 [History] Docusate [Colace] 100 mg PO BID #60 cap 12/05/18 [Rx] Albuterol Sulfate [Proair Hfa] 2 puff INHALATION Q6HR PRN 01/20/19 [History] ALPRAZolam [Xanax] 0.25 mg PO Q4H PRN #20 tab 01/27/19 [Rx] Amiodarone [Cordarone] 200 mg PO BID tab 01/27/19 [Rx] HYDROcodone/APAP 7.5-325MG [[place] 7.5-325] 1 tab PO Q6H PRN #30 tab 01/27/19 [Rx] Ipratropium-Albuterol Nebulize [Duoneb 0.5 mg-3 mg/3 ml Soln] 3 ml INHALATION RT-QID PRN ampul.neb 01/27/19 [Rx] MORPHINE ORAL NEFTALY CONC 20mg/mL [Roxanol Oral Soln Conc 20MG/ML] 10 mg PO Q4H PRN 10 Days #30 ml 01/27/19 [Rx] Nystatin 100,000 Unit/ml Susp [Mycostatin Oral Susp] 500,000 unit PO QID #30 cup 01/27/19 [Rx] Follow up Appointment(s)/Referral(s): Jerad Womack, [NON-STAFF] - 1 Week None,Stated [Primary Care Provider] - 1-2 days Merlene Zaidi MD [STAFF PHYSICIAN] - 02/26/19 2:45 pm Discharge Disposition: [facility] TO [facility]
[2019-01-29] MEDS ORDERED: AMIODARONE 200 MG TAB PO SCH (09:00)
== END 2019-01-27 16:00 | disposition hospice, inpatient (51) | DRG 853 ==
LOC: EC 00:44 → 2SICU 04:06 → 3NMEDONC 01-24 05:57
PROVIDERS: ADMIT Hospitalist; ATTEND Hospitalist
PROC: 0B9M8ZX Drainage of Bilateral Lungs, Via Natural or Artificial Opening Endoscopic, Diagnostic (ICD-10-PCS; principal; 2019-01-24 15:00)
DX: A41.52 Sepsis due to Pseudomonas (principal); D61.810 Antineoplastic chemotherapy induced pancytopenia; J15.1 Pneumonia due to Pseudomonas; R65.21 Severe sepsis with septic shock; C34.90 Malignant neoplasm of unspecified part of unspecified bronchus or lung; C78.7 Secondary malignant neoplasm of liver and intrahepatic bile duct; C79.51 Secondary malignant neoplasm of bone; E22.2 Syndrome of inappropriate secretion of antidiuretic hormone; E27.40 Unspecified adrenocortical insufficiency; E87.2 Acidosis; J44.0 Chronic obstructive pulmonary disease with (acute) lower respiratory infection; J44.1 Chronic obstructive pulmonary disease with (acute) exacerbation; J90 Pleural effusion, not elsewhere classified; N39.0 Urinary tract infection, site not specified; B95.2 Enterococcus as the cause of diseases classified elsewhere; D69.59 Other secondary thrombocytopenia; E03.9 Hypothyroidism, unspecified; E78.5 Hyperlipidemia, unspecified; E83.51 Hypocalcemia; E86.1 Hypovolemia; E87.6 Hypokalemia; G89.29 Other chronic pain; Z51.5 Encounter for palliative care; I07.1 Rheumatic tricuspid insufficiency; I10 Essential (primary) hypertension; I27.20 Pulmonary hypertension, unspecified; I48.0 Paroxysmal atrial fibrillation; N40.1 Benign prostatic hyperplasia with lower urinary tract symptoms; T45.1X5A Adverse effect of antineoplastic and immunosuppressive drugs, initial encounter; Y95 Nosocomial condition; Z79.890 Hormone replacement therapy; Z79.899 Other long term (current) drug therapy; Z85.21 Personal history of malignant neoplasm of larynx; Z87.891 Personal history of nicotine dependence; Z92.3 Personal history of irradiation; Z79.891 Long term (current) use of opiate analgesic
CPT/HCPCS: 31624; 36415; 71045; 71260; 74177; 80048; 80051; 80053; 80202; 81001; 82330; 82533; 82565; 83605; 83735; 84100; 84132; 84443; 85025; 85027; 85610; 85730; 87040; 87070; 87077; 87086; 87186; 87205; 88108; 88305; 89050; 93005; 93306; 94640; 94667; 94668; 94760; 96365; 96366; 96374; 99291